=== PATIENT | male | born 1965 | race Caucasian/White ===

== ENCOUNTER 2024-12-05 03:14 | Inpatient (IN) | payer OTHER, SELFPAY ==
[2024-12-04 21:19] VITALS: BP 155/102
[2024-12-04 21:47] VITALS: BMI 44.5
[2024-12-04 22:28] LABS: ALT (SGPT) 22 U/L (0-50); AST (SGOT) 45 U/L (17-59); Albumin 3.6 g/dl (3.5-5.0); Alkaline Phosphatase 143 U/L (38-126); Blood Urea Nitrogen 16 mg/dl (9-20); Calcium 8.4 mg/dl (8.4-10.2); Carbon Dioxide 31 mmol/L (22-30); Chloride 87 mmol/L (98-107); Estimated Creatinine Clearance 114 ml/min; Glucose 131 mg/dl (70-99); Potassium 3.3 mmol/L (3.5-5.1); Sodium 129 mmol/L (135-145); Total Protein 7.8 g/dl (6.3-8.2); eGFR > 60.00
[2024-12-04 22:31] LABS: % Basophils 0.2 % (0-2); % Eosinophils 0.1 % (0-6); % Immature Granulocytes 0.7 % (0-0.5); % Lymphocytes 16.4 % (20.5-51.1); % Monocytes 6.8 % (1.7-9.3); % Neutrophils 75.8 % (42.2-75.2); Absolute Immature Granulocytes 0.1 10^3/uL (0-0.05); Absolute Lymphocytes 1.3 10^3/uL (1.2-3.4); Absolute Monocytes 0.6 10^3/uL (0.1-0.6); Absolute Neutrophils 6.1 10^3/uL (1.4-6.5); Hematocrit 39.2 % (39.0-52.0); Mean Corp Hgb Conc. 35.7 g/dL (33.0-37.0); Mean Corpuscular Hgb 33.7 pg (27.0-31.0); Mean Corpuscular Volume 94.5 fL (80.0-94.0); Mean Platelet Volume 10.4 fL (7.4-10.4); Nucleated Red Blood Cells % 0 % (-); Platelet Count 110 10^3/uL (130-400); Red Blood Cell Count 4.15 10^6/uL (4.70-6.10); Red Cell Dist. Width 18.8 % (11.5-14.5); White Blood Cell Count 8.1 10^3/uL (4.8-10.8)
--- NOTE | 2024-12-04 23:16 | ED.GENMED ---
History of Present Illness
General
Chief Complaint: Abdominal Pain
Source: patient, spouse and family
Exam Limitations: none
Time Seen by Provider: 12/04/24 23:01
Nursing documentation reviewed up to this point in time: agreed with
History of Present Illness
History of Present Illness:
59-year-old male presents emergency department complaining of abdominal distention, worsening over the past week. He also has a history of atrial fibrillation, but does not take a blood thinner. He has not seen a doctor for some time, as he does
not have health insurance.
Past History
Past History
ED Past Medical History: Arrthythmia
ED Past Surgical History: Orthopedic (Left wrist surgery)
Social History
Tobacco: Non-smoker
Alcohol: None
Drug: None
Personal:
Living: with family
Review of Systems
Review of Systems
Allergies reviewed?: Yes
All Other Systems: Not applicable
Constitutional: Reports no symptoms
EENT: Reports no symptoms
Respiratory: Reports no symptoms
Cardiac: Reports palpitations
ABD/GI: Reports other (Abdomen distended)
: Reports no symptoms
Musculoskeletal: Reports no symptoms
Skin: Reports no symptoms
Neurological: Reports weakness
Endocrine: Reports no symptoms
Hematologic/Lymphatic: Reports no symptoms
Psychiatric: Reports no symptoms
Phy Exam
Physical Exam
Physical Exam:
Physical Exam
General: Appears uncomfortable, temperature 99.4
Neck: supple. no meningeal signs. normal posterior pharynx
Heart: s1/s2 tachycardia, no murmur. equal radial
pulses.
HEENT: Pupils equal round reactive to light, EOMI
Lungs: no acute respiratory distress. clear bilaterally
Abdomen: normal bowel sounds. not tender. no CVAT, abdomen distended, testicles edematous
Neuro: alert and oriented. no focal neurological deficits cranial nerves II through XII intact
Skin: no rash
Psychiatric: well kept. interactive and cooperative
Extremities: Bilateral lower extremity edema. no calf tenderness. negative homans. good distal pulses
Course
Orders/Labs/Results
Orders:
Orders
12/04/24 21:55
Electrocardiogram (*1) Urgent
Reason for Study: Shortness of Breath
12/04/24 21:56
EKG- Treatment ONCE
12/04/24 22:03
CMP [Comprehensive Metabolic Panel] Urgent
Complete Blood Count/With Diff Urgent
12/04/24 23:13
IV Insert/Care/Rem.- Treatment PRN
12/04/24 23:16
Electrocardiogram (*1) Urgent
Reason for Study: Tachycardia
EKG- Treatment ONCE
12/04/24 23:19
CT Head W/o Iv Contrast Urgent
Comment:
Reason For Exam: confusion
12/04/24 23:24
Ammonia Urgent
PTT Urgent
Prothrombin Time Urgent
12/04/24 23:36
CT Abd/pelvis W Iv Cont Urgent
Comment:
Reason For Exam: abdominal distension
12/05/24 00:20
Lorazepam [Ativan] 0.5 mg IV NOW STA
12/05/24 00:21
Lorazepam [Ativan] 2 mg .ROUTE .STK-MED ONE
12/05/24 01:42
Potassium Chloride 10% Elixir [KCl Elixir] 40 meq PO NOW STA
12/05/24 01:43
Add On- LAB Urgent
Tests Added?: magnesium
12/05/24 01:45
0.9% Sodium Chloride 500 ml [Nss] 500 ml IV BOLUS
Abnormal Lab Results
12/04/24 12/04/24
22:03 23:24
RBC 4.15 L 10^6/uL
(4.70-6.10)
MCV 94.5 H fL
(80.0-94.0)
MCH 33.7 H pg
(27.0-31.0)
RDW 18.8 H %
(11.5-14.5)
Plt Count 110 L 10^3/uL
(130-400)
Abs Immat Gran (auto) 0.1 H 10^3/uL
(0-0.05)
Immature Gran % 0.7 H %
(0-0.5)
Neutrophils % 75.8 H %
(42.2-75.2)
Lymphocytes % 16.4 L %
(20.5-51.1)
PT 22.3 H Sec
(11.4-14.6)
APTT 48.7 H Sec
(23.4-35.0)
Sodium 129 L mmol/L
(135-145)
Potassium 3.3 L mmol/L
(3.5-5.1)
Chloride 87 L mmol/L
(98-107)
Carbon Dioxide 31 H mmol/L
(22-30)
Glucose 131 H mg/dl
(70-99)
Total Bilirubin 5.0 H mg/dl
(0.2-1.3)
Alkaline Phosphatase 143 H U/L
(38-126)
12/04/24 22:03
12/04/24 22:03
Vital Signs
Initial and Last Documented VS:
Initial Vital Signs
Temp Pulse Resp BP Pulse Ox
99.4 F 164 16 155/102 96
12/04/24 21:19 12/04/24 21:19 12/04/24 21:19 12/04/24 21:19 12/04/24 21:19
Last Documented Vital Signs
Temp Pulse Resp BP Pulse Ox
99.4 F 155 24 133/101 93
12/04/24 21:19 12/05/24 01:15 12/05/24 01:15 12/05/24 01:00 12/05/24 01:15
MDM/Problems Addressed
Differential Diagnosis Includes:
Ascites, bowel obstruction
MDM/Problems Addressed:
59-year-old male with ascites, hypokalemia, hyponatremia, jaundice, cirrhosis, esophageal and gastroesophageal varices. Replete potassium, admit to hospitalist, plan for paracentesis.
Chronic conditions affecting care: Arrhythmia
Acute Exacerbation and/or Progression of Chronic Illness: Arrhythmia
*Radiology
Radiology exam reviewed: radiology read reviewed (CT head no acute findings, previous left cerebellar infarct, CT abdomen pelvis no acute findings, cirrhosis and portal hypertension, large volume ascites, esophageal and gastroesophageal varices)
*Pulse Oximetry
Patient hypoxic: no
*EKG
Interpreted by ED Provider?: Yes
EKG Intrepretation Date: 12/04/24
EKG Intrepretation Time: 23:27
Interpretation: abnormal
Comparison EKG: changes noted
Heart Rate: 121
Rate: tachycardiac
Rhythm: sinus tachycardia
[place]: left axis deviation
Interval: normal interval
QRS Pattern: normal QRS
Ischemia: no ischemia
*[facility] Super[employer] Interpretation
Rate: tachycardiac
Interpretation: abnormal
Heart Rate: 115
Rhythm: sinus tachycardia
*Critical Care Note
Total Time (30-74mins, 75-104mins- exclusive of procedures): Not Applicable
Patient Management
Social determinants of health affecting care: Living situation, Financial situation, Poor outpatient follow-up and Strong social support
Discussion with other providers: Hospitalist
Escalation/DeEscalation of care consider admission/obs:
admit indicated
ED Attending Note
-
Portions of this chart may have been created with voice recognition software.� Occasional wrong word or��sound alike� substitutions may have occurred due to the inherent limitations of voice recognition software.
Discharge Plan
Departure
Patient Disposition: Admit
Date of Disposition: 12/05/24
Time of Disposition: 01:35
Admit to: IMU
Presentation/result/management discussed w/ accepting MD/DO: Hospitalist
Patient with high blood pressure during this ER visit?: Yes
Condition: Fair
Discharge Problem:
Abdominal ascites, Jaundice, Acute hypokalemia, Acute hyponatremia, Cirrhosis, Esophageal varices, Tachycardia
Referrals:
NONE,* [Family Provider] -
Interventions
Interventions:
*Risk Screen - Suicide Last Done: 12/04/24 21:19
*General Assessment Last Done: 12/04/24 23:12
*Neglect/Abuse Screening Last Done: 12/04/24 21:19
*ED- Fall Risk Assessment Last Done: 12/04/24 21:48
*ED COVID-19 Vaccine History Last Done: 12/04/24 21:48
YL-Otxbuz-Sgyungzacg Assessment Last Done: 12/04/24 21:50
Discharge Date and Time
Print Language: COLOMBIAN
[2024-12-04 23:53] LABS: INR 1.94; PT 22.3 Sec (11.4-14.6)
[2024-12-04 23:54] LABS: APTT 48.7 Sec (23.4-35.0)
[2024-12-04 23:57] LABS: Ammonia 17 umol/L (9-30)
[2024-12-05] VITALS (19 sets, daily range): BP systolic 109–154; BP diastolic 64–104; BMI 44.5; BMI 39.7
[2024-12-05] MEDS: ATIVAN 0.5 MG IV (00:24)
[2024-12-05] MEDS: KCL ELIXIR 40 MEQ PO (01:48)
[2024-12-05] MEDS: NSS 500 IV (01:48)
--- NOTE | 2024-12-05 02:49 | HPS.HSE ---
Family Physician
-
Family Physician: * NONE
Chief Complaint
-
Abdominal Distention
History of Present Illness
Patient is a 59y M with PMH significant for paroxysmal A-Fib who presents to ED complaining of abdominal distention. Patient states that he has not seen a physician in many years. He has noted significant abdominal distention that has been
rapidly progressive over the past month or so. Patient has also noted swelling in the feet / ankles. He feels very uncomfortable due to marked abdominal distention - but otherwise denies pain.
He denies any N/V. He reports early satiety. No bloody / black stools.
He has been having palpitations / racing heartbeat for about 2-3 weeks and feels that he is in A-Fib.
Patient reports a prior h/o alcohol use - but notes that he has been sober for about 20 years.
No prior h/o IVDA. No prior blood transfusions.
Medical History
Past Medical History
Past Medical History: Reports Other
Additional Past Medical History:
Paroxysmal Atrial Fibrillation
Salivary Gland Cyst / Tumor
Past Surgical History: Reports Other
Additional Past Surgical History:
Left Hand ORIF
Social History
Tobacco: Smoker (Current every day smoker. > 40 pack years total use.)
Alcohol: Former (Prior h/o alcohol use - sober x 20 years per patient.)
Drug: None
Personal:
Living: With Family
Family History
Family History: Other (Mother: CAD, A-Fib, Liver disease)
Allergies / Home Medications
Allergies reflects when Allergies were last updated in [facility].
Home Medications with original date entered in [employer] [employer]
Allergy/Medication List:
Allergies
Allergy/AdvReac Type Severity Reaction Status Date / Time
No Known Allergies Allergy Verified 12/04/24 21:22
Home Medications
No Meds [No Current Medications] 12/05/24
Review of Systems
-
History Source: Patient
A 12 point ROS was completed and negative except as noted: Yes
Constitutional: Reports Weight Loss (Visible / evident muscle loss in the extremities); Denies Fever or Chills
Respiratory: Reports Trouble Breathing; Denies Cough
Cardiac: Denies Chest Pain or Palpitations
Abdomen/GI: Reports Abdominal Pain and Other (Distention.); Denies Nausea, Vomiting or Diarrhea
: Denies Dysuria, Frequency or Flank Pain
Musculoskeletal: Reports Edema; Denies Joint Pain
Neurological: Denies Dizzy or Headache
Psych: Denies Depression or Anxiety
Physical Exam
Vital Signs
Vital Signs
Temp Pulse Resp BP Pulse Ox
99.4 F 155 24 133/101 93
12/04/24 21:19 12/05/24 01:15 12/05/24 01:15 12/05/24 01:00 12/05/24 01:15
Physical Exam
General: Other (59y M in no acute distress.)
HEENT: Other (MMM. L mandibular cystic lesion. Not tender.)
Respiratory: Other (Decreased at bases. Few scattered wheezes.)
Cardiac: S1/S2, Regular Rhythm and Tachycardia; No Murmur
GI: Other (Markedly distended / firm / tympanic. Pos BS.)
Musculoskeletal: Other (Some clubbing of the fingers. 4+ pitting edema b/l LEs to the knees.)
Neuro: AO x 3
Laboratory Results
-
12/04/24 22:03
12/04/24 22:03
Laboratory Results
PT 22.3 Sec (11.4-14.6) H 12/04/24 23:24
INR 1.94 12/04/24 23:24
APTT 48.7 Sec (23.4-35.0) H 12/04/24 23:24
Total Bilirubin 5.0 mg/dl (0.2-1.3) H 12/04/24 22:03
AST 45 U/L (17-59) 12/04/24 22:03
ALT 22 U/L (0-50) 12/04/24 22:03
Alkaline Phosphatase 143 U/L (38-126) H 12/04/24 22:03
Impression/Plan
-
A/P: Patient is a 59y M with PMH significant for PA-Fib who presents to ED complaining of abdominal distention.
Cirrhosis / Ascites / Varices
Hyponatremia secondary to the above
Coagulopathy secondary to the above
- Admit for further evaluation and treatment.
- CT scan done in the ED shows ascites and esophageal / gastric varices but no other significant / acute abnormality.
- MELD-Na = 25 on admission. Follow daily labs / INR / etc.
- GI evaluation for additional recommendations.
- IR eval for diagnostic / therapeutic thoracentesis - suspect patient will need albumin post-procedure based on volume of ascites.
- Empiric ceftriaxone for now pending fluid studies.
- IV PPI.
- Check viral hepatitis panels.
- Prior h/o EtOH - but not in about 20 years per patient.
- Check Echo.
- Begin diuretic therapy with Lasix and Aldactone at low doses for now - titrate as needed.
Hypokalemia
- PO potassium given in the ED.
- Follow daily labs while on spironolactone / furosemide.
Paroxysmal Atrial Fibrillation
- Patient reports prior h/o A-Fib though not on any medications at present.
- He has been having tachycardia / palpitations for about 2-3 weeks.
- EKG / tele in the ED appears to show a variable sinus tach.
- Monitor on telemetry for now.
- Follow for changes in rate with control of symptoms / discomfort / ascites.
DVT Prophylaxis: Subcut heparin
Code Status: Full
[2024-12-05] MEDS: ROCEPHIN 2000 MG IV (03:42)
[2024-12-05 05:14] LABS: TSH Reflex To Free T4 1.96 uIU/ml (0.47-4.68)
[2024-12-05 05:27] LABS: Hematocrit 32.3 % (39.0-52.0); Hemoglobin 11.6 g/dL (13.0-18.0); Mean Corp Hgb Conc. 35.9 g/dL (33.0-37.0); Mean Corpuscular Hgb 33.7 pg (27.0-31.0); Mean Corpuscular Volume 93.9 fL (80.0-94.0); Mean Platelet Volume 10.6 fL (7.4-10.4); Platelet Count 96 10^3/uL (130-400); Red Blood Cell Count 3.44 10^6/uL (4.70-6.10); Red Cell Dist. Width 18.5 % (11.5-14.5); White Blood Cell Count 9.3 10^3/uL (4.8-10.8)
[2024-12-05 05:32] LABS: INR 1.96; PT 22.4 Sec (11.4-14.6)
[2024-12-05 05:48] LABS: ALT (SGPT) 19 U/L (0-50); AST (SGOT) 41 U/L (17-59); Alkaline Phosphatase 134 U/L (38-126); Blood Urea Nitrogen 16 mg/dl (9-20); Calcium 7.9 mg/dl (8.4-10.2); Carbon Dioxide 26 mmol/L (22-30); Chloride 92 mmol/L (98-107); Direct Bilirubin 1.6 mg/dl (0.0-0.4); Estimated Creatinine Clearance > 125 ml/min; Glucose 110 mg/dl (70-99); Potassium 3.8 mmol/L (3.5-5.1); Sodium 130 mmol/L (135-145); eGFR > 60.00
--- NOTE | 2024-12-05 07:49 | CON.GI ---
Addendum entered and electronically signed by Jason Colindres DO 12/05/24 09:57:
I saw and examined the patient.
The EPIC CUPID ANALYST's note was reviewed and I agree with the detailed note.
Comment: Mr Granados is a 59 y.o male with past medical history of paroxysmal A Fib (not on a/c) and prior EtOH abuse (now sober for several years) who presented with significant abdominal distension. CT imaging revealed cirrhotic morphology of the
liver along with stigmata of portal-HTN including paraesophageal varices and significant, large volume ascites. He denies any prior history of liver disease or known cirrhosis. Etiology of decompensated cirrhosis likely secondary to prior alcohol
abuse and given new diagnosis would benefit from a both a diagnostic and therapeutic paracentesis to calculate SAAG along with ruling out SBP. Please ensure cytology has also been sent. Received one dose of IV Ceftriaxone, but would still expected
neutrophil predominance if evidence of SBP. Would hold diuretics at this time until SBP has been ruled out. Agree with obtaining TTE as well. Would benefit from an EGD as well given mention of varices on CT imaging but no other signs of bleeding. No
other obvious lesions on CT imaging but will obtain AFP as well. Will obtain viral hepatitis serologies and can pursue full serologic w/u as an outpatient. Otherwise, he is mentating appropriately without any evidence of HE or other decompensations.
Agree with the rest of care and recommendations as outlined below.
Discussed with primary internal medicine team. GI will continue to follow.
Original Note:
Consultation
-
Date/Time Consultation Requested: 12/05/24 0320
Date/Time Consultation Performed: 12/05/24 0750
Requesting Provider: Guillermo Locke DO
Performing Provider: MINI Li, Jason Colindres DO
Reason for Consultation: ascites
Medical History
Chief Complaint / HPI
Chief Complaint: abdominal swelling
History of Present Illness:
Pt is a 59yo with no recent medical care for years, hx PAF(not on anticoagulation), salivary gland tumor (chronic for years), prior ETOH use years ago (states years ago). with onset of abdominal swelling over last month. On admission noted with
hbg 14 then drop to 11. 6, platelet 110,000, Na 130, bili 5, d bili 1.6, AST 41, ALT 19, alk phos 134, Albumin 3, INR 1.94. 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
No mass seen. He denies knowledge of prior hepatitis. He denies hx IVDA but does have old tattoos.
In review with patient he states he began about 3 weeks ago with increased fluid in abdomen with weight gain, shortness of breath and periods of palpitations. He admits to abdominal pain with distention and pressure in abdomen. He denies
odynophagia, dysphagia, GERD, nausea, vomiting, diarrhea, constipation or rectal bleeding. No hx EGD or colonoscopy in past.
Past Medical History
Past Medical History: Arrhythmias (PAF) and Cancer (salivary gland tumor)
Past Surgical History: Orthopedic (left hand ORIF)
Social History
Tobacco: Smoker (5 cigarettes per day)
Alcohol: Former (admits to social ETOH years ago)
Drug: Marijuana and Other (no hx IVDA)
Personal:
Living: With Family
Employment: Not Employed
Family History
Family History: Other (mother with hx cirrhosis liver )
Allergies / Home Medications
Allergy/AdvReac Type Severity Reaction Status Date / Time
No Known Allergies Allergy Verified 12/04/24 21:22
�Medication �Instructions �Recorded
No Meds [No Current Medications] 12/05/24
Review of Systems
-
History Source: Patient
Constitutional: Reports Weight Gain
EENT: Reports No Symptoms
Respiratory: Reports Trouble Breathing
Cardiac: Reports Palpitations
Abdomen/GI: Reports Abdominal Pain
: Reports No Symptoms
Musculoskeletal: Reports No Symptoms
Neurological: Reports Weakness
Endocrine: Reports No Symptoms
Hematologic/Lymphatic: Reports No Symptoms
Vital Signs
Temp Pulse Resp BP Pulse Ox
99.4 F 114 19 129/80 94
12/04/24 21:19 12/05/24 03:15 12/05/24 03:15 12/05/24 03:00 12/05/24 05:05
Physical Exam
Exam
General: Other (chronic ill appearing )
HEENT: Normocephalic, Anicteric and Other (left neck palpable tumor )
Respiratory: Other (decreased bases )
Cardiac: Other (tachy )
GI: Soft and Distended
Musculoskeletal: No Clubbing and No Cyanosis
Skin: Warm and Dry
Neuro: Awake, Alert and AO x 3
Results
WBC 9.3 10^3/uL (4.8-10.8) 12/05/24 04:46
Hgb 11.6 g/dL (13.0-18.0) L 12/05/24 04:46
Hct 32.3 % (39.0-52.0) L 12/05/24 04:46
MCV 93.9 fL (80.0-94.0) 12/05/24 04:46
Plt Count 96 10^3/uL (130-400) L 12/05/24 04:46
Absolute Neuts (auto) 6.1 10^3/uL (1.4-6.5) 12/04/24 22:03
PT 22.4 Sec (11.4-14.6) H 12/05/24 04:45
INR 1.96 12/05/24 04:45
APTT 48.7 Sec (23.4-35.0) H 12/04/24 23:24
Sodium 130 mmol/L (135-145) L 12/05/24 04:45
Potassium 3.8 mmol/L (3.5-5.1) 12/05/24 04:45
Chloride 92 mmol/L (98-107) L 12/05/24 04:45
Carbon Dioxide 26 mmol/L (22-30) 12/05/24 04:45
BUN 16 mg/dl (9-20) 12/05/24 04:45
Creatinine 0.7 mg/dL (0.7-1.3) 12/05/24 04:45
Calcium 7.9 mg/dl (8.4-10.2) L 12/05/24 04:45
Total Bilirubin 5.0 mg/dl (0.2-1.3) H 12/05/24 04:45
AST 41 U/L (17-59) 12/05/24 04:45
ALT 19 U/L (0-50) 12/05/24 04:45
Alkaline Phosphatase 134 U/L (38-126) H 12/05/24 04:45
Diagnostic Image Results:
12/04/24 CT Abd/pelvis W Iv Cont
1. Large volume intraperitoneal ascites.
2. Findings consistent with hepatic cirrhosis.
3. 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
Prior GI Procedures:
EGD: none
Colonoscopy: none
Assessment / Plan
-
Pt is a 59yo with no recent medical care fo years hx PAF (not on anticoagulation), chronic salivary gland tumor with onset of abdominal swelling over last month. On admission noted with hbg 14 then drop to 11. 6, platelet 110,000, Na 129, K 3.3,
bili 5, d bili 1.6, AST 41, ALT 19, alk phos 134, albumin 3, INR 1.94. 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 No mass seen. He denies knowledge of prior
hepatitis. He denies hx IVDA but does have old tattoos.
-new onset ascites
-concern for decompensated cirrhosis
-tachycardia
-increased LFT's
-thrombocytopenia
-coagulopathy
-hyponatremia
-hx ETOH abuse
-hypoalbuminemia
-hypokalemia - improved
other med problems:
-hx PAF
-salivary gland tumor- chronic per patient
PLAN:
Etiology of ascites with concern for underlying liver cirrhosis with decompensation vs cardiac vs other
if liver related etiology related to prior ETOH, vs other -- hepatitis pending will need further liver serology work up
pt currently with marked distention with persistent tachycardia
s/p echo await results
agree with para to calculate SAAG, r/o ascites and echo--staff to call with volume for albumin replacement post tap
MELD 3.0- 23, MELD na 25 based on admission labs
hold antibiotics for now pending fluid studies to eval for SBP
started on Lasix 20mg BID and Spironolactone 12.5mg BID by admission MD -- will need titration
CT as noted
will add AFP tumor marker
will need eventual EGD for variceal screening and colonoscopy for colon CA screening
ETOH abstinence and avoid hepatotoxic medication
good nutrition-- currently NPO with marked distention -- ok for 2 gram Na diet after para with suppelment daily
I reviewed with IR to expedite para as noted with significant tachycardia this am
-
-
Thank you for consultation and allowing me to participate in the patient's care. Please call the specimen preparation assistant GI physician during the after hours with any questions or concerns.
[2024-12-05] MEDS: LASIX 20 MG IV (07:57)
[2024-12-05] MEDS: HEPARIN 5000 UNITS SC ×2 (07:59→20:02)
[2024-12-05] MEDS: NSS (PRESERVATIVE FREE) 10 ML IV ×2 (08:00→20:04)
[2024-12-05] MEDS: PROTONIX IV 40 MG IV ×2 (08:00→20:04)
--- NOTE | 2024-12-05 08:01 | W.PN.HOSP.TC ---
Today's Communication/Plan
-
see A/P
Assessment / Plan
Assessment / Plan
59 yo M with PMH significant for paroxysmal A-Fib who presented to ED complaining of abdominal distention. Patient states that he has not seen a physician in many years. He has noted significant abdominal distention that has been rapidly
progressive over the past month or so. Patient has also noted swelling in the feet / ankles. He feels very uncomfortable due to marked abdominal distention - but otherwise denies pain.
He denies N/V. He reports early satiety. No bloody / black stools.
He has been having palpitations / racing heartbeat for about 2-3 weeks and feels that he is in A-Fib.
Patient reports a prior h/o alcohol use - but notes that he has been sober for about 20 years.
No prior h/o IVDA. No prior blood transfusions.
A/P:
# Cirrhosis / Ascites / Varices
# Decompensated liver failure, unclear cause
# Hyponatremia secondary to the above
# Coagulopathy secondary to the above
# Prior h/o EtOH - but not in about 20 [address] scan done in the ED showed ascites and esophageal / gastric varices but no other significant / acute abnormality. Follow formal report.
MELD-Na = 25 on admission. Follow daily labs / INR / etc.
GI evaluation for additional recommendations.
IR eval for diagnostic / therapeutic thoracentesis - suspect patient will need albumin post-procedure based on volume of ascites.
Pt already received empiric ceftriaxone x1 dose from admission
IV PPI.
Check viral hepatitis panels.
Check Echo.
Begin diuretic therapy with Lasix and Aldactone at low doses for now, both with holding parameters- titrate as needed.
# Hypokalemia
s/p PO potassium repletion and resolved
Follow daily labs while on spironolactone / furosemide.
# Paroxysmal Atrial Fibrillation
Patient reports prior h/o A-Fib though not on any medications at present.
He has been having tachycardia / palpitations for about 2-3 weeks.
EKG / tele in the ED appears to show a variable sinus tach.
Monitor on telemetry for now.
Follow for changes in rate with control of symptoms / discomfort / ascites.
DVT Prophylaxis: Subcut heparin
Code Status: Full
total time 51 min
Anticipated Discharge: > 48 hours
Subjective/Interval History
-
Date of Service: December 05, 2024
Objective Data
-
Labs:
Laboratory Results
12/04/24 12/04/24 12/05/24
22:03 23:24 04:45
WBC 8.1
Hgb 14.0
Hct 39.2
Plt Count 110 L
PT 22.3 H 22.4 H
INR 1.94 1.96
APTT 48.7 H
Sodium 129 L 130 L
Potassium 3.3 L 3.8
Chloride 87 L 92 L
Carbon Dioxide 31 H 26
BUN 16 16
Creatinine 0.9 0.7
Glucose 131 H 110 H
Calcium 8.4 7.9 L
Total Bilirubin 5.0 H 5.0 H
AST 45 41
ALT 22 19
Alkaline Phosphatase 143 H 134 H
12/05/24
04:46
WBC 9.3
Hgb 11.6 L
Hct 32.3 L
Plt Count 96 L
PT
INR
APTT
Sodium
Potassium
Chloride
Carbon Dioxide
BUN
Creatinine
Glucose
Calcium
Total Bilirubin
AST
ALT
Alkaline Phosphatase
Vital Signs:
Vital Signs
Temp Pulse Resp BP Pulse Ox
37.4 C 108 19 123/83 94
12/04/24 21:19 12/05/24 07:45 12/05/24 07:45 12/05/24 04:00 12/05/24 07:45
Review of Systems
-
Abdomen/GI: Reports Other (abdominal distension )
Physical Exam
-
General: Well Developed, Well Nourished, No Apparent Distress, Comfortable and Conversant; Negative Respiratory Distress
HEENT: Normocephalic, Atraumatic, Nose Appears Normal and Ears Appear Normal; Negative Oxygen
Respiratory: Clear to Auscultation and Non Labored Respirations; Negative Accessory Resp Muscle Use
Cardiac: Regular Rhythm and S1/S2
GI: Nontender and Distended (significantly distended)
Skin: Warm and Dry
Neuro: Awake, Alert, Oriented and AO x 3
Psych: Calm and Intact Judgement/Insight
Data Reviewed
-
Labs: Labs Reviewed by me
[2024-12-05 09:11] LABS: Glycohemoglobin (HgbA1c) 4.4 % (4.0-5.6)
[2024-12-05] MEDS: ALDACTONE 12.5 MG PO ×2 (09:13→20:01)
--- NOTE | 2024-12-05 10:59 | CM ---
chart reviewed and Cm spoke to patient. He is admitted with ascites. He asks CM to call . Cm spoke to . SHe reports that she,kt and dgiván live in apartment with 3 steps in. said they are being evicted but she has contacted .
[employer] [facility] who gave her an advocate to fight the eviction. Patient does not have regular job due to arthritis per . 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
Prior to start of this illness patient was independent.
NO DME, no history of VNA or SNF.
said patient has not gone onto [facility] or any other website to apply for Medical insurance.
Patient has no PCP.
Pharmacy: [facility].
[facility].
tearful over 's illness and their impending eviction.
CM To follow for discharge needs.
--- NOTE | 2024-12-05 14:10 | W.PN.UPDATE ---
Update Note
Progress Note Update
reviewed with IR. Drained 10 liters from para and stopped. With boarderline Na 129 yesterday and 130 today with large volume tap will give albumin replacement per protocol.
--- NOTE | 2024-12-05 14:28 | PTCARENOTE ---
Pt returned from paracentesis after 10L removal. Sinus tach, HR 100s - 140s. BP 125/81. New order for total dose of Albumin 62.5 grams IV.
[2024-12-05 14:36] LABS: Body Fluid Albumin < 1.0 g/dl; Body Fluid LDH 107 U/L; Body Fluid Protein < 2.0 g/dl
[2024-12-05 14:37] LABS: Body Fluid Mononuclear 96 %; Body Fluid Polymorphonuclear 4 %; Body Fluid WBC 99 /CUMM
[2024-12-05 14:42] LABS: Body Fluid Second Tech HB
[2024-12-05] MEDS: FLEXBUMIN 50 IV (15:41)
[2024-12-05] MEDS: FLEXBUMIN 100 IV ×2 (17:14→20:02)
[2024-12-05] MEDS: LASIX IV (17:14)
[2024-12-05] MEDS: TYLENOL 650 MG PO (20:25)
[2024-12-05 23:12] LABS: Blood Urea Nitrogen 16 mg/dl (9-20); Carbon Dioxide 31 mmol/L (22-30); Chloride 92 mmol/L (98-107); Estimated Creatinine Clearance 120 ml/min; Glucose 119 mg/dl (70-99); Magnesium 1.9 mg/dl (1.6-2.3); Potassium 3.4 mmol/L (3.5-5.1); Sodium 129 mmol/L (135-145); eGFR > 60.00
[2024-12-05] MEDS: DILAUDID 0.5 MG IV (23:18)
[2024-12-05] MEDS: KCL 270 MEQ IV (23:26)
[2024-12-06] VITALS (7 sets, daily range): BP systolic 109–139; BP diastolic 66–89; PULSE 103; O2SAT 99; BMI 39.9
--- NOTE | 2024-12-06 00:45 | PTCARENOTE ---
[facility] Provider, Arthur Crisostomo, that pt's HR sustaining in the 130s. Advised to obtain vital signs and STAT labs. Both obtained. Pt endorses feeling like his heart is racing, and also that his pain is still 8/10 s/p tylenol. K= 3.4,
IV repletion ordered and infusing through R PIV. 0.5mg IV dilaudid administered for pain. Pt now resting comfortably with HR 102.
--- NOTE | 2024-12-06 04:30 | DOWNTIME ---
There was a [employer] Client Reservations Sales Supervisor Downtime on 12/06/2024 from 0200 to 12/07/2023 at 0318 . Downtime documentation of patient's care, including medication administrations, has been reconciled in the electronic record per guidelines. Refer to the
patient's paper chart under the miscellaneous tab to see printed paper medication records and downtime forms.
[2024-12-06 08:43] LABS: Hematocrit 31.2 % (39.0-52.0); Hemoglobin 11.1 g/dL (13.0-18.0); Mean Corp Hgb Conc. 35.6 g/dL (33.0-37.0); Mean Corpuscular Hgb 33.7 pg (27.0-31.0); Mean Corpuscular Volume 94.8 fL (80.0-94.0); Mean Platelet Volume 11.2 fL (7.4-10.4); Platelet Count 82 10^3/uL (130-400); Red Blood Cell Count 3.29 10^6/uL (4.70-6.10); Red Cell Dist. Width 18.9 % (11.5-14.5); White Blood Cell Count 6.4 10^3/uL (4.8-10.8)
[2024-12-06 08:49] LABS: INR 1.92; PT 22.4 Sec (11.4-14.6)
[2024-12-06] MEDS: LASIX 20 MG IV ×2 (09:29→17:20)
[2024-12-06] MEDS: NSS (PRESERVATIVE FREE) 10 ML IV ×2 (09:29→21:29)
[2024-12-06] MEDS: PROTONIX IV 40 MG IV ×2 (09:29→21:30)
[2024-12-06] MEDS: ALDACTONE 12.5 MG PO ×2 (09:29→21:30)
[2024-12-06] MEDS: HEPARIN 5000 UNITS SC ×2 (09:30→21:30)
--- NOTE | 2024-12-06 09:40 | W.PN.GI.CBS2 ---
Addendum entered and electronically signed by Jason Colindres DO 12/06/24 14:10:
I saw and examined the patient.
The REHABILITATION ATTENDANT's note was reviewed and I agree with the note.
Comment: Mr Granados is a 59 y.o male with past medical history of paroxysmal A Fib (not on a/c) and prior EtOH abuse (now sober for several years) who presented with significant abdominal distension found to have large volume ascites. CT imaging
revealed cirrhotic morphology of the liver along with stigmata of portal-HTN including paraesophageal varices and significant, large volume ascites. He denies any prior history of liver disease or known cirrhosis in the past. Etiology of
decompensated cirrhosis likely secondary to prior longstanding alcohol abuse. Recent paracentesis from 12/05 reveling high SAAG, low protein in keeping with portal-HTN secondary to cirrhosis with (-) 10 L removed and (-) for SBP. TTE unrevealing with
an EF of 75% without RWA. Patient still significantly distended on exam and would benefit from a repeat paracentesis as well along with slow uptitration of diuretics as tolerated with close monitoring of renal function as not to precipitate
paracentesis-induced circulatory dysfunction (PICD). Hepatitis serologies pending and agree with sending full serologic work-up this admission. Will additionally obtain a Doppler US after repeat paracentesis as hepatic vasculature was not well
opacified on CT imaging to definitely r/o PVT. Would obtain after repeat para as would still be limited given his significant ascites. Consider EGD for variceal screening given varices seen on CT imaging versus outpatient as patient would benefit
from a colonoscopy as well. Continue to trend MELD 3.0 labs once daily while inpatient and will start to coordinate close outpatient follow-up with our GI office. Continue strict EtOH cessation and favor obtaining PETH level as well. Agree with rest
of ongoing care and recommendations as outlined below.
Discussed with primary internal medicine team. GI will continue to follow.
paracentesis-induced circulatory dysfunction (PICD)
Original Note:
Today's Communication / Plan
-
Etiology of ascites with concern for underlying liver cirrhosis with decompensation---- SAAG 2.1 with low protein c/w cirrhosis
if liver related etiology related to prior ETOH, vs other -
hepatitis pending- will add further liver serologies
echo stable
s/p para stopped at 10 liter with albumin replacement give
if stable consider repeat para in AM -- may need 1-2 more taps prior to discharge
started on Lasix 20mg BID and Spironolactone 12.5mg BID by admission MD -- will need titration
APF pending
will need eventual EGD for variceal screening and colonoscopy for colon CA screening
ETOH abstinence and avoid hepatotoxic medication
good nutrition- cholesterol lowering-- will add 2 gram na to diet and add supplement daily
no prior GI care-- will need OP follow up set up on discharge
Assessment / Plan
-
Pt is a 59yo with no recent medical care fo years hx PAF (not on anticoagulation), chronic salivary gland tumor with onset of abdominal swelling over last month. On admission noted with hbg 14 then drop to 11. 6, platelet 110,000, Na 129, K 3.3,
bili 5, d bili 1.6, AST 41, ALT 19, alk phos 134, albumin 3, INR 1.94. 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 No mass seen. He denies knowledge of prior
hepatitis. He denies hx IVDA but does have old tattoos.
12/05 para stopped at 10 liters neg SBP , SAAG 2.1 with low protein c/w cirrhosis
12/05-- echo Left ventricular ejection fraction is >75%, by visual assessment. Normal regional wall motion. Normal right ventricular size and function. Trileaflet aortic valve with focal thickening. Aortic sclerosis without stenosis.
-new onset ascites
-concern for decompensated cirrhosis
-tachycardia- improving
-increased LFT's
-thrombocytopenia
-coagulopathy
-hyponatremia
-hx ETOH abuse
-hypoalbuminemia
-hypokalemia
other med problems:
-hx PAF
-salivary gland tumor- chronic per patient
PLAN:
Etiology of ascites with concern for underlying liver cirrhosis with decompensation---- SAAG 2.1 with low protein c/w cirrhosis
if liver related etiology related to prior ETOH, vs other -
hepatitis pending- will add further liver serologies
echo stable
s/p para stopped at 10 liter with albumin replacement give
if stable consider repeat para in AM -- may need 1-2 more taps prior to discharge
started on Lasix 20mg BID and Spironolactone 12.5mg BID by admission MD -- will need titration
APF pending
will need eventual EGD for variceal screening and colonoscopy for colon CA screening
ETOH abstinence and avoid hepatotoxic medication
good nutrition- cholesterol lowering-- will add 2 gram na to diet and add supplement daily
no prior GI care-- will need OP follow up set up on discharge
Subjective
Subjective
Date of Service: December 06, 2024
cholesterol lowering diet, no stools
Objective
Data Reviewed
Laboratory Data:
Laboratory Results
12/06/24 06:37
Laboratory Results
PT 22.4 Sec (11.4-14.6) H 12/06/24 06:37
INR 1.92 12/06/24 06:37
APTT 48.7 Sec (23.4-35.0) H 12/04/24 23:24
Magnesium 1.9 mg/dl (1.6-2.3) 12/05/24 22:50
Total Bilirubin 5.0 mg/dl (0.2-1.3) H 12/05/24 04:45
AST 41 U/L (17-59) 12/05/24 04:45
ALT 19 U/L (0-50) 12/05/24 04:45
Alkaline Phosphatase 134 U/L (38-126) H 12/05/24 04:45
Vital Signs and I&O:
Vital Signs
Temp Pulse Resp BP Pulse Ox
97.8 F 93 18 109/67 96
12/06/24 07:00 12/06/24 09:29 12/06/24 07:00 12/06/24 09:29 12/06/24 07:00
I&O
12/05/24 12/06/24 12/07/24
06:59 06:59 06:59
Intake Total 300 / 300
Balance 300 / 300
Physical Exam
Physical Exam
HEENT: Anicteric and Moist mucous membranes
Cardiology: Normal Sinus Rhythm
Pulmonary: Other (decreased bases )
GI: Soft, Distended and Non Tender
Extremities: Edema
Neuro: Non Focal
[2024-12-06 10:02] LABS: ALT (SGPT) 15 U/L (0-50); AST (SGOT) 32 U/L (17-59); Albumin 3.2 g/dl (3.5-5.0); Alkaline Phosphatase 113 U/L (38-126); Blood Urea Nitrogen 16 mg/dl (9-20); Calcium 7.7 mg/dl (8.4-10.2); Carbon Dioxide 28 mmol/L (22-30); Chloride 93 mmol/L (98-107); Estimated Creatinine Clearance 121 ml/min; Glucose 78 mg/dl (70-99); Magnesium 1.9 mg/dl (1.6-2.3); Potassium 3.4 mmol/L (3.5-5.1); Sodium 130 mmol/L (135-145); Total Bilirubin 4.2 mg/dl (0.2-1.3); Total Protein 6.4 g/dl (6.3-8.2); eGFR > 60.00
--- NOTE | 2024-12-06 10:38 | W.PN.HOSP.TC ---
Today's Communication/Plan
-
see A/P
Assessment / Plan
Assessment / Plan
59 yo M with PMH significant for paroxysmal A-Fib who presented to ED complaining of abdominal distention. Patient states that he has not seen a physician in many years. He has noted significant abdominal distention that has been rapidly
progressive over the past month or so. Patient has also noted swelling in the feet / ankles. He feels very uncomfortable due to marked abdominal distention - but otherwise denies pain.
He denies N/V. He reports early satiety. No bloody / black stools.
He has been having palpitations / racing heartbeat for about 2-3 weeks and feels that he is in A-Fib.
Patient reports a prior h/o alcohol use - but notes that he has been sober for about 20 years.
No prior h/o IVDA. No prior blood transfusions.
A/P:
# Cirrhosis / Ascites / Varices, due to Decompensated liver failure, unclear cause
# Hyponatremia secondary to the above
# Coagulopathy secondary to the above
# Prior h/o EtOH - but not in about 20 years per patient.
CT scan done in the ED showed ascites and esophageal / gastric varices but no other significant / acute abnormality. Follow formal report.
MELD-Na = 25 on admission. Follow daily labs / INR / etc.
s/p large volume paracentesis 12/05, 10 L removed, negative for SBP
s/p Albumin following large volume para.
Still with significant ascites, pt may need repeat para 12/07
Of note, echo unrevealing: EF75%. Normal regional wall motion.
GI on board. Possible EGD
Cont IV PPI BID.
Follow viral hepatitis panels.
Started diuretic therapy with Lasix and Aldactone at low doses for now, both with holding parameters- titrate as needed.
Started low dose Dilaudid for pain control, would limit the use of narcotic
# Hypokalemia
replete
Follow daily labs while on spironolactone / furosemide.
# Paroxysmal Atrial Fibrillation
Patient reports prior h/o A-Fib though not on any medications at present.
He has been having tachycardia / palpitations for about 2-3 weeks.
EKG / tele in the ED appears to show a variable sinus tach.
Monitor on telemetry for now.
Follow for changes in rate with control of symptoms / discomfort / ascites.
# R facial/jaw cyst
DVT Prophylaxis: Subcut heparin
Code Status: Full
DW RN
Anticipated Discharge: > 48 hours
Subjective/Interval History
-
Date of Service: December 06, 2024
Objective Data
-
Labs:
Laboratory Results
12/05/24 12/06/24
22:50 06:37
WBC 6.4
Hgb 11.1 L
Hct 31.2 L
Plt Count 82 L
PT 22.4 H
INR 1.92
Sodium 129 L 130 L
Potassium 3.4 L 3.4 L
Chloride 92 L 93 L
Carbon Dioxide 31 H 28
BUN 16 16
Creatinine 0.8 0.8
Glucose 119 H 78
Calcium 8.0 L 7.7 L
Total Bilirubin 4.2 H
AST 32
ALT 15
Alkaline Phosphatase 113
Vital Signs:
Vital Signs
Temp Pulse Resp BP Pulse Ox
36.6 C 93 18 109/67 96
12/06/24 07:00 12/06/24 09:29 12/06/24 07:00 12/06/24 09:29 12/06/24 07:00
I&O
12/05/24 12/06/24 12/07/24
06:59 06:59 06:59
Intake Total 300 / 300
Balance 300 / 300
Review of Systems
-
Abdomen/GI: Reports Other (abdominal pain)
Physical Exam
-
General: Well Developed, Well Nourished, No Apparent Distress, Comfortable and Conversant; Negative Respiratory Distress
HEENT: Normocephalic, Atraumatic, Nose Appears Normal, Ears Appear Normal and Other (L facial/jaw chronic cyst); Negative Oxygen
Respiratory: Clear to Auscultation and Non Labored Respirations; Negative Accessory Resp Muscle Use
Cardiac: Regular Rhythm and S1/S2
GI: Soft, Nontender, Normal Bowel Sounds and Distended (significantly distended)
Skin: Warm and Dry
Neuro: Awake, Alert, Oriented and AO x 3
Psych: Calm and Intact Judgement/Insight
Data Reviewed
-
Labs: Labs Reviewed by me
[2024-12-06] MEDS: DILAUDID 0.25 MG IV ×3 (11:20→21:29)
[2024-12-06] MEDS: KCL 270 MEQ IV (11:20)
--- NOTE | 2024-12-06 15:13 | W.PN.UPDATE ---
Update Note
Progress Note Update
I updated and daughter and disease process and concern for end stage liver disease. Support given. Discussed need to monitor for mental status changes, worsening abd distention and bleeding. I have set up follow up appt for 12/21 at 12:45pm
with Robyn Garcia and Dr. Colindres in office. All questions answered. Pt also states last ETOH was in his 20-30's. He has hx elevated cholesterol in past can consider OP WALE-D testing. Will check lipid panel. Mother with hx Cirrhosis without prior
ETOH use. Support given. I also discussed with importance of getting insurance plan and need for hepatology follow up. Given Dr. Hidalgo and Dr. Zuñiga contact for hepatology scheduling.
[2024-12-06 15:54] LABS: Alcohol None Detected
[2024-12-06 18:36] LABS: Hepatitis A IgM Antibody Negative (Negative); Hepatitis B Core Ab, IgM Negative (Negative)
--- NOTE | 2024-12-06 19:30 | PTCARENOTE ---
Patient to have abdominal ultrasound tomorrow morning, needs to be NPO at midnight. Placed order per protocol.
[2024-12-06 21:11] LABS: AFP Male/Tumor Marker 4.97 ng/ml
[2024-12-06 21:15] LABS: Hepatitis B Surface Antigen Negative (Negative)
[2024-12-06 22:13] LABS: Amphetamines Negative (Negative); Barbiturates Negative (Negative); Benzodiazepines Negative (Negative); Buprenorphine Negative (Negative); Cocaine Negative (Negative); Marijuana Negative (Negative); Methadone Negative (Negative); Methamphetamines Negative (Negative); Opiates Positive (Negative); Phencyclidine Negative (Negative); Tricyclic Antidepressants Negative (Negative)
[2024-12-06 22:27] LABS: Fentanyl, Urine Negative (Negative)
[2024-12-07] VITALS (12 sets, daily range): BP systolic 90–148; BP diastolic 63–82; BMI 40.1
[2024-12-07] MEDS: DILAUDID 0.25 MG IV ×4 (03:29→20:41)
[2024-12-07 06:15] LABS: Hepatitis B Surface Antibody Positive; Hepatitis C Antibody Negative (Negative)
[2024-12-07] MEDS: HEPARIN 5000 UNITS SC ×2 (09:16→20:17)
[2024-12-07] MEDS: ALDACTONE 12.5 MG PO (09:18)
--- NOTE | 2024-12-07 09:30 | W.PN.GI.CBS2 ---
Today's Communication / Plan
-
doppler us, para, changing diuretics, monitor kidney function
Assessment / Plan
-
Pt is a 59yo with no recent medical care fo years hx PAF (not on anticoagulation), chronic salivary gland tumor with onset of abdominal swelling over last month. On admission noted with hbg 14 then drop to 11. 6, platelet 110,000, Na 129, K 3.3,
bili 5, d bili 1.6, AST 41, ALT 19, alk phos 134, albumin 3, INR 1.94. 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 No mass seen. He denies knowledge of prior
hepatitis. He denies hx IVDA but does have old tattoos.
12/05 para stopped at 10 liters neg SBP , SAAG 2.1 with low protein c/w cirrhosis
12/05-- echo Left ventricular ejection fraction is >75%, by visual assessment. Normal regional wall motion. Normal right ventricular size and function. Trileaflet aortic valve with focal thickening. Aortic sclerosis without stenosis.
-new onset ascites
-concern for decompensated cirrhosis
-tachycardia- improving
-increased LFT's
-thrombocytopenia
-coagulopathy
-hyponatremia
-hx ETOH abuse
-hypoalbuminemia
-hypokalemia
other med problems:
-hx PAF
-salivary gland tumor- chronic per patient
PLAN:
Etiology of ascites with concern for underlying liver cirrhosis with decompensation---- SAAG 2.1 with low protein c/w cirrhosis
liver work up pending; AFP normal
echo stable
doppler US pending
plan for repeat para today pending bloodwork
if needed can do another para next week outpatient
his dosing of his diuretics are atypical - currently getting 40 IV lasix and 25 aldactone po - will switch to lasix 40 mg po and aldactone 100 mg po\\
will need repeat BMP in 1 week if discharged
outpatient EGD for variceal screening and colonoscopy for colon CA screening
ETOH abstinence and avoid hepatotoxic medication
good nutrition- cholesterol lowering-- will add 2 gram na to diet and add supplement daily
has gi follow up scheduled 12/21
Pt asking about discharge will see how he does after repeat para today
discussed with Dr. Vazquez
Subjective
Subjective
Date of Service: December 07, 2024
abd distension ongoing but better since first para
Objective
Data Reviewed
Laboratory Data:
Laboratory Results
PT 22.4 Sec (11.4-14.6) H 12/06/24 06:37
INR 1.92 12/06/24 06:37
APTT 48.7 Sec (23.4-35.0) H 12/04/24 23:24
Magnesium 1.9 mg/dl (1.6-2.3) 12/06/24 06:37
Total Bilirubin 4.2 mg/dl (0.2-1.3) H 12/06/24 06:37
AST 32 U/L (17-59) 12/06/24 06:37
ALT 15 U/L (0-50) 12/06/24 06:37
Alkaline Phosphatase 113 U/L (38-126) 12/06/24 06:37
Vital Signs and I&O:
Vital Signs
Temp Pulse Resp BP Pulse Ox
97.9 F 102 18 130/81 98
12/07/24 07:00 12/07/24 09:18 12/07/24 07:00 12/07/24 09:18 12/07/24 07:00
I&O
12/06/24 12/07/24 12/08/24
06:59 06:59 06:59
Intake Total 300 / 300 960 / 960
Output Total 100 / 100
Balance 300 / 300 860 / 860
Physical Exam
Physical Exam
GI: Distended and Non Tender
[2024-12-07] MEDS: LASIX 40 MG PO (10:02)
[2024-12-07] MEDS: ALDACTONE 75 MG PO (10:04)
[2024-12-07] MEDS: NSS (PRESERVATIVE FREE) 10 ML IV ×2 (10:05→20:21)
[2024-12-07] MEDS: PROTONIX IV 40 MG IV ×2 (10:05→20:21)
[2024-12-07] MEDS: LASIX IV (10:08)
[2024-12-07 10:09] LABS: INR 1.59; PT 19.2 Sec (11.4-14.6)
[2024-12-07 10:16] LABS: Hematocrit 33.4 % (39.0-52.0); Hemoglobin 11.9 g/dL (13.0-18.0); Mean Corp Hgb Conc. 35.6 g/dL (33.0-37.0); Mean Corpuscular Hgb 33.6 pg (27.0-31.0); Mean Corpuscular Volume 94.4 fL (80.0-94.0); Platelet Count 86 10^3/uL (130-400); Red Blood Cell Count 3.54 10^6/uL (4.70-6.10); Red Cell Dist. Width 18.6 % (11.5-14.5); White Blood Cell Count 6.5 10^3/uL (4.8-10.8)
[2024-12-07 10:19] LABS: ALT (SGPT) 19 U/L (0-50); AST (SGOT) 39 U/L (17-59); Alkaline Phosphatase 141 U/L (38-126); Blood Urea Nitrogen 15 mg/dl (9-20); Calcium 7.9 mg/dl (8.4-10.2); Carbon Dioxide 30 mmol/L (22-30); Chloride 94 mmol/L (98-107); Estimated Creatinine Clearance 121 ml/min; Glucose 92 mg/dl (70-99); HDL Cholesterol 23 mg/dl; Iron 58 ug/dl (49-181); LDL Cholesterol, Calculated 37 mg/dl; Potassium 3.3 mmol/L (3.5-5.1); Sodium 131 mmol/L (135-145); Total Bilirubin 4.5 mg/dl (0.2-1.3); Total Cholesterol 71 mg/dl (50-199); Total Protein 6.5 g/dl (6.3-8.2); Triglyceride 57 mg/dl (10-149); Very Low Density Lipoprotein 11 mg/dl (0-30); eGFR > 60.00
[2024-12-07 10:29] LABS: Percent Saturation 34 % (20-50); Total Iron Binding Capacity 168 ug/dl (261-462)
[2024-12-07 14:37] LABS: Body Fluid Albumin < 1.0 g/dl; Body Fluid Protein < 2.0 g/dl
[2024-12-07 14:42] LABS: Body Fluid Mononuclear 90.1 %; Body Fluid Polymorphonuclear 9.9 %; Body Fluid WBC 121 /CUMM
[2024-12-07 14:43] LABS: Body Fluid Second Tech EM
--- NOTE | 2024-12-07 15:07 | W.PN.UPDATE ---
Addendum entered and electronically signed by Apolinar Green MD 12/07/24 16:45:
Also noted thrombosis of PV
Would hold off on AC for now
Will likely need EGD prior to assess risk for AC
Will also review with hepatology
Original Note:
Update Note
Progress Note Update
Patient does not have health insurance so unable to have paracentesis outpatient. Over 10 L removed today and on discussion with interventional radiology he does have additional fluid to remove. We have ordered albumin for him. Therefore, I
unfortunately think he does need to stay in the hospital so we can repeat his paracentesis on Tuesday. Rachel my nurse practitioner has discussed both with the hospitalist and the patient.Social work is working on helping him with insurance.
[2024-12-07] MEDS: FLEXBUMIN 100 IV ×2 (15:32→20:10)
--- NOTE | 2024-12-07 17:53 | W.PN.HOSP.TC ---
Today's Communication/Plan
-
K supplement
Assessment / Plan
Assessment / Plan
59 yo M with PMH significant for paroxysmal A-Fib who presented to ED complaining of abdominal distention. Patient states that he has not seen a physician in many years. He has noted significant abdominal distention that has been rapidly
progressive over the past month or so. Patient has also noted swelling in the feet / ankles. He felt very uncomfortable due to marked abdominal distention at time of admission - but otherwise denies pain.
He denies N/V. He reports early satiety. No bloody / black stools.
He has been having palpitations / racing heartbeat for about 2-3 weeks and feels that he is in A-Fib.
Patient reports a prior h/o alcohol use - but notes that he has been sober for about 20+ years. Which is confirmed by
No prior h/o IVDA. No prior blood transfusions.
A/P:
# Cirrhosis / Ascites / Varices, due to Decompensated liver failure, unclear cause
# Hyponatremia secondary to the above
# Coagulopathy secondary to the above
# Prior h/o EtOH - but not in about 20+ years per patient.
CT scan done in the ED showed ascites and esophageal / gastric varices but no other significant / acute abnormality.
1. Large volume intraperitoneal ascites.
2. Findings consistent with hepatic cirrhosis.
3. 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
MELD-Na = 25 on admission. Follow daily labs / INR 01/06 1.59 / etc.
s/p large volume paracentesis 12/05, 10 L removed, negative for SBP 12/07 10 L removed
s/p Albumin following large volume para.
Of note, echo unrevealing: EF75%. Normal regional wall motion.
GI on board. Possible EGD
Cont IV PPI BID.
Follow viral hepatitis panels.
Started diuretic therapy with Lasix and Aldactone at low doses for now, both with holding parameters- titrate as needed.
Started low dose Dilaudid for pain control, would limit the use of narcotic
repeat Paracentesis on 12/10
consider liver bx unless lab studies delineate etiology of cirrhosis
# Hypokalemia
replete
Follow daily labs while on spironolactone / furosemide.
12/07 3.3
# Paroxysmal Atrial Fibrillation
Patient reports prior h/o A-Fib though not on any medications at present.
He has been having tachycardia / palpitations for about 2-3 weeks.
EKG / tele in the ED appears to show a variable sinus tach.
Monitor on telemetry for now.
Follow for changes in rate with control of symptoms / discomfort / ascites.
# R facial/jaw cyst
DVT Prophylaxis: Subcut heparin
Code Status: Full
reviewed with outside of room
Anticipated Discharge: > 48 hours
Subjective/Interval History
-
Date of Service: December 07, 2024
Breathing better
Objective Data
-
Labs:
Laboratory Results
12/07/24 12/07/24
09:39 09:40
WBC 6.5
Hgb 11.9 L
Hct 33.4 L
Plt Count 86 L
PT 19.2 H
INR 1.59
Sodium 131 L
Potassium 3.3 L
Chloride 94 L
Carbon Dioxide 30
BUN 15
Creatinine 0.8
Glucose 92
Calcium 7.9 L
Total Bilirubin 4.5 H
AST 39
ALT 19
Alkaline Phosphatase 141 H
Vital Signs:
Vital Signs
Temp Pulse Resp BP Pulse Ox
98.5 F 95 20 111/69 100
12/07/24 17:00 12/07/24 17:00 12/07/24 17:00 12/07/24 17:00 12/07/24 17:00
I&O
12/06/24 12/07/24 12/08/24
06:59 06:59 06:59
Intake Total 300 / 300 960 / 960
Output Total 100 / 100
Balance 300 / 300 860 / 860
Review of Systems
-
History Source: Patient and Family (reviewed with )
Constitutional: Denies Fever
EENT: Reports No Symptoms Reported
Respiratory: Reports Trouble Breathing (better)
Cardiac: Reports No Symptoms
Abdomen/GI: Reports Other (ascites)
Physical Exam
-
General: Well Developed, Well Nourished and No Apparent Distress
HEENT: Normocephalic, Atraumatic and Moist Mucous Membranes
Respiratory: Clear to Auscultation; Negative Wheezes, Rales or Rhonchi
Cardiac: Regular Rhythm and S1/S2
GI: Soft and Other (ascites)
Musculoskeletal: No Clubbing and No Cyanosis; Negative No Edema (1+)
[2024-12-07] MEDS: KCL 20 MEQ PO (20:20)
[2024-12-07] MEDS: FLUSH (NSS) 1 FLUSH IV ×2 (20:42→22:07)
[2024-12-07] MEDS: FLEXBUMIN 50 IV (22:06)
[2024-12-08] VITALS (7 sets, daily range): BP systolic 111–140; BP diastolic 61–82; BMI 36.1
[2024-12-08] MEDS: DILAUDID 0.25 MG IV ×3 (05:15→19:07)
[2024-12-08 08:21] LABS: % Basophils 0.3 % (0-2); % Eosinophils 0.7 % (0-6); % Immature Granulocytes 0.7 % (0-0.5); % Lymphocytes 20.2 % (20.5-51.1); % Monocytes 8.2 % (1.7-9.3); % Neutrophils 69.9 % (42.2-75.2); Absolute Lymphocytes 1.2 10^3/uL (1.2-3.4); Absolute Monocytes 0.5 10^3/uL (0.1-0.6); Absolute Neutrophils 4.2 10^3/uL (1.4-6.5); Hematocrit 31.3 % (39.0-52.0); Hemoglobin 10.9 g/dL (13.0-18.0); Mean Corp Hgb Conc. 34.8 g/dL (33.0-37.0); Mean Corpuscular Hgb 33.3 pg (27.0-31.0); Mean Corpuscular Volume 95.7 fL (80.0-94.0); Mean Platelet Volume 11.1 fL (7.4-10.4); Nucleated Red Blood Cells % 0 % (-); Platelet Count 79 10^3/uL (130-400); Red Blood Cell Count 3.27 10^6/uL (4.70-6.10); Red Cell Dist. Width 18.8 % (11.5-14.5)
[2024-12-08 08:49] LABS: ALT (SGPT) 17 U/L (0-50); AST (SGOT) 37 U/L (17-59); Albumin 3.2 g/dl (3.5-5.0); Alkaline Phosphatase 132 U/L (38-126); Blood Urea Nitrogen 13 mg/dl (9-20); Calcium 7.9 mg/dl (8.4-10.2); Carbon Dioxide 32 mmol/L (22-30); Chloride 92 mmol/L (98-107); Estimated Creatinine Clearance 115 ml/min; Glucose 87 mg/dl (70-99); Potassium 3.2 mmol/L (3.5-5.1); Sodium 131 mmol/L (135-145); Total Protein 6.2 g/dl (6.3-8.2); eGFR > 60.00
[2024-12-08] MEDS: LASIX 40 MG PO (09:28)
[2024-12-08] MEDS: KCL 20 MEQ PO ×2 (09:28→20:26)
[2024-12-08] MEDS: ALDACTONE 100 MG PO (09:29)
[2024-12-08] MEDS: HEPARIN 5000 UNITS SC ×2 (09:31→20:26)
[2024-12-08] MEDS: PROTONIX IV 40 MG IV ×2 (09:31→20:26)
[2024-12-08] MEDS: NSS (PRESERVATIVE FREE) 10 ML IV ×2 (09:31→20:26)
--- NOTE | 2024-12-08 10:47 | W.PN.GI.CBS2 ---
Addendum entered and electronically signed by Apolinar Green MD 12/08/24 14:40:
I saw and examined the patient.
The [employer] MANAGER or PA's note was reviewed and I agree with the note.
Comment: 59-year-old male no recent medical care with past medical history of A-fib not anticoagulation, chronic salivary gland tumor presenting with abdominal distention. Found to have massive ascites and new diagnosis of cirrhosis. Fluid studies
consistent with cirrhosis and echo is normal. CT did not show portal vein thrombosis but Doppler ultrasound did show a thrombosis in the right portal vein and distal main portal vein. Cytology negative for malignancy, normal AFP. MELD 22 today.
Unclear etiology. Patient denies drinking. Liver workup is pending including PET H.
I discussed with hepatology at [facility] Dr. Garcia today who recommended an MRI for further evaluation. He may still have tumor which could explain his portal vein thrombosis and his extreme ascites. Due to the extreme amount of ascites he has, he
may benefit from a TIPS procedure but will need to see what MRI shows first.
In regards to his portal vein thrombosis, I recommend not starting anticoagulation at this time. He will need an upper endoscopy to ensure he does not have varices as well timing pending.
In regards to repeat paracentesis, I discussion with hepatology they said to repeat his para if needed for comfort. However, we do not need to tap him dry. We should continue the Lasix 40 mg, Aldactone 100 mg and monitor his electrolytes. This
may need to be increased. 2g sodium diet should be continued.
He currently does not have insurance and I spoke to the health administration teacher today. If he does need transfer to a hepatology center, we will need to ensure Medicaid is pending. We will need to call on Tuesday and follow this up.
Original Note:
Today's Communication / Plan
-
as per plan
Assessment / Plan
-
Pt is a 59yo with no recent medical care fo years hx PAF (not on anticoagulation), chronic salivary gland tumor with onset of abdominal swelling over last month. On admission noted with hbg 14 then drop to 11. 6, platelet 110,000, Na 129, K 3.3,
bili 5, d bili 1.6, AST 41, ALT 19, alk phos 134, albumin 3, INR 1.94. 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 No mass seen. He denies knowledge of prior
hepatitis. He denies hx IVDA but does have old tattoos.
12/07/2024 ultrasound abdomen with Dopplers:Thrombosis within the right portal vein and distal main portal vein. Hepatic cirrhosis with ascites and portal hypertension changes. Gallbladder sludge.
12/07 para 10 L, given 62.5 grams albumin after, SAAG > 2.0. Fluid negative for SBP. Cytology negative for malignancy
12/05 para stopped at 10 liters neg SBP , SAAG 2.1 with low protein c/w cirrhosis
12/05-- echo Left ventricular ejection fraction is >75%, by visual assessment. Normal regional wall motion. Normal right ventricular size and function. Trileaflet aortic valve with focal thickening. Aortic sclerosis without stenosis.
-new onset ascites
-decompensated cirrhosis
-tachycardia- improving
-increased LFT's
-thrombocytopenia
-coagulopathy
-hyponatremia
-hx ETOH abuse
-hypoalbuminemia
-hypokalemia
other med problems:
-hx PAF
-salivary gland tumor- chronic per patient
PLAN:
Etiology of ascites with concern for underlying liver cirrhosis with decompensation---- SAAG 2.0 with low protein c/w cirrhosis, fluid negative for SBP. Cytology negative for malignancy
liver work up pending; AFP normal
echo stable
Doppler US--> Thrombosis within the right portal vein and distal main portal vein. Hepatic cirrhosis with ascites and portal hypertension changes. Gallbladder sludge. Would not initiate anticoagulation prior to EGD for screening for esophageal
varices.
Will likely need repeat paracentesis, will reach out to hepatology at tertiary center to discuss as patient has already had 20 L removed between 12/05 and 12/07.
Continue Lasix 40 mg p.o. daily and Aldactone 100 mg p.o. daily
Daily weights, patient does have a scale at home.
2 g sodium diet
CBC, BMP, LFT, INR daily
Will ask dietitian to come back to reeducate patient as he was not clear on prior education
Outpatient EGD for variceal screening and colonoscopy for colon CA screening
ETOH abstinence and avoid hepatotoxic medication, discussed with patient. He denies any alcohol use.
GI follow up scheduled 12/21
Social work has engaged with patient to obtain healthcare insurance. HRSI is pending. Discussed with patient this is important to facilitate safe discharge planning.
Subjective
Subjective
Date of Service: December 08, 2024
Patient with mild right sided abdominal discomfort, decreased from prior. Patient was status post 10 L paracentesis yesterday with albumin following. SAAG > 2.0. Fluid negative for SBP. Cytology negative for malignancy. Weight today is 104.4 kg
(down from 115.8 kg yesterday). Discussed with patient the importance of daily weights. He does have a scale at home. Patient continues on Lasix 40 mg daily and Aldactone 100 mg daily. He is also on pantoprazole 40 mg IV twice daily. Patient is
on a 2 g sodium diet. Discussed with him again at length. He did meet with dietitian however he states that he did not understand it. Will have her revisit with him again. Still with significant lower extremity edema however he states that this
is improved. He states that he has scrotal edema as well. He is having 1-2 bowel movements daily. He is awake alert and oriented x 3.
Objective
Data Reviewed
Laboratory Data:
Laboratory Results
12/08/24 06:37
12/08/24 06:37
Laboratory Results
PT 19.2 Sec (11.4-14.6) H 12/07/24 09:40
INR 1.59 12/07/24 09:40
APTT 48.7 Sec (23.4-35.0) H 12/04/24 23:24
Magnesium 1.9 mg/dl (1.6-2.3) 12/06/24 06:37
Total Bilirubin 4.0 mg/dl (0.2-1.3) H 12/08/24 06:37
AST 37 U/L (17-59) 12/08/24 06:37
ALT 17 U/L (0-50) 12/08/24 06:37
Alkaline Phosphatase 132 U/L (38-126) H 12/08/24 06:37
Vital Signs and I&O:
Vital Signs
Temp Pulse Resp BP Pulse Ox
98.2 F 87 16 124/67 99
12/08/24 07:00 12/08/24 07:00 12/08/24 07:00 12/08/24 07:00 12/08/24 07:00
I&O
12/07/24 12/08/24 12/09/24
06:59 06:59 06:59
Intake Total 960 / 960 390 / 390
Output Total 100 / 100
Balance 860 / 860 390 / 390
Physical Exam
Physical Exam
HEENT: Anicteric
Cardiology: Normal Sinus Rhythm
Pulmonary: Clear
GI: Soft, Distended, Non Tender, Normal Bowel Sounds and Other (Significant ascites)
Extremities: Edema (Bilateral lower extremity edema +3)
Neuro: Non Focal and Other (No asterixis)
--- NOTE | 2024-12-08 17:50 | W.PN.HOSP.TC ---
Today's Communication/Plan
-
MRI of liver
Assessment / Plan
Assessment / Plan
59 yo M with PMH significant for paroxysmal A-Fib who presented to ED complaining of abdominal distention. Patient states that he has not seen a physician in many years. He has noted significant abdominal distention that has been rapidly
progressive over the past month or so. Patient has also noted swelling in the feet / ankles. He felt very uncomfortable due to marked abdominal distention at time of admission - but otherwise denies pain.
He denies N/V. He reports early satiety. No bloody / black stools.
He has been having palpitations / racing heartbeat for about 2-3 weeks and feels that he is in A-Fib.
Patient reports a prior h/o alcohol use - but notes that he has been sober for about 20+ years. Which is confirmed by
No prior h/o IVDA. No prior blood transfusions.
A/P:
# Cirrhosis / Ascites / Varices, due to Decompensated liver failure, unclear cause. confirms that he has not drank in 20+years
Bili 4.0
# Hyponatremia secondary to the above
# Coagulopathy secondary to the above
# Prior h/o EtOH - but not in about 20+ years per patient.
CT scan done in the ED showed ascites and esophageal / gastric varices but no other significant / acute abnormality.
1. Large volume intraperitoneal ascites.
2. Findings consistent with hepatic cirrhosis.
3. 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
MELD-Na = 25 on admission. Follow daily labs / INR 01/06 1.59
s/p large volume paracentesis 12/05, 10 L removed, negative for SBP 12/07 10 L removed
s/p Albumin following large volume para.
weight 128.9-->114.9-->104.4kg (post paracentesis x 2)
input of GI appreciated. MRI of liver ordered
Of note, echo unrevealing: EF75%. Normal regional wall motion.
GI on board. Possible EGD
Cont IV PPI BID.
Follow viral hepatitis panels.
Started diuretic therapy with Lasix 40 mg qd and Aldactone 100 mg qd titrate as needed.
Started low dose Dilaudid for pain control, would limit the use of narcotic to avoid sedation
repeat Paracentesis on 12/10
consider liver bx unless lab studies/MRI delineate etiology of cirrhosis
# Hypokalemia
replete
Follow daily labs while on spironolactone / furosemide.
12/07 3.3-->12/08 3.2
started on oral KCl supplement, may need to consider decrease Lasix if K does not increase
# Paroxysmal Atrial Fibrillation
Patient reports prior h/o A-Fib though not on any medications at present.
He has been having tachycardia / palpitations for about 2-3 weeks.
EKG / tele in the ED appears to show a variable sinus tach.
Monitor on telemetry for now.
Follow for changes in rate with control of symptoms / discomfort / ascites.
# Left facial/jaw cyst
DVT Prophylaxis: Subcut heparin
Code Status: Full
reviewed with outside of room 12/07
Anticipated Discharge: > 48 hours
Subjective/Interval History
-
Date of Service: December 08, 2024
awake, alert, conversant
Objective Data
-
Labs:
Laboratory Results
12/08/24
06:37
WBC 6.0
Hgb 10.9 L
Hct 31.3 L
Plt Count 79 L
Sodium 131 L
Potassium 3.2 L
Chloride 92 L
Carbon Dioxide 32 H
BUN 13
Creatinine 0.8
Glucose 87
Calcium 7.9 L
Total Bilirubin 4.0 H
AST 37
ALT 17
Alkaline Phosphatase 132 H
Vital Signs:
Vital Signs
Temp Pulse Resp BP Pulse Ox
98.2 F 97 16 140/80 98
12/08/24 15:00 12/08/24 15:00 12/08/24 15:00 12/08/24 15:00 12/08/24 15:00
I&O
12/07/24 12/08/24 12/09/24
06:59 06:59 06:59
Intake Total 960 / 960 390 / 390
Output Total 100 / 100
Balance 860 / 860 390 / 390
Review of Systems
-
History Source: Patient and Family (reviewed with )
Constitutional: Denies Fever
EENT: Reports No Symptoms Reported
Respiratory: Reports Trouble Breathing (better)
Cardiac: Reports No Symptoms
Abdomen/GI: Reports Other (ascites)
Physical Exam
-
General: Well Developed, Well Nourished and No Apparent Distress
HEENT: Normocephalic, Atraumatic and Moist Mucous Membranes
Respiratory: Clear to Auscultation; Negative Wheezes, Rales or Rhonchi
Cardiac: Regular Rhythm and S1/S2
GI: Soft and Other (ascites)
Musculoskeletal: No Clubbing and No Cyanosis; Negative No Edema (1+)
[2024-12-08] MEDS: ATIVAN 0.5 MG PO (20:26)
[2024-12-08] MEDS: MELATONIN 5 MG PO (23:13)
[2024-12-09] MEDS: DILAUDID 0.25 MG IV ×4 (00:39→22:40)
[2024-12-09] MEDS: FLUSH (NSS) 1 FLUSH IV (00:40)
[2024-12-09 00:56] LABS: Alpha-1-Antitrypsin 222 mg/dL (90-200)
[2024-12-09 02:57] LABS: Mitochondrial M2 Ab, IgG 4.6 Units (0.0-24.9)
[2024-12-09 03:37] VITALS: BP 131/75
[2024-12-09 06:00] VITALS: BMI 35.7
[2024-12-09 07:00] VITALS: BP 127/73
[2024-12-09 07:35] LABS: Hematocrit 30.6 % (39.0-52.0); Hemoglobin 10.7 g/dL (13.0-18.0); Mean Corpuscular Hgb 33.1 pg (27.0-31.0); Mean Corpuscular Volume 94.7 fL (80.0-94.0); Mean Platelet Volume 10.4 fL (7.4-10.4); Platelet Count 84 10^3/uL (130-400); Red Blood Cell Count 3.23 10^6/uL (4.70-6.10); Red Cell Dist. Width 18.6 % (11.5-14.5); White Blood Cell Count 6.1 10^3/uL (4.8-10.8)
[2024-12-09 07:39] LABS: INR 1.47; PT 18.1 Sec (11.4-14.6)
[2024-12-09 07:51] LABS: ANA, IgG Reflex to HEp-2 Detected (None Detected)
[2024-12-09 08:23] LABS: ALT (SGPT) 20 U/L (0-50); AST (SGOT) 46 U/L (17-59); Alkaline Phosphatase 124 U/L (38-126); Blood Urea Nitrogen 13 mg/dl (9-20); Calcium 7.9 mg/dl (8.4-10.2); Carbon Dioxide 31 mmol/L (22-30); Chloride 93 mmol/L (98-107); Direct Bilirubin 1.1 mg/dl (0.0-0.4); Estimated Creatinine Clearance > 125 ml/min; Glucose 90 mg/dl (70-99); Potassium 3.4 mmol/L (3.5-5.1); Sodium 131 mmol/L (135-145); Total Protein 6.1 g/dl (6.3-8.2); eGFR > 60.00
[2024-12-09] MEDS: HEPARIN 5000 UNITS SC ×2 (09:11→20:53)
[2024-12-09] MEDS: PROTONIX IV 40 MG IV ×2 (09:12→20:54)
[2024-12-09] MEDS: KCL 20 MEQ PO ×2 (09:12→20:54)
[2024-12-09] MEDS: ALDACTONE 100 MG PO (09:12)
[2024-12-09] MEDS: NSS (PRESERVATIVE FREE) 10 ML IV ×2 (09:12→20:55)
[2024-12-09] MEDS: LASIX 40 MG PO (09:13)
[2024-12-09 11:00] VITALS: BP 131/85
--- NOTE | 2024-12-09 13:12 | W.PN.GI.CBS2 ---
Today's Communication / Plan
-
para tomorrow, MRI pending, possible EGD
Assessment / Plan
-
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 He had a CT consistent with large volume ascites, cirrhosis, paraesophageal varices of GE junction,
no filling defect of the portal veins. He underwent a paracentesis on 423 with 10 L removed no SBP, SAG consistent with cirrhosis. He also had an echo which was normal. He had a repeat paracentesis on 425 and another 10 L were removed. He had a
Doppler ultrasound which showed thrombosis within the right portal vein and distal main portal vein. I discussed with hepatology at [facility] yesterday. They had recommended an MRI to evaluate to see if he has a malignancy given the
thrombosis and huge amount of ascites. He may benefit from a TIPS procedure. Would not anticoagulate at this time for the portal vein.
Plan for repeat paracentesis tomorrow as patient is having ongoing abdominal discomfort and with discussion with interventional radiology on Tuesday he does still have a significant amount of fluid left. He is currently on Lasix 40 mg and Aldactone
100 mg as well as a 2 g sodium diet.
In regards to etiology for his liver disease, he denies alcohol use for more than 20 years PETh pending. His mother had history of liver disease unclear etiology and also lupus. His ALETHEA is positive. I reviewed his liver workup today and I ordered
an antiliver kidney muscle antibody, immunoglobulins, ceruloplasmin as well. His hepatitis studies were unremarkable. Alpha 1 antitrypsin high. Iron studies normal. Alpha-fetoprotein normal. Lipid panel normal. If no clear etiology is found,
he may need a liver biopsy but would wait for additional blood work at this time. His MELD today is 21.
I will keep him n.p.o. after midnight as we may need to do an endoscopy to look for varices unclear timing if we will be able to do tomorrow versus Tuesday and I will also discuss this with hepatology.
I discussed at length with the at bedside and also updated the hospitalist. We discussed the most important thing at this time is for her to fill out the paperwork for her insurance as he will not be able to be transferred unless there is
pending insurance.
Subjective
Subjective
Date of Service: December 09, 2024
c/o persistent abd distension/discomfort
Objective
Data Reviewed
Laboratory Data:
Laboratory Results
12/09/24 06:41
12/09/24 06:41
Laboratory Results
PT 18.1 Sec (11.4-14.6) H 12/09/24 06:41
INR 1.47 12/09/24 06:41
APTT 48.7 Sec (23.4-35.0) H 12/04/24 23:24
Magnesium 1.9 mg/dl (1.6-2.3) 12/06/24 06:37
Total Bilirubin 4.0 mg/dl (0.2-1.3) H 12/09/24 06:41
AST 46 U/L (17-59) 12/09/24 06:41
ALT 20 U/L (0-50) 12/09/24 06:41
Alkaline Phosphatase 124 U/L (38-126) 12/09/24 06:41
Vital Signs and I&O:
Vital Signs
Temp Pulse Resp BP Pulse Ox
98.1 F 93 18 131/85 99
12/09/24 11:00 12/09/24 11:00 12/09/24 11:00 12/09/24 11:00 12/09/24 11:00
I&O
12/08/24 12/09/24 12/10/24
06:59 06:59 06:59
Intake Total 390 / 390 240 / 240
Balance 390 / 390 240 / 240
Physical Exam
Physical Exam
GI: Distended and Non Tender
[2024-12-09 15:00] VITALS: BP 127/81
[2024-12-09 16:13] LABS: Soluble Liver Antigen Ab 1.6 U (0.0-24.9)
--- NOTE | 2024-12-09 17:15 | W.PN.HOSP.TC ---
Today's Communication/Plan
-
MRI of liver
Assessment / Plan
Assessment / Plan
59 yo M with PMH significant for paroxysmal A-Fib who presented to ED complaining of abdominal distention. Patient states that he has not seen a physician in many years. He has noted significant abdominal distention that has been rapidly
progressive over the past month or so. Patient has also noted swelling in the feet / ankles. He felt very uncomfortable due to marked abdominal distention at time of admission - but otherwise denies pain.
He denies N/V. He reports early satiety. No bloody / black stools.
He has been having palpitations / racing heartbeat for about 2-3 weeks and feels that he is in A-Fib.
Patient reports a prior h/o alcohol use - but notes that he has been sober for about 20+ years. Which is confirmed by
No prior h/o IVDA. No prior blood transfusions.
A/P:
# Cirrhosis / Ascites / Varices, due to Decompensated liver failure, unclear cause. confirms that he has not drank in 20+years
Bili 4.0
# Hyponatremia secondary to the above
# Coagulopathy secondary to the above
# Prior h/o EtOH - but not in about 20+ years per patient.
CT scan done in the ED showed ascites and esophageal / gastric varices but no other significant / acute abnormality.
1. Large volume intraperitoneal ascites.
2. Findings consistent with hepatic cirrhosis.
3. 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
MELD-Na = 25 on admission. Follow daily labs / INR 01/06 1.59
s/p large volume paracentesis 12/05, 10 L removed, negative for SBP 12/07 10 L removed
s/p Albumin following large volume para.
weight 128.9-->114.9-->104.4kg (post paracentesis x 2)-->103.2kg
input of GI appreciated. MRI of liver ordered
Of note, echo unrevealing: EF75%. Normal regional wall motion.
GI on board. Possible EGD
Cont IV PPI BID.
Follow viral hepatitis panels.
Started diuretic therapy with Lasix 40 mg qd and Aldactone 100 mg qd titrate as needed.
Started low dose Dilaudid for pain control, would limit the use of narcotic to avoid sedation
repeat Paracentesis on 12/10
consider liver bx unless lab studies/MRI delineate etiology of cirrhosis
Peritoneal Fluid cytology neg for malignant cells
# Hypokalemia
replete
Follow daily labs while on spironolactone / furosemide.
12/07 3.3-->12/08 3.2-->12/09 3.4
started on oral KCl supplement, may need to consider decrease Lasix if K does not increase
# Paroxysmal Atrial Fibrillation
Patient reports prior h/o A-Fib though not on any medications at present.
He has been having tachycardia / palpitations for about 2-3 weeks.
EKG / tele in the ED appears to show a variable sinus tach.
Monitor on telemetry for now.
Follow for changes in rate with control of symptoms / discomfort / ascites.
# Left facial/jaw cyst
DVT Prophylaxis: Subcut heparin
Code Status: Full
reviewed with outside of room 12/07
Anticipated Discharge: > 48 hours
Subjective/Interval History
-
Date of Service: December 09, 2024
Feels nervous and would like some prn Ativan
Objective Data
-
Labs:
Laboratory Results
12/09/24
06:41
WBC 6.1
Hgb 10.7 L
Hct 30.6 L
Plt Count 84 L
PT 18.1 H
INR 1.47
Sodium 131 L
Potassium 3.4 L
Chloride 93 L
Carbon Dioxide 31 H
BUN 13
Creatinine 0.7
Glucose 90
Calcium 7.9 L
Total Bilirubin 4.0 H
AST 46
ALT 20
Alkaline Phosphatase 124
Vital Signs:
Vital Signs
Temp Pulse Resp BP Pulse Ox
98.0 F 101 20 127/81 98
12/09/24 15:00 12/09/24 15:00 12/09/24 15:00 12/09/24 15:00 12/09/24 15:00
I&O
12/08/24 12/09/24 12/10/24
06:59 06:59 06:59
Intake Total 390 / 390 240 / 240
Balance 390 / 390 240 / 240
Review of Systems
-
History Source: Patient and Coordinated Provider
Constitutional: Denies Fever
EENT: Reports No Symptoms Reported
Respiratory: Reports Trouble Breathing (better)
Cardiac: Reports No Symptoms; Denies Chest Pain
Abdomen/GI: Reports Other (ascites)
Physical Exam
-
General: Well Developed, Well Nourished and No Apparent Distress
HEENT: Normocephalic, Atraumatic and Moist Mucous Membranes
Respiratory: Clear to Auscultation; Negative Wheezes, Rales or Rhonchi
Cardiac: Regular Rhythm and S1/S2
GI: Soft and Other (ascites)
Musculoskeletal: No Clubbing and No Cyanosis; Negative No Edema (1+)
[2024-12-09] MEDS: ATIVAN 0.5 MG PO ×2 (18:00→23:44)
[2024-12-09 19:46] VITALS: BP 131/83
[2024-12-09 23:29] VITALS: BP 139/84
[2024-12-10] VITALS (13 sets, daily range): BP systolic 103–131; BP diastolic 55–79; BMI 35.1
[2024-12-10 08:32] LABS: INR 1.54; PT 18.7 Sec (11.4-14.6)
[2024-12-10 08:39] LABS: Hematocrit 32.3 % (39.0-52.0); Hemoglobin 11.2 g/dL (13.0-18.0); Mean Corp Hgb Conc. 34.7 g/dL (33.0-37.0); Mean Corpuscular Volume 95.3 fL (80.0-94.0); Mean Platelet Volume 11.3 fL (7.4-10.4); Platelet Count 97 10^3/uL (130-400); Red Blood Cell Count 3.39 10^6/uL (4.70-6.10); Red Cell Dist. Width 18.7 % (11.5-14.5); White Blood Cell Count 7.7 10^3/uL (4.8-10.8)
[2024-12-10 09:19] LABS: ALT (SGPT) 24 U/L (0-50); AST (SGOT) 54 U/L (17-59); Albumin 3.1 g/dl (3.5-5.0); Alkaline Phosphatase 168 U/L (38-126); Blood Urea Nitrogen 12 mg/dl (9-20); Calcium 8.1 mg/dl (8.4-10.2); Carbon Dioxide 32 mmol/L (22-30); Chloride 91 mmol/L (98-107); Direct Bilirubin 1.1 mg/dl (0.0-0.4); Estimated Creatinine Clearance 113 ml/min; Glucose 98 mg/dl (70-99); Potassium 3.6 mmol/L (3.5-5.1); Sodium 132 mmol/L (135-145); Total Bilirubin 3.3 mg/dl (0.2-1.3); Total Protein 6.5 g/dl (6.3-8.2); eGFR > 60.00
[2024-12-10 09:26] LABS: IgG 1575 mg/dl (700-1600); IgM 112 mg/dl (40-230)
[2024-12-10 09:55] LABS: IgA 1065 mg/dl (70-400)
--- NOTE | 2024-12-10 10:02 | W.PN.UPDATE ---
Update Note
Progress Note Update
para for 8600ml-- albumin replacement added
[2024-12-10] MEDS: DILAUDID 0.25 MG IV ×2 (10:34→18:12)
[2024-12-10] MEDS: ALDACTONE 100 MG PO (10:42)
[2024-12-10] MEDS: PROTONIX IV 40 MG IV ×2 (10:44→20:27)
[2024-12-10] MEDS: LASIX 40 MG PO (10:44)
[2024-12-10] MEDS: NSS (PRESERVATIVE FREE) 10 ML IV ×2 (10:44→20:27)
[2024-12-10] MEDS: KCL 20 MEQ PO ×2 (10:44→20:26)
[2024-12-10] MEDS: HEPARIN 5000 UNITS SC ×2 (10:46→20:26)
[2024-12-10 11:19] LABS: Body Fluid WBC 100 /CUMM
[2024-12-10 11:30] LABS: Body Fluid Second Tech HB
[2024-12-10] MEDS: FLEXBUMIN 50 IV (11:41)
--- NOTE | 2024-12-10 12:41 | W.PN.GI.CBS2 ---
Today's Communication / Plan
-
para today, MRI
Assessment / Plan
-
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 He had a CT consistent with large volume ascites, cirrhosis, paraesophageal varices of GE junction,
no filling defect of the portal veins. He underwent a paracentesis on 423 with 10 L removed no SBP, SAG consistent with cirrhosis. He also had an echo which was normal. He had a repeat paracentesis on 425 and another 10 L were removed. He had a
Doppler ultrasound which showed thrombosis within the right portal vein and distal main portal vein. I discussed with hepatology at [facility] yesterday. They had recommended an MRI to evaluate to see if he has a malignancy given the
thrombosis and huge amount of ascites. He may benefit from a TIPS procedure. Would not anticoagulate at this time for the portal vein.
Repeat para today 12/10 another 8 L removed.
In regards to etiology for his liver disease, he denies alcohol use for more than 20 years PETh pending. His mother had history of liver disease unclear etiology and also lupus. His ALETHEA is positive but soluble liver Ag neg and AMA neg.
Immunoglobulins only IgA high. I reviewed his liver workup today and I ordered an antiliver kidney muscle antibody, immunoglobulins, ceruloplasmin as well. His hepatitis studies were unremarkable. Alpha 1 antitrypsin high. Iron studies normal.
Alpha-fetoprotein normal. Lipid panel normal. If no clear etiology is found, he may need a liver biopsy but would wait for additional blood work at this time.
He is pending MRI.
Hold off on EGD for now will see what MRI shows.
Then we will review with [facility] next steps.
I will also reach out to case management to check on insurance aspect.
Subjective
Subjective
Date of Service: December 10, 2024
no events overnight
Objective
Data Reviewed
Laboratory Data:
Laboratory Results
12/10/24 07:11
12/10/24 07:11
Laboratory Results
PT 18.7 Sec (11.4-14.6) H 12/10/24 07:11
INR 1.54 12/10/24 07:11
APTT 48.7 Sec (23.4-35.0) H 12/04/24 23:24
Magnesium 1.9 mg/dl (1.6-2.3) 12/06/24 06:37
Total Bilirubin 3.3 mg/dl (0.2-1.3) H 12/10/24 07:11
AST 54 U/L (17-59) 12/10/24 07:11
ALT 24 U/L (0-50) 12/10/24 07:11
Alkaline Phosphatase 168 U/L (38-126) H 12/10/24 07:11
Vital Signs and I&O:
Vital Signs
Temp Pulse Resp BP Pulse Ox
98.5 F 88 18 111/57 100
12/10/24 12:05 12/10/24 12:05 12/10/24 12:05 12/10/24 12:05 12/10/24 12:05
I&O
12/09/24 12/10/24 12/11/24
06:59 06:59 06:59
Intake Total 240 / 240 1859
Balance 240 / 240 1859
Physical Exam
Physical Exam
GI: Distended and Non Tender
--- NOTE | 2024-12-10 13:15 | CM ---
Addendum entered by Nannette North 12/10/24 14:47:
Patient and seen bedside, provided contact information for [facility] for insurance.
Original Note:
CM reviewed chart, call placed and voicemail left for [facility] to obtain update on insurance status. Gastroenterology following. CM will continue to follow for all discharge planning needs.
Plan; await update from [facility] in regards to insurance status.
[2024-12-10] MEDS: FLEXBUMIN 100 IV ×2 (15:57→17:52)
[2024-12-10] MEDS: ATIVAN 0.5 MG PO ×2 (16:11→20:26)
--- NOTE | 2024-12-10 17:14 | W.PN.UPDATE ---
Update Note
Progress Note Update
I reviewed with MRI NO HCC
PVT NOT seen on CT/MRI only doppler
28 liters of ascites removed in less than 1 week
I d/w Dr. Garcia hepatology
Would benefit transfer for TIPS IF insurance pending
I reached out to case management no update
Will need to follow up case management and then update [facility] liver [facility] if insurance pending
--- NOTE | 2024-12-10 17:23 | W.PN.HOSP.TC ---
Today's Communication/Plan
-
consideration for TIPS procedure
Assessment / Plan
Assessment / Plan
59 yo M with PMH significant for paroxysmal A-Fib who presented to ED complaining of abdominal distention. Patient states that he has not seen a physician in many years. He has noted significant abdominal distention that has been rapidly
progressive over the past month or so. Patient has also noted swelling in the feet / ankles. He felt very uncomfortable due to marked abdominal distention at time of admission - but otherwise denies pain.
He denies N/V. He reports early satiety. No bloody / black stools.
He has been having palpitations / racing heartbeat for about 2-3 weeks and feels that he is in A-Fib.
Patient reports a prior h/o alcohol use - but notes that he has been sober for about 20+ years. Which is confirmed by
No prior h/o IVDA. No prior blood transfusions.
A/P:
# Cirrhosis / Ascites / Varices, due to Decompensated liver failure, unclear cause. confirms that he has not drank in 20+years
Bili 4.0
# Hyponatremia secondary to the above
# Coagulopathy secondary to the above
# Prior h/o EtOH - but not in about 20+ years per patient.
CT scan done in the ED showed ascites and esophageal / gastric varices but no other significant / acute abnormality.
1. Large volume intraperitoneal ascites.
2. Findings consistent with hepatic cirrhosis.
3. 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
MELD-Na = 25 on admission. Follow daily labs / INR 01/06 1.59
s/p large volume paracentesis 12/05, 10 L removed, negative for SBP 12/07 10 L removed, 12/10 8 L removed, total now 28 liters
s/p Albumin following large volume para.
weight 128.9-->114.9-->104.4kg (post paracentesis x 2)-->103.2-->101.7kg
input of GI appreciated. MRI of liver: 12/10 1. SEVERE HEPATIC CIRRHOSIS without evidence for hepatocellular carcinoma.
2. SEVERE PORTAL HYPERTENSION with moderate splenomegaly, a recanalized paraumbilical vein, and extensive upper abdominal varices.
3. MILD ASCITES.
4. Mild upper abdominal lymphadenopathy.
5. Mild gallbladder distention.
6. 2.2 cm mass in the left adrenal gland and 1.0 cm mass in the right adrenal gland (possibly lipid poor adenomas).
7. Mild cardiomegaly.
Of note, echo unrevealing: EF75%. Normal regional wall motion.
GI on board. Possible EGD
Cont IV PPI BID.
Follow viral hepatitis panels.
Started diuretic therapy with Lasix 40 mg qd and Aldactone 100 mg qd titrate as needed.
Started low dose Dilaudid for pain control, would limit the use of narcotic to avoid sedation
repeat Paracentesis on 12/10
consider liver bx unless lab studies/MRI delineate etiology of cirrhosis
Peritoneal Fluid cytology neg for malignant cells
ALETHEA IgG pos
Dr. Green discussed with Dr. Garcia, hepatology. Consider TIPS pending insurance
# Hypokalemia
replete
Follow daily labs while on spironolactone / furosemide.
12/07 3.3-->12/08 3.2-->12/09 3.4-->12/10 3.6
# Paroxysmal Atrial Fibrillation
Patient reports prior h/o A-Fib though not on any medications at present.
He has been having tachycardia / palpitations for about 2-3 weeks.
EKG / tele in the ED appears to show a variable sinus tach.
Monitor on telemetry for now.
Follow for changes in rate with control of symptoms / discomfort / ascites.
# Left facial/jaw cyst
DVT Prophylaxis: Subcut heparin
Code Status: Full
reviewed with outside of room 12/10
Anticipated Discharge: 24 - 48 hours
Subjective/Interval History
-
Date of Service: December 10, 2024
Awake, alert
Objective Data
-
Labs:
Laboratory Results
12/10/24
07:11
WBC 7.7
Hgb 11.2 L
Hct 32.3 L
Plt Count 97 L
PT 18.7 H
INR 1.54
Sodium 132 L
Potassium 3.6
Chloride 91 L
Carbon Dioxide 32 H
BUN 12
Creatinine 0.8
Glucose 98
Calcium 8.1 L
Total Bilirubin 3.3 H
AST 54
ALT 24
Alkaline Phosphatase 168 H
Vital Signs:
Vital Signs
Temp Pulse Resp BP Pulse Ox
98.6 F 95 20 128/76 100
12/10/24 15:05 12/10/24 15:05 12/10/24 15:05 12/10/24 15:05 12/10/24 15:05
I&O
12/09/24 12/10/24 12/11/24
06:59 06:59 06:59
Intake Total 240 / 240 1859
Balance 240 / 240 1859
Review of Systems
-
History Source: Patient and Coordinated Provider
Constitutional: Denies Fever
EENT: Reports No Symptoms Reported
Respiratory: Reports Trouble Breathing (better)
Cardiac: Reports No Symptoms; Denies Chest Pain
Abdomen/GI: Reports Other (ascites)
Physical Exam
-
General: Well Developed, Well Nourished and No Apparent Distress
HEENT: Normocephalic, Atraumatic and Moist Mucous Membranes
Respiratory: Clear to Auscultation; Negative Wheezes, Rales or Rhonchi
Cardiac: Regular Rhythm and S1/S2
GI: Soft and Other (ascites)
Musculoskeletal: No Clubbing and No Cyanosis; Negative No Edema (1+)
[2024-12-10 23:19] LABS: ANA, HEp-2, IgG Detected (<1:80)
[2024-12-11] MEDS: DILAUDID 0.25 MG IV ×4 (00:11→22:25)
[2024-12-11 06:00] VITALS: BMI 32.6
[2024-12-11 06:52] LABS: ANA Pattern Homogeneous
[2024-12-11 07:53] VITALS: BP 121/60
[2024-12-11] MEDS: ALDACTONE 100 MG PO (08:43)
[2024-12-11] MEDS: KCL 20 MEQ PO ×2 (08:43→21:25)
[2024-12-11] MEDS: HEPARIN 5000 UNITS SC ×2 (08:43→21:25)
[2024-12-11] MEDS: PROTONIX IV 40 MG IV ×2 (08:43→21:25)
[2024-12-11] MEDS: LASIX 40 MG PO (08:43)
[2024-12-11] MEDS: NSS (PRESERVATIVE FREE) 10 ML IV ×2 (08:44→21:25)
[2024-12-11 13:41] LABS: Ceruloplasmin 20 mg/dL (15-30)
--- NOTE | 2024-12-11 15:14 | CM ---
CM reviewed chart, spoke with patient and patients Isa via phone, patient does not qualify for life event, missed enrollment period for [employer]. Patients reports she can add patient to her insurance, earliest would be January 13. CM spoke
with [facility], patient is over income to qualify for MA. CM left VM for patients , Isa, with update regarding [employer]. Update to Hospitalist. CM will continue to follow for all discharge planning needs.
Plan; patient does not qualify for MA through [employer], likely will need to add to insurance plan
[2024-12-11 15:17] VITALS: BP 122/64
--- NOTE | 2024-12-11 16:06 | W.PN.GI.CBS2 ---
Addendum entered and electronically signed by John Coats MD 12/11/24 19:49:
I saw and examined the patient.
The RADIO PRODUCER or PA's note was reviewed and I agree with the note.
Comment:
Pt with ascites, cirrhosis. No abdominal pain or confusion
alert, oriented
impression
prior alcohol
cirrhosis
ascites
plan:
ok to f/u outpatient
on lasix/aldactone and will need labs in 1 week
eventual egd/colonoscopy
if refractory ascites may need TIPs and need to get insurance issues straightened out
Addendum entered and electronically signed by MINI Love 12/11/24 17:28:
left follow up labs slip for 1 week prior to GI visit
Original Note:
Today's Communication / Plan
-
Etiology of ascites with concern for underlying liver cirrhosis with decompensation---- SAAG 2.1 with low protein c/w cirrhosis
if liver related etiology related to prior ETOH but denies heavy use , vs other -
liver serology with hep B immunity otherwise neg panel, + ALETHEA, mild elevated A1At, Immunoglobulin A elevated 1065, - AMA, SLA neg, LKM pending, peth test <10 =, APF 4.97
may need liver biopsy
echo stable
I advised hepatology follow up-- stressed need to sort out insurance issues
he is scheduled 12/21 in GI office with raoul Garcia PA-C pt need to call to confirm
cont lasix 40mg and Aldactone 100mg daily
repeat labs 1 week prior to follow up GI visit
will need eventual EGD for variceal screening and colonoscopy for colon CA screening
ETOH abstinence and avoid hepatotoxic medication
good nutrition- cholesterol lowering-- will add 2 gram na to diet and add supplement daily
discussed with Dr. Vazquez for discharge today
Assessment / Plan
-
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 He had a CT consistent with large volume ascites, cirrhosis, paraesophageal varices of GE junction,
no filling defect of the portal veins. He underwent a paracentesis on with 10 L removed no SBP, SAG consistent with cirrhosis. He also had an echo which was normal. He had a repeat paracentesis on 12/07 and another 10 L were removed then . He
had a Doppler ultrasound which showed thrombosis within the right portal vein and distal main portal vein. Dr. Green reviewed with [facility] hepatology.
12/10/24 MR Abdomen W/o & W Contrast
1. SEVERE HEPATIC CIRRHOSIS without evidence for hepatocellular carcinoma.
2. SEVERE PORTAL HYPERTENSION with moderate splenomegaly, a recanalized paraumbilical vein, and extensive upper abdominal varices.
3. MILD ASCITES.
4. Mild upper abdominal lymphadenopathy.
5. Mild gallbladder distention.
6. 2.2 cm mass in the left adrenal gland and 1.0 cm mass in the right adrenal gland (possibly lipid poor adenomas).
7. Mild cardiomegaly.
-new onset ascites 12/05 stopped 10 liters, 12/07 stopped at 10 liter, 12/10
-concern for decompensated cirrhosis - ALETHEA +, mild A1AT 222 elevation
-tachycardia- improved
-increased LFT's
-thrombocytopenia
-coagulopathy
-hyponatremia
-hx ETOH abuse
-hypoalbuminemia
-hypokalemia
-adrenal mass
other med problems:
-hx PAF
-salivary gland tumor- chronic per patient
PLAN:
Etiology of ascites with concern for underlying liver cirrhosis with decompensation---- SAAG 2.1 with low protein c/w cirrhosis
if liver related etiology related to prior ETOH but denies heavy use , vs other -
liver serology with hep B immunity otherwise neg panel, + ALETHEA, mild elevated A1At, Immunoglobulin A elevated 1065, - AMA, SLA neg, LKM pending, peth test <10 =, APF 4.97
may need liver biopsy
echo stable
I advised hepatology follow up-- stressed need to sort out insurance issues
he is scheduled 12/21 in GI office with raoul Garcia PA-C pt need to call to confirm
cont lasix 40mg and Aldactone 100mg daily
repeat labs 1 week prior to follow up GI visit
will need eventual EGD for variceal screening and colonoscopy for colon CA screening
ETOH abstinence and avoid hepatotoxic medication
good nutrition- cholesterol lowering-- will add 2 gram na to diet and add supplement daily
discussed with Dr. Vazquez for discharge today
Subjective
Subjective
Date of Service: December 11, 2024
12/09 brown stool, on 2 gram na diet -- feeling better still with distention but improved from admission
Objective
Data Reviewed
Laboratory Data:
Laboratory Results
12/10/24 07:11
12/10/24 07:11
Laboratory Results
PT 18.7 Sec (11.4-14.6) H 12/10/24 07:11
INR 1.54 12/10/24 07:11
APTT 48.7 Sec (23.4-35.0) H 12/04/24 23:24
Magnesium 1.9 mg/dl (1.6-2.3) 12/06/24 06:37
Total Bilirubin 3.3 mg/dl (0.2-1.3) H 12/10/24 07:11
AST 54 U/L (17-59) 12/10/24 07:11
ALT 24 U/L (0-50) 12/10/24 07:11
Alkaline Phosphatase 168 U/L (38-126) H 12/10/24 07:11
Vital Signs and I&O:
Vital Signs
Temp Pulse Resp BP Pulse Ox
98.6 F 96 18 121/60 100
12/11/24 07:53 12/11/24 08:43 12/11/24 07:53 12/11/24 08:43 12/11/24 07:53
I&O
12/10/24 12/11/24 12/12/24
06:59 06:59 06:59
Intake Total 1859 1570 / 1570 320 / 320
Balance 1859 1570 / 1570 320 / 320
Physical Exam
Physical Exam
HEENT: Anicteric
Cardiology: Normal Sinus Rhythm
Pulmonary: Clear
GI: Soft, Distended and Non Tender
Extremities: Edema
Neuro: Non Focal
--- NOTE | 2024-12-11 16:12 | W.PN.HOSP.TC ---
Today's Communication/Plan
-
Reviewed with gastroenterology. Pt is feeling much better and thus cleared for dc to follow up at Hepatology center. Was unable to reach , who works overnight at [employer]. Will plan dc tomorrow
Assessment / Plan
Assessment / Plan
59 yo M with PMH significant for paroxysmal A-Fib who presented to ED complaining of abdominal distention. Patient states that he has not seen a physician in many years. He has noted significant abdominal distention that has been rapidly
progressive over the past month or so. Patient has also noted swelling in the feet / ankles. He felt very uncomfortable due to marked abdominal distention at time of admission - but otherwise denies pain.
He denies N/V. He reports early satiety. No bloody / black stools.
He has been having palpitations / racing heartbeat for about 2-3 weeks and feels that he is in A-Fib.
Patient reports a prior h/o alcohol use - but notes that he has been sober for about 20+ years. Which is confirmed by
No prior h/o IVDA. No prior blood transfusions.
A/P:
# Cirrhosis / Ascites / Varices, due to Decompensated liver failure, unclear cause. confirms that he has not drank in 20+years
Bili 4.0
# Hyponatremia secondary to the above
# Coagulopathy secondary to the above
# Prior h/o EtOH - but not in about 20+ years per patient.
CT scan done in the ED showed ascites and esophageal / gastric varices but no other significant / acute abnormality.
1. Large volume intraperitoneal ascites.
2. Findings consistent with hepatic cirrhosis.
3. 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
MELD-Na = 25 on admission. Follow daily labs / INR 01/06 1.59
s/p large volume paracentesis 12/05, 10 L removed, negative for SBP 12/07 10 L removed, 12/10 8 L removed, total now 28 liters
s/p Albumin following large volume para.
weight 128.9-->114.9-->104.4kg (post paracentesis x 2)-->103.2-->101.7-->94.4kg
input of GI appreciated. MRI of liver: 12/10 1. SEVERE HEPATIC CIRRHOSIS without evidence for hepatocellular carcinoma.
2. SEVERE PORTAL HYPERTENSION with moderate splenomegaly, a recanalized paraumbilical vein, and extensive upper abdominal varices.
3. MILD ASCITES.
4. Mild upper abdominal lymphadenopathy.
5. Mild gallbladder distention.
6. 2.2 cm mass in the left adrenal gland and 1.0 cm mass in the right adrenal gland (possibly lipid poor adenomas).
7. Mild cardiomegaly.
Of note, echo unrevealing: EF75%. Normal regional wall motion.
GI on board. Possible EGD
Cont IV PPI BID.
Follow viral hepatitis panels.
Started diuretic therapy with Lasix 40 mg qd and Aldactone 100 mg qd titrate as needed.
Started low dose Dilaudid for pain control, would limit the use of narcotic to avoid sedation
repeat Paracentesis on 12/10
consider liver bx unless lab studies/MRI delineate etiology of cirrhosis
Peritoneal Fluid cytology neg for malignant cells
ALETHEA IgG pos
Dr. Green discussed with Dr. Garcia, hepatology. Consider TIPS pending insurance
# Hypokalemia
replete
Follow daily labs while on spironolactone / furosemide.
12/07 3.3-->12/08 3.2-->12/09 3.4-->12/10 3.6
# Paroxysmal Atrial Fibrillation
Patient reports prior h/o A-Fib though not on any medications at present.
He has been having tachycardia / palpitations for about 2-3 weeks.
EKG / tele in the ED appears to show a variable sinus tach.
Monitor on telemetry for now.
Follow for changes in rate with control of symptoms / discomfort / ascites.
# Left facial/jaw cyst
DVT Prophylaxis: Subcut heparin
Code Status: Full
reviewed with outside of room 12/10
Patient wants to go home, trying to reach . just became available, have requested discharge tomorrow morning
Anticipated Discharge: Within 24 hours
Subjective/Interval History
-
Date of Service: December 11, 2024
Pt is begging to go home
Objective Data
-
Vital Signs:
Vital Signs
Temp Pulse Resp BP Pulse Ox
98.6 F 96 18 121/60 100
12/11/24 07:53 12/11/24 08:43 12/11/24 07:53 12/11/24 08:43 12/11/24 07:53
I&O
12/10/24 12/11/24 12/12/24
06:59 06:59 06:59
Intake Total 1859 1570 / 1570 320 / 320
Balance 1859 / 1859 1570 / 1570 320 / 320
Review of Systems
-
History Source: Patient and Coordinated Provider
Constitutional: Denies Fever
EENT: Reports No Symptoms Reported
Respiratory: Reports Trouble Breathing (better)
Cardiac: Reports No Symptoms; Denies Chest Pain
Abdomen/GI: Reports Other (ascites)
Physical Exam
-
General: Well Developed, Well Nourished and No Apparent Distress
HEENT: Normocephalic, Atraumatic and Moist Mucous Membranes
Respiratory: Clear to Auscultation; Negative Wheezes, Rales or Rhonchi
Cardiac: Regular Rhythm and S1/S2
GI: Soft and Other (ascites, reduced)
Musculoskeletal: No Clubbing, No Cyanosis and No Edema
[2024-12-11] MEDS: ATIVAN 0.5 MG PO (21:29)
[2024-12-11 23:31] VITALS: BP 124/74
--- NOTE | 2024-12-12 00:31 | PTCARENOTE ---
patient arrived from ED via stretcher. Enhanced precautions ordered. Stool sample pending, from ED. VSS. Patient denies pain. OOB x 1 assist with RW High fall risk precautions in place. AAO x 3. Medications verified. Patient with continent with
frequent, loose bowel movements. Patient in bed. Skin assessment completed. Bed in lowest position. Call bergman and personal belongings within reach.
[2024-12-12 06:00] VITALS: BMI 32.5
[2024-12-12 07:19] VITALS: BP 152/57
[2024-12-12] MEDS: LASIX 40 MG PO (09:12)
[2024-12-12] MEDS: KCL 20 MEQ PO (09:12)
[2024-12-12] MEDS: ALDACTONE 100 MG PO (09:13)
[2024-12-12] MEDS: PROTONIX IV 40 MG IV (09:13)
[2024-12-12] MEDS: HEPARIN 5000 UNITS SC (09:13)
[2024-12-12] MEDS: NSS (PRESERVATIVE FREE) 10 ML IV (09:14)
--- NOTE | 2024-12-12 10:31 | W.PN.HOSP.TC ---
Today's Communication/Plan
-
dc now
Assessment / Plan
Assessment / Plan
59 yo M with PMH significant for paroxysmal A-Fib who presented to ED complaining of abdominal distention. Patient states that he has not seen a physician in many years. He has noted significant abdominal distention that has been rapidly
progressive over the past month or so. Patient has also noted swelling in the feet / ankles. He felt very uncomfortable due to marked abdominal distention at time of admission - but otherwise denies pain.
He denies N/V. He reports early satiety. No bloody / black stools.
He has been having palpitations / racing heartbeat for about 2-3 weeks and feels that he is in A-Fib.
Patient reports a prior h/o alcohol use - but notes that he has been sober for about 20+ years. Which is confirmed by
No prior h/o IVDA. No prior blood transfusions.
A/P:
# Cirrhosis / Ascites / Varices, due to Decompensated liver failure, unclear cause. confirms that he has not drank in 20+years
Bili 4.0
# Hyponatremia secondary to the above
# Coagulopathy secondary to the above
# Prior h/o EtOH - but not in about 20+ years per patient.
CT scan done in the ED showed ascites and esophageal / gastric varices but no other significant / acute abnormality.
1. Large volume intraperitoneal ascites.
2. Findings consistent with hepatic cirrhosis.
3. 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
MELD-Na = 25 on admission. Follow daily labs / INR 01/06 1.59
s/p large volume paracentesis 12/05, 10 L removed, negative for SBP 12/07 10 L removed, 12/10 8 L removed, total now 28 liters
s/p Albumin following large volume para.
weight 128.9-->114.9-->104.4kg (post paracentesis x 2)-->103.2-->101.7-->94.4kg
input of GI appreciated. MRI of liver: 12/10 1. SEVERE HEPATIC CIRRHOSIS without evidence for hepatocellular carcinoma.
2. SEVERE PORTAL HYPERTENSION with moderate splenomegaly, a recanalized paraumbilical vein, and extensive upper abdominal varices.
3. MILD ASCITES.
4. Mild upper abdominal lymphadenopathy.
5. Mild gallbladder distention.
6. 2.2 cm mass in the left adrenal gland and 1.0 cm mass in the right adrenal gland (possibly lipid poor adenomas).
7. Mild cardiomegaly.
Of note, echo unrevealing: EF75%. Normal regional wall motion.
GI on board. Possible EGD
Cont IV PPI BID.
Follow viral hepatitis panels.
Started diuretic therapy with Lasix 40 mg qd and Aldactone 100 mg qd titrate as needed.
Started low dose Dilaudid for pain control, would limit the use of narcotic to avoid sedation
repeat Paracentesis on 12/10
consider liver bx unless lab studies/MRI delineate etiology of cirrhosis
Peritoneal Fluid cytology neg for malignant cells
ALETHEA IgG pos
Dr. Green discussed with Dr. Garcia, hepatology. Consider TIPS pending insurance
# Hypokalemia
replete
Follow daily labs while on spironolactone / furosemide.
12/07 3.3-->12/08 3.2-->12/09 3.4-->12/10 3.6
# Paroxysmal Atrial Fibrillation
Patient reports prior h/o A-Fib though not on any medications at present.
He has been having tachycardia / palpitations for about 2-3 weeks.
EKG / tele in the ED appears to show a variable sinus tach.
Monitor on telemetry for now.
Follow for changes in rate with control of symptoms / discomfort / ascites.
# Left facial/jaw cyst
DVT Prophylaxis: Subcut heparin
Code Status: Full
reviewed with outside of room 12/12 Will dc now
see dictated note
More than 30 minutes spent in discharge including
Final examination of the patient
Summarizing hospital stay
Instructions for continuing care to all relevant caregivers
Preparation of discharge records, prescriptions, and referral forms
Total time spent (in minutes): 45
Anticipated Discharge: Today
Subjective/Interval History
-
Date of Service: December 12, 2024
Feels reasonably well, anxious to go home
Objective Data
-
Vital Signs:
Vital Signs
Temp Pulse Resp BP Pulse Ox
97.9 F 96 18 152/57 98
12/12/24 07:19 12/12/24 09:12 12/12/24 07:19 12/12/24 09:12 12/12/24 07:19
I&O
12/11/24 12/12/24 12/13/24
06:59 06:59 06:59
Intake Total 1570 / 1570 1280 / 1280
Balance 1570 / 1570 1280 / 1280
Review of Systems
-
History Source: Patient and Coordinated Provider
Constitutional: Denies Fever
EENT: Reports No Symptoms Reported
Respiratory: Reports Trouble Breathing (better)
Cardiac: Reports No Symptoms; Denies Chest Pain
Abdomen/GI: Reports Other (ascites)
Physical Exam
-
General: Well Developed, Well Nourished and No Apparent Distress
HEENT: Normocephalic, Atraumatic and Moist Mucous Membranes
Respiratory: Clear to Auscultation; Negative Wheezes, Rales or Rhonchi
Cardiac: Regular Rhythm and S1/S2
GI: Soft and Other (ascites, reduced)
Musculoskeletal: No Clubbing, No Cyanosis and No Edema
--- NOTE | 2024-12-12 11:02 | CM ---
Chart reviewed. Patient is for d/c today. PT attempted to see, however, patient declined need stating he will be able to manage at home.
Spouse will transport
No CM needs at this time. Patient does not qualify for MA due to income. [employer] insurance marketplace info prev provided to spouse
Plan: Home today, no needs
[2024-12-12] MEDS: DILAUDID 0.25 MG IV (11:26)
[2024-12-12 11:46] VITALS: BP 113/55
--- NOTE | 2024-12-12 19:40 | W.DS.TRANS ---
DC Summary - [employer]
-
Discharge Instructions:
Sleep Apnea Risk High
Discharge Diagnosis/Procedures Ascites
Diet Low Sodium,Restrict fluids to 64 oz
Activity As tolerated,No strenuous activity
Driving Restrictions No driving
Bathing Restrictions None
Blood Work see slips on chart-- follow up labs 1 weeks
prior to GI visit (CBC,CMP,PT/PTT)
Instructions:
Stand-Alone Forms:
Changes to Home Medications: Yes
Discharge Medications:
DC Medications w/original date entered in [facility]
furosemide 40 mg tablet 40 mg PO DAILY #30 tabs 12/12/24
oxycodone 5 mg tablet 5 mg PO Q8H PRN Pain #30 tabs 12/12/24
pantoprazole 40 mg tablet,delayed release (Protonix) 40 mg PO DAILY #30 tabs 12/12/24
spironolactone 50 mg tablet 100 mg (2 x 50 mg) PO DAILY #30 tabs 12/12/24
Home Medication Changes
above medication new
Pending Results: Yes
Additional Pending Results:
Liver/kidney microsomes
[2024-12-13 20:59] LABS: LKM-1 Ab (IgG) 1.2 U (0.0-24.9)
== END 2024-12-12 13:03 | disposition home or self-care (01) | DRG 432 ==
LOC: 4 WEST ACU 03:14
PROVIDERS: Internal Medicine; Internal Medicine Gastroenterology; Nurse Practitioner; Nurse Practitioner Adult Health; Nurse Practitioner Family; Radiology Diagnostic Radiology; Radiology Vascular & Interventional Radiology; Student in an Organized Health Care Education/Training Program; ADMITTING PHYSICIAN Hospitalist; ATTENDING PHYSICIAN Internal Medicine; CONSULT PHYSICIAN Student in an Organized Health Care Education/Training Program; EMERGENCY PHYSICIAN Emergency Medicine
PROC: 0W9G3ZZ Drainage of Peritoneal Cavity, Percutaneous Approach (ICD-10-PCS; 2024-12-05)
DX: K74.60 Unspecified cirrhosis of liver (principal); K72.00 Acute and subacute hepatic failure without coma; D68.9 Coagulation defect, unspecified; E87.1 Hypo-osmolality and hyponatremia; R18.8 Other ascites; I85.10 Secondary esophageal varices without bleeding; J90 Pleural effusion, not elsewhere classified; I48.0 Paroxysmal atrial fibrillation; F17.210 Nicotine dependence, cigarettes, uncomplicated; E87.6 Hypokalemia; I86.4 Gastric varices; D69.6 Thrombocytopenia, unspecified; Z59.71 Insufficient health insurance coverage; I70.0 Atherosclerosis of aorta; Z82.49 Family history of ischemic heart disease and other diseases of the circulatory system; E88.09 Other disorders of plasma-protein metabolism, not elsewhere classified
CPT/HCPCS: 88305; 49083; 70450; 74177; 74183; 76700; 80048; 80053; 80061; 80306; 80307; 82042; 82077; 82103; 82105; 82140; 82248; 82390; 82728; 82784; 83036; 83516; 83540; 83550; 83615; 83735; 84157; 84443; 85025; 85027; 85610; 85730; 86038; 86039; 86376; 86381; 86705; 86706; 86709; 86803; 87015; 87070; 87205; 87340; 88112; 89051; 93005; 93306; 93975; 97116; 97162; 97166; 99406; P9047; Q9967

== ENCOUNTER 2025-02-19 15:01 | Inpatient (IN) | payer OTHER, SELFPAY ==
[2025-02-19] VITALS (39 sets, daily range): BP systolic 109–156; BP diastolic 42–100; BMI 40.4; BMI 36.9
--- NOTE | 2025-02-19 11:01 | ED.GENMED ---
History of Present Illness
<Maxime Aguilar MD, Resident - Last Filed: 02/19/25 13:32>
General
Chief Complaint: Abdominal Symptoms
Source: patient and family
Exam Limitations: altered mental status
Time Seen by Provider: 02/19/25 10:52
Nursing documentation reviewed up to this point in time: agreed with
History of Present Illness
History of Present Illness:
This is a 59-year-old male with known history of paroxysmal A-fib not on any anticoagulants presenting in the emergency department with his ; Isa, with complaints of abdominal distention, altered mental status worsening over the last 3 to 4
days.
He was seen for similar complaints in November 2024 when he had 3 sessions of paracentesis and total of 28 L of fluid was withdrawn. After the paracentesis session his symptoms did not improved and he was eventually discharged with instructions to
follow-up with GI/hepatology however they could not follow-up with any specialist because of insurance issues and he did not receive any additional paracentesis. His reported that his overall health including the diet improved after the fluid
removal during last admission. He continues to take spironolactone and furosemide to avoid fluid retention however believes that the medications are not working anymore.
Past History
<Maxime Aguilar MD, Resident - Last Filed: 02/19/25 13:32>
Past History
ED Past Medical History: Arrthythmia and Other (Hepatic cirrhosis, left facial/jaw)
ED Past Surgical History: Orthopedic (Left wrist surgery) and Other (Paracentesis)
Patient has exhibited threatening behavior?: No
Social History
Tobacco: Non-smoker
Alcohol: None
Drug: None
Personal:
Living: with family
Review of Systems
<Maxime Aguilar MD, Resident - Last Filed: 02/19/25 13:32>
Review of Systems
Allergies reviewed?: Yes
Unable to obtain full review of systems at this time due to: due to acuity
Constitutional: Denies fever
Respiratory: Denies cough
Cardiac: Denies chest pain
ABD/GI: Reports abdominal pain; Denies nausea or vomiting
: Denies dysuria
Phy Exam
<Maxime Aguilar MD, Resident - Last Filed: 02/19/25 13:32>
General Physical Exam
General Presentation: moderate distress
General age: appears older than age
General Skin: pale
General Habitus: failure to thrive
General Mental: confused
Cardiovascular Exam
Cardiovascular Exam: regular rate/rhythm and no murmur
Pulmonary Exam
Pulmonary Exam: lungs clear, no rales, no crackles and no cough
Gastrointestinal Exam
Gastrointestinal Exam: no pulsatile mass, ascites, distended and other (Multiple scars from previous paracentesis)
Course
<Maxime Aguilar MD, Resident - Last Filed: 02/19/25 13:32>
Orders/Labs/Results
Orders:
Orders
02/19/25 Lunch
Regular
02/19/25 11:40
Alcohol Urgent
Ammonia Urgent
Complete Blood Count/With Diff Urgent
Comprehensive Metabolic Panel Urgent
Lactate Level [Lactic Acid] Urgent
Lipase Urgent
Magnesium Urgent
Blood Culture Q30M
CECILIA Source: Blood/Venous
Specimen Description:
Blood Culture Q30M
CECILIA Source: Blood/Venous
Specimen Description:
02/19/25 12:35
3% Sodium Chloride 250 ml [Sodium Chloride 3%] 250 ml IV NOW
02/19/25 12:54
Osmolality, Random Urine Routine
Date Specimen was Collected: 02/19/25
Time Specimen was Collected: 17:15
Urine Creatinine Routine
Date Specimen was Collected: 02/19/25
Time Specimen was Collected: 17:15
Urine Sodium Routine
Date Specimen was Collected: 02/19/25
Time Specimen was Collected: 17:15
02/19/25 13:07
CefTRIAXone [Rocephin] 2,000 mg IV NOW STA
02/19/25 13:08
Body Fluid Albumin Routine
Fluid Source: Peritoneal (Ascites)
Date Specimen was Collected: 02/19/25
Time Specimen was Collected: 13:05
Body Fluid Amylase Routine
Fluid Source: Peritoneal (Ascites)
Date Specimen was Collected: 02/19/25
Time Specimen was Collected: 13:05
Body Fluid Cell Count Routine
What is the Body Fluid: peritoneal fluid
Date Specimen was Collected: 02/19/25
Time Specimen was Collected: 13:05
Comment: post procedure
Body Fluid LDH Routine
Fluid Source: Peritoneal (Ascites)
Date Specimen was Collected: 02/19/25
Time Specimen was Collected: 13:05
Body Fluid Protein Routine
Fluid Source: Peritoneal (Ascites)
Date Specimen was Collected: 02/19/25
Time Specimen was Collected: 13:05
Fluid Culture with Gram Stain Routine
CECILIA Source: Peritoneal Fluid
Specimen Description:
Date Specimen was Collected: 02/19/25
Time Specimen was Collected: 13:05
Comment: Post Procedure
02/19/25 13:23
Code Status As Directed
Resuscitation Status: Full Code
Bisacodyl [Dulcolax] 10 mg RECTAL [id number] PRN
Docusate W/Senna [Senokot-S] 1 tablet PO BIDPRN PRN
Polyethylene Glycol Powder [Miralax] 17 grams PO DAILYPRN PRN
02/19/25 13:26
Activity As Directed
Activity Level: As Tolerated
Vital Signs As Directed
Frequency: Per unit guidelines
02/19/25 13:27
Pneumatic Compression Sleeves As Directed
Type: Knee high
DX Deep Vein Thrombosis Video Routine
02/19/25 13:28
Ondansetron Injectable [Zofran] 4 mg IV Q6HPRN PRN
02/19/25 13:30
Add On- LAB Stat
Tests Added?: PT, PTT, INR
02/19/25 13:32
Admit Patient As Directed
Co-Sign Provider:
Level of Care: Inpatient admission
Assign to:: ICU
Physician / Group: Hospitalists
Diagnosis: Ascites, Sepsis, possible SBP
Reason for Hospitalization: Ascites, Sepsis, possible SBP
Expected length of stay greater than two midnights?: Yes
ELOS- Estimated Length of Stay in days: 4
I certify the patient meets the requirements for IP care: Yes
PRN Pain Medication Management As Directed
May give lesser potent ordered pain med per pt: Yes
preference::
Protocol:: Medication orders for pain may be administered in a
manner that supports deferring to patient preference
when the pt is:
- Requesting an ordered lesser potent pain medication.
Least to most potent pain medications are defined
as: acetaminophen < NSAID < tramadol < opioids
(morphine, oxycodone, hydromorphone).
- Requesting a lesser dose of the same medication IF
ORDERED.
- Requesting a less intrusive route of administration
if both routes are prescribed by the provider (PO <
IV).
02/19/25 13:37
Neuropsychology Division Chief Consult Routine
Consulting Provider: Kenroy Reyes
Was physician already notified: Yes
Reason for consult: massive ascitis, encephalapothy, SBP hx of liver cirrohsis
02/19/25 13:38
Add On- LAB Routine
Tests Added?: phosphatidylethanol, EtOH
02/19/25 13:48
NEPHROLOGY CONSULT Routine
Consulting Provider: Una Nathan
Was physician already notified: Yes
Reason for consult: MORTEZA in setting of liver cirrohsis, massive ascites
02/19/25 14:12
Albumin Human 25% 50 ml [Flexbumin] 12.5 grams in 50 ml IV TODAY
02/19/25 14:18
NG Tube [Gastrointestinal Tubes] As Directed
To suction?: No
02/19/25 14:31
Lactulose [Duphalac/Chronulac] 10 grams PO DAILY
02/19/25 15:00
Lactated Ringers [Lr] 1,000 ml IV 120 mls/hr
Pantoprazole [Protonix IV] 40 mg IV DAILY
02/19/25 16:00
Lactulose [Duphalac/Chronulac] 10 grams PO TID
02/19/25 17:37
PTT Urgent
Prothrombin Time Urgent
Urinalysis Reflex To Culture Urgent
Date Specimen was Collected: 02/19/25
Time Specimen was Collected: 11:17
Urine Microscopic Reflex Cult Urgent
Urine Culture Urgent
CECILIA Source: U
Specimen Description:
Date Specimen was Collected: 02/19/25
Time Specimen was Collected: 11:17
02/20/25 03:29
Ammonia IN AM
Amylase IN AM
Complete Blood Count/No Diff IN AM
Comprehensive Metabolic Panel IN AM
Lipase IN AM
Magnesium IN AM
NT-proBNP IN AM
Vitamin B12 IN AM
02/20/25 08:00
Furosemide [Lasix] 40 mg PO DAILY
Pantoprazole [Protonix] 40 mg PO DAILY
Spironolactone [Aldactone] 100 mg PO DAILY
02/21/25 06:00
Complete Blood Count/No Diff IN AM
Comprehensive Metabolic Panel IN AM
Magnesium IN AM
02/22/25 06:00
Complete Blood Count/No Diff IN AM
Comprehensive Metabolic Panel IN AM
Magnesium IN AM
02/23/25 06:00
Complete Blood Count/No Diff IN AM
Comprehensive Metabolic Panel IN AM
Magnesium IN AM
02/24/25 06:00
Complete Blood Count/No Diff IN AM
Comprehensive Metabolic Panel IN AM
Magnesium IN AM
Abnormal Lab Results
02/19/25 02/19/25
11:40 12:54
WBC 22.4 H 10^3/uL
(4.8-10.8)
RBC 3.92 L 10^6/uL
(4.70-6.10)
MCV 100.5 H fL
(80.0-94.0)
MCH 36.0 H pg
(27.0-31.0)
RDW 17.2 H %
(11.5-14.5)
MPV 10.8 H fL
(7.4-10.4)
Abs Immat Gran (auto) 0.3 H 10^3/uL
(0-0.05)
Absolute Neuts (auto) 19.0 H 10^3/uL
(1.4-6.5)
Absolute Monos (auto) 0.7 H 10^3/uL
(0.1-0.6)
Immature Gran % 1.1 H %
(0-0.5)
Neutrophils % 85.0 H %
(42.2-75.2)
Lymphocytes % 10.4 L %
(20.5-51.1)
Sodium 121 L mmol/L
(135-145)
Chloride 82 L mmol/L
(98-107)
BUN 29 H mg/dl
(9-20)
Creatinine 2.6 H mg/dL
(0.7-1.3)
Glucose 119 H mg/dl
(70-99)
Lactic Acid 7.5 H* mmol/L
(0.7-2.0)
Total Bilirubin 14.5 H mg/dl
(0.2-1.3)
Alkaline Phosphatase 171 H U/L
(38-126)
Ammonia 40 H umol/L
(9-30)
Urine Osmolality 287 L mOsm/kg
(300-900)
Urine Sodium < 5 L mmol/L
(30-90)
02/19/25 11:40
02/19/25 11:40
Vital Signs
Initial and Last Documented VS:
Initial Vital Signs
Temp Pulse Resp BP Pulse Ox
98.6 F 62 16 137/89 92
02/19/25 10:38 02/19/25 10:38 02/19/25 10:38 02/19/25 10:38 02/19/25 10:38
Last Documented Vital Signs
Temp Pulse Resp BP Pulse Ox
97.7 F 100 22 102/72 98
02/20/25 07:32 02/20/25 05:45 02/20/25 05:45 02/20/25 05:50 02/20/25 05:45
<Jonnie Dolan MD - Last Filed: 02/20/25 08:08>
Orders/Labs/Results
Orders:
Orders
02/19/25 Lunch
Regular
02/19/25 11:40
Alcohol Urgent
Ammonia Urgent
Complete Blood Count/With Diff Urgent
Comprehensive Metabolic Panel Urgent
Lactate Level [Lactic Acid] Urgent
Lipase Urgent
Magnesium Urgent
Blood Culture Q30M
CECILIA Source: Blood/Venous
Specimen Description:
Blood Culture Q30M
CECILIA Source: Blood/Venous
Specimen Description:
02/19/25 12:35
3% Sodium Chloride 250 ml [Sodium Chloride 3%] 250 ml IV NOW
02/19/25 12:54
Osmolality, Random Urine Routine
Date Specimen was Collected: 02/19/25
Time Specimen was Collected: 17:15
Urine Creatinine Routine
Date Specimen was Collected: 02/19/25
Time Specimen was Collected: 17:15
Urine Sodium Routine
Date Specimen was Collected: 02/19/25
Time Specimen was Collected: 17:15
02/19/25 13:07
CefTRIAXone [Rocephin] 2,000 mg IV NOW STA
02/19/25 13:08
Body Fluid Albumin Routine
Fluid Source: Peritoneal (Ascites)
Date Specimen was Collected: 02/19/25
Time Specimen was Collected: 13:05
Body Fluid Amylase Routine
Fluid Source: Peritoneal (Ascites)
Date Specimen was Collected: 02/19/25
Time Specimen was Collected: 13:05
Body Fluid Cell Count Routine
What is the Body Fluid: peritoneal fluid
Date Specimen was Collected: 02/19/25
Time Specimen was Collected: 13:05
Comment: post procedure
Body Fluid LDH Routine
Fluid Source: Peritoneal (Ascites)
Date Specimen was Collected: 02/19/25
Time Specimen was Collected: 13:05
Body Fluid Protein Routine
Fluid Source: Peritoneal (Ascites)
Date Specimen was Collected: 02/19/25
Time Specimen was Collected: 13:05
Fluid Culture with Gram Stain Routine
CCEILIA Source: Peritoneal Fluid
Specimen Description:
Date Specimen was Collected: 02/19/25
Time Specimen was Collected: 13:05
Comment: Post Procedure
02/19/25 13:23
Code Status As Directed
Resuscitation Status: Full Code
Bisacodyl [Dulcolax] 10 mg RECTAL [id number] PRN
Docusate W/Senna [Senokot-S] 1 tablet PO BIDPRN PRN
Polyethylene Glycol Powder [Miralax] 17 grams PO DAILYPRN PRN
02/19/25 13:26
Activity As Directed
Activity Level: As Tolerated
Vital Signs As Directed
Frequency: Per unit guidelines
02/19/25 13:27
Pneumatic Compression Sleeves As Directed
Type: Knee high
DX Deep Vein Thrombosis Video Routine
02/19/25 13:28
Ondansetron Injectable [Zofran] 4 mg IV Q6HPRN PRN
02/19/25 13:30
Add On- LAB Stat
Tests Added?: PT, PTT, INR
02/19/25 13:32
Admit Patient As Directed
Co-Sign Provider:
Level of Care: Inpatient admission
Assign to:: ICU
Physician / Group: Hospitalists
Diagnosis: Ascites, Sepsis, possible SBP
Reason for Hospitalization: Ascites, Sepsis, possible SBP
Expected length of stay greater than two midnights?: Yes
ELOS- Estimated Length of Stay in days: 4
I certify the patient meets the requirements for IP care: Yes
PRN Pain Medication Management As Directed
May give lesser potent ordered pain med per pt: Yes
preference::
Protocol:: Medication orders for pain may be administered in a
manner that supports deferring to patient preference
when the pt is:
- Requesting an ordered lesser potent pain medication.
Least to most potent pain medications are defined
as: acetaminophen < NSAID < tramadol < opioids
(morphine, oxycodone, hydromorphone).
- Requesting a lesser dose of the same medication IF
ORDERED.
- Requesting a less intrusive route of administration
if both routes are prescribed by the provider (PO <
IV).
02/19/25 13:37
Neuropsychology Division Chief Consult Routine
Consulting Provider: Kenroy Reyes
Was physician already notified: Yes
Reason for consult: massive ascitis, encephalapothy, SBP hx of liver cirrohsis
02/19/25 13:38
Add On- LAB Routine
Tests Added?: phosphatidylethanol, EtOH
02/19/25 13:48
NEPHROLOGY CONSULT Routine
Consulting Provider: Una Nathan
Was physician already notified: Yes
Reason for consult: MORTEZA in setting of liver cirrohsis, massive ascites
02/19/25 14:12
Albumin Human 25% 50 ml [Flexbumin] 12.5 grams in 50 ml IV TODAY
02/19/25 14:18
NG Tube [Gastrointestinal Tubes] As Directed
To suction?: No
02/19/25 14:31
Lactulose [Duphalac/Chronulac] 10 grams PO DAILY
02/19/25 15:00
Lactated Ringers [Lr] 1,000 ml IV 120 mls/hr
Pantoprazole [Protonix IV] 40 mg IV DAILY
02/19/25 16:00
Lactulose [Duphalac/Chronulac] 10 grams PO TID
02/19/25 17:37
PTT Urgent
Prothrombin Time Urgent
Urinalysis Reflex To Culture Urgent
Date Specimen was Collected: 02/19/25
Time Specimen was Collected: 11:17
Urine Microscopic Reflex Cult Urgent
Urine Culture Urgent
CECILIA Source: U
Specimen Description:
Date Specimen was Collected: 02/19/25
Time Specimen was Collected: 11:17
02/20/25 03:29
Ammonia IN AM
Amylase IN AM
Complete Blood Count/No Diff IN AM
Comprehensive Metabolic Panel IN AM
Lipase IN AM
Magnesium IN AM
NT-proBNP IN AM
Vitamin B12 IN AM
02/20/25 08:00
Furosemide [Lasix] 40 mg PO DAILY
Pantoprazole [Protonix] 40 mg PO DAILY
Spironolactone [Aldactone] 100 mg PO DAILY
02/21/25 06:00
Complete Blood Count/No Diff IN AM
Comprehensive Metabolic Panel IN AM
Magnesium IN AM
02/22/25 06:00
Complete Blood Count/No Diff IN AM
Comprehensive Metabolic Panel IN AM
Magnesium IN AM
02/23/25 06:00
Complete Blood Count/No Diff IN AM
Comprehensive Metabolic Panel IN AM
Magnesium IN AM
02/24/25 06:00
Complete Blood Count/No Diff IN AM
Comprehensive Metabolic Panel IN AM
Magnesium IN AM
Abnormal Lab Results
02/19/25 02/19/25
11:40 12:54
WBC 22.4 H 10^3/uL
(4.8-10.8)
RBC 3.92 L 10^6/uL
(4.70-6.10)
MCV 100.5 H fL
(80.0-94.0)
MCH 36.0 H pg
(27.0-31.0)
RDW 17.2 H %
(11.5-14.5)
MPV 10.8 H fL
(7.4-10.4)
Abs Immat Gran (auto) 0.3 H 10^3/uL
(0-0.05)
Absolute Neuts (auto) 19.0 H 10^3/uL
(1.4-6.5)
Absolute Monos (auto) 0.7 H 10^3/uL
(0.1-0.6)
Immature Gran % 1.1 H %
(0-0.5)
Neutrophils % 85.0 H %
(42.2-75.2)
Lymphocytes % 10.4 L %
(20.5-51.1)
Sodium 121 L mmol/L
(135-145)
Chloride 82 L mmol/L
(98-107)
BUN 29 H mg/dl
(9-20)
Creatinine 2.6 H mg/dL
(0.7-1.3)
Glucose 119 H mg/dl
(70-99)
Lactic Acid 7.5 H* mmol/L
(0.7-2.0)
Total Bilirubin 14.5 H mg/dl
(0.2-1.3)
Alkaline Phosphatase 171 H U/L
(38-126)
Ammonia 40 H umol/L
(9-30)
Urine Osmolality 287 L mOsm/kg
(300-900)
Urine Sodium < 5 L mmol/L
(30-90)
02/19/25 11:40
02/19/25 11:40
Vital Signs
Initial and Last Documented VS:
Initial Vital Signs
Temp Pulse Resp BP Pulse Ox
98.6 F 62 16 137/89 92
02/19/25 10:38 02/19/25 10:38 02/19/25 10:38 02/19/25 10:38 02/19/25 10:38
Last Documented Vital Signs
Temp Pulse Resp BP Pulse Ox
97.7 F 100 22 102/72 98
02/20/25 07:32 02/20/25 05:45 02/20/25 05:45 02/20/25 05:50 02/20/25 05:45
Procedures
<Jonnie Dolan MD - Last Filed: 02/20/25 08:08>
Other
Indication for procedure:: Ascite - paracentesis
Procedure completed by: Jonnie Dolan M.D.
Consent form signed: Yes
Additional Procedure:
Area prepped with Betadine solution. 18-gauge needle attached to a 25 mL syringe inserted into left lower quadrant with negative pressure, with removal of approximately 30 mL of ascitic fluid, without complication.
<Maxime Aguilar MD, Resident - Last Filed: 02/19/25 13:32>
MDM/Problems Addressed
Differential Diagnosis Includes:
Ascites due to decompensated liver failure VS progressive hepatic cirrhosis
MDM/Problems Addressed:
CBC with leukocytosis 22.4. CMP with hyponatremia 121, hypochloremia 82, BUN of 29, creatinine of 2.6, lactic acid of 7.5, total bilirubin of 14.5 alk phos 171, ammonia 40.
IR notified. Orders placed for fluid analysis studies.
Check urine studies, check blood culture, check hepatitis panel and HIV.
Performed diagnostic para in the ER. Fluid sent for analysis. Ordered 2 g IV ceftriaxone. Consent was obtained from his Isa (contact number [phone])
3% hypertonic solution for hyponatremia.
Child Molina's score of 10; CLASS C.
Hospitalist, GI, nephrology, [facility] notified.
Will admit the patient to ICU
Chronic conditions affecting care: Arrhythmia
<Maxime Aguilar MD, Resident - Last Filed: 02/19/25 13:32>
*Pulse Oximetry
SaO2: 92
Oxygen Mode of Delivery: Room air
Patient hypoxic: no
*Critical Care Note
Total Time (30-74mins, 75-104mins- exclusive of procedures): Not Applicable
ED Attending Note
<Maxime Aguilar MD, Resident - Last Filed: 02/19/25 13:32>
-
Portions of this chart may have been created with voice recognition software.� Occasional wrong word or��sound alike� substitutions may have occurred due to the inherent limitations of voice recognition software.
<Jonnie Dolan MD - Last Filed: 02/20/25 08:08>
ED Attending Note
Patient seen and examined by attending physician: Yes
ED Attending Note:
Patient with history of liver cirrhosis secondary to alcohol use presents to ED from home secondary to increased abdominal swelling with confusion. Per spouse, patient was admitted to the hospital in November 2024 and was treated for similar
complaint, during which time greater than 20 L of fluid was removed from his abdomen. Confusion noted at that time improved with fluid removal. Unfortunately, since discharge, secondary to lack of medical insurance, patient has not been able to
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 Denies fever or chills. Denies vomiting or diarrhea. Patient does report increased work of breathing.
Physical Exam
General: moderate distress, acutely ill. afebrile
Head: nc/at. icteric sclera noted
Neck: supple. no meningeal signs. no jvd
Heart: s1/s2 regular rate and rhythm
Lungs: no acute respiratory distress. clear bilaterally
Abdomen: normal bowel sounds. severe distention without focal tenderness.
Neuro: alert and oriented x 2. no focal neurological deficits
Skin: no rash. jaundiced
Extremities: no edema. no calf tenderness.
History and exam, along with blood work significant for abnormal liver function test as well as electrolyte imbalance. In light of significant leukocytosis, elevated lactate level, along with ascites, as well as mental status change, there is
clinical concern for potential SBP. As such, after receiving procedure consent from patient's spouse via phone, decision made to perform diagnostic paracentesis. 40 mL of ascitic fluid successfully removed with fluid analysis ordered. Afterwards,
patient given 2 g of IV Rocephin. Patient will be admitted for further eval and treatment. Nephrology and GI on-call, both notified via [place] text. [facility] also consulted for therapeutic paracentesis.
Hypotonic solution ordered secondary to hyponatremia.
Patient will be admitted to ICU for further evaluation treatment.
Critical care statement: A total of 40 minutes of critical care time was provided for this patient. This includes management of unstable vital signs, evaluation of the patient at bedside, reviewing the patient's pertinent medical records, discussion
with consultants, review of old EKGs and review of pertinent medical records. This time with separate from time utilized to perform the aforementioned documented procedures
Discharge Plan
Departure
Patient Disposition: Admit
Date of Disposition: 02/19/25
Time of Disposition: 13:09
Admit to: ICU
Presentation/result/management discussed w/ accepting MD/DO: Hospitalist
Patient with high blood pressure during this ER visit?: Yes
Condition: Serious
Discharge Problem:
Jaundice, Acute hyponatremia, Ascites, Acute alteration in mental status
Interventions
Interventions:
*Risk Screen - Suicide Last Done: 02/19/25 10:38
*Neglect/Abuse Screening Last Done: 02/19/25 10:38
*ED COVID-19 Vaccine History Last Done: 02/19/25 18:36
*Nursing Disposition Last Done: 02/19/25 16:55
LQ-Qmfynt-Swcqodsgdz Assessment Last Done: 02/19/25 11:12
Discharge Date and Time
Discharge Date/Time: 02/19/25 16:56
[2025-02-19 11:58] LABS: Hematocrit 39.4 % (39.0-52.0); Hemoglobin 14.1 g/dL (13.0-18.0); Mean Corp Hgb Conc. 35.8 g/dL (33.0-37.0); Mean Corpuscular Volume 100.5 fL (80.0-94.0); Nucleated Red Blood Cells % 0.1 % (-); Platelet Count 172 10^3/uL (130-400); Red Cell Dist. Width 17.2 % (11.5-14.5)
[2025-02-19 12:11] LABS: Ammonia 40 umol/L (9-30)
[2025-02-19 12:21] LABS: AST (SGOT) 44 U/L (17-59); Albumin 3.5 g/dl (3.5-5.0); Alkaline Phosphatase 171 U/L (38-126); Blood Urea Nitrogen 29 mg/dl (9-20); Calcium 9.3 mg/dl (8.4-10.2); Carbon Dioxide 22 mmol/L (22-30); Chloride 82 mmol/L (98-107); Estimated Creatinine Clearance 37 ml/min; Glucose 119 mg/dl (70-99); Magnesium 1.9 mg/dl (1.6-2.3); Potassium 4.0 mmol/L (3.5-5.1); Sodium 121 mmol/L (135-145); Total Protein 7.9 g/dl (6.3-8.2); eGFR 27.55
[2025-02-19 12:53] LABS: ALT (SGPT) < 30 U/L (0-50)
[2025-02-19 12:57] LABS: Lipase 124 U/L (23-300)
[2025-02-19] MEDS: SODIUM CHLORIDE 3% 250 IV ×2 (13:08→23:35)
--- NOTE | 2025-02-19 13:30 | CON.GI ---
Addendum entered and electronically signed by Caro Raymundo DO 02/19/25 15:41:
The patient was seen and examined by me independently in collaboration with the nurse practitioner.
Past medical history/social history/medications/allergies/family history reviewed.
Lab data and imaging data reviewed.
Patient is a 59-year-old male with decompensated cirrhosis complicated by portal hypertension with large volume ascites, esophageal varices, hyponatremia, chronic salivary gland tumor, A-fib not on anticoagulation who presents with worsening
abdominal distention and hepatic encephalopathy. He was recently hospitalized at [facility], admitted from 12/05/2024 to 12/12/2024 with new onset ascites, requiring 3 total paracentesis with removal of 28 L of fluid, given a new diagnosis of
decompensated cirrhosis. There was a discussion of referral to tertiary care center to see hepatology however patient did not have insurance at that time, was given very clear instructions on following up with hepatology upon discharge.
Comprehensive serologic workup unremarkable, path returned negative.
WBC 22.4, hemoglobin 14.1, platelets 172, sodium 121, BUN 29, creatinine 2.6, lactate 7.5, total bilirubin 14.5, AST 44, ALT<30, alk phos 171, albumin 3.5
On exam, patient is profoundly encephalopathic with significant abdominal distention, jaundice and purpleish discoloration of his toes. He has multiple metabolic derangements, metabolic acidosis, hyponatremia, acute liver injury, bilirubin of 14.5,
and a leukocytosis of 22,000. Diagnostic paracentesis was performed in the ER prior to administration of 2g Ceftriaxone.
#Decomepnsated Cirrhosis-- etiology unclear
-prior workup unremarkable, PETH negative
-bilirubin is significantly higher than recent admission, suspicious for alc hepatitis, recommend sending another PETH level now, especially if considering transferring to transplant center
-awaiting INR to calculate MELD score
-check US w/ dopplers to rule out PVT
-rule out infection
-treat encephalopathy
-agree with ICU level of care given high risk for clinical decompensation and florid encephalopathy on exam as well as well as multiple concerning metabolic derrangments, requiring frequent lab and neuro checks
-no concern for GI bleeding at this time
-NPO
#MORTEZA-- normal kidney function on recent discharge
-prerenal vs. HRS
-hold diuretics
-limited paracentesis to 3.5 L; will certainly require additional paracentesis later on admission, but need to avoid further decreased perfusion to the kidneys
-albumin challenge, if no improvement, recommend starting triple therapy
#Leukocytosis-- c/f underlying infection, elevated lactate of 7.5
-s/p diagnostic paracentesis, f/u fluid studies to rule out SBP
-continue Ceftriaxone for now
-check blood and urine cultures as well
-bluish discoloration to feet, palpable distal pulses, monitor closely
Original Note:
Consultation
-
Date/Time Consultation Requested: 02/19/25 1300
Date/Time Consultation Performed: 02/19/25 1330
Requesting Provider: Maxime Aguilar MD
Performing Provider: MINI Li, Tameka Raymundo DO
Reason for Consultation: change in mental status
Medical History
Chief Complaint / HPI
Chief Complaint: abdominal swelling
History of Present Illness:
Pt is a 59yo with no medical care for years, hx PAF(not on anticoagulation), salivary gland tumor (chronic for years), prior ETOH use years ago with admission in November with massive ascites with decompensated liver failure, hyponatremia,
coagulopathy, electrolyte imbalance. During that admission he had paracentesis x 3 for total of 28 liters of ascites removed and fluid studies c/w liver etiology with negative pathology. He was advised hepatology and given contact for several
hepatologists and was also scheduled 12/21 in GI office and did not call to confirm without follow up. He was also advised follow up labs that were not completed. He was discharge on Lasix 40mg and Aldactone 50mg daily. Along with PPI daily and
Oxycodone.. Etiology of liver disease was unclear. Liver work up complete during admission revealed + ALETHEA, mild elevated A1AT, elevated immunoglobulin A, hepatitis B immunity with otherwise neg panel, normal AMA, SLA, LKM, ceruloplasmin, with
neg ETOH screening with PETH neg <10 AFP 4.97. Imaging with cirrhosis and ascites. 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 MRI with severe hepatic cirrhosis without HCC, severe portal HTN, mild ascites, upper
abdominal adenopathy, GB distention, adrenal mass and CM. He now presents today with abdominal distention and change in mental status. On admission noted with WBC 22,400, hbg 14.1, platelets 172, na 121, creat 2.6, BUN 29, lactate 7.5, bili
14.5, AST 44, ALT <30, alk phos 171, ammonia 40.
Pt currently with limited verbal and discussed with . Pt was doing ok but then noted with increased depression, decreased appetite and change in mental status. He continued on diuretics and occasional Oxycone He did not have follow up
with GI or hepatology with lack of insurance coverage but now had picked up plan. He was also noted with progressive increased abdominal distention. She reports some abdominal pain with distention but denies nausea, vomiting, hematemesis,
diarrhea, constipation or rectal bleeding. No hx EGD or colonoscopy in past.
Past Medical History
Past Medical History: Arrhythmias (PAF), Cancer (salivary gland tumor) and Other (cirrhosis, portal vein thrombus )
Past Surgical History: Orthopedic (left hand ORIF)
Social History
Tobacco: Smoker (5 cigarettes per day)
Alcohol: Former (admits to social ETOH years ago)
Drug: Marijuana and Other (no hx IVDA)
Personal:
Living: With Family
Employment: Not Employed
Family History
Family History: Other (mother with hx liver disease )
Allergies / Home Medications
Allergy/AdvReac Type Severity Reaction Status Date / Time
No Known Allergies Allergy Verified 02/19/25 10:38
�Medication �Instructions �Recorded
furosemide 40 mg tablet 40 mg PO DAILY Fluid 02/19/25
Retention/Swelling
pantoprazole 40 mg tablet,delayed 40 mg PO DAILY Gastrointestinal 02/19/25
release (Protonix) Issue
spironolactone 50 mg tablet 100 mg PO DAILY Fluid 02/19/25
Retention/Swelling
Review of Systems
-
History Source: Patient and Family
Constitutional: Reports Weight Gain (with fluid )
EENT: Reports No Symptoms
Respiratory: Reports No Symptoms
Cardiac: Reports No Symptoms
Abdomen/GI: Reports Abdominal Pain (with distention )
: Reports No Symptoms
Neurological: Reports Other (change in mental status with lethargy recently )
Endocrine: Reports No Symptoms
Hematologic/Lymphatic: Reports No Symptoms
Vital Signs
Temp Pulse Resp BP Pulse Ox
98.6 F 127 21 137/76 92
02/19/25 10:38 02/19/25 12:15 02/19/25 12:15 02/19/25 11:03 02/19/25 12:34
Physical Exam
Exam
General: Other (ill appearing, minimally responsive pale appearing )
HEENT: Normocephalic and Other (mild jaundice )
Respiratory: Other (decreased bases )
Cardiac: Other (tachy)
GI: Tender and Distended (massive distention )
Musculoskeletal: No Clubbing and Other (LE with bluish hue )
Neuro: Other (non verbal on exam )
Psych: Calm
Results
WBC 22.4 10^3/uL (4.8-10.8) H 02/19/25 11:40
Hgb 14.1 g/dL (13.0-18.0) 02/19/25 11:40
Hct 39.4 % (39.0-52.0) 02/19/25 11:40
MCV 100.5 fL (80.0-94.0) H 02/19/25 11:40
Plt Count 172 10^3/uL (130-400) 02/19/25 11:40
Absolute Neuts (auto) 19.0 10^3/uL (1.4-6.5) H 02/19/25 11:40
Sodium 121 mmol/L (135-145) L 02/19/25 11:40
Potassium 4.0 mmol/L (3.5-5.1) 02/19/25 11:40
Chloride 82 mmol/L (98-107) L 02/19/25 11:40
Carbon Dioxide 22 mmol/L (22-30) 02/19/25 11:40
BUN 29 mg/dl (9-20) H 02/19/25 11:40
Creatinine 2.6 mg/dL (0.7-1.3) H 02/19/25 11:40
Calcium 9.3 mg/dl (8.4-10.2) 02/19/25 11:40
Total Bilirubin 14.5 mg/dl (0.2-1.3) H 02/19/25 11:40
AST 44 U/L (17-59) 02/19/25 11:40
ALT < 30 U/L (0-50) 02/19/25 11:40
Alkaline Phosphatase 171 U/L (38-126) H 02/19/25 11:40
Lipase 124 U/L (23-300) 02/19/25 11:40
Hep Bs Antibody Cancelled 02/19/25 11:08
Hepatitis C Antibody Cancelled 02/19/25 11:08
Diagnostic Image Results:
12/10/24 MRI abdomen
1. SEVERE HEPATIC CIRRHOSIS without evidence for hepatocellular carcinoma.
2. SEVERE PORTAL HYPERTENSION with moderate splenomegaly, a recanalized paraumbilical vein, and extensive upper abdominal varices.
3. MILD ASCITES.
4. Mild upper abdominal lymphadenopathy.
5. Mild gallbladder distention.
6. 2.2 cm mass in the left adrenal gland and 1.0 cm mass in the right adrenal gland (possibly lipid poor adenomas).
7. Mild cardiomegaly.
12/07/24 US Abd W Abd Doppler
1. Thrombosis within the right portal vein and distal main portal vein.
2. Hepatic cirrhosis with ascites and portal hypertension changes.
3. Gallbladder sludge.
12/05/24 CT Abd/pelvis W Iv Cont
1. Large volume intraperitoneal ascites.
2. Findings consistent with hepatic cirrhosis.
3. 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
paracentesis 12/05 stopped at 10 liter 12/07 10 liters , 12/10 8600ml neg SBP-- SAAG 2.1 with low protein c/w cirrhosis
12/05/24 echo
Left ventricular ejection fraction is >75%, by visual assessment. Normal
regional wall motion.
Normal right ventricular size and function.
Trileaflet aortic valve with focal thickening. Aortic sclerosis without
stenosis.
Prior GI Procedures:
EGD: none
Colonoscopy: none
Assessment / Plan
-
Pt is a 59yo with no medical care for years, hx PAF(not on anticoagulation), salivary gland tumor (chronic for years), prior ETOH use years ago with admission in November with massive ascites with decompensated liver failure, hyponatremia,
coagulopathy, electrolyte imbalance. During that admission he had paracentesis x 3 for total of 28 liters of ascites removed and fluid studies c/w liver etiology with neg pathology. He was advised hepatology and given contact for several
hepatologists and was also scheduled 12/21 in GI office and did not call to confirm without follow up. He was also advised follow up labs that were not completed. He was discharge on Lasix 40mg and Aldactone 50mg daily. Along with PPI daily and
Oxycodone.. Etiology of liver disease was unclear. Liver work up complete during admission revealed + ALETHEA, mild elevated A1AT, elevated immunoglobulin A, hepatitis B immunity with otherwise neg panel, normal AMA, SLA, LKM, ceruloplasmin, with
neg ETOH screening with PETH neg <10 AFP 4.97. Imaging with cirrhosis and ascites. 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 MRI with severe hepatic cirrhosis without HCC, severe portal HTN, mild ascites, upper
abdominal adenopathy, GB distention, adrenal mass and CM. He now presents with abdominal distention and change in mental status. On admission noted with WBC 22,400, hbg 14.1, platelets 172, na 121, creat 2.6, BUN 29, lactate 7.5, bili 14.5, AST
44, ALT <30, alk phos 171, ammonia 40.
-concern for decompensated cirrhosis -etiology unclear
-change in mental status with hepatic encephalopathy
-massive ascites with paracentesis x 3 in November for 28 liter and recurrent ascites on admission
-tachycardia
-leukocytosis
-increased LFT's with worsening labs on admission
-MORTEZA
-lactic acid
-thrombocytopenia
-coagulopathy
-hyponatremia
-hx ETOH abuse years ago
-hypoalbuminemia on prior admission
-adrenal mass
other med problems:
-hx PAF
-salivary gland tumor- chronic per patient on prior admission
PLAN:
Etiology of symptoms with concern for advanced cirrhosis with progression with marked ascites, HE with possible underlying infection with leukocytosis and now MORTEZA
prior liver work up as noted
concern for lack of follow up after last admission and no insurance but pt now with insurance plan
agree with infectious work up urine, blood and diagnostic tap fluid pending
I sent message to IR for para to try to limit to 3-4 liter today with MORTEZA-- will need albumin replacement post- tap
calculate meld when INR back
cont abx
agree with renal eval for MORTEZA and hyponatremia
NPO with decreased mentation
for NGT -- will need PO and rectal lactulose- discussed with hospitalist team
will need to review with hepatology when labs back to calculate MELD
I spoke with with concern for severity of disease and now progression with renal failure. She was very tearful and anxious about situation-- support given
-
-
Thank you for consultation and allowing me to participate in the patient's care. Please call the tank wagon driver GI physician during the after hours with any questions or concerns.
[2025-02-19] MEDS: ROCEPHIN 2000 MG IV (13:48)
[2025-02-19 14:15] LABS: Body Fluid Second Tech ASW
--- NOTE | 2025-02-19 14:31 | W.PN.UPDATE ---
Update Note
Progress Note Update
59-year-old male with liver cirrhosis C/B portal hypertension with ascites and esophageal varices, paroxysmal AF not on AC that is presenting to the hospital today with altered mental status. History was severely limited by his encephalopathy, was
noted to present with ascites and jaundice. Upon arrival to the ED heart rate in range of 120 to 130/min, RR mid 20s, afebrile, on room air comfortably. Labs with WBC 22.4 with neutrophilic predominance, serum sodium 121, chloride 82, BUN 29,
creatinine 2.6, lactate 7.5, T. bili 14.5, ammonia 40. Urine studies sent, results pending. Underwent diagnostic paracentesis in the ED, blood cultures x 2 were obtained, then was started on IV ceftriaxone 2 g daily. Nephrology was consulted and
started 3% saline.
Lethargic on exam, protecting airway, GCS low otherwise. Jaundice skin with scleral icterus noted. Tachycardic with regular sounds, lungs clear. Abdomen distended with fluid wave. 2+ edema, no JVD. 1+ pulses, skin cold to lower extremities with
bluish discoloration of plantar feet. Neurologic exam limited though no obvious FND.
Acute metabolic encephalopathy. Differentials include hepatic encephalopathy possible SBP versus symptomatic severe hyponatremia. Ammonia level 40. Will monitor MSE and treat underlying conditions as below. Avoid sedating agents as able. Start
lactulose with goal of 3-4 BMs daily. Monitor GCS and consider intubation if unable to protect airway
Severe sepsis secondary to presumed SBP. Lactate 7.5 (likely from sepsis and reduced clearance in the context of cirrhosis), has remained hemodynamically adequate off pressors. S/p diagnostic paracentesis in the ED. S/p blood cultures in the ED
started on IV ceftriaxone 2 g. Will follow-up paracentesis fluid studies for PMN count and culture. Plan additional therapeutic paracentesis. Continue IV ceftriaxone in the interim. Follow-up blood cultures. Trend CBC and temperature curve.
Trend lactate levels to normal
Acute kidney injury. Likely prerenal, question HRS-NAKI versus HRS-MORTEZA. Albumin and blood pressure currently stable. Will start IV fluids and hold home diuretics. Trend BMP and strict I's and O's. Avoid nephrotoxic agents. Will start IV
albumin and isotonic IV fluids, consider for triple therapy with midodrine/octreotide at GI/neph discretion. Follow-up urine studies.
Severe hyponatremia. Difficult to assess volume status though likely hypovolemic intravascularly. Nephrology following, started 3% normal saline. Follow-up urine studies trend BMP with goal correction of 6 to 8 mEq per 24-hour interval. Consider
DDAVP for overcorrection. Maintenance IVF as above
Elevated Total bilirubin. Concern for alcoholic hepatitis superimposed on cirrhosis. T. bili 14.5 here. Reportedly quit drinking alcohol roughly 20 years ago. Bilirubin recently was closer to 3.5 before jumping to 14.5 here. Will check EtOH
levels and PETH to assess for ongoing alcohol use. Order labs to assess Devin's DF, consider course of prednisolone per GI. GI following
Decompensated cirrhosis of unclear etiology. Possible h/o portal vein thrombosis. MELD 3.0 likely high though pending labs for full calculation. C/B recurrent ascites for which he is on Lasix 40 and spironolactone 100, as well as esophageal varices
for which she is on daily PPI. Trend Daily MELD labs, may need consideration of transfer to tertiary center for liver transplant. Eventually needs liver biopsy to determine etiology
I will be admitting Maurizio Granados to the ICU. He is at high risk for worsening morbidity due to decompensated liver cirrhosis with multiple portal hypertensive complications. He will require intensive monitoring of his cognitive function, BMP,
infectious markers. He will require readjustment of his diuretic regimen and antimicrobial agents. I have discussed this case with GI, nephrology, and the quality engineer medical device. I have also discussed this case with the resident and agree with all
documentation unless otherwise specified.
Please see resident note for more detail, when available.
--- NOTE | 2025-02-19 15:09 | W.CON.NEPH ---
Consultation
-
Date/Time Consultation Requested: 02/19/25 1430
Date/Time Consultation Performed: 02/19/25 1715
Requesting Provider: Diana Moss
Performing Provider: Una Paige
Reason for Consultation: hyponatremia, MORTEZA
Medical History
-
Chief Complaint: Abd distension, AMS
History of Present Illness:
59-year-old male with recent diagnosis of liver cirrhosis, portal hypertension with ascites and esophageal varices on lasix and spironolactone, paroxysmal AF not on AC who was at in November for new decompensated liver failure required paracentesis
x3(28lit all together) and has not had follow up with any other docs due to insurance issues and remains on diuretic. He is presented to the hospital today with altered mental status and also ascites. According to the pt was refusing to come to
hospital and she noticed him altered and obtunded. In ER heart rate in range of 120 to 130/min, RR mid 20s, afebrile, on room air. Labs with WBC 22.4, serum sodium 121, chloride 82, BUN 29, creatinine 2.6(was 0.8 in November), lactate 7.5, T. bili
14.5, ammonia 40. Urine studies sent, results pending. had diagnostic paracentesis in the ER and noted SBP and started on IV ceftriaxone 2 g daily. Nephrology was consulted after starting 3% saline. HIstory is limited since pt has AMS, most of
the history obtained through the chart and . He just returned to the floor from having 4lit of paracentesis. No reported fever or n/v per .
Past Medical History
Paroxysmal Atrial Fibrillation
Salivary Gland Cyst / Tumor
liver cirrhosis
Past Surgical History: Other (left hand ORIF)
Social History
Tobacco: Former Smoker
Alcohol: Former
Personal:
Living: With Family
Employment: Not Employed
Family History
mother with h/o cirrhosis
Family History: Unable to Obtain
Allergies / Home Medications
Allergy/AdvReac Type Severity Reaction Status Date / Time
No Known Allergies Allergy Verified 02/19/25 10:38
�Medication �Instructions �Recorded �Confirmed �Type
furosemide 40 mg tablet 40 mg PO DAILY Fluid 02/19/25 02/19/25 History
Retention/Swelling
pantoprazole 40 mg tablet,delayed 40 mg PO DAILY Gastrointestinal 02/19/25 02/19/25 History
release (Protonix) Issue
spironolactone 50 mg tablet 100 mg PO DAILY Fluid 02/19/25 02/19/25 History
Retention/Swelling
Review of Systems
-
Unable to obtain full review of systems at this time due to: Acuity
Physical Exam
Vital Signs
Vital Signs
Temp Pulse Resp BP Pulse Ox
98.6 F 127 21 137/76 92
02/19/25 10:38 02/19/25 12:15 02/19/25 12:15 02/19/25 11:03 02/19/25 12:34
Lab Results
WBC 22.4 10^3/uL (4.8-10.8) H 02/19/25 11:40
RBC 3.92 10^6/uL (4.70-6.10) L 02/19/25 11:40
Hgb 14.1 g/dL (13.0-18.0) 02/19/25 11:40
Hct 39.4 % (39.0-52.0) 02/19/25 11:40
Plt Count 172 10^3/uL (130-400) 02/19/25 11:40
Sodium 121 mmol/L (135-145) L 02/19/25 11:40
Potassium 4.0 mmol/L (3.5-5.1) 02/19/25 11:40
Chloride 82 mmol/L (98-107) L 02/19/25 11:40
Carbon Dioxide 22 mmol/L (22-30) 02/19/25 11:40
BUN 29 mg/dl (9-20) H 02/19/25 11:40
Creatinine 2.6 mg/dL (0.7-1.3) H 02/19/25 11:40
eGFR 27.55 02/19/25 11:40
Glucose 119 mg/dl (70-99) H 02/19/25 11:40
Calcium 9.3 mg/dl (8.4-10.2) 02/19/25 11:40
Albumin 3.5 g/dl (3.5-5.0) 02/19/25 11:40
Physical Exam
General: No Distress and Nontoxic
HEENT: Facial Symmetry and Other (left face salivary cyst-golf ball size)
Respiratory: Normal Excursion, Nonlabored Respirations and Other (decreased BS)
Cardiac: S1/S2 and Regular Rate/Rhythm
Breast: Deferred by me
Abdomen: Soft and Other (severly distended)
Musculoskeletal: No Cyanosis and Edema (2+)
Skin: No Rash
Neuro: Other (unable to assess)
Psych: Other (unable to assess)
Data Reviewed
-
Labs: Labs Reviewed by me and Discussed with Family
Assessment/Plan
-
IMP:
Acute metabolic encephalopathy
Severe sepsis secondary to presumed SBP.
Lactic acidosis 7.5
Acute kidney injury
Severe hyponatremia
Elevated Total bilirubin
Decompensated cirrhosis of unclear etiology
Plan:
A/w AMS, decompensated cirrhosis
MORTEZA-suspect prerenal however can not r/o HRS
await for urine studies
check renal US and place todd
will start IV alb course
severe hyponatremia likely from ESLD
check U osmo, U na, TSH and cortisol
cont 3% saline with goal of correction 6-8meq/day
hold diuretics
BP stable but tachycardic likely from sepsis
abx per primary, dose renally
avoid nephrotoxins
likely benefit from more paracentesis
dose meds renally
d/w nursing and
CC time spent 45min
--- NOTE | 2025-02-19 15:44 | HPS.HSE ---
Family Physician
-
Family Physician: * NONE
Chief Complaint
-
Ascites, shortness of breath, altered mentation
History of Present Illness
This is a 59-year-old male with known history of paroxysmal A-fib not on any anticoagulants, liver cirrhosis of unknown etiology, salivary gland cyst presenting in the emergency department with his ; Isa, with complaints of abdominal
distention, shortness of breath, altered mental status worsening over the last 3 to 4 days. She reports that he has been compliant with his medication and Lasix and spironolactone but ran out of his spironolactone 2 days ago. She reports no
drinking but reported that he was depressed for a while. He had 2 days of nausea prior to presentation with vomiting last week. However she reports no episodes of throwing up blood or dark stools. Family history is notable for fatty liver disease
and his mom due to severely high cholesterol, and esophageal cancer in his brother. She reports no fever or sick contacts and did not report that he was ill. Patient's ascites increased over the last month to today. He was seen for similar
complaints in November 2024 when he had 3 sessions of paracentesis and total of 28 L of fluid was withdrawn. After the paracentesis session his symptoms did not improved and he was eventually discharged with instructions to follow-up with
GI/hepatology however they could not follow-up with any specialist because of insurance issues and he did not receive any additional paracentesis. His reported that his overall health including the diet improved after the fluid removal during
last admission. He continues to take spironolactone and furosemide to avoid fluid retention however believes that the medications are not working anymore.
Medical History
Past Medical History
Past Medical History: Reports Arrhythmia (Paroxysmal A-fib not on anticoagulation) and Other (Salivary gland cyst, liver cirrhosis unknown etiology)
Past Surgical History: Reports Orthopedic (Left hand ORIF) and Other
Additional Past Surgical History:
Left hand ORIF
Social History
Unable to obtain full social history at this time due to: Acuity
Tobacco: Smoker
Alcohol: None
Drug: None
Personal:
Living: With Family
Family History
Family History: Cancer (Esophageal cancer diagnosed at 32 Brother) and Other (Fatty liver disease, mother hypercholesterolemia, mother)
Allergies / Home Medications
Allergies reflects when Allergies were last updated in [facility].
Home Medications with original date entered in [facility]
Allergy/Medication List:
No reported allergies
Furosemide 40 mg p.o. daily
Protonix 40 mg p.o. daily
Spironolactone 100 mg p.o. daily
Review of Systems
-
Unable to obtain full review of systems at this time due to: Acuity
Constitutional: Reports Weight Gain and Fatigue; Denies Fever
EENT: Reports No Symptoms
Respiratory: Reports Trouble Breathing
Cardiac: Denies Chest Pain
Abdomen/GI: Reports Abdominal Pain, Nausea and Vomiting (Nonbloody, 1 week prior); Denies Bloody Stools
Neurological: Reports Other (Confusion)
Psych: Reports Depression
Physical Exam
Vital Signs
Vital Signs
Temp Pulse Resp BP Pulse Ox
98.6 F 118 18 124/83 92
02/19/25 10:38 02/19/25 15:15 02/19/25 15:15 02/19/25 15:00 02/19/25 12:34
Physical Exam
General: Appears in Distress, Appears Chronically Ill and Obese
HEENT: PERRLA (Pupils sluggish) and Other (Icteric, jaundiced)
Respiratory: Crackles (In all lung lopes), Non Labored Respirations and Decreased Breath Sounds (In all lung lopes)
Cardiac: S1/S2, Tachycardia and Peripheral Edema (Bilateral 3+ up to knee, bilateral thighs 1+); No Murmur
GI: Non Tender and Distended (Severely distended, positive fluid wave)
Genito-urinary: Deferred by me
Musculoskeletal: Edema, Left Lower Extremity (3+) and Edema, Right Lower Extremity (3+)
Skin: Other (Ecchymoses bilateral feet, 1+ pedal pulses present, cool to touch)
Neuro: No Awake (Somnolent) or Oriented
Laboratory Results
-
02/19/25 11:40
02/19/25 11:40
Laboratory Results
PT Cancelled 02/19/25 11:40
INR Cancelled 02/19/25 11:40
APTT Cancelled 02/19/25 11:40
Lactic Acid 7.5 mmol/L (0.7-2.0) H* 02/19/25 11:40
Total Bilirubin 14.5 mg/dl (0.2-1.3) H 02/19/25 11:40
AST 44 U/L (17-59) 02/19/25 11:40
ALT < 30 U/L (0-50) 02/19/25 11:40
Alkaline Phosphatase 171 U/L (38-126) H 02/19/25 11:40
Lipase 124 U/L (23-300) 02/19/25 11:40
Data Reviewed
-
Lab Data: Labs Reviewed by me and Discussed with Physician
Impression/Plan
-
Mr Maurizio Granados is a 59yo with no medical care for years, hx PAF(not on anticoagulation), salivary gland tumor (chronic for years), prior ETOH use years ago with admission in November with massive ascites with decompensated liver failure,
hyponatremia, coagulopathy, electrolyte imbalance. During that admission he had paracentesis x 3 for total of 28 liters of ascites removed and fluid studies c/w liver etiology with negative pathology. Etiology of liver disease was unclear. Liver
work up complete during admission revealed + ALETHEA, mild elevated A1AT, elevated immunoglobulin A, hepatitis B immunity with otherwise neg panel, normal AMA, SLA, LKM, ceruloplasmin, with neg ETOH screening with PETH neg <10 AFP 4.97. Imaging with
cirrhosis and ascites. 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 MRI with severe hepatic cirrhosis without HCC, severe portal HTN, mild ascites, upper abdominal adenopathy, GB distention, adrenal mass and CM. He
now presents today with abdominal distention and change in mental status. On admission noted with WBC 22,400, hbg 14.1, platelets 172, na 121, creat 2.6, BUN 29, lactate 7.5, bili 14.5, AST 44, ALT <30, alk phos 171, ammonia 40. She reports some
abdominal pain nausea, nonbloody vomiting with distention but denies diarrhea, constipation or rectal bleeding. Urine studies sent results pending underwent diagnostic paracentesis with 4 L off in the ED blood cultures obtained 2 g of IV Rocephin
started nephrology consulted and started 3% saline, IR consulted for thoracentesis, GI consulted, artificial log machine operator consulted.
PLAN:
# Severe sepsis
# SBP
#Decomepnsated Cirrhosis-- etiology unclear
# Hepatic encephalopathy
# Elevated bilirubin
WBCs 22, tachycardia to 117, lactate 7.5 source of infection being worked up
Currently hemodynamically stable
prior workup unremarkable, PETH pending
bilirubin is significantly higher than recent admission, suspicious for alc hepatitis
awaiting INR to calculate MELD score, on last admission 25
IV ceftriaxone
Lactulose
PPI IV
Trend CBC BMP lactate MELD labs
Follow-up blood cultures, paracentesis
Follow-up Maddrey's DF, consider prednisolone
Appreciate GI recs
-check US w/ dopplers to rule out PVT
-rule out infection
-treat encephalopathy
-agree with ICU level of care given high risk for clinical decompensation and florid encephalopathy on exam as well as well as multiple concerning metabolic derrangments, requiring frequent lab and neuro checks
-no concern for GI bleeding at this time
-NPO
#MORTEZA
# Hepatorenal syndrome
normal kidney function on recent discharge, creatinine 0.8 now 2.6
Albumin 3.5
prerenal vs. HRS, patient likely intravascularly depleted
Start LR IVF
hold diuretics
Strict I's and O's
Trend BMP
Renally dose medications
Follow-up urine studies
limited paracentesis to 3.5 L; will certainly require additional paracentesis later on admission
albumin challenge, if no improvement, consider starting triple therapy
# Hyponatremia
Na currently 121
Nephrology consulted
3% saline
Follow-up urine studies
Consider DDAVP for overcorrection
Normal saline
#Paroxysmal A-fib
Not on anticoagulation
Currently sinus rhythm on ED monitor
Continue to monitor
# Salivary gland cyst
Continue to monitor
DVT prophylaxis
CODE STATUS
Full code
[2025-02-19 16:31] LABS: Body Fluid Second Tech EYM
[2025-02-19 17:09] LABS: Glucose - Point of Care 110 mg/dl (70-99)
--- NOTE | 2025-02-19 17:18 | PTCARENOTE ---
arrived in ICU via bed from IR. abd softly and immensely distended. moans, did occasionally inconsistently open eyes to name but nothing interactive. VS noted. complete bath. todd placed per Dr. Nathan. xray obtained. 12 lead in progress.
[2025-02-19] MEDS: LR 1000 IV (17:29)
[2025-02-19] MEDS: PROTONIX IV 40 MG IV (17:29)
--- NOTE | 2025-02-19 17:33 | CON.INTV ---
Consultation
Consultation Request
Date/Time Consultation Requested: 02/19
Date/Time Consultation Performed: 02/19
Reason for Consultation: Critical care
Medical History
-
History of Present Illness:
History obtained from the chart, family at bedside. Patient unable to provide history. He does open his eyes to name, but does not maintain wakefulness. Patient with complex medical history, presents to the emergency room with abdominal symptoms,
lethargy. Patient with history of end-stage liver disease, ascites with multiple paracenteses 20 L over the past 3 months, was instructed to follow-up with GI/hepatology but unable to due to insurance. Upon arrival to [facility], afebrile,
pulse 127, breathing at 21, blood pressure 137/76, 92%. Patient underwent paracentesis, 4 L, was also given 3% saline, ceftriaxone. White count 22.4, sodium 121, creatinine 2.6, lactate 7.5, ammonia 40. Patient admitted to ICU for further
management
According to and daughter, patient has had increased lethargy, abdominal pain, poor p.o. intake, increased lower extremity swelling. This is been going on for about 2 weeks. requested patient to be evaluated in the ED but patient
refused. Symptoms progressed to the point where he finally agreed.
Unfortunately patient was recommended to follow-up with GI, upper endoscopy, follow-up for cirrhosis, ascites. Patient did not pursue follow-up due to insurance reasons
According to , patient has had 'slow' falls due to weakness, denies obvious head trauma, loss of consciousness, syncope. There is no history of blood in urine or stool, there is a history of emesis but no hematemesis
Note delayed due to inability to access system due to weather/system being down
.
PMH: History of cirrhosis, ascites with multiple paracenteses, salivary gland tumor, portal vein thrombosis, history of paroxysmal atrial fibrillation
Past Medical History
Past Medical History: None (See above)
Past Surgical History: None ( see above)
Social History
Tobacco: Smoker (5 cigarettes a day for the last year. Prior to that 1 pack a day for 40 years)
Alcohol: Former (Social alcohol many years ago)
Drug: Marijuana
Personal:
Living: With Family
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
Family History
Family History: Other (Mother with history of liver disease, daughter healthy. No history of blood clots, cancer)
Allergies / Home Medications
Allergies
Allergy/AdvReac Type Severity Reaction Status Date / Time
No Known Allergies Allergy Verified 02/19/25 10:38
Home Medications
�Medication �Instructions �Recorded �Confirmed �Last Taken �Type
furosemide 40 mg tablet 40 mg PO DAILY Fluid 02/19/25 02/19/25 02/19/25 History
Retention/Swelling
pantoprazole 40 mg tablet,delayed 40 mg PO DAILY Gastrointestinal 02/19/25 02/19/25 02/19/25 History
release (Protonix) Issue
spironolactone 50 mg tablet 100 mg PO DAILY Fluid 02/19/25 02/19/25 02/19/25 History
Retention/Swelling
Review of Systems
-
Unable to Obtain full review of systems at this time due to: Acuity
History Source: Family
Vitals / Labs / Diagnostic Testing
Vital Signs
Temp Pulse Resp BP Pulse Ox
98.6 F 126 17 123/57 97
02/19/25 10:38 02/19/25 16:45 02/19/25 16:45 02/19/25 16:18 02/19/25 16:45
Lab Data
02/19/25 11:40
Laboratory Results
02/19/25
11:40
PT Cancelled
INR Cancelled
APTT Cancelled
Diagnostic Testing:
Physical Exam
-
HEENT: Normocephalic (Icteric) and Other (Left upper extremity PICC line)
Cardiovascular: S1/S2, Regular Rhythm (Tachycardic), Murmur (n) and Peripheral Edema (2+)
Respiratory: Wheeze (n), Rales (n), Rhonchi (few) and Non-Labored Respirations
GI: Soft, Distended and Non Tender
Neurology: Other (Lethargic, opens eyes but does not follow commands. Moaning)
Skin: Other (Few scattered bruising)
General: Comfortable
Assessment
-
59-year-old male with complex medical history, paroxysmal atrial fibrillation not on anticoagulation, liver cirrhosis, salivary gland cyst, presents with 2 weeks of progressive lethargy, abdominal pain, emesis, fatigue, poor p.o. intake. Found to
have hepatic encephalopathy, renal insufficiency admitted to ICU. Underwent paracentesis 4 L drained. We are asked to help from critical care standpoint
Acute hepatic encephalopathy
Elevated ammonia level
Tachycardia
Decompensated cirrhosis
Elevated bilirubin, coagulopathy
History of cirrhosis
Distant alcohol use, ongoing workup not pursued due to insurance reasons
Status post paracentesis, 4 L drained 02/19/2025
Ascites with multiple paracenteses (28 L) last done November
Acute renal insufficiency
Leukocytosis
[id number] history of smoking, ongoing
Distant alcohol use, last social use few years ago
Family history of liver disease (mother)
Plan/recommendations
At this time, patient is critically ill
Concerning for hepatic encephalopathy, possible SBP, hepatorenal syndrome
Will check ABG, aspiration precautions
Maintain n.p.o.
Lactulose enema
Will avoid NG tube at this time, unclear status of varices, patient has never had endoscopy
states cause of cirrhosis unclear, pending workup
Distant alcohol use per family
Questionable portal vein thrombosis in the past but states this was ruled out
GI and nephrology following
Await additional studies, coagulation studies
Maintain active type and screen
Follow cultures, empiric treatment for SBP for now albumin per GI
According to family, patient has been taking outpatient medications including spironolactone, Lasix, Protonix
He just acquired insurance and is now able to pursue further workup
Reviewed with critical care nursing, respiratory care, /daughter
TCCT 40 min
--- NOTE | 2025-02-19 17:40 | PTCARENOTE ---
lactulose 300 ml diluted to 1l enema given, held approx 300 ml with some clear return then leakage. Upon removal of tip, some dark slightly mucoid coffee ground color stool. Per Dr. Reyes, will hold on NG and oral lactulose until pt seen by GI
service.
[2025-02-19 17:41] LABS: Urine Character Clear (Clear)
[2025-02-19] MEDS: LACTULOSE ENEMA 300 ML RECTAL ×2 (17:44→21:03)
[2025-02-19 17:50] LABS: Urine Squamous Cell >30 /LPF (Few)
[2025-02-19 17:52] LABS: Urine White Cell 16-20 /HPF (0-5)
[2025-02-19 17:56] LABS: INR 2.31; PT 25.4 Sec (11.4-14.6)
[2025-02-19 17:57] LABS: APTT 40.7 Sec (23.4-35.0)
[2025-02-19] MEDS: ADENOCARD 6 MG IV ×2 (18:25→19:32)
[2025-02-19] MEDS: FLEXBUMIN 100 IV (18:25)
--- NOTE | 2025-02-19 18:25 | W.PN.UPDATE ---
Addendum entered and electronically signed by Elyse Sadler MD 02/19/25 18:49:
plan discussed with Dr. Oconnell, will start Metop 2.5mg IV q 6h
Original Note:
Update Note
Progress Note Update
Mr. Maurizio Granados is a 59 yo man with hx PAF, prior alcohol use, poor medical follow up until admission in November with massive ascites with decompensated liver failure and electrolyte abnormalities (s/p paracentesis x 3) admitted today with change
in mentation and worsening abdominal mentatino. He is found to have leukocytosis, hyponatremia to 121, MORTEZA with creatinine 2.6, T. Bili 7.5, AST 44, ALT <30, lactate 7.5, ammonia 40. Patient underwent para in ER with 4L off, was admitted to ICU,
started on 3% saline, started on IV Ceftriaxone.
Called to bedside as patient found to be in SVT to 170's. BP stable. s/p IV adenosine with return to sinus tachycardia. No noticeable pause seen.
SVT
Hx Paroxysmal Afib
-BMP for sodium monitoring pending - will recheck K, Mag 1.9 earlier today- will order 1G
-Mag OK this morning
-s/p Adenosine 6mg IV with return to sinus tachycardia 110's-120's
-TTE tomorrow
-Cardiology consulted
Total Critical Care Time 45 minutes. I was immediately available to the patient and staff. I personally examined, reviewed labs, diagnostic images/reports, interpretations, treatment plans, discussed patient care with other providers and family
or caregivers (if patient is unable to make decisions), entered orders as appropriate and documented the medical record.
--- NOTE | 2025-02-19 18:30 | PTCARENOTE ---
sudden unprovoked SVT, see 12 lead, VS noted per EMR, Dr. Sadler present. adenosine 6 mg given per protocol with good effect, no asystole/pause but drop from rate 180s to 124. repeat 12 lead obtained. labs added on, pending. albumin infusing, LR
paused at present. Remains sonorous but otherwise no change.
[2025-02-19] MEDS: LOPRESSOR 2.5 MG IV ×3 (19:04→23:45)
--- NOTE | 2025-02-19 19:10 | PTCARENOTE ---
back in SVT, lopressor given per order, no other change. labs obtained from site, unable to get phlebotomy multiple RNs attempted, no blood. ABG unable, added to VBG and obtained, sent. continues to moan. 3% saline finished and awaiting
chemistry results. Albumin infusing.
[2025-02-19 19:25] LABS: Venous Blood Gas B.E. -1.5 mmol/L (-4 to +4); Venous Blood Gas O2 Sat % 87.7 %
--- NOTE | 2025-02-19 19:30 | PTCARENOTE ---
Resumed care of pt this evening. Received pt minimally responsive. Pt withdraws to pain stimuli. Pupils are equal and reactive to light. Pt in ST w/ HR in 160s. IV mag and IV adenosine administered by this RN. EKG retrieved during adenosine
administration. Pt has +2 pitting edema on right lower extremity and +1 pitting edema on left lower extremity. Pedals/radial pulses are palpable bilaterally. Pt on RA satting at 95% pulse ox. On auscultation pt lungs sound diminished and rhonchorous
TO. Pt's abdomen is distended w/ ascites. Cruz cath in place draining orange colored urine. Pt is oliguric.
[2025-02-19] MEDS: MAGNESIUM SULFATE 100 IV (19:31)
--- NOTE | 2025-02-19 20:11 | W.PN.SEPSIS ---
Sepsis
Vital Signs
Temp Pulse Resp BP Pulse Ox
97.1 F 151 18 131/75 97
02/19/25 19:35 02/19/25 19:15 02/19/25 19:15 02/19/25 19:15 02/19/25 19:15
Physical Exam
Physical Exam:
A focused exam was performed after fluid resuscitation.
Capillary Refill
Bilateral Upper Extremity:
Tino Time: Less than 3 sec
Bilateral Lower Extremity:
Tino Time: Less than 3 sec
Pulse Evaluation
Bilateral Radial:
Pulse Evaluation: Present
Bilateral Dorsalis Pedis:
Pulse Evaluation: Present
--- NOTE | 2025-02-19 21:00 | PTCARENOTE ---
FMS inserted to begin lactulose enemas.
--- NOTE | 2025-02-19 21:28 | W.PN.UPDATE ---
Update Note
Progress Note Update
02/20/25
2100- Patient heart rate narrow tachycardia vs SVT, HR 150s - 160s. Lopressor 2.5mg IV given without effect, second 6mg adenosine given IV and heart rate responded and slowed to 110s and SBP 110-120s. Case discussed with Dr. Oconnell,
senior interaction designer, recommendations: continue lopressor 2.5mg IV, agreed with adenosine 6mg IV, and if patient does not respond then adding amio bolus 150mg with gtt.
[2025-02-19 22:02] LABS: AST (SGOT) 41 U/L (17-59); Albumin 3.3 g/dl (3.5-5.0); Alkaline Phosphatase 126 U/L (38-126); Blood Urea Nitrogen 33 mg/dl (9-20); Calcium 9.1 mg/dl (8.4-10.2); Carbon Dioxide 23 mmol/L (22-30); Chloride 86 mmol/L (98-107); Estimated Creatinine Clearance 34 ml/min; Glucose 114 mg/dl (70-99); Potassium 4.1 mmol/L (3.5-5.1); Sodium 121 mmol/L (135-145); Total Protein 6.9 g/dl (6.3-8.2); eGFR 26.33
[2025-02-19 22:26] LABS: ALT (SGPT) 23 U/L (0-50)
[2025-02-20] VITALS (53 sets, daily range): BP systolic 89–156; BP diastolic 45–104; BMI 36.6
[2025-02-20] MEDS: LACTULOSE ENEMA 300 ML RECTAL ×5 (00:42→11:46)
--- NOTE | 2025-02-20 03:00 | PTCARENOTE ---
Pt placed on 2L O2 via nasal cannula due to desatting to 86% on room air.
[2025-02-20 03:43] LABS: Hematocrit 31.9 % (39.0-52.0); Hemoglobin 11.9 g/dL (13.0-18.0); Mean Corp Hgb Conc. 37.3 g/dL (33.0-37.0); Mean Corpuscular Volume 99.4 fL (80.0-94.0); Platelet Count 102 10^3/uL (130-400); Red Cell Dist. Width 16.9 % (11.5-14.5)
[2025-02-20 03:51] LABS: INR 2.14; PT 24.0 Sec (11.4-14.6)
[2025-02-20 04:08] LABS: ALT (SGPT) 20 U/L (0-50); AST (SGOT) 42 U/L (17-59); Albumin 3.2 g/dl (3.5-5.0); Alkaline Phosphatase 124 U/L (38-126); Amylase 49 U/L (30-110); Blood Urea Nitrogen 38 mg/dl (9-20); Calcium 9.1 mg/dl (8.4-10.2); Carbon Dioxide 25 mmol/L (22-30); Chloride 89 mmol/L (98-107); Estimated Creatinine Clearance 33 ml/min; Glucose 100 mg/dl (70-99); Lipase 87 U/L (23-300); Magnesium 2.1 mg/dl (1.6-2.3); Potassium 3.8 mmol/L (3.5-5.1); Sodium 124 mmol/L (135-145); Total Protein 6.7 g/dl (6.3-8.2); eGFR 25.20
[2025-02-20 04:09] LABS: Ammonia 132 umol/L (9-30)
[2025-02-20 04:59] LABS: Vitamin B12 > 1000 pg/ml (239-931)
[2025-02-20] MEDS: LOPRESSOR IV (05:50)
--- NOTE | 2025-02-20 06:26 | W.PN.INTV ---
Today's Communication / Plan
Recommendations
Head of bed elevated, aspiration precautions
IV fluids continue per nephrology
Lactulose enema
Active type and screen
Ceftriaxone for SBP
Follow cultures
Evaluated for transfer to [facility]
Assessment
-
59-year-old male with complex medical history, paroxysmal atrial fibrillation not on anticoagulation, liver cirrhosis, salivary gland cyst, presents with 2 weeks of progressive lethargy, abdominal pain, emesis, fatigue, poor p.o. intake. Found to
have hepatic encephalopathy, renal insufficiency admitted to ICU. Underwent paracentesis 4 L drained. We are asked to help from critical care standpoint
Acute hepatic encephalopathy
Elevated ammonia level
Tachycardia
Decompensated cirrhosis
Elevated bilirubin, coagulopathy
History of cirrhosis
Portal hypertension
Distant alcohol use, ongoing workup not pursued due to insurance reasons
Status post paracentesis, 4 L drained 02/19/2025
Ascites with multiple paracenteses (28 L) last done November
Acute renal insufficiency
Hyponatremia
Leukocytosis
Lactic acidosis, 7.5 on admission
[id number] history of smoking, ongoing
Distant alcohol use, last social use few years ago
Family history of liver disease (mother)
Salivary gland cyst/tumor
Plan/recommendations
At this time, patient is critically ill
SVT overnight noted, heart rate 170s, required adenosine x 2 with improvement
Ammonia level 132
Urine sodium less than 5
Concerning for hepatic encephalopathy, SBP, hepatorenal syndrome
Lactulose enemas continue
Lactate improved from 7.5-3.4
Moving forward
Maintain n.p.o.
Lactulose enema continue
Will avoid NG tube at this time, unclear status of varices, patient has never had endoscopy
Patient has received albumin
Unfortunate no improvement in urine output, creatinine increased to 2.8
Sodium 124
Remains off diuretics
Continue with albumin challenges
Presentation concerning for HRS
Renal ultrasound unremarkable
Normal saline IV fluids will continue
Intermittent 3% saline also provided since admission
states cause of cirrhosis unclear, pending workup
Distant alcohol use per family, however patient drinks 'social alcohol' but not for the past few years according to
Questionable portal vein thrombosis in the past but states this was ruled out
Abdominal MRI 12/10/2024 severe diffuse nodularity of liver. Portal veins are patent but distended. Extensive varices throughout abdomen consistent with portal hypertension
Bilateral adrenal adenomas suspected largest 2.2 cm left adrenal gland per MRI
Coagulopathy noted
Maintain active type and screen
Patient had small bowel movement yesterday, described as 'mild coffee ground' per nursing
Follow cultures, empiric treatment for SBP for now, albumin per GI
Resume dosing of ceftriaxone
Blood culture gram-negative bacilli, await identification
SVT overnight noted, heart rate 170s
Responded to adenosine
Echocardiogram November 2024 with normal biventricular function, EF greater than 75%
Records suggest history of paroxysmal atrial fibrillation
Remains on metoprolol
Intermittent marginal blood pressure this a.m., systolic pressure 89-99, may require norepinephrine, maintain maps greater than 65
Head of bed elevated, aspiration precautions
N.p.o. continues
According to family, patient has been taking outpatient medications including spironolactone, Lasix, Protonix
He just acquired insurance and is now able to pursue further workup
DVT prophylaxis: Sequential teds
GI prophylaxis: Remains on Protonix IV
Reviewed with critical care nursing, respiratory care, nephrology, GI, primary service, pharmacy
Being evaluated for transfer to tertiary care center, [facility]
TCCT 40 min
Subjective Dataa
Subjective Data
Date of Service:
Date of Service: February 20, 2025
Subjective:
Patient remains critically ill. Tachycardic overnight, SVT, required few doses of adenosine with improvement. Heart rate up to 170s. With this, was not hypotensive. Patient continues with lactulose enema, NG tube not placed due to unclear status
of varices. Blood culture positive for gram-negative bacilli
Objective Data
Data Reviewed
Vital Signs / I&O / Oxygen:
Vital Signs
Temp Pulse Resp BP Pulse Ox
96.6 F L 100 22 102/72 98
02/19/25 23:30 02/20/25 05:45 02/20/25 05:45 02/20/25 05:50 02/20/25 05:45
Intake and Output
02/18/25 02/19/25 02/20/25
06:59 06:59 06:59
Intake Total 500 / 500
Output Total 137.0 / 137.0
Balance 363.0 / 363.0
SaO2 98
Nasal Cannula flow liters per 2
minute
Physical Exam
General: Comfortable (But moaning intermittently) and Other (Left upper extremity PICC line triple-lumen)
HEENT: Normocephalic, Other (Icterus, pupils are reactive) and Other (Left well-defined suspected salivary gland cyst)
Cardiovascular: S1-S2, Regular Rhythm (Tachycardia), Murmur (n), Rub (n) and Peripheral Edema (2+)
Respiratory: Wheeze (n), Crackles (n), Rhonchi (n), Non-Labored Respirations and Stridor (n)
GI: Soft, Distended (Protuberant abdomen) and Non Tender
Neurology: Lethargic (Spontaneously moves arms, opens eyes but does not follow commands)
Skin: Jaundice (y) and Bruising (Few)
Labs/Micro/Reports
Lab Data
02/20/25 03:29
02/20/25 03:29
Laboratory Results
02/19/25 02/19/25 02/19/25
11:40 17:37 17:37
PT Cancelled 25.4 H Cancelled
INR Cancelled 2.31
APTT Cancelled
pH
pCO2
pO2
HCO3
O2 Delivery Level
02/19/25 02/19/25 02/20/25
17:37 19:06 03:29
PT 24.0 H
INR Cancelled 2.14
APTT 40.7 H
pH Cancelled
pCO2 Cancelled
pO2 Cancelled
HCO3 Cancelled
O2 Delivery Level Cancelled
--- NOTE | 2025-02-20 06:47 | W.PN.UPDATE ---
Update Note
Progress Note Update
Pt noted + SBP-- 37.5 gram given 02/18 will give additional 62.5 grams this am further recs to follow
[2025-02-20] MEDS: FLEXBUMIN 100 IV ×2 (08:06→09:20)
[2025-02-20] MEDS: PROTONIX IV 40 MG IV (08:07)
--- NOTE | 2025-02-20 09:33 | CON.CAR ---
Addendum entered and electronically signed by Mode Prince MD 02/20/25 17:08:
I saw and examined the patient.
The PANTRY CHEF's note was reviewed and I agree with the note.
Comment: Very ill 59 yo man with a history of PAF. He is currently having paroxysms of SVT that looks like it is an atrial tachycardia. It is hemodynamically well tolerated. He has responded to adenosine but most episodes have not needed
adenosine. We hope he will not need Amiodarone. His echo shows mild with mild AR but clinically endocarditis seems less likely.
Original Note:
Consultation
Consultation Request
Date/Time Consultation Requested: 02/19/25 18:87
Date/Time Consultation Performed: 02/20/25 09:00
Requesting Provider: Dr. Elyse Sadler
Performing Provider: Dr. Mode Prince
Reason for Consultation: SVT
Medical History
-
Chief Complaint: Liver Cirrhosis
History of Present Illness:
59-year-old male with past medical history of liver cirrhosis (unknown etiology) with portal hypertension, esophageal varices and ascites, salivary gland cyst, paroxysmal A-fib not on anticoagulation presented to the ED with altered mental status
and increasing abdominal distention. He was recently hospitalized at [facility] from 12/05-12/12 with new onset ascites requiring 3 total paracentesis with removal of 28 L of fluid and given a new diagnosis of decompensated cirrhosis.
There were discussions about referral to a tertiary care center however patient declined as he did not have insurance at the time. He was provided clear instructions to follow-up with hepatology. Gastroenterology comprehensive serologic workup was
unremarkable and path returned negative for underlying etiology.
In the ED, Pt vitals BP 137/89, HR 62, RR 16, afebrile and 92% on room air. WBC 22.4 with L shift neutrophils 85%, Na 121, Cr 2.6, LA 7.5, T. bili 14.5, AST 44, ALT <30, Alk phos 171, ammonia 40. Pt underwent paracentesis draining 4L with fluid sent
for cytology and cultures. He was given 3% NS for hyponatremia and 2g ceftriaxone for possible SBP. He was admitted to ICU for further management.
Around 6pm, HR 170s in SVT s/p 6mg adenosine retuned to sinus rhythm. At 7pm pt went back into SVT 150s-170s s/p 2.5 metoprolol and 6mg adenosine and heart rate decreased into 100's-110's now in atrial tachycardia. Mg 1.9 thus given 1g mg now 2.1.
Cardiology was consulted for further evaluation. Dr. Oconnell recommended metoprolol 2.5 q6hr IV for rate control. BP overnight was stable, however started to become a bit soft and 1 dose metoprolol held around 5am.
Past Medical History
Past Medical History: Other (Paroxysmal A-fib not on anticoagulation, salivary gland cyst, liver cirrhosis with esophageal varices, pulmonary hypertension, ascites due to unknown etiology)
Past Surgical History: Other (L. hand ORIF)
Social History
Tobacco: Smoker (40 pack years)
Alcohol: Former (Sober past 20 years pt patient)
Drug: Marijuana
Personal:
Living: With Family
Family History
Family History: Other (Mother with history of liver disease, daughter healthy. No history of blood clots, cancer)
Allergies / Home Medications
Allergy/AdvReac Type Severity Reaction Status Date / Time
No Known Allergies Allergy Verified 02/19/25 10:38
�Medication �Instructions �Recorded �Confirmed �Type
furosemide 40 mg tablet 40 mg PO DAILY Fluid 02/19/25 02/19/25 History
Retention/Swelling
pantoprazole 40 mg tablet,delayed 40 mg PO DAILY Gastrointestinal 02/19/25 02/19/25 History
release (Protonix) Issue
spironolactone 50 mg tablet 100 mg PO DAILY Fluid 02/19/25 02/19/25 History
Retention/Swelling
Review of Systems
-
Unable to obtain full review of systems at this time due to: Acuity
Physical Exam
Vital Signs
Temp Pulse Resp BP Pulse Ox
97.7 F 100 22 102/72 98
02/20/25 07:32 02/20/25 05:45 02/20/25 05:45 02/20/25 05:50 02/20/25 05:45
Lab Results
02/20/25 03:29
02/20/25 03:29
Koq-O-Hryztdtliee Pept 1800 pg/ml 02/20/25 03:29
Physical Exam
Respiratory: Clear
Cardiac: Regular Rhythm
GI: Distended
Musculoskeletal: Edema
Skin: Warm and Dry
Neuro: Other (Somnolent )
Impression / Plan
-
59-year-old male with past medical history of paroxysmal A-fib not on anticoagulation, salivary gland cyst, liver cirrhosis with esophageal varices, portal hypertension and ascites presents to [facility] with decompensated liver failure.
He had 2 episodes of SVT yesterday evening. First episode HR 170s s/p adenosine returned to sinus rhythm. Second episode s/p 2.5 metoprolol, 6mg adenosine returned to A.fib HR controlled in 100s-110s started on scheduled doses of metoprolol 2.5mg IV
q6. BP overnight stable, however became soft this am and 5am dose metoprolol held.
SVT x2 - 12 line EKG consistent with long RP tachycardia, p wave morphology suggests atrial tachycardia, fortunately responsive to adenosine
Atrial Tachycardia in setting of hypotension
--Now HR 100s-110's
--Currently on metoprolol 2.5 mg q6, however last dose held due to hypotension BP 102/72
--Cont metoprolol 2.5mg q6 as BP allows. If HR increases >140 can give adenosine. If BP soft, can consider amio.
--Not candidate for anticoagulation in setting of decompensated liver failure, INR 2.14, and esophageal varices however regardless CV2 is 0.
--Keep K>4
--Keep Mg >2
--Repeat echo pending - prior echo 12/05/24 LVEF 75%
Decompensated liver cirrhosis with esophageal varices, portal HTN and ascites
Severe sepsis secondary to suspected SBP
--MELD score 36, T.bili 12.1
--s/p 4L paracentesis
--SBP work-up ongoing
--On lactulose, octreotide, pantoprazole, ceftriaxone
--GI following - currently attempting to transfer to [facility]
MORTEZA/Possible hepatorenal syndrome
--Cr 2.8
--On albumin 60mls and NSS
--Nephrology following
Hyponatremia
--S/p 3% NSS
--Na 121 -> 124
--Nephrology following
Acute hepatic encephalopathy
Elevated ammonia levels
Leukocytosis
Lactic acidosis
Tobacco abuse
DVT - SCD
Full Code
NPO
Data Reviewed
-
EKG: Tracing Personally Visualized and interpreted (SVT with long RP tachycardia, LAD, iVCD)
Radiology: Image Personally Visualized and interpreted (portable, limited: perhaps mild CM, no overt heart failure)
Medical Tests (Nuc Med, Echo etc): Report Reviewed by me (echo 12/07/2024: unremarkable, EF > 75%, no signif valve disease)
--- NOTE | 2025-02-20 09:37 | W.PN.HOSP.TC ---
Today's Communication/Plan
-
transfer to [facility] for further management
HRS triple therapy started after albumin challenge
Assessment / Plan
Assessment / Plan
Mr Maurizio Granados is a 59yo with no medical care for years, hx PAF(not on anticoagulation), salivary gland tumor (chronic for years), prior ETOH use years ago with admission in November with massive ascites with decompensated liver failure,
hyponatremia, coagulopathy, electrolyte imbalance. During that admission he had paracentesis x 3 for total of 28 liters of ascites removed and fluid studies c/w liver etiology with negative pathology. Etiology of liver disease was unclear. Liver
work up complete during admission revealed + ALETHEA, mild elevated A1AT, elevated immunoglobulin A, hepatitis B immunity with otherwise neg panel, normal AMA, SLA, LKM, ceruloplasmin, with neg ETOH screening with PETH neg <10 AFP 4.97. Imaging with
cirrhosis and ascites. 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 MRI with severe hepatic cirrhosis without HCC, severe portal HTN, mild ascites, upper abdominal adenopathy, GB distention, adrenal mass and CM. He
now presents today with abdominal distention and change in mental status. On admission noted with WBC 22,400, hbg 14.1, platelets 172, na 121, creat 2.6, BUN 29, lactate 7.5, bili 14.5, AST 44, ALT <30, alk phos 171, ammonia 40. She reports some
abdominal pain nausea, nonbloody vomiting with distention but denies diarrhea, constipation or rectal bleeding. Urine studies sent results pending underwent diagnostic paracentesis with 4 L off in the ED blood cultures obtained 2 g of IV Rocephin
started nephrology consulted and started 3% saline, IR consulted for thoracentesis, GI consulted, repossessor consulted. Ascitic fluid analysis positive for SBP with greater than 250 PMN. Blood cultures positive for gram-negative baccilli. On 02/19
patient went into SVT in the 170s. Received dose of Levophed, and 6 mg of adenosine with return to sinus tachycardia. Cardiology consulted and ordered TTE. Also repleted patient's mag, on admission Mg 1.9. Albumin challenge failed, HRS type 1.
Octreotide, albumin, levophed. Patients MELD 37, Child Class C, transfer to [facility] initiated for further management.
# Severe sepsis
# SBP
#Decomepnsated Cirrhosis-- etiology unclear
# Hepatic encephalopathy
# Elevated bilirubin
WBCs 22, tachycardia to 117, lactate 7.5--3.4, bacteremia with Klebsiella p.
Currently hemodynamically stable
prior workup unremarkable, PETH pending
bilirubin is significantly higher than recent admission, suspicious for alc hepatitis
T. bili 14��12
Anion gap 17 on admission--10
MELD score37 , on last admission 25, child class C
IV ceftriaxone
Lactulose, patient with no bowel movements on 02/20
PPI IV
Trend CBC BMP lactate MELD labs
Follow-up paracentesis
Maddrey's DF 72 not a candidate for prednisolone
Appreciate GI recs
-check US w/ dopplers to rule out PVT
-rule out infection
-treat encephalopathy
-agree with ICU level of care given high risk for clinical decompensation and florid encephalopathy on exam as well as well as multiple concerning metabolic derrangments, requiring frequent lab and neuro checks
-no concern for GI bleeding at this time
-NPO
#MORTEZA
# Hepatorenal syndrome
normal kidney function on recent discharge, creatinine 0.8 now 2.6
Albumin 3.5
prerenal vs. HRS, patient likely intravascularly depleted
Stopped IV fluids
hold diuretics
Strict I's and O's
Trend BMP
Renally dose medications
Follow-up urine studies
limited paracentesis to 3.5 L; will certainly require additional paracentesis later on admission
albumin challenge, no improvement
starting triple therapy
octreotide
levophed
albumin
Nephrology consulted
# Hyponatremia
Na on admission 121, 124
Nephrology consulted
3% saline
Follow-up urine studies
Consider DDAVP for overcorrection
# SVT
Patient went into SVT overnight 02/19
Mg 1.9, 1 g ordered to replete
Received Levophed, 6 mg adenosine
Return to sinus tachycardia
Cardiology consulted
TTE ordered
#Paroxysmal A-fib
Not on anticoagulation
Currently sinus rhythm on ED monitor
Continue to monitor
# Salivary gland cyst
Continue to monitor
DVT prophylaxis
CODE STATUS
Full code
Anticipated Discharge: Today
Subjective/Interval History
-
Patient was somnolent today than yesterday, with some moaning and not responding to his name. Patient details sent to [facility] possible transfer to the hospital today. Reported no bowel movements yesterday patient received lactulose again without
successful bowel movement. He had an episode of SVT overnight with HR in the 170s which went back into sinus tachy after adenosine. Currently in sinus tachy this am. Date of Service: February 20, 2025
Objective Data
-
Labs:
Laboratory Results
02/19/25 02/19/25 02/19/25
19:06 19:54 21:39
WBC
Hgb
Hct
Plt Count
PT
INR
HCO3 Cancelled
Sodium Cancelled 121 L
Potassium Cancelled 4.1
Chloride Cancelled 86 L
Carbon Dioxide Cancelled 23
BUN Cancelled 33 H
Creatinine Cancelled 2.7 H
Glucose Cancelled 114 H
Calcium Cancelled 9.1
Total Bilirubin Cancelled 13.1 H
AST Cancelled 41
ALT Cancelled 23
Alkaline Phosphatase Cancelled 126
02/20/25 02/20/25
01:24 03:29
WBC 14.5 H
Hgb 11.9 L
Hct 31.9 L
Plt Count 102 L D
PT 24.0 H
INR 2.14
HCO3
Sodium Cancelled 124 L
Potassium Cancelled 3.8
Chloride Cancelled 89 L
Carbon Dioxide Cancelled 25
BUN Cancelled 38 H
Creatinine Cancelled 2.8 H
Glucose Cancelled 100 H
Calcium Cancelled 9.1
Total Bilirubin Cancelled 12.1 H
AST Cancelled 42
ALT Cancelled 20
Alkaline Phosphatase Cancelled 124
Vital Signs:
Vital Signs
Temp Pulse Resp BP Pulse Ox
97.7 F 100 22 102/72 98
02/20/25 07:32 02/20/25 05:45 02/20/25 05:45 02/20/25 05:50 02/20/25 05:45
I&O
02/19/25 02/20/25 02/21/25
06:59 06:59 06:59
Intake Total 530 / 560 90 / 90
Output Total 155.0 / 155.0
Balance 375.0 / 405.0
Review of Systems
-
Unable to obtain full review of systems at this time due to: Acuity
Physical Exam
-
General: Appears in Distress and Appears Chronically Ill
HEENT: Nodules ( salivary gland cyst left side) and Other (Icteric sclera)
Respiratory: Other (Unable to assess)
Cardiac: Other (Unable to assess)
GI: Distended (Extremely distended, unable to assess other parts exam due to distention) and Other (Positive fluid wave)
Musculoskeletal: Edema, Right Lower Extrem (3+ pitting) and Edema, Left Lower Extrem (3+ pitting)
Skin: Jaundice
Neuro: Other (Patient moaning not responsive to name, responsive to sternal rub); Negative Alert or Oriented
Psych: Confused
--- NOTE | 2025-02-20 09:45 | W.PN.NEPH.PH ---
Today's Communication / Plan
-
NSS
Assessment/Plan
-
IMP:
Acute metabolic encephalopathy
Severe sepsis secondary to presumed SBP.
Lactic acidosis 7.5
Acute kidney injury
Severe hyponatremia
Elevated Total bilirubin
Decompensated cirrhosis of unclear etiology
SBP
Plan:
follow BMP
Abx per primary team for SBP
albumin course
no diuretics
NSS today
critical care time 31 minutes
-
-
Date of Service: February 20, 2025
CC / HPI / ROS
-
Chief Complaint:
MORTEZA
History of Present Illness:
MORTEZA/Cr up to 2.8
BP low stable
Na up to 124 with 3%
Lactate down to 3.2
Bili down to 12.1
Review of Systems:
unresponsive
no fever
oliguric
Labs
-
Labs:
WBC 14.5 10^3/uL (4.8-10.8) H 02/20/25 03:29
RBC 3.21 10^6/uL (4.70-6.10) L 02/20/25 03:29
Hgb 11.9 g/dL (13.0-18.0) L 02/20/25 03:29
Hct 31.9 % (39.0-52.0) L 02/20/25 03:29
Plt Count 102 10^3/uL (130-400) L D 02/20/25 03:29
Sodium 124 mmol/L (135-145) L 02/20/25 03:29
Potassium 3.8 mmol/L (3.5-5.1) 02/20/25 03:29
Chloride 89 mmol/L (98-107) L 02/20/25 03:29
Carbon Dioxide 25 mmol/L (22-30) 02/20/25 03:29
BUN 38 mg/dl (9-20) H 02/20/25 03:29
Creatinine 2.8 mg/dL (0.7-1.3) H 02/20/25 03:29
eGFR 25.20 02/20/25 03:29
Glucose 100 mg/dl (70-99) H 02/20/25 03:29
Calcium 9.1 mg/dl (8.4-10.2) 02/20/25 03:29
Egf-P-Xsgrcmdqmqa Pept 1800 pg/ml 02/20/25 03:29
Albumin 3.2 g/dl (3.5-5.0) L 02/20/25 03:29
Physical Exam
-
Vital Signs:
Vital Signs
Temp Pulse Resp BP Pulse Ox
97.7 F 100 22 102/72 98
02/20/25 07:32 02/20/25 05:45 02/20/25 05:45 02/20/25 05:50 02/20/25 05:45
Cardiovascular:: Regular rate and rhythm
Respiratory:: Bilateral: Coarse
Lung Excursion:: Normal
Abdomen:: Distended, Nontender and Soft
Bowel Sounds:: Normal
Extremity Edema:: +1: Bilateral:
--- NOTE | 2025-02-20 10:00 | PTCARENOTE ---
recd 0715 handoff bedside, 3% saline infusing. lactulose given per FMS as ordered, minimal return of mostly only lactulose, bag changed on FMS. moans and groans, tolerating 2l, VS noted. Did open eyes to voice but not interactive. random
movements R arm at times. PICC maintained. Seen by multiple docs, GI, ICU, renal, hospitalist. Awaiting transfer arrangements to be coordinated. Family updated by Dr. Raymundo GI. minimal urine. Monitor at times irreg, SVT, did have burst at
change of shift to 150, lasted 5 min and converted spontaneously. albumin presently infusing, 3% completed, awaiting sandostatin gtt.
[2025-02-20] MEDS: NSS 1000 IV (10:32)
[2025-02-20] MEDS: FLEXBUMIN 50 IV (10:33)
[2025-02-20] MEDS: SANDOSTATIN 500.6 MCG IV ×2 (10:40→22:33)
[2025-02-20] MEDS: LOPRESSOR 2.5 MG IV ×3 (11:46→23:50)
--- NOTE | 2025-02-20 12:13 | CM ---
Patient unresponsive. Initial assessment completed with . Patient lives with and 26 y/o daughter in a 1st floor apartment with 3 steps to enter. 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
drive or work. Also has a w/ch. No in-home services. No psychiatric hospitalizations. No service. No HC-POA. No PCP. Pharmacy is [facility] on [address] in [place]. Discharge POC: TBD. Possible transfer to [facility] for specialized acute
care.
--- NOTE | 2025-02-20 12:14 | W.PN.GI.CBS2 ---
Today's Communication / Plan
-
Start Triple therapy. Treatment of SBP. Lactulose. Accepted for transfer to [facility].
Assessment / Plan
-
9-year-old male with decompensated cirrhosis complicated by portal hypertension with large volume ascites, esophageal varices, hyponatremia, chronic salivary gland tumor, A-fib not on anticoagulation who presents with worsening abdominal distention
and hepatic encephalopathy. He was recently hospitalized at [place], admitted from 12/05/2024 to 12/12/2024 with new onset ascites, requiring 3 total paracentesis with removal of 28 L of fluid, given a new diagnosis of decompensated cirrhosis.
There was a discussion of referral to tertiary care center to see hepatology however patient did not have insurance at that time, was given very clear instructions on following up with hepatology upon discharge. Comprehensive serologic workup
unremarkable, path returned negative.
WBC 22.4, hemoglobin 14.1, platelets 172, sodium 121, BUN 29, creatinine 2.6, lactate 7.5, total bilirubin 14.5, AST 44, ALT<30, alk phos 171, albumin 3.5
On admission, patient was profoundly encephalopathic with significant abdominal distention, jaundice and purpleish discoloration of his toes. He has multiple metabolic derangements, metabolic acidosis, hyponatremia, acute liver injury, bilirubin of
14.5, and a leukocytosis of 22,000. Diagnostic paracentesis was performed in the ER prior to administration of 2g Ceftriaxone. He then had 4L of ascitic fluid removed by IR for therapeutic paracentesis, limited to 4L due to MORTEZA. Both diagnostic and
therpapeutic paracentesis +SBP.
#Decomepnsated Cirrhosis-- currently 'cryptogenic' cirrhosis, but suspect etoh cirrhosis
-prior workup unremarkable, PETH negative
-check US w/ dopplers to rule out PVT
-+SBP--- c/w rocephin, 1.5 mg/kg of albumin on day 1 and 1 mg/kg albumin on day 3
-treat encephalopathy--getting lactulose enemas now
-concern for HRS, start triple therapy
-accepted for transfer to [facility], awaiting transfer now
-no concern for GI bleeding at this time
-NPO
#MORTEZA-- normal kidney function on recent discharge
-prerenal vs. HRS
-hold diuretics
-start triple therapy
#Leukocytosis-- 2/2 SBP
-s/p diagnostic and therapeutic (limited to 4L) paracentesis, +SBP
-c/w Rocephin
-1.5 mg/kg albumin on day 1, 1 mg/kg of albumin on day 3
-f/ublood and urine cultures as well
-bluish discoloration to feet, palpable distal pulses, monitor closely
Subjective
Subjective
Date of Service: February 20, 2025
Patient seen in follow-up. He remains critically ill, encephalopathic, minimal improvement in mental status with rectal lactulose. Both diagnostic and therapeutic ascitic fluid returned positive for SBP. Getting additional albumin this morning. Last
ni ght, went into SVT, given 6 mg adenosine with return to NSR. Went back into SVT, got 2.5 mg metoprolol and 6 mg adenosine, now in atach. Cardiology consulted. Following discussion with hospitalist and votator machine operator, I called over to [facility]
who agreed with transfer and consideration of liver transplantation. Dr. [place] spoke with ICU at [facility] who accepted patient, awaiting transfer.
Objective
Data Reviewed
Laboratory Data:
Laboratory Results
02/20/25 03:29
Laboratory Results
PT 24.0 Sec (11.4-14.6) H 02/20/25 03:29
INR 2.14 02/20/25 03:29
APTT 40.7 Sec (23.4-35.0) H 02/19/25 17:37
Magnesium 2.1 mg/dl (1.6-2.3) 02/20/25 03:29
Total Bilirubin 12.1 mg/dl (0.2-1.3) H 02/20/25 03:29
AST 42 U/L (17-59) 02/20/25 03:29
ALT 20 U/L (0-50) 02/20/25 03:29
Alkaline Phosphatase 124 U/L (38-126) 02/20/25 03:29
Amylase 49 U/L (30-110) 02/20/25 03:29
Lipase 87 U/L (23-300) 02/20/25 03:29
Vital Signs and I&O:
Vital Signs
Temp Pulse Resp BP Pulse Ox
97.7 F 111 16 131/82 96
02/20/25 11:14 02/20/25 11:46 02/20/25 10:00 02/20/25 11:46 02/20/25 10:00
I&O
02/19/25 02/20/25 02/21/25
06:59 06:59 06:59
Intake Total 530 / 560 393.4 / 393.4
Output Total 155.0 / 155.0 65 / 65
Balance 375.0 / 405.0 328.4 / 328.4
Physical Exam
Physical Exam
HEENT: Other (scleral icterus; L. salivary gland tumor (chronic); chronically-ill appearing)
GI: Distended and Non Tender
Extremities: Edema
Neuro: Other (Arousable but lethargic)
[2025-02-20 13:00] LABS: ALT (SGPT) 19 U/L (0-50); AST (SGOT) 37 U/L (17-59); Albumin 4.0 g/dl (3.5-5.0); Alkaline Phosphatase 101 U/L (38-126); Blood Urea Nitrogen 43 mg/dl (9-20); Calcium 9.4 mg/dl (8.4-10.2); Carbon Dioxide 24 mmol/L (22-30); Chloride 90 mmol/L (98-107); Estimated Creatinine Clearance 31 ml/min; Glucose 82 mg/dl (70-99); Potassium 3.9 mmol/L (3.5-5.1); Sodium 127 mmol/L (135-145); Total Protein 7.1 g/dl (6.3-8.2); eGFR 23.20
[2025-02-20] MEDS: STERILE WATER FOR INJECTION 20 ML IV (13:10)
[2025-02-20] MEDS: ROCEPHIN 2000 MG IV (13:10)
--- NOTE | 2025-02-20 14:09 | PTCARENOTE ---
update to [facility], awaiting accepting status and bed availability. in earlier, updated, heading home. Pt assessment unchanged. Positioned as able. Minimal urine output, labs drawn and ordering doc updated on results.
--- NOTE | 2025-02-20 14:16 | W.PN.UPDATE ---
Update Note
Progress Note Update
Dobhoff tube placed in left nare at 60cm without difficulty.Will confirm with x-ray prior to use.Restraints needed as patient attempting to remove tube
--- NOTE | 2025-02-20 14:25 | PTCARENOTE ---
small bore feeding tube by GI, tolerated, pt grabbing for tube, restraints ordered and placed.
[2025-02-20] MEDS: DUPHALAC/CHRONULAC 20 GRAMS TUBE ×3 (16:20→23:50)
[2025-02-20 17:17] LABS: ALT (SGPT) 20 U/L (0-50); AST (SGOT) 38 U/L (17-59); Albumin 3.8 g/dl (3.5-5.0); Alkaline Phosphatase 96 U/L (38-126); Blood Urea Nitrogen 44 mg/dl (9-20); Calcium 9.2 mg/dl (8.4-10.2); Carbon Dioxide 23 mmol/L (22-30); Chloride 90 mmol/L (98-107); Estimated Creatinine Clearance 31 ml/min; Glucose 91 mg/dl (70-99); Potassium 3.7 mmol/L (3.5-5.1); Sodium 126 mmol/L (135-145); Total Protein 6.8 g/dl (6.3-8.2); eGFR 23.20
--- NOTE | 2025-02-20 18:18 | PTCARENOTE ---
positioned for comfort, restraints on for tube safety. Isa phoned, updated, she is trying to rest at home for now, I did inform the patient as she requested. I/O tallied. No other change. Sonorous at times, presently breathing easily
without noise. tolerating 2l.
--- NOTE | 2025-02-20 21:00 | PTCARENOTE ---
Pt received start of shift, HR SR/ST on telemetry. Lactulose through dobhoff as ordered. NGT @ 60cm. FMS draining liquid stool. Q2h turns. Spurts of SVT on telemetry but resolves without intervention. Octreotide infusing as ordered. Cruz draining
yellow/orange/hugo urine. 2L NC 95-100%. BP maintaining goal without intervention. Moving limbs but not following commands. Briefly opens eyes to voice, groans occasionally.
[2025-02-21] VITALS (41 sets, daily range): BP systolic 99–166; BP diastolic 57–105; BMI 36.5
--- NOTE | 2025-02-21 01:56 | PTCARENOTE ---
Pt reassessed. Still having occasional spurts SVT on telemetry, resolve without intervention. No further changes in assessment
[2025-02-21 04:06] LABS: Hematocrit 29.5 % (39.0-52.0); Hemoglobin 11.0 g/dL (13.0-18.0); Mean Corp Hgb Conc. 37.3 g/dL (33.0-37.0); Mean Corpuscular Volume 99.7 fL (80.0-94.0); Platelet Count 79 10^3/uL (130-400); Red Cell Dist. Width 17.4 % (11.5-14.5)
[2025-02-21 04:29] LABS: ALT (SGPT) 20 U/L (0-50); AST (SGOT) 43 U/L (17-59); Albumin 3.6 g/dl (3.5-5.0); Alkaline Phosphatase 96 U/L (38-126); Ammonia 46 umol/L (9-30); Blood Urea Nitrogen 52 mg/dl (9-20); Calcium 9.4 mg/dl (8.4-10.2); Carbon Dioxide 23 mmol/L (22-30); Chloride 94 mmol/L (98-107); Estimated Creatinine Clearance 30 ml/min; Glucose 99 mg/dl (70-99); Magnesium 2.2 mg/dl (1.6-2.3); Potassium 3.4 mmol/L (3.5-5.1); Sodium 130 mmol/L (135-145); Total Protein 6.8 g/dl (6.3-8.2); eGFR 22.30
[2025-02-21] MEDS: DUPHALAC/CHRONULAC 20 GRAMS TUBE ×6 (04:47→23:57)
[2025-02-21] MEDS: LOPRESSOR 2.5 MG IV (05:56)
[2025-02-21] MEDS: KCL 100 IV (05:57)
--- NOTE | 2025-02-21 06:41 | PTCARENOTE ---
All systems reassessed. Urine output decreasing. Labs drawn, K repletion ordered for hypokalemia. Neuro status remains unchanged.
--- NOTE | 2025-02-21 07:30 | PTCARENOTE ---
Received patient A&Ox0, lethargic, responded to painful stimuli, 2LNC, ST in 110s w/ PACs and PVCs, BP WNL, Left nare DHT @60cm, FMS in place, Cruz draining hugo urine.
--- NOTE | 2025-02-21 07:51 | W.PN.INTV ---
Today's Communication / Plan
Recommendations
Continue with beta-matty therapy
Remains on the lactulose, octreotide
IV fluids per nephrology
Maintain n.p.o.
Replete electrolytes
Continue antibiotics for SBP
Protonix
Assessment
-
59-year-old male with complex medical history, paroxysmal atrial fibrillation not on anticoagulation, liver cirrhosis, salivary gland cyst, presents with 2 weeks of progressive lethargy, abdominal pain, emesis, fatigue, poor p.o. intake. Found to
have hepatic encephalopathy, renal insufficiency admitted to ICU. Underwent paracentesis 4 L drained. We are asked to help from critical care standpoint
Acute hepatic encephalopathy
Elevated ammonia level
Tachycardia
Decompensated cirrhosis
Elevated bilirubin, coagulopathy
History of cirrhosis
Portal hypertension
Distant alcohol use, ongoing workup not pursued due to insurance reasons
Status post paracentesis, 4 L drained 02/19/2025
Ascites with multiple paracenteses (28 L) last done November
Acute renal insufficiency
Hyponatremia
Leukocytosis
Lactic acidosis, 7.5 on admission
[id number] history of smoking, ongoing
Distant alcohol use, last social use few years ago
Family history of liver disease (mother)
Salivary gland cyst/tumor
Plan/recommendations
At this time, patient is critically ill
Episodes of SVT continue intermittently, self-sustaining. Remains on beta-matty therapy
Ammonia level 132, decreased to 46
Urine sodium less than 5
Concerning for hepatic encephalopathy, SBP, hepatorenal syndrome
Lactulose via Dobbhoff tube continues
Lactate improved from 7.5-2.7
Creatinine increased to 3.1
Platelets 79
Moving forward
Maintain n.p.o.
Lactulose via Dobbhoff continues
Patient has received albumin
Unfortunate no improvement in urine output, creatinine increased to 3.1
Sodium improved to 130
Remains off diuretics
Continue with albumin challenges, IV fluids
Presentation concerning for HRS
Renal ultrasound unremarkable
Normal saline IV fluids will continue
states cause of cirrhosis unclear, pending workup
Distant alcohol use per family, however patient drinks 'social alcohol' but not for the past few years according to
Questionable portal vein thrombosis in the past but states this was ruled out
Abdominal MRI 12/10/2024 severe diffuse nodularity of liver. Portal veins are patent but distended. Extensive varices throughout abdomen consistent with portal hypertension
Bilateral adrenal adenomas suspected largest 2.2 cm left adrenal gland per MRI
Coagulopathy noted
Remains on octreotide
continues with lactulose
Maintain active type and screen
Patient had small bowel movement yesterday, described as 'mild coffee ground' per nursing
Continue PPI
Follow cultures, empiric treatment for SBP for now, albumin per GI
Resume dosing of ceftriaxone
Blood culture gram-negative bacilli, Klebsiella
SVT overnight noted
Responded to adenosine
Echocardiogram November 2024 with normal biventricular function, EF greater than 75%
Records suggest history of paroxysmal atrial fibrillation
Remains on metoprolol
Intermittent marginal blood pressure this a.m., systolic pressure 89-99, may require norepinephrine, maintain maps greater than 65
Cardiology following
Head of bed elevated, aspiration precautions
N.p.o. continues
According to family, patient has been taking outpatient medications including spironolactone, Lasix, Protonix
He just acquired insurance and is now able to pursue further workup
DVT prophylaxis: Sequential teds
GI prophylaxis: Remains on Protonix IV
Reviewed with critical care nursing, respiratory care, nephrology, GI, primary service, pharmacy
Reviewed with cardiology
Patient not eligible for transfer to tertiary care center due to insurance issues
Continue with supportive care
TCCT 31 min
Subjective Dataa
Subjective Data
Date of Service:
Date of Service: February 21, 2025
Subjective:
Patient remains critically ill, poor mental status, tolerating lactulose to every 4 hours, stool output noted. Intermittent SVT, remains on beta-matty
Objective Data
Data Reviewed
Vital Signs / I&O / Oxygen:
Vital Signs
Temp Pulse Resp BP Pulse Ox
97.5 F 105 15 135/90 99
02/21/25 03:45 02/21/25 06:00 02/21/25 06:00 02/21/25 06:00 02/21/25 06:00
Intake and Output
02/20/25 02/21/25 02/22/25
06:59 06:59 06:59
Intake Total 530 / 560 2142.3 / 2184.0 41.7 / 41.7
Output Total 155.0 / 155.0 1410 / 1435
Balance 375.0 / 405.0 732.3 / 749.0 16.7 / 16.7
SaO2 99
Nasal Cannula flow liters per 2
minute
Physical Exam
General: Comfortable (But moaning intermittently) and Other (Left upper extremity PICC line triple-lumen)
HEENT: Normocephalic, Other (Icterus, pupils are reactive) and Other (Left well-defined suspected salivary gland cyst)
Cardiovascular: S1-S2, Regular Rhythm (Tachycardia), Murmur (n), Rub (n) and Peripheral Edema (2+)
Respiratory: Wheeze (n), Crackles (n), Rhonchi (n), Non-Labored Respirations and Stridor (n)
GI: Soft, Distended (Protuberant abdomen), Non Tender and Other (Dobbhoff tube)
Neurology: No Motor Deficits (Spontaneously moving extremities) and Lethargic (Spontaneously moves arms, opens eyes but does not follow commands)
Skin: Jaundice (y) and Bruising (Few)
Labs/Micro/Reports
Lab Data
02/21/25 03:55
02/21/25 03:55
Microbiology
02/19/25 17:37 Urine Urine Culture - Final
NO GROWTH
02/19/25 11:40 Blood/Venous Blood Culture - Preliminary
Positive culture in progress
02/19/25 11:40 Blood/Venous Gram Stain - Preliminary
02/19/25 16:01 Peritoneal Fluid Body Fluid Culture - Preliminary
No Growth After 18-24 Hours
02/19/25 16:01 Peritoneal Fluid Gram Stain - Preliminary
02/19/25 13:08 Peritoneal Fluid Body Fluid Culture - Preliminary
No Growth After 18-24 Hours
02/19/25 13:08 Peritoneal Fluid Gram Stain - Preliminary
02/19/25 11:40 Blood/Venous Blood Culture - Preliminary
Klebsiella pneumoniae group
02/19/25 11:40 Blood/Venous Gram Stain - Preliminary
--- NOTE | 2025-02-21 08:34 | W.PN.GI.CBS2 ---
Addendum entered and electronically signed by MIIN Love 02/21/25 16:32:
s/p para for 4 liter-- would require 25 gram albumin post but still getting additional albumin from this am -- no further orders needed reviewed with nursing staff
Addendum entered and electronically signed by Caro Raymundo DO 02/21/25 11:04:
The patient was seen and examined by me independently in collaboration with the nurse practitioner.
Past medical history/social history/medications/allergies/family history reviewed.
Lab data and imaging data reviewed.
Agreed with plan as outlined below. Unfortunate situation with decompensated cirrhotic with SBP with concern for development of HRS, MELD 38, unable to be transferred to transplant center as his current insurance benefits do not cover transplant. He
cannot be transferred for medical management either. Need to apply for Medicaid, which will take time. Will continue to support him and hope that his mental status improves with treatment of his underlying infection and encephalopathy. DHT placed
yesterday for administration of lactulose in addition to rectal lactulose has unfortunately not made much of a difference, with minimal improvement on exam today. Xifaxin added. Still making some urine. ECHO performed yesterday, mild and
thickening of the valve, unable to rule out endocarditis. Need to consider URIEL once more stable, would require EGD prior-- paraesophageal varices on imaging, no EGD yet as he did not f/u as outpatient to his scheduled appt. Luckily, his hemoglobin
remains stable, no concern for GI bleeding at this time.
Once additional insurance benefits are obtained, GI is happy to reach out to transplant center to initiate transfer.
Original Note:
Today's Communication / Plan
-
see below for complete plan
Assessment / Plan
-
59-year-old male with decompensated cirrhosis complicated by portal hypertension with large volume ascites, esophageal varices, hyponatremia, chronic salivary gland tumor, A-fib not on anticoagulation who presents with worsening abdominal distention
and hepatic encephalopathy. He was recently hospitalized at [place], admitted from 12/05/2024 to 12/12/2024 with new onset ascites, requiring 3 total paracentesis with removal of 28 L of fluid, given a new diagnosis of decompensated cirrhosis.
There was a discussion of referral to tertiary care center to see hepatology however patient did not have insurance at that time, was given very clear instructions on following up with hepatology upon discharge. Comprehensive serologic workup
unremarkable, path returned negative. During admission noted with continued encephalopathy, SBP, echo with possible endocardititis and vegetation not excluded.
On admission, patient was profoundly encephalopathic with significant abdominal distention, jaundice and purpleish discoloration of his toes. He has multiple metabolic derangements, metabolic acidosis, hyponatremia, acute liver injury, bilirubin of
14.5, and a leukocytosis of 22,000. Diagnostic paracentesis was performed in the ER prior to administration of 2g Ceftriaxone. He then had 4L of ascitic fluid removed by IR for therapeutic paracentesis, limited to 4L due to MORTEZA. Both diagnostic and
therpapeutic paracentesis +SBP.
#Decomepnsated Cirrhosis-- currently 'cryptogenic' cirrhosis, but suspect etoh cirrhosis
-prior workup unremarkable, PETH negative
-check US w/ dopplers to rule out PVT-- as noted with possible on prior imaging with doppler in November but not on MRI-
-+SBP--- c/w rocephin, 1.5 mg/kg of albumin on day 1 and 1 mg/kg albumin on day 3(today)- will repeat 4 liter tap today with repeat cell counts
-concern for HRS, ont triple therapy
-no concern for GI bleeding at this time
-NPO -- eventual initiation of tube feeds per ICU team
# HE
remains minimally responsive
DHT placed 02/20 cont lactulose Q 4 hours and reassess in AM via DHT -- enema if unable to take oral dosing
will add Xifaxan via tube
ammonia level down
#MORTEZA-- normal kidney function on recent discharge
-prerenal vs. HRS
-hold diuretics
- triple therapy
-renal following
# paraesophageal varices per prior imaging
eventual EGD
#thrombocytopenia
cont to trendd
# hypoalbuminemia
#hyponatemia
#Leukocytosis-- 2/2 SBP and noted MRSA bacteremia
-s/p diagnostic and therapeutic (limited to 4L) paracentesis, +SBP
-c/w Rocephin
-1.5 mg/kg albumin on day 1, 1 mg/kg of albumin on day 3
-f/ublood and urine cultures as well
-bluish discoloration to feet, palpable distal pulses, monitor closely
#SVT
cards following
#abnormal echo vegetation not excluded
work up per cards
# prior noted adrenal mass
# dispo
-unfortunately 2 attempt to transfer to [facility] 02/20 and pt has limited insurance plan and unable to be accepted to transplant center
I discussed with family 02/20
Subjective
Subjective
Date of Service: February 21, 2025
Pt still remains lethargic, + liquid stools in rectal bag
Objective
Data Reviewed
Laboratory Data:
Laboratory Results
02/21/25 03:55
02/21/25 03:55
Laboratory Results
PT 24.0 Sec (11.4-14.6) H 02/20/25 03:29
INR 2.14 02/20/25 03:29
APTT 40.7 Sec (23.4-35.0) H 02/19/25 17:37
Magnesium 2.2 mg/dl (1.6-2.3) 02/21/25 03:55
Total Bilirubin 8.9 mg/dl (0.2-1.3) H 02/21/25 03:55
AST 43 U/L (17-59) 02/21/25 03:55
ALT 20 U/L (0-50) 02/21/25 03:55
Alkaline Phosphatase 96 U/L (38-126) 02/21/25 03:55
Amylase 49 U/L (30-110) 02/20/25 03:29
Lipase 87 U/L (23-300) 02/20/25 03:29
Vital Signs and I&O:
Vital Signs
Temp Pulse Resp BP Pulse Ox
98.1 F 105 15 135/90 99
02/21/25 08:04 02/21/25 06:00 02/21/25 06:00 02/21/25 06:00 02/21/25 06:00
I&O
02/20/25 02/21/25 02/22/25
06:59 06:59 06:59
Intake Total 530 / 560 2142.3 / 2184.0 41.7 / 41.7
Output Total 155.0 / 155.0 1410 / 1435
Balance 375.0 / 405.0 732.3 / 749.0 16.7 / 16.7
Physical Exam
Physical Exam
HEENT: Anicteric and Moist mucous membranes
Cardiology: Other (tachy)
Pulmonary: Other (decreased bases )
GI: Soft, Distended (marked distention ) and Non Tender (limited exam with mental status )
Extremities: Edema
Neuro: Other (moaning in exam minimally responsive )
[2025-02-21] MEDS: NSS (PRESERVATIVE FREE) 10 ML IV (08:39)
[2025-02-21] MEDS: PROTONIX IV 40 MG IV (08:39)
[2025-02-21] MEDS: LR 1000 IV (08:40)
--- NOTE | 2025-02-21 08:51 | W.PN.CD ---
Today's Communication / Plan
-
Brief self-limited SVT overnight and BP appears stable on current medical therapy
Now with dobhoff. will change from IV to oral metoprolol
Impression / Plan
-
59-year-old male with past medical history of paroxysmal A-fib not on anticoagulation, salivary gland cyst, liver cirrhosis with esophageal varices, portal hypertension and ascites presents to [facility] with decompensated liver failure.
He had 2 episodes of SVT.. First episode HR 170s s/p adenosine returned to sinus rhythm. Second episode s/p 2.5 metoprolol, 6mg adenosine returned to A.fib HR controlled in 100s-110s started on scheduled doses of metoprolol 2.5mg IV q6.
SVT x2 - 12 line EKG consistent with long RP tachycardia, p wave morphology suggests atrial tachycardia, fortunately responsive to adenosine
Atrial Tachycardia in setting of hypotension
--Now HR 100s-110's
--Currently on metoprolol 2.5 mg q6,
--Cont metoprolol 2.5mg q6 as BP allows. If HR increases >140 can give adenosine.
--Not candidate for anticoagulation in setting of decompensated liver failure, INR 2.14, and esophageal varices however regardless CV2 is 0.
--Keep K>4
--Keep Mg >2
.
- mild by echo. thickened valve. Per report vegetation could not be excluded. Not a candidate for URIEL with oncgoing issues and varices
.
SBP - tx per primary team and GI
.
Kelbsiella Bacteremia - positive BC 02/19/25
- abx per primary team
Decompensated liver cirrhosis with esophageal varices, portal HTN and ascites
Severe sepsis secondary to suspected SBP
--MELD score 36, T.bili 12.1
--s/p 4L paracentesis
--On lactulose, octreotide, pantoprazole, ceftriaxone
--GI following - currently attempting to transfer to [facility]
MORTEZA/Possible hepatorenal syndrome
--Cr 2.8
--On albumin 60mls and NSS
--Nephrology following
Hyponatremia
--S/p 3% NSS
--Nephrology following
Acute hepatic encephalopathy
Elevated ammonia levels
Leukocytosis
Lactic acidosis
Tobacco abuse
Full Code
NPO
Physical Exam
Vital Signs/Labs
Vital Signs
Temp Pulse Resp BP Pulse Ox
98.1 F 105 15 135/90 99
02/21/25 08:04 02/21/25 06:00 02/21/25 06:00 02/21/25 06:00 02/21/25 06:00
02/20/25 02/21/25 02/22/25
06:59 06:59 06:59
Actual Weight 105.9 kg 105.6 kg
02/21/25 03:55
02/21/25 03:55
PT 24.0 Sec (11.4-14.6) H 02/20/25 03:29
INR 2.14 02/20/25 03:29
APTT 40.7 Sec (23.4-35.0) H 02/19/25 17:37
Magnesium 2.2 mg/dl (1.6-2.3) 02/21/25 03:55
02/19/25 02/20/25
16:00 03:29
Ozc-G-Mygxkipbnqm Pept Cancelled 1800
Physical Exam
Constitutional: No acute distress
Cardiovascular: Rhythm & rate is regular
Respiratory: Wheeze Absent and Rhonchi Absent
GI: Soft
Neuro/Psych: Alert
Other: Skin
Data Reviewed
-
Date of Service: February 21, 2025
Medical Decision Making: Reviewed Test Results
Echo: Report Reviewed by me
Medical Tests (PFT, Pathology etc): Report Reviewed by me
Labs: Labs Reviewed by me
[2025-02-21 09:06] LABS: INR 1.99; PT 23.1 Sec (11.4-14.6)
[2025-02-21 09:07] LABS: APTT 43.4 Sec (23.4-35.0)
--- NOTE | 2025-02-21 09:30 | W.PN.HOSP.TC ---
Today's Communication/Plan
-
IR consulted for paracentesis
HRS triple therapy
Assessment / Plan
Assessment / Plan
Mr Maurizio Granados is a 59yo with no medical care for years, hx PAF(not on anticoagulation), salivary gland tumor (chronic for years), prior ETOH use years ago with admission in November with massive ascites with decompensated liver failure,
hyponatremia, coagulopathy, electrolyte imbalance. During that admission he had paracentesis x 3 for total of 28 liters of ascites removed and fluid studies c/w liver etiology with negative pathology. Etiology of liver disease was unclear. Liver
work up complete during admission revealed + ALETHEA, mild elevated A1AT, elevated immunoglobulin A, hepatitis B immunity with otherwise neg panel, normal AMA, SLA, LKM, ceruloplasmin, with neg ETOH screening with PETH neg <10 AFP 4.97. Imaging with
cirrhosis and ascites. 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 MRI with severe hepatic cirrhosis without HCC, severe portal HTN, mild ascites, upper abdominal adenopathy, GB distention, adrenal mass and CM. He
now presents today with abdominal distention and change in mental status. On admission noted with WBC 22,400, hbg 14.1, platelets 172, na 121, creat 2.6, BUN 29, lactate 7.5, bili 14.5, AST 44, ALT <30, alk phos 171, ammonia 40. She reports some
abdominal pain nausea, nonbloody vomiting with distention but denies diarrhea, constipation or rectal bleeding. Urine studies sent results pending underwent diagnostic paracentesis with 4 L off in the ED blood cultures obtained 2 g of IV Rocephin
started nephrology consulted and started 3% saline, IR consulted for thoracentesis, GI consulted, hole puncher strap consulted. Ascitic fluid analysis positive for SBP with greater than 250 PMN. Blood cultures positive for gram-negative baccilli. On 02/19
patient went into SVT in the 170s. Received dose of Levophed, and 6 mg of adenosine with return to sinus tachycardia. Cardiology consulted and ordered TTE. Also repleted patient's mag, on admission Mg 1.9. Albumin challenge failed, HRS type 1.
Octreotide, albumin, levophed. Patients MELD 37, Child Class C, attempted to transfer to [facility] however due to lack of coverage for surgery/transplant patient was denied. GI placed Dobbhoff tube and oral lactulose was given. Patient started
having bowel movements with improvement of ammonia numbers.
# Severe sepsis
# SBP
#Decomepnsated Cirrhosis-- etiology unclear
# Hepatic encephalopathy
# Elevated bilirubin
WBCs 22, tachycardia to 117, lactate 7.5--3.4, bacteremia with Klebsiella p.
Currently hemodynamically stable
prior workup unremarkable, PETH pending
bilirubin is significantly higher than recent admission, suspicious for alc hepatitis
T. bili 14��12
Anion gap 17 on admission--10
MELD score37 , on last admission 25, child class C
IV ceftriaxone
Lactulose, patient with no bowel movements on 02/20
PPI IV
Trend CBC BMP lactate MELD labs
Follow-up paracentesis IR consulted
Appreciate GI recs
-treat encephalopathy
-no concern for GI bleeding at this time
-NPO
- Dobbhoff tube placed
#MORTEZA
# Hepatorenal syndrome
normal kidney function on recent discharge, creatinine 0.8 now 2.6--3.1
HRS, patient likely intravascularly depleted
hold diuretics
Strict I's and O's
Trend BMP q12
Renally dose medications
limited paracentesis to 3.5 L; will certainly require additional paracentesis later on admission
albumin challenge, no improvement
starting triple therapy
octreotide
levophed
albumin
Nephrology consulted
# Hyponatremia
Na on admission 121, 124 130
Nephrology consulted
3% saline
UA positive for nitrites WBCs leukoesterase however urine culture negative
Consider DDAVP for overcorrection
# SVT
Patient went into SVT overnight 7/8
Mg 1.9, 1 g ordered to replete
Received Levophed, 6 mg adenosine
Return to sinus tachycardia
Cardiology consulted
TTE ordered
Echo shows mild aortic stenosis, thickened valves, vegetation cannot be excluded however patient not a candidate for URIEL
#Paroxysmal A-fib
Not on anticoagulation
Currently sinus rhythm on ED monitor
Continue to monitor
# Salivary gland cyst
Continue to monitor
DVT prophylaxis
CODE STATUS
Full code
Anticipated Discharge: > 48 hours
Subjective/Interval History
-
Patient was seen at bedside, very somnolent not groaning. Did have bowel output yesterday and this morning. Continues to have minimal urine output. Arousable to pain. Went into episodes of SVT last night which self resolved without intervention.
Patient was denied transfer by [facility] due to insurance issues, no surgery coverage. date of Service: February 21, 2025
Objective Data
-
Labs:
Laboratory Results
02/21/25 02/21/25
03:55 08:26
WBC 11.0 H
Hgb 11.0 L
Hct 29.5 L
Plt Count 79 L D
PT 23.1 H
INR 1.99
APTT 43.4 H
Sodium 130 L
Potassium 3.4 L
Chloride 94 L
Carbon Dioxide 23
BUN 52 H
Creatinine 3.1 H
Glucose 99
Calcium 9.4
Total Bilirubin 8.9 H
AST 43
ALT 20
Alkaline Phosphatase 96
Vital Signs:
Vital Signs
Temp Pulse Resp BP Pulse Ox
98.1 F 105 15 135/90 99
02/21/25 08:04 02/21/25 06:00 02/21/25 06:00 02/21/25 06:00 02/21/25 06:00
I&O
02/20/25 02/21/25 02/22/25
06:59 06:59 06:59
Intake Total 530 / 560 2142.3 / 2184.0 41.7 / 41.7
Output Total 155.0 / 155.0 1410 / 1435
Balance 375.0 / 405.0 732.3 / 749.0 16.7 / 16.7
Review of Systems
-
Unable to obtain full review of systems at this time due to: Acuity
Physical Exam
-
General: Appears Chronically Ill and Cachectic
HEENT: Normocephalic and Atraumatic
Respiratory: Clear to Auscultation (Difficult exam due to ascites); Negative Wheezes, Crackles, Accessory Resp Muscle Use or Decreased Breath Sounds
Cardiac: Regular Rhythm, S1/S2 and Tachycardic; Negative Murmur
GI: Distended (Massively distended, positive fluid wave, unable to assess other parts of exam due to ascites) and Other (Dobbhoff tube present)
Rectal: Brown (Watery)
Musculoskeletal: Clubbing (Mild, on fingers), Edema, Right Lower Extrem and Edema, Left Lower Extrem
Skin: Warm and Dry
Neuro: Negative Awake or Alert
[2025-02-21] MEDS: FLEXBUMIN 100 IV ×4 (10:05→15:59)
[2025-02-21] MEDS: SANDOSTATIN 500.6 MCG IV ×2 (10:06→22:40)
--- NOTE | 2025-02-21 10:25 | W.PN.NEPH.PH ---
Today's Communication / Plan
-
IVF
Assessment/Plan
-
IMP:
Acute metabolic encephalopathy
Severe sepsis secondary to presumed SBP.
Lactic acidosis 7.5
Acute kidney injury
Severe hyponatremia
Elevated Total bilirubin
Decompensated cirrhosis of unclear etiology
SBP
Plan:
follow BMP
Abx per primary team for SBP
no diuretics
NSS today again
prognosis is poor. He does not seem to actually have a liver transplant option. This make dialysis a poor option should he renal function continue to worsen with what appears to be HRS.
critical care time 31 minutes
-
-
Date of Service: February 21, 2025
CC / HPI / ROS
-
Chief Complaint:
MORTEZA
History of Present Illness:
MORTEZA/Cr up to 3.1
BP low stable
Na up to 130
Lactate down to 2.3
Bili down to 8.9
DHT placed, now in soft restraints
critically ill in ICU
Review of Systems:
poorly responsive
no fever
oliguric
Labs
-
Labs:
WBC 11.0 10^3/uL (4.8-10.8) H 02/21/25 03:55
RBC 2.96 10^6/uL (4.70-6.10) L 02/21/25 03:55
Hgb 11.0 g/dL (13.0-18.0) L 02/21/25 03:55
Hct 29.5 % (39.0-52.0) L 02/21/25 03:55
Plt Count 79 10^3/uL (130-400) L D 02/21/25 03:55
Sodium 130 mmol/L (135-145) L 02/21/25 03:55
Potassium 3.4 mmol/L (3.5-5.1) L 02/21/25 03:55
Chloride 94 mmol/L (98-107) L 02/21/25 03:55
Carbon Dioxide 23 mmol/L (22-30) 02/21/25 03:55
BUN 52 mg/dl (9-20) H 02/21/25 03:55
Creatinine 3.1 mg/dL (0.7-1.3) H 02/21/25 03:55
eGFR 22.30 02/21/25 03:55
Glucose 99 mg/dl (70-99) 02/21/25 03:55
Calcium 9.4 mg/dl (8.4-10.2) 02/21/25 03:55
Scl-C-Rogesogzcgf Pept 1800 pg/ml 02/20/25 03:29
Albumin 3.6 g/dl (3.5-5.0) 02/21/25 03:55
Physical Exam
-
Vital Signs:
Vital Signs
Temp Pulse Resp BP Pulse Ox
98.1 F 101 19 156/97 93
02/21/25 08:04 02/21/25 09:30 02/21/25 09:30 02/21/25 09:00 02/21/25 09:30
Cardiovascular:: Regular rate and rhythm
Respiratory:: Bilateral: Coarse
Lung Excursion:: Normal
Abdomen:: Distended, Nontender and Soft
Bowel Sounds:: Decreased
Extremity Edema:: +2: Bilateral:
[2025-02-21] MEDS: LOPRESSOR 12.5 MG PO ×2 (10:47→19:24)
[2025-02-21] MEDS: XIFAXAN 550 MG TUBE ×2 (10:47→19:24)
[2025-02-21] MEDS: NSS 1000 IV ×2 (10:47→23:57)
--- NOTE | 2025-02-21 12:00 | PTCARENOTE ---
Reassessed the patient, lethargic, responded to pain, restraints continued, on RA, NSR w/ PACs, BP WNL, FMS and Cruz intact. Pending IR Paracentesis.
[2025-02-21 12:29] LABS: ALT (SGPT) 20 U/L (0-50); AST (SGOT) 41 U/L (17-59); Albumin 3.7 g/dl (3.5-5.0); Alkaline Phosphatase 82 U/L (38-126); Blood Urea Nitrogen 54 mg/dl (9-20); Calcium 8.8 mg/dl (8.4-10.2); Carbon Dioxide 23 mmol/L (22-30); Chloride 95 mmol/L (98-107); Estimated Creatinine Clearance 32 ml/min; Glucose 99 mg/dl (70-99); Potassium 3.7 mmol/L (3.5-5.1); Sodium 130 mmol/L (135-145); Total Protein 6.7 g/dl (6.3-8.2); eGFR 24.16
[2025-02-21] MEDS: FLUSH (NSS) 1 FLUSH IV ×2 (13:00→13:15)
[2025-02-21] MEDS: ROCEPHIN 2000 MG IV (13:09)
[2025-02-21] MEDS: STERILE WATER FOR INJECTION 20 ML IV (13:09)
[2025-02-21 15:35] LABS: Body Fluid Second Tech HB
--- NOTE | 2025-02-21 15:42 | CM ---
Multiple IV/medications, paracentesis, NPO, minimally responsive, poor prognosis. Discharge POC: TBD based on medical progression.
--- NOTE | 2025-02-21 16:23 | PTCARENOTE ---
Reassessed the patient, IR removed 4L in paracentesis, drowsy, responded to loud voice, on RA, NST to ST w/ PACs, BP WNL, replaced FMS, Cruz intact.
--- NOTE | 2025-02-21 21:13 | PTCARENOTE ---
Pt received start of shift, HR SR/ST on telemetry. Lactulose through dobhoff as ordered. NGT @ 60cm. FMS draining liquid stool. Q2h turns. Octreotide and NSS infusing as ordered. Cruz draining hugo urine. BP maintaining goal without intervention.
Moving limbs and repositioning slightly in bed but not following commands. Briefly opens eyes to voice, groans occasionally. Pt sparingly replies with an 'okay'. POX 87-89% RA, 2L NC placed on pt - new POX 98%. Occasional non-productive cough.
[2025-02-22] VITALS (27 sets, daily range): BP systolic 70–151; BP diastolic 19–111; BMI 36.5
--- NOTE | 2025-02-22 00:59 | PTCARENOTE ---
Pt reassessed. Pt occasionally answering yes or no questions correctly. Has periods of being more awake. Continuing to move limbs and reposition self slightly in the bed.
[2025-02-22 04:19] LABS: INR 2.12; PT 24.2 Sec (11.4-14.6)
[2025-02-22 04:20] LABS: APTT 45.6 Sec (23.4-35.0)
[2025-02-22 04:23] LABS: Hematocrit 25.2 % (39.0-52.0); Hemoglobin 9.1 g/dL (13.0-18.0); Mean Corp Hgb Conc. 36.1 g/dL (33.0-37.0); Mean Corpuscular Volume 102.0 fL (80.0-94.0); Platelet Count 62 10^3/uL (130-400); Red Cell Dist. Width 17.4 % (11.5-14.5)
[2025-02-22 04:33] LABS: Ammonia < 9 umol/L (9-30)
[2025-02-22 04:35] LABS: ALT (SGPT) 18 U/L (0-50); AST (SGOT) 36 U/L (17-59); Albumin 3.9 g/dl (3.5-5.0); Alkaline Phosphatase 69 U/L (38-126); Blood Urea Nitrogen 50 mg/dl (9-20); Calcium 8.8 mg/dl (8.4-10.2); Carbon Dioxide 23 mmol/L (22-30); Chloride 100 mmol/L (98-107); Estimated Creatinine Clearance 38 ml/min; Glucose 96 mg/dl (70-99); Potassium 3.0 mmol/L (3.5-5.1); Sodium 134 mmol/L (135-145); Total Protein 6.3 g/dl (6.3-8.2); eGFR 30.32
[2025-02-22] MEDS: KCL 100 IV (04:47)
[2025-02-22] MEDS: KCL ELIXIR 40 MEQ TUBE (04:47)
[2025-02-22] MEDS: DUPHALAC/CHRONULAC 20 GRAMS TUBE ×2 (04:47→08:40)
--- NOTE | 2025-02-22 06:11 | PTCARENOTE ---
Pt able to converse in very short sentences at times. Still disoriented to time and place. Able to tell me his 's name. Answering yes or no questions. AM labs drawn and sent. K low, IV supplementation ordered and administered - see MAR. No
further changes in assessment.
--- NOTE | 2025-02-22 06:26 | PTCARENOTE ---
Pt self-removed NGT while restrained. Entire tube accounted for
--- NOTE | 2025-02-22 06:31 | W.PN.GI.CBS2 ---
Today's Communication / Plan
-
Please assessment and plan for details.
Assessment / Plan
-
1. 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 He is currently much improved, with improvement in creatinine, mentation,
normalization of leukocytosis, no fevers. Repeat blood cultures negative, previous bacteremia with Klebsiella likely secondary to SBP. At this point we will continue antibiotics, status post albumin replacement for SBP, octreotide, volume
management per renal, continue octreotide. His mental status is much improved, will continue lactulose and Xifaxan, now that he is more alert hopefully able to pass swallow eval and start p.o. and can hold on repeat Dobbhoff tube. He was not
accepted for transfer at 2 institutions for medical management or transplant eval given his insurance issues, awaiting Medicaid application.
Subjective
Subjective
Date of Service: February 22, 2025
Patient's mental status much improved, answering questions, still some confusion though alert. Unfortunately pulled out Dobbhoff tube though did get doses of lactulose. Having light brown stool and fecal management system. No fevers overnight.
Objective
Data Reviewed
Laboratory Data:
Laboratory Results
02/22/25 03:52
Laboratory Results
PT 24.2 Sec (11.4-14.6) H 02/22/25 03:52
INR 2.12 02/22/25 03:52
APTT 45.6 Sec (23.4-35.0) H 02/22/25 03:52
Magnesium 2.2 mg/dl (1.6-2.3) 02/21/25 03:55
Total Bilirubin 7.4 mg/dl (0.2-1.3) H 02/22/25 03:52
AST 36 U/L (17-59) 02/22/25 03:52
ALT 18 U/L (0-50) 02/22/25 03:52
Alkaline Phosphatase 69 U/L (38-126) 02/22/25 03:52
Amylase 49 U/L (30-110) 02/20/25 03:29
Lipase 87 U/L (23-300) 02/20/25 03:29
Vital Signs and I&O:
Vital Signs
Temp Pulse Resp BP Pulse Ox
96.8 F L 88 14 135/87 100
02/22/25 03:13 02/22/25 06:00 02/22/25 06:00 02/22/25 04:00 02/22/25 06:00
I&O
02/20/25 02/21/25 02/22/25
06:59 06:59 06:59
Intake Total 530 / 560 2142.3 / 2209.0 3849.1 / 3849.1
Output Total 155.0 / 155.0 1410 / 1435 3729 / 3729
Balance 375.0 / 405.0 732.3 / 774.0 120.1 / 120.1
Physical Exam
Physical Exam
General: NAD arousable, alert, oriented x 2
Abdomen: normal bowel sounds, soft, no tenderness, no masses or bruits, moderate ascites
--- NOTE | 2025-02-22 07:30 | PTCARENOTE ---
Received patient A&Ox2, improved mentation, on , AV w/ PACs, BP WNL, PICC triple lumen GWEN, Sandostatin drip @50mcg/hr, Distended ABD, DHT pulled out overnight, passed nursing bedside swallow eval, FMS and Cruz intact.
--- NOTE | 2025-02-22 07:51 | W.PN.INTV ---
Today's Communication / Plan
Recommendations
Continue management per GI
remains on beta-matty therapy
Follow urine output, creatinine, improving
Lactulose continues
IV fluid continues
For transfer out of ICU. We will sign off. Please call with questions
Assessment
-
59-year-old male with complex medical history, paroxysmal atrial fibrillation not on anticoagulation, liver cirrhosis, salivary gland cyst, presents with 2 weeks of progressive lethargy, abdominal pain, emesis, fatigue, poor p.o. intake. Found to
have hepatic encephalopathy, renal insufficiency admitted to ICU. Underwent paracentesis 4 L drained. We are asked to help from critical care standpoint
Acute hepatic encephalopathy
Elevated ammonia level
Tachycardia
Decompensated cirrhosis
Elevated bilirubin, coagulopathy
History of cirrhosis
Portal hypertension
Distant alcohol use, ongoing workup not pursued due to insurance reasons
Status post paracentesis, 4 L drained 02/19/2025
Ascites with multiple paracenteses (28 L) last done November
Acute renal insufficiency
Hyponatremia
Leukocytosis
Lactic acidosis, 7.5 on admission
[id number] history of smoking, ongoing
Distant alcohol use, last social use few years ago
Family history of liver disease (mother)
Salivary gland cyst/tumor
Plan/recommendations
At this time, patient appears to be improved objectively and subjectively
More alert, ammonia level improved
Urine output also seems to have picked up, creatinine stabilized, decreased to 2.4
Platelet level noted, stable
Continue with normal saline at 80 cc/h
Episodes of SVT continue, appear to be less common
Moving forward
Maintain n.p.o.
Lactulose via p.o. continues
Speech and swallow evaluation
Renal function appears to be improved, hyponatremia improved
Urine output improved
Normal saline IV fluids will continue
states cause of cirrhosis unclear, pending workup
Distant alcohol use per family, however patient drinks 'social alcohol' but not for the past few years according to
Questionable portal vein thrombosis in the past but states this was ruled out
Abdominal MRI 12/10/2024 severe diffuse nodularity of liver. Portal veins are patent but distended. Extensive varices throughout abdomen consistent with portal hypertension
Bilateral adrenal adenomas suspected largest 2.2 cm left adrenal gland per MRI
Coagulopathy noted
Remains on octreotide
continues with lactulose
Maintain active type and screen
Continue PPI eventual endoscopy per GI
Follow cultures, empiric treatment for SBP for now, albumin per GI
Continue ceftriaxone
Blood culture gram-negative bacilli, Klebsiella
Peritoneal fluid also positive for Klebsiella
SVT intermittent
Responded to adenosine
Echocardiogram November 2024 with normal biventricular function, EF greater than 75%
Records suggest history of paroxysmal atrial fibrillation
Remains on metoprolol
Cardiology following
Head of bed elevated, aspiration precautions
N.p.o. continues
According to family, patient has been taking outpatient medications including spironolactone, Lasix, Protonix
He just acquired insurance and is now able to pursue further workup
DVT prophylaxis: Sequential teds
GI prophylaxis: Remains on Protonix IV
Reviewed with critical care nursing, respiratory care, pharmacy
Reviewed with primary service
Patient not eligible for transfer to tertiary care center due to insurance issues
For transfer out of ICU. We will sign off. Please call with questions
Subjective Dataa
Subjective Data
Date of Service:
Date of Service: February 22, 2025
Subjective:
Patient much improved from encephalopathy standpoint, answering questions, appears comfortable. Unfortunately pulled the Dobbhoff tube out. Patient not very responsive when asked questions. Ammonia level has improved. Completed paracentesis
yesterday 4 L
Objective Data
Data Reviewed
Vital Signs / I&O / Oxygen:
Vital Signs
Temp Pulse Resp BP Pulse Ox
98.8 F 97 19 138/84 100
02/22/25 07:19 02/22/25 06:19 02/22/25 06:19 02/22/25 06:19 02/22/25 06:19
Intake and Output
02/21/25 02/22/25 02/23/25
06:59 06:59 06:59
Intake Total 2142.3 / 2209.0 3970.8 / 4092.5 121.7 / 121.7
Output Total 1410 / 1435 3804 / 3909 105 / 105
Balance 732.3 / 774.0 166.8 / 183.5 16.7 / 16.7
SaO2 100
Nasal Cannula flow liters per 2
minute
Physical Exam
General: Comfortable (But moaning intermittently) and Other (Left upper extremity PICC line triple-lumen)
HEENT: Normocephalic, Other (Icterus, pupils are reactive) and Other (Left well-defined suspected salivary gland cyst)
Cardiovascular: S1-S2, Regular Rhythm (Tachycardia), Murmur (2/6 systolic murmur), Rub (n) and Peripheral Edema (2+)
Respiratory: Wheeze (n), Crackles (n), Rhonchi (n), Non-Labored Respirations and Stridor (n)
GI: Soft, Distended (Protuberant abdomen) and Non Tender
Neurology: Awake, Alert and No Motor Deficits (Generally weak)
Skin: Jaundice (y) and Bruising (Few)
Labs/Micro/Reports
Lab Data
02/22/25 03:52
Laboratory Results
02/21/25 02/22/25
08:26 03:52
PT 23.1 H 24.2 H
INR 1.99 2.12
APTT 43.4 H 45.6 H
Microbiology
02/19/25 11:40 Blood/Venous Blood Culture - Preliminary
Klebsiella pneumoniae group
02/19/25 11:40 Blood/Venous Gram Stain - Preliminary
02/21/25 14:37 Peritoneal Fluid Gram Stain - Preliminary
02/19/25 13:08 Peritoneal Fluid Body Fluid Culture - Preliminary
No Growth After 48 Hours
02/19/25 13:08 Peritoneal Fluid Gram Stain - Preliminary
02/19/25 16:01 Peritoneal Fluid Body Fluid Culture - Preliminary
No Growth After 48 Hours
02/19/25 16:01 Peritoneal Fluid Gram Stain - Preliminary
02/19/25 11:40 Blood/Venous Blood Culture - Preliminary
Positive culture in progress
02/19/25 11:40 Blood/Venous Gram Stain - Preliminary
02/19/25 21:31 Nose MRSA Screen - Final
Staph aureus MRSA
02/19/25 17:37 Urine Urine Culture - Final
NO GROWTH
[2025-02-22] MEDS: NSS (PRESERVATIVE FREE) 10 ML IV (08:40)
[2025-02-22] MEDS: PROTONIX IV 40 MG IV (08:40)
[2025-02-22] MEDS: LOPRESSOR 12.5 MG TUBE (08:40)
[2025-02-22] MEDS: XIFAXAN 550 MG TUBE (08:41)
--- NOTE | 2025-02-22 09:12 | PTOTSP ---
Speech Therapy Evaluation:
Pt presents with grossly functional oral phase. Noted 1x immediate, strong cough while masticating regular cracker. No prior or subsequent s/sx of aspiration. Pt without significant predisposing risk factors of dysphagia, although precipitating risk
factors include encephalopathy, however improving. Pt passed 3oz swallow screen, WBC WNL, pt afebrile, and on room air. CXR without pneumonia and pt without hx of dysphagia.
Recommend:
1. Initiate regular and thin liquid diet
2. Medications as tolerated
3. Only feed when fully awake/alert
4. Strict aspiration precautions
5. STAFF DEVELOPMENT COORDINATOR RN to follow
[2025-02-22] MEDS: SANDOSTATIN 500.6 MCG IV ×2 (10:11→22:21)
--- NOTE | 2025-02-22 10:19 | W.PN.HOSP.TC ---
Today's Communication/Plan
-
Patient clinically doing much better
IV albumin
Downgrade to IMU
Psych consult
Assessment / Plan
Assessment / Plan
Mr Maurizio Granados is a 59yo with no medical care for years, hx PAF(not on anticoagulation), salivary gland tumor (chronic for years), prior ETOH use years ago with admission in November with massive ascites with decompensated liver failure,
hyponatremia, coagulopathy, electrolyte imbalance. During that admission he had paracentesis x 3 for total of 28 liters of ascites removed and fluid studies c/w liver etiology with negative pathology. Etiology of liver disease was unclear. Liver
work up complete during admission revealed + ALETHEA, mild elevated A1AT, elevated immunoglobulin A, hepatitis B immunity with otherwise neg panel, normal AMA, SLA, LKM, ceruloplasmin, with neg ETOH screening with PETH neg <10 AFP 4.97. Imaging with
cirrhosis and ascites. 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 MRI with severe hepatic cirrhosis without HCC, severe portal HTN, mild ascites, upper abdominal adenopathy, GB distention, adrenal mass and CM. He
now presents today with abdominal distention and change in mental status. On admission noted with WBC 22,400, hbg 14.1, platelets 172, na 121, creat 2.6, BUN 29, lactate 7.5, bili 14.5, AST 44, ALT <30, alk phos 171, ammonia 40. She reports some
abdominal pain nausea, nonbloody vomiting with distention but denies diarrhea, constipation or rectal bleeding. Urine studies sent results pending underwent diagnostic paracentesis with 4 L off in the ED blood cultures obtained 2 g of IV Rocephin
started nephrology consulted and started 3% saline, IR consulted for thoracentesis, GI consulted, fruit or nut picker consulted. Ascitic fluid analysis positive for SBP with greater than 250 PMN. Blood cultures positive for gram-negative baccilli. On 02/19
patient went into SVT in the 170s. Received dose of Levophed, and 6 mg of adenosine with return to sinus tachycardia. Cardiology consulted and ordered TTE. Also repleted patient's mag, on admission Mg 1.9. Albumin challenge failed, HRS type 1.
Octreotide, albumin, levophed. Patients MELD 37, Child Class C, attempted to transfer to [facility] however due to lack of coverage for surgery/transplant patient was denied. GI placed Dobbhoff tube and oral lactulose was given. Patient started
having bowel movements with improvement of ammonia numbers. Patient continued to show improvement, mentation improved he was able to converse with us, he removed his Dobbhoff tube, his leukocytosis continues to decrease and his kidney function
continued to improve. He was downgraded to IMU for further care.
# Severe sepsis
# SBP
#Decomepnsated Cirrhosis-- etiology unclear
# Hepatic encephalopathy
# Elevated bilirubin
WBCs 22, tachycardia to 117, lactate 7.5--3.4, bacteremia with Klebsiella p.
Currently hemodynamically stable
prior workup unremarkable, PETH pending
bilirubin is significantly higher than recent admission, suspicious for alc hepatitis
T. bili 14��12
Anion gap 17 on admission--10
MELD score37 , on last admission 25, child class C
IV ceftriaxone
Lactulose, patient with no bowel movements on 02/20
Rifaximin added by GI
PPI IV
paracentesis 02/21 yielded 4 L straw-colored
Appreciate GI recs
-treat encephalopathy
-no concern for GI bleeding at this time
-NPO
- Patient removed Dobbhoff tube
#MORTEZA improving
#Hepatorenal syndrome
normal kidney function on recent discharge, creatinine 0.8 now 2.6--3.1--2.4
HRS, patient likely intravascularly depleted
hold diuretics
Strict I's and O's
Trend BMP q12
Renally dose medications
limited paracentesis to 3.5 L; will certainly require additional paracentesis later on admission
albumin challenge, no improvement
starting triple therapy
octreotide
levophed
albumin
Nephrology consulted
# Depressed mood
endorsed depression prior to this hospitalization
On no psych medications
Consult psych
# Hyponatremia
Na on admission 121, 124 130 134
Nephrology consulted
Consider DDAVP for overcorrection
# SVT
Patient went into SVT overnight 02/19
Mg 1.9, 1 g ordered to replete
Received Levophed, 6 mg adenosine
Return to sinus tachycardia
Cardiology consulted
TTE ordered
Echo shows mild aortic stenosis, thickened valves, vegetation cannot be excluded however patient not a candidate for URIEL
#Paroxysmal A-fib
Not on anticoagulation
Currently sinus rhythm on ED monitor
Continue to monitor
# Salivary gland cyst
Continue to monitor
DVT prophylaxis
SCDs
CODE STATUS
Full code
Anticipated Discharge: > 48 hours
Subjective/Interval History
-
Patient was seen at bedside. This morning he was awake alert and speaking. He did not report any pain or discomfort, no shortness of breath, patient refused to respond when asked if there was any pain in the abdomen. Patient was minimally
responsive to questions about his ascites, although was aware upon repeated questioning. Patient took out NG tube overnight by himself. Date of Service: February 22, 2025
Objective Data
-
Labs:
Laboratory Results
02/22/25 02/22/25 02/22/25
03:52 06:00 10:13
WBC 8.1
Hgb 9.1 L
Hct 25.2 L
Plt Count 62 L D
PT 24.2 H
INR 2.12
APTT 45.6 H
Sodium 134 L Cancelled Pending
Potassium 3.0 L Cancelled Pending
Chloride 100 Cancelled Pending
Carbon Dioxide 23 Cancelled Pending
BUN 50 H Cancelled Pending
Creatinine 2.4 H Cancelled Pending
Glucose 96 Cancelled Pending
Calcium 8.8 Cancelled Pending
Total Bilirubin 7.4 H Cancelled Pending
AST 36 Cancelled Pending
ALT 18 Cancelled Pending
Alkaline Phosphatase 69 Cancelled Pending
02/22/25
23:14
WBC
Hgb
Hct
Plt Count
PT
INR
APTT
Sodium Pending
Potassium Pending
Chloride Pending
Carbon Dioxide Pending
BUN Pending
Creatinine Pending
Glucose Pending
Calcium Pending
Total Bilirubin Pending
AST Pending
ALT Pending
Alkaline Phosphatase Pending
Vital Signs:
Vital Signs
Temp Pulse Resp BP Pulse Ox
98.8 F 99 22 134/75 94
02/22/25 07:19 02/22/25 09:00 02/22/25 09:00 02/22/25 09:00 02/22/25 09:00
I&O
02/21/25 02/22/25 02/23/25
06:59 06:59 06:59
Intake Total 2142.3 / 2209.0 3970.8 / 4092.5 725.1 / 725.1
Output Total 1410 / 1435 3804 / 3909 205 / 205
Balance 732.3 / 774.0 166.8 / 183.5 520.1 / 520.1
Review of Systems
-
Unable to obtain full review of systems at this time due to: Acuity
History Source: Patient
Constitutional: Reports No Symptoms; Denies Fever
EENT: Reports No Symptoms Reported; Denies Tearing or Runny Nose
Respiratory: Reports No Symptoms; Denies Cough or Trouble Breathing
Cardiac: Reports No Symptoms; Denies Chest Pain or Palpitations
Abdomen/GI: Reports Other (Patient refused to answer)
Genitourinary: Reports No Symptoms; Denies Dysuria
Musculoskeletal: Reports No Symptoms
Neuro: Reports No Symptoms
[2025-02-22 10:54] LABS: ALT (SGPT) 20 U/L (0-50); AST (SGOT) 37 U/L (17-59); Albumin 3.8 g/dl (3.5-5.0); Alkaline Phosphatase 69 U/L (38-126); Blood Urea Nitrogen 48 mg/dl (9-20); Calcium 8.6 mg/dl (8.4-10.2); Carbon Dioxide 24 mmol/L (22-30); Chloride 101 mmol/L (98-107); Estimated Creatinine Clearance 40 ml/min; Glucose 124 mg/dl (70-99); Magnesium 2.3 mg/dl (1.6-2.3); Potassium 3.7 mmol/L (3.5-5.1); Sodium 135 mmol/L (135-145); Total Protein 6.3 g/dl (6.3-8.2); eGFR 31.91
--- NOTE | 2025-02-22 11:06 | W.PN.NEPH.PH ---
Today's Communication / Plan
-
cont IVF, alb and octreotide
follow labs
Assessment/Plan
-
IMP:
Acute metabolic encephalopathy
Severe sepsis secondary to presumed SBP.
Lactic acidosis 7.5
Acute kidney injury
Severe hyponatremia
Elevated Total bilirubin
Decompensated cirrhosis of unclear etiology
SBP
Plan:
cr improving to 2.3 and non oliguric
cont IVF support, octreotide and alb
follow BMP, keep todd for now
Abx per primary team for SBP, kleb bacteremia
holding diuretics
BP are stable
need more paracentesis , had 4litx2 so far
monitor h/h decreasing
likely no need of dialysis this admit however has high future risk
prognosis is poor. He does not seem to actually have a liver transplant option. This make dialysis a poor option should he renal function worsen
-
-
Date of Service: February 22, 2025
CC / HPI / ROS
-
Chief Complaint:
MORTEZA
History of Present Illness:
MORTEZA/Cr up to 3.1, now down to 2.3
BP stable
Na up to 135, hb low 9.1
Bili down to 7.4
passed swallow eval
wt no change
ROS:
more awake and speaking single word
no fever
non oliguric
Labs
-
Labs:
WBC 8.1 10^3/uL (4.8-10.8) 02/22/25 03:52
RBC 2.47 10^6/uL (4.70-6.10) L 02/22/25 03:52
Hgb 9.1 g/dL (13.0-18.0) L 02/22/25 03:52
Hct 25.2 % (39.0-52.0) L 02/22/25 03:52
Plt Count 62 10^3/uL (130-400) L D 02/22/25 03:52
eGFR 31.91 02/22/25 10:13
eGFR Cancelled 02/22/25 10:13
Awf-G-Rqbsyybpkfa Pept 1800 pg/ml 02/20/25 03:29
Physical Exam
-
Vital Signs:
Vital Signs
Temp Pulse Resp BP Pulse Ox
98.8 F 99 22 134/75 94
02/22/25 07:19 02/22/25 09:00 02/22/25 09:00 02/22/25 09:00 02/22/25 09:00
Cardiovascular:: Regular rate and rhythm
Respiratory:: Bilateral: Coarse
Lung Excursion:: Normal
Abdomen:: Distended, Nontender and Soft
Bowel Sounds:: Decreased
Extremity Edema:: +2: Bilateral:
Todd Catheter: Yes
[2025-02-22] MEDS: FLEXBUMIN 100 IV (11:53)
--- NOTE | 2025-02-22 12:30 | PTCARENOTE ---
Reassessed the patient, no changes from previous assessments. Isa called and updates given.
--- NOTE | 2025-02-22 12:33 | W.PN.CD ---
Today's Communication / Plan
-
- Defer oral beta matty selection and dosing to medicine/GI given his liver disease, portal HTN and esophageal varices
- If concerns for endocarditis develop then consider URIEL if URIEL would be safe given his esophageal varices
- Cardiology will sign off. Please call with questions
Impression / Plan
-
59-year-old male with paroxysmal A-fib not on anticoagulation, salivary gland cyst, liver cirrhosis with esophageal varices, portal hypertension and ascites presents to [facility] with decompensated liver failure. He had 2 episodes of
SVT.. First episode HR 170s s/p adenosine returned to sinus rhythm. Second episode s/p 2.5 metoprolol, 6mg adenosine. NO AFIB has been this admission (as of 02/22/2025 at 1234 hrs)
SVT
- 12 line EKG shows a long RP tachycardia, p wave morphology suggests atrial tachycardia, fortunately responsive to adenosine
- A few shorter runs the last 24 hrs
- LBB aberration seen, NO VT
- Defer oral beta matty selection and dosing to medicine/GI given his liver disease and portal HTN and varices
Aortic Valve disease
- Mild
- Mild AR (not seen 12/05/2024)
- If concerns for endocarditis develop then consider URIEL if URIEL would be safe given his esophageal varices
Klebsiella Bacteremia/sepsis
Decompensated liver cirrhosis with esophageal varices, portal HTN and ascites
- GI following
MORTEZA, possible hepatorenal syndrome
- Nephrology following
Hyponatremia
Acute hepatic encephalopathy
- Improved
Tobacco abuse
Hx of PAF, none seen here so far
Anemia
Subjective:
More alert
Physical Exam
Vital Signs/Labs
Vital Signs
Temp Pulse Resp BP Pulse Ox
97.5 F 99 22 134/75 94
02/22/25 11:13 02/22/25 09:00 02/22/25 09:00 02/22/25 09:00 02/22/25 09:00
02/21/25 02/22/25 02/23/25
06:59 06:59 06:59
Actual Weight 105.6 kg 105.6 kg
02/22/25 03:52
PT 24.2 Sec (11.4-14.6) H 02/22/25 03:52
INR 2.12 02/22/25 03:52
APTT 45.6 Sec (23.4-35.0) H 02/22/25 03:52
Magnesium 2.3 mg/dl (1.6-2.3) 02/22/25 10:13
02/19/25 02/20/25
16:00 03:29
Hrj-Z-Mofszpehegt Pept Cancelled 1800
Physical Exam
Constitutional: Confusion
EENT: Moist mucous membranes
Cardiovascular: Rhythm & rate is regular and Pedal edema is absent
Respiratory: Respiratory effort normal and Lungs clear to auscul.
GI: Soft, Distention absent and Non tender
Data Reviewed
-
Date of Service: February 22, 2025
[2025-02-22] MEDS: FLUSH (NSS) 1 FLUSH IV ×2 (13:29→13:37)
[2025-02-22] MEDS: ROCEPHIN 2000 MG IV (13:29)
[2025-02-22] MEDS: STERILE WATER FOR INJECTION 20 ML IV (13:29)
[2025-02-22] MEDS: NSS 1000 IV (14:31)
--- NOTE | 2025-02-22 14:50 | CON.MD ---
Consultation - Medical
-
patient seen chart reviewed. this consult done today february 22 2025. discussed with nursing. the patient is a 59 year old male who was here in november at that time paracentesis was performed for ascites and he was discharged to followup. .he was in the
end lost to followup and returns to on 7.8 w paf, abdominal distention and change in mental status. the patient was found to be jaundiced with ascites. four liters of fluid drained from his abdomen. he also was found to be in serious
electrolyte imbalance with a sodium of 121 (now 135) ; he is septic w klebsiella bacterema; suffering acute kidney injury with creatinine s/w better now at 2.3 and bun of 48; among other issues including cardiac. this consult was ordered re ?
depression. the patient denies that he is depressed. he was not really able to engage in any extended discussion as he kept drifting off to sleep. i would wake him and ask him a few more questions about his life and he would drift off to sleep
again. he is not having suicidal thoughts. he did not appear to be hallucinating. he did admit that he felt very tired and weak. he is currently taking no psychotropic medications. i was informed that his was concerned that he had depression
although there is no hx of rx for same in the past. . the patient does have hx of etohism in the distant past but according to several entries in this record and the patient he has not drunk etoh in many years. he reportedly does not see a
physician regularly bc issues with payment.
past psych hx denied see above
medical hx encephalopathy noted. patient with cirrhosis /portal hypertension/ascites/esoph varices. current MORTEZA jaundice sepsis anemia endocarditis arrhythmia
family hx not known
substance abuse reportedly hx etoh in the distant past
social patient . lives w . one daughter. 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 these are the questions patient was able to answer
mse lethargic frail appearing male who appears older than his age. he was unable to focus during the interview for more than a moment or two. speech soft and slow. goal directed when he answered with brief answers. ox2. no overt psychosis. says he
is NOT depressed. did not appear particularly anxious despite the circumstances. it was almost as if he was too sick to be anxious. cognitively impaired due to underlying serious medical illness. insight judgment lacking.
dx TME secondary to serious underlying medical illness
recommendations It is impossible for me to say whether this man is depressed. of course he is weak and has little energy and appears to be thus, but he is so very ill with numerous physical illnesses that they are likely sapping not only his
physical energy but his psychic energy as well. i would not treat him with antidepressants at this time. When he is stronger physically and able to engage in a conversation with psych would be happy to return and speak with him. signing off for
now.
--- NOTE | 2025-02-22 15:11 | CM ---
IV/Rocephin. more responsive and alert. Downgrade to IMU. Discharge POC: TBD. Await therapy evaluation and recommendation.
[2025-02-22] MEDS: DUPHALAC/CHRONULAC 20 GRAMS PO ×2 (16:22→22:21)
--- NOTE | 2025-02-22 16:30 | PTCARENOTE ---
Reassessed the patient, PICC line pending removal by IV team. Isa at bedside, updated by Dr. Jordan.
[2025-02-22] MEDS: XIFAXAN 550 MG PO (20:34)
[2025-02-22] MEDS: LOPRESSOR 12.5 MG PO (20:34)
--- NOTE | 2025-02-22 22:36 | PTCARENOTE ---
Patient received in bed awake and alert x3. Disoriented to situation. Flat affect. Plan of care for the shift reviewed with the patient. Pt's receiving Sandostatin at 50 mcg/hr and NSS at 80 ml/hr. NSR on the monitor . Doppler pulse present to RLE.
Palpable pulses to left DP and radials. + BS. Ascites. Cruz is draining hugo urine. Mouth care provided. Patient repositioned. Scheduled medications administered with apple juice. Full documentation as noted on the worklist.
[2025-02-23] VITALS (13 sets, daily range): BP systolic 47–151; BP diastolic 24–92; BMI 35.9
[2025-02-23] MEDS: NSS 1000 IV (00:17)
--- NOTE | 2025-02-23 00:18 | PTCARENOTE ---
Patient reassessed. Oriented to self. VSS. Turns and repositioning continued.
[2025-02-23 04:00] LABS: Hematocrit 27.0 % (39.0-52.0); Hemoglobin 9.5 g/dL (13.0-18.0); Mean Corp Hgb Conc. 35.2 g/dL (33.0-37.0); Mean Corpuscular Volume 104.2 fL (80.0-94.0); Platelet Count 57 10^3/uL (130-400); Red Cell Dist. Width 17.6 % (11.5-14.5)
[2025-02-23 04:21] LABS: ALT (SGPT) 19 U/L (0-50); AST (SGOT) 33 U/L (17-59); Albumin 3.7 g/dl (3.5-5.0); Alkaline Phosphatase 67 U/L (38-126); Blood Urea Nitrogen 43 mg/dl (9-20); Calcium 8.8 mg/dl (8.4-10.2); Carbon Dioxide 24 mmol/L (22-30); Chloride 106 mmol/L (98-107); Estimated Creatinine Clearance 61 ml/min; Glucose 110 mg/dl (70-99); Potassium 3.5 mmol/L (3.5-5.1); Sodium 139 mmol/L (135-145); Total Protein 6.5 g/dl (6.3-8.2); eGFR 53.30
[2025-02-23 04:22] LABS: ALT (SGPT) 19 U/L (0-50); AST (SGOT) 34 U/L (17-59); Albumin 3.7 g/dl (3.5-5.0); Alkaline Phosphatase 74 U/L (38-126); Blood Urea Nitrogen 41 mg/dl (9-20); Calcium 9.0 mg/dl (8.4-10.2); Carbon Dioxide 26 mmol/L (22-30); Chloride 105 mmol/L (98-107); Estimated Creatinine Clearance 61 ml/min; Glucose 108 mg/dl (70-99); Magnesium 2.2 mg/dl (1.6-2.3); Potassium 3.4 mmol/L (3.5-5.1); Sodium 139 mmol/L (135-145); Total Protein 6.2 g/dl (6.3-8.2); eGFR 53.30
--- NOTE | 2025-02-23 05:10 | PTCARENOTE ---
Patient's FMS noted on the bed. Pt's bed is soiled. Bed cleansed with saniwipes. Patient cleansed and full linen change completed.
--- NOTE | 2025-02-23 08:00 | PTCARENOTE ---
pt drowsy , oriented to place and person , forgetful at times , at bedside , started on reg diet , tolerated well
--- NOTE | 2025-02-23 08:06 | W.PN.GI.CBS2 ---
Today's Communication / Plan
-
Please see assessment and plan for details.
Assessment / Plan
-
1. 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 He is currently much improved, with much improvement in creatinine, mentation,
normalization of leukocytosis, no fevers. Repeat blood cultures negative, previous bacteremia with Klebsiella likely secondary to SBP. At this point we will continue antibiotics, status post albumin replacement for SBP, octreotide, volume
management per renal, continue octreotide. His mental status is much improved, will continue lactulose, now at a reduced dose and Xifaxan. Will advance to low-sodium diet. Will hold on repeat paracentesis to avoid volume shifts given not tense,
no tenderness.
Subjective
Subjective
Date of Service: February 23, 2025
Patient doing much better overall, much more alert, appropriate, denies abdominal pain, no fevers or chills, tolerated liquids without difficulty. Light green stool comanagement system.
Objective
Data Reviewed
Laboratory Data:
Laboratory Results
02/23/25 03:45
Laboratory Results
PT 24.2 Sec (11.4-14.6) H 02/22/25 03:52
INR 2.12 02/22/25 03:52
APTT 45.6 Sec (23.4-35.0) H 02/22/25 03:52
Magnesium 2.2 mg/dl (1.6-2.3) 02/23/25 03:45
Total Bilirubin 7.0 mg/dl (0.2-1.3) H 02/23/25 03:45
Total Bilirubin 7.0 mg/dl (0.2-1.3) H 02/23/25 03:45
AST 33 U/L (17-59) 02/23/25 03:45
AST 34 U/L (17-59) 02/23/25 03:45
ALT 19 U/L (0-50) 02/23/25 03:45
ALT 19 U/L (0-50) 02/23/25 03:45
Alkaline Phosphatase 67 U/L (38-126) 02/23/25 03:45
Alkaline Phosphatase 74 U/L (38-126) 02/23/25 03:45
Amylase 49 U/L (30-110) 02/20/25 03:29
Lipase 87 U/L (23-300) 02/20/25 03:29
Vital Signs and I&O:
Vital Signs
Temp Pulse Resp BP Pulse Ox
98.0 F 91 15 136/84 94
02/23/25 07:15 02/22/25 20:34 02/22/25 19:00 02/22/25 20:34 02/22/25 20:30
I&O
02/22/25 02/23/25 02/24/25
06:59 06:59 06:59
Intake Total 3970.8 / 4092.5 3800.8 / 3800.8
Output Total 3804 / 3909 1685 / 1685
Balance 166.8 / 183.5 2115.8 / 2115.8
Physical Exam
Physical Exam
General: NAD, alert and oriented x 3
Abdomen: normal bowel sounds, moderate ascites, though soft, no tenderness
--- NOTE | 2025-02-23 08:15 | W.PN.HOSP.TC ---
Today's Communication/Plan
-
stable for downgrade to IMU level of care, pending bed availability
1 bag IV Albumin
c/w octreotide, IV ppi, lacutlose, xifaxan,
c/w carvedilol
pending insurance coverage to proceed with transplant application/process
appreciate integration of specialists in care of this patient
Assessment / Plan
Assessment / Plan
Mr Maurizio Granados is a 59yo with no medical care for years, hx PAF(not on anticoagulation), salivary gland tumor (chronic for years), prior ETOH use years ago with admission in November with massive ascites with decompensated liver failure,
hyponatremia, coagulopathy, electrolyte imbalance. During that admission he had paracentesis x 3 for total of 28 liters of ascites removed and fluid studies c/w liver etiology with negative pathology. Etiology of liver disease was unclear. Liver
work up complete during admission revealed + ALETHEA, mild elevated A1AT, elevated immunoglobulin A, hepatitis B immunity with otherwise neg panel, normal AMA, SLA, LKM, ceruloplasmin, with neg ETOH screening with PETH neg <10 AFP 4.97. Imaging with
cirrhosis and ascites. 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 MRI with severe hepatic cirrhosis without HCC, severe portal HTN, mild ascites, upper abdominal adenopathy, GB distention, adrenal mass and CM. He
now presents today with abdominal distention and change in mental status. On admission noted with WBC 22,400, hbg 14.1, platelets 172, na 121, creat 2.6, BUN 29, lactate 7.5, bili 14.5, AST 44, ALT <30, alk phos 171, ammonia 40. She reports some
abdominal pain nausea, nonbloody vomiting with distention but denies diarrhea, constipation or rectal bleeding. Urine studies sent results pending underwent diagnostic paracentesis with 4 L off in the ED blood cultures obtained 2 g of IV Rocephin
started nephrology consulted and started 3% saline, IR consulted for thoracentesis, GI consulted, roll builder consulted. Ascitic fluid analysis positive for SBP with greater than 250 PMN. Blood cultures positive for gram-negative baccilli. On 02/19
patient went into SVT in the 170s. Received dose of Levophed, and 6 mg of adenosine with return to sinus tachycardia. Cardiology consulted and ordered TTE. Also repleted patient's mag, on admission Mg 1.9. Albumin challenge failed, HRS type 1.
Octreotide, albumin, levophed. Patients MELD 37, Child Class C, attempted to transfer to [facility] however due to lack of coverage for surgery/transplant patient was denied. GI placed Dobbhoff tube and oral lactulose was given. Patient started
having bowel movements with improvement of ammonia numbers. Patient continued to show improvement, mentation improved he was able to converse with us, he removed his Dobbhoff tube, his leukocytosis continues to decrease and his kidney function
continued to improve. He was downgraded to IMU for further care.
#Severe sepsis
#SBP
#Decompensated Cirrhosis -- etiology unclear
#Hepatic encephalopathy
#Hyperbilirubinemia
- on admission WBCs 22, tachycardia to 117, lactate 7.5--3.4, bacteremia with Klebsiella p. 2* SBP
- Currently hemodynamically stable, not requiring pressors
- Anion gap 17 on admission, now closed
- prior workup unremarkable as above, suspicion for alcoholic hepatitis -- PEth pending
- T. bili 14 on admission, downtrending to 7.0 today
- MELD score on last admission 25, now MELD 37 this admission child class C -- awaiting insurance coverage to begin transplant application process
- c/w IV ceftriaxone for SBP
- paracentesis 02/21 yielded 4 L straw-colored
- given another albumin bag
Appreciate GI recs
- c/w lactulose for Hepatic encephalopathy -- much improved today
- c/w Octreotide
- c/w PPI IV
- Xifaxan added for BM on lactulose -- c/w Xifaxan
- no concern for GI bleeding at this time
- Patient removed Dobbhoff tube -- will c/w low sodium diet
#MORTEZA, improving
#Hepatorenal syndrome Type I
- normal kidney function on recent discharge (Line Controller 0.8)
- Line Controller this admission 2.6 -- 3.1 s/p albumin challenge -- 2.4 -- 1.5
- hold diuretics
- Strict I's and O's
- Trend BMP q12
- Renally dose medications
- limited paracentesis to <5 L every other day to avoid large volume loss
- Nephrology consulted; appreciate recs
#Depressed mood
- endorsed depression prior to this hospitalization
- On no psych medications
- Consult psych -- unable to assess given multiple organic causes for change in affect and mood, re-evaluate when medically stable
#Hyponatremia
- Na on admission 121, 124 130 134 135 139
- MS improving, no focal neurological deficits
- Nephrology consulted, may need DDAVP for overcorrection, will defer to nephro
#SVT, resolved
- Patient went into SVT overnight 02/19
- Mg 1.9, 1 g ordered to replete
- Received Levophed, 6 mg adenosine during customer solutions specialist with return to sinus tach
- Cardiology following -- TTE showing mild , thickened valves, vegetation cannot be excluded however patient not a candidate for URIEL
- on carvedilol 3.125mg BID
#Paroxysmal A-fib
- Not on anticoagulation
- started on carvedilol as above
- C/t monitor on tele
# Salivary gland cyst
- stable, c/t monitor
DVT PPx: SCDs
CODE STATUS:Full code
Anticipated Discharge: > 48 hours
Subjective/Interval History
-
Date of Service: February 23, 2025
No acute overnight events. Patient is somnolent but oriented today, arousable to answer questions and cooperate with exam. Feels 'better' than yesterday but does not offer much more than that. No new fevers, however he endorses feeling cold.
Objective Data
-
Labs:
Laboratory Results
02/23/25 02/23/25 02/23/25
03:45 03:45 03:45
WBC 7.9
Hgb 9.5 L
Hct 27.0 L
Plt Count 57 L
Sodium 139 139
Potassium 3.5 3.4 L
Chloride 106
Carbon Dioxide
BUN
Creatinine
Glucose
Calcium
Total Bilirubin
AST
ALT
Alkaline Phosphatase
02/23/25 02/23/25 02/23/25
03:45 03:45 03:45
WBC
Hgb
Hct
Plt Count
Sodium
Potassium
Chloride 105
Carbon Dioxide 24 26
BUN 43 H 41 H
Creatinine 1.5 H
Glucose
Calcium
Total Bilirubin
AST
ALT
Alkaline Phosphatase
02/23/25 02/23/25 02/23/25
03:45 03:45 03:45
WBC
Hgb
Hct
Plt Count
Sodium
Potassium
Chloride
Carbon Dioxide
BUN
Creatinine 1.5 H
Glucose 110 H 108 H
Calcium 8.8 9.0
Total Bilirubin 7.0 H
AST
ALT
Alkaline Phosphatase
02/23/25 02/23/25 02/23/25
03:45 03:45 03:45
WBC
Hgb
Hct
Plt Count
Sodium
Potassium
Chloride
Carbon Dioxide
BUN
Creatinine
Glucose
Calcium
Total Bilirubin 7.0 H
AST 33 34
ALT 19 19
Alkaline Phosphatase 67
02/23/25 02/23/25 02/23/25
03:45 11:14 23:14
WBC
Hgb
Hct
Plt Count
Sodium Pending Pending
Potassium Pending Pending
Chloride Pending Pending
Carbon Dioxide Pending Pending
BUN Pending Pending
Creatinine Pending Pending
Glucose Pending Pending
Calcium Pending Pending
Total Bilirubin Pending Pending
AST Pending Pending
ALT Pending Pending
Alkaline Phosphatase 74 Pending Pending
Vital Signs:
Vital Signs
Temp Pulse Resp BP Pulse Ox
98.0 F 91 15 136/84 94
02/23/25 07:15 02/22/25 20:34 02/22/25 19:00 02/22/25 20:34 02/22/25 20:30
I&O
02/22/25 02/23/25 02/24/25
06:59 06:59 06:59
Intake Total 3970.8 / 4092.5 3800.8 / 3800.8
Output Total 3804 / 3909 1685 / 1685
Balance 166.8 / 183.5 2115.8 / 2115.8
Review of Systems
-
History Source: Patient
All other systems: Reviewed and negative
Constitutional: Reports Chills; Denies Fever
EENT: Reports No Symptoms Reported
Respiratory: Reports No Symptoms
Cardiac: Reports No Symptoms
Abdomen/GI: Reports Abdominal Pain, Bloated and Other (Ascites); Denies Nausea, Vomiting, Diarrhea or Hematemesis
Breast: Reports N/A
Genitourinary: Reports No Symptoms
Musculoskeletal: Reports No Symptoms
Skin: Reports No Symptoms
Neuro: Reports No Symptoms
Hematologic / Lymphatic: Reports No Symptoms
Physical Exam
-
General: Well Developed, Appears in Distress, Chills and Appears Chronically Ill; Negative Fever or Sweats
HEENT: Normocephalic, Atraumatic, Moist Mucous Membranes, [place] Conjunctivae, PERRLA, Nose Appears Normal and Ears Appear Normal
Respiratory: Clear to Auscultation and Non Labored Respirations; Negative Wheezes, Rales or Rhonchi
Cardiac: Regular Rhythm and S1/S2; Negative Murmur, Rub or Gallop
GI: Distended (significant distention, + fluid wave, tense with apparent umbilical veins) and No Hernias
Rectal: Other (brown liquid stools, rectal trumpet)
Genito-urinary: Cruz (~275cc of dark, noncloudy urine)
Musculoskeletal: No Clubbing, No Cyanosis and No Edema
Skin: Warm, Dry and IV Access / Catheter Site
Neuro: AO x 3 and Tremors
Psych: Depressed
[2025-02-23] MEDS: PROTONIX 40 MG PO (08:32)
[2025-02-23] MEDS: XIFAXAN 550 MG PO ×2 (08:32→19:27)
[2025-02-23] MEDS: DUPHALAC/CHRONULAC 20 GRAMS PO ×3 (08:32→22:11)
[2025-02-23] MEDS: KCL 270 MEQ IV (09:08)
[2025-02-23] MEDS: COREG 3.125 MG PO ×2 (09:08→19:27)
[2025-02-23] MEDS: LOPRESSOR PO (09:34)
--- NOTE | 2025-02-23 10:06 | W.PN.NEPH.PH ---
Today's Communication / Plan
-
cont supportive care IVF, alb and octreotide
lab in am
Assessment/Plan
-
IMP:
Acute metabolic encephalopathy
Severe sepsis secondary to presumed SBP.
Lactic acidosis 7.5
Acute kidney injury
Severe hyponatremia
Elevated Total bilirubin
Decompensated cirrhosis of unclear etiology
SBP
Plan:
cr improving to 1.5 and non oliguric
cont IVF support, octreotide and alb
IVF another day till po intake is better
follow BMP, ok to d/c todd today
Abx per primary team for SBP, kleb bacteremia
holding diuretics, replace k
BP are stable
need more paracentesis , had 4litx2 so far
monitor h/h stable
labs in am
d/w pt
-
-
Date of Service: February 23, 2025
CC / HPI / ROS
-
Chief Complaint:
MORTEZA
History of Present Illness:
MORTEZA/Cr up to 3.1, now down to 1.5
BP stable
Na up to 135, hb stable 9.5
Bili down to 7
wt is down
ROS:
more awake and speaking
no cp or sob
no fever
non oliguric
Labs
-
Labs:
WBC 7.9 10^3/uL (4.8-10.8) 02/23/25 03:45
RBC 2.59 10^6/uL (4.70-6.10) L 02/23/25 03:45
Hgb 9.5 g/dL (13.0-18.0) L 02/23/25 03:45
Hct 27.0 % (39.0-52.0) L 02/23/25 03:45
Plt Count 57 10^3/uL (130-400) L 02/23/25 03:45
eGFR 53.30 02/23/25 03:45
eGFR 53.30 02/23/25 03:45
Mln-F-Ilwejbsvxed Pept 1800 pg/ml 02/20/25 03:29
Physical Exam
-
Vital Signs:
Vital Signs
Temp Pulse Resp BP Pulse Ox
98.0 F 94 15 140/81 94
02/23/25 07:15 02/23/25 09:08 02/22/25 19:00 02/23/25 09:08 02/22/25 20:30
Cardiovascular:: Regular rate and rhythm
Respiratory:: Bilateral: CTA (decreased BS)
Lung Excursion:: Normal
Abdomen:: Distended, Nontender and Soft
Extremity Edema:: +1: Bilateral: (trace)
Todd Catheter: Yes
[2025-02-23] MEDS: SANDOSTATIN 500.6 MCG IV ×3 (11:11→23:30)
[2025-02-23] MEDS: ROCEPHIN 2000 MG IV (13:58)
[2025-02-23] MEDS: STERILE WATER FOR INJECTION 20 ML IV (13:58)
[2025-02-23] MEDS: FLEXBUMIN 50 IV (13:58)
[2025-02-23] MEDS: FLUSH (NSS) IV ×2 (14:23→18:16)
[2025-02-23 15:22] LABS: ALT (SGPT) 19 U/L (0-50); AST (SGOT) 31 U/L (17-59); Albumin 3.7 g/dl (3.5-5.0); Alkaline Phosphatase 70 U/L (38-126); Blood Urea Nitrogen 35 mg/dl (9-20); Calcium 8.4 mg/dl (8.4-10.2); Carbon Dioxide 23 mmol/L (22-30); Chloride 108 mmol/L (98-107); Estimated Creatinine Clearance 65 ml/min; Glucose 133 mg/dl (70-99); Potassium 3.7 mmol/L (3.5-5.1); Sodium 142 mmol/L (135-145); Total Protein 6.4 g/dl (6.3-8.2); eGFR 57.90
[2025-02-23 17:20] LABS: Iron 76 ug/dl (49-181)
[2025-02-23 17:29] LABS: Total Iron Binding Capacity 106 ug/dl (261-462)
[2025-02-23 17:57] LABS: Ferritin 516.0 ng/ml (17.9-464.0)
--- NOTE | 2025-02-23 18:28 | PTCARENOTE ---
no change in assessments
--- NOTE | 2025-02-23 20:04 | PTCARENOTE ---
Patient received in bed awake and alert x 3. Verbalizes feeling better today. Plan of care for the shift reviewed with the patient. Sinus rhythm on the monitor. Doppler pulses to right DP and palpable pulse to left DP. SpO2 at 94% on room air.
Occasional weak cough. Abdomen is round, obese, and ascites. Audible bowel sounds. FMS is in place and draining liquid stool. Cruz catheter is draining hugo urine. Cruz care completed. Scheduled medications administered with apple juice. Mouth
care provided. Patient's hand mitts noted on the side of the bed. Patient turned and repositioned. Safety measures in place.
[2025-02-24] VITALS (10 sets, daily range): BP systolic 120–146; BP diastolic 66–94
[2025-02-24 04:09] LABS: Hematocrit 30.0 % (39.0-52.0); Hemoglobin 10.5 g/dL (13.0-18.0); Mean Corp Hgb Conc. 35.0 g/dL (33.0-37.0); Mean Corpuscular Volume 107.1 fL (80.0-94.0); Platelet Count 63 10^3/uL (130-400); Red Cell Dist. Width 17.8 % (11.5-14.5)
[2025-02-24 04:38] LABS: ALT (SGPT) 20 U/L (0-50); AST (SGOT) 33 U/L (17-59); Albumin 3.6 g/dl (3.5-5.0); Alkaline Phosphatase 99 U/L (38-126); Blood Urea Nitrogen 35 mg/dl (9-20); Calcium 9.0 mg/dl (8.4-10.2); Carbon Dioxide 22 mmol/L (22-30); Chloride 110 mmol/L (98-107); Estimated Creatinine Clearance 76 ml/min; Glucose 117 mg/dl (70-99); Magnesium 2.2 mg/dl (1.6-2.3); Potassium 4.1 mmol/L (3.5-5.1); Sodium 141 mmol/L (135-145); Total Protein 6.5 g/dl (6.3-8.2); eGFR > 60.00
--- NOTE | 2025-02-24 07:54 | W.PN.HOSP.TC ---
Today's Communication/Plan
-
stable for downgrade to Tele
c/w abx for SBP
c/w octreotide, po ppi, lactulose, xifaxan
c/w carvedilol
d/c Cruz
c/w IVF, encourage po intake
pending insurance coverage to proceed with transplant application/process
appreciate integration of specialists in care of this patient
Assessment / Plan
Assessment / Plan
Mr Maurizio Granados is a 59yo with no medical care for years, hx PAF(not on anticoagulation), salivary gland tumor (chronic for years), prior ETOH use years ago with admission in November with massive ascites with decompensated liver failure,
hyponatremia, coagulopathy, electrolyte imbalance. During that admission he had paracentesis x 3 for total of 28 liters of ascites removed and fluid studies c/w liver etiology with negative pathology. Etiology of liver disease was unclear. Liver
work up complete during admission revealed + ALETHEA, mild elevated A1AT, elevated immunoglobulin A, hepatitis B immunity with otherwise neg panel, normal AMA, SLA, LKM, ceruloplasmin, with neg ETOH screening with PETH neg <10 AFP 4.97. Imaging with
cirrhosis and ascites. 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 MRI with severe hepatic cirrhosis without HCC, severe portal HTN, mild ascites, upper abdominal adenopathy, GB distention, adrenal mass and CM. He
now presents today with abdominal distention and change in mental status. On admission noted with WBC 22,400, hbg 14.1, platelets 172, na 121, creat 2.6, BUN 29, lactate 7.5, bili 14.5, AST 44, ALT <30, alk phos 171, ammonia 40. She reports some
abdominal pain nausea, nonbloody vomiting with distention but denies diarrhea, constipation or rectal bleeding. Urine studies sent results pending underwent diagnostic paracentesis with 4 L off in the ED blood cultures obtained 2 g of IV Rocephin
started nephrology consulted and started 3% saline, IR consulted for thoracentesis, GI consulted, rodeo performer consulted. Ascitic fluid analysis positive for SBP with greater than 250 PMN. Blood cultures positive for gram-negative baccilli. On 02/19
patient went into SVT in the 170s. Received dose of Levophed, and 6 mg of adenosine with return to sinus tachycardia. Cardiology consulted and ordered TTE. Also repleted patient's mag, on admission Mg 1.9. Albumin challenge failed, HRS type 1.
Octreotide, albumin, levophed. Patients MELD 37, Child Class C, attempted to transfer to [facility] however due to lack of coverage for surgery/transplant patient was denied. GI placed Dobbhoff tube and oral lactulose was given. Patient started
having bowel movements with improvement of ammonia numbers. Patient continued to show improvement, mentation improved he was able to converse with us, he removed his Dobbhoff tube, his leukocytosis continues to decrease and his kidney function
continued to improve. He was downgraded to IMU for further care.
#Severe sepsis
#SBP
#Decompensated Cirrhosis -- etiology unclear
#Hepatic encephalopathy
#Hyperbilirubinemia
- on admission WBCs 22, tachycardia to 117, lactate 7.5--3.4, bacteremia with Klebsiella p. 2* SBP
- Currently hemodynamically stable, not requiring pressors
- Anion gap 17 on admission, now closed
- prior workup unremarkable as above, suspicion for alcoholic hepatitis -- PEth pending
- T. bili 14 on admission, downtrending to 5.4 today
- MELD score on last admission 25, now MELD 37 this admission child class C -- awaiting insurance coverage to begin transplant application process/transfer to [place]
- c/w IV ceftriaxone for SBP
- paracentesis (02/21) yielded 4 L straw-colored -- PMNs >250 diagnostic of SBP
- Albumin 3.6 today
Appreciate GI recs
- c/w lactulose for Hepatic encephalopathy -- AOx3
- c/w Octreotide
- switch to Protonix 40 po qd
- Xifaxan added for BM on lactulose -- c/w Xifaxan
- no concern for GI bleeding at this time
- Patient removed Dobbhoff tube -- will c/w low sodium diet
#MORTEZA, improving
#Hepatorenal syndrome Type I
- normal kidney function on recent discharge ([employer] 0.8)
- [employer] this admission 2.6 -- 3.1 s/p albumin challenge -- 2.4 -- 1.5
- c/t hold diuretics pending Nephro recs
- Strict I's and O's
- Trend BMP q12
- Renally dose medications
- limited paracentesis to <5 L every other day to avoid large volume loss
- Nephrology following
- can d/c Cruz today
- c/w IVF pending increased PO intake
#Depressed mood
- endorsed depression prior to this hospitalization
- On no psych medications
- Consult psych -- unable to assess given multiple organic causes for change in affect and mood, re-evaluate when medically stable
#Hyponatremia
- Na on admission 121, 124 130 134 135 139
- MS improving, no focal neurological deficits
- Nephrology consulted, may need DDAVP for overcorrection, will defer to nephro
#SVT, resolved
- Patient went into SVT overnight 02/19
- Mg 1.9, 1 g ordered to replete
- Received Levophed, 6 mg adenosine during dealership general manager with return to sinus tach
- Cardiology following -- TTE showing mild , thickened valves, vegetation cannot be excluded however patient not a candidate for URIEL
- on carvedilol 3.125mg BID
#Paroxysmal A-fib
- Not on anticoagulation
- started on carvedilol as above
- C/t monitor on tele
# Salivary gland cyst
- stable, c/t monitor
DVT PPx: SCDs
CODE STATUS:Full code
Anticipated Discharge: > 48 hours
Subjective/Interval History
-
Date of Service: February 24, 2025
No acute overnight events. patient endorses feeling better this morning, with abd pain improved. no new fevers or chills. Fecal management system removed overnight as patient took it out multiple times.
Objective Data
-
Labs:
Laboratory Results
02/24/25 02/24/25
00:30 03:45
WBC 8.9
Hgb 10.5 L
Hct 30.0 L
Plt Count 63 L
Sodium Cancelled 141
Potassium Cancelled 4.1
Chloride Cancelled 110 H
Carbon Dioxide Cancelled 22
BUN Cancelled 35 H
Creatinine Cancelled 1.2
Glucose Cancelled 117 H
Calcium Cancelled 9.0
Total Bilirubin Cancelled 5.4 H
AST Cancelled 33
ALT Cancelled 20
Alkaline Phosphatase Cancelled 99
Vital Signs:
Vital Signs
Temp Pulse Resp BP Pulse Ox
98 F 91 22 139/83 95
02/24/25 03:25 02/23/25 19:27 02/23/25 18:08 02/23/25 19:27 02/23/25 19:40
I&O
02/23/25 02/24/25 02/25/25
06:59 06:59 06:59
Intake Total 3800.8 / 3922.5 2430.7 / 2430.7
Output Total 1685 / 1685 1390 / 1390
Balance 2115.8 / 2237.5 1040.7 / 1040.7
Review of Systems
-
History Source: Patient
All other systems: Reviewed and negative
Constitutional: Reports No Symptoms
EENT: Reports No Symptoms Reported
Respiratory: Reports No Symptoms
Cardiac: Reports No Symptoms
Abdomen/GI: Reports Abdominal Pain; Denies Nausea, Vomiting, Diarrhea, Bloody Stools or Hematemesis
Breast: Reports N/A
Genitourinary: Reports No Symptoms
Musculoskeletal: Reports No Symptoms
Skin: Reports No Symptoms
Neuro: Reports No Symptoms
Endocrine: Reports No Symptoms
Hematologic / Lymphatic: Reports No Symptoms
Allergy / Immunology: Reports No Symptoms
Physical Exam
-
General: No Apparent Distress and Appears Chronically Ill; Negative Fever, Chills or Sweats
HEENT: Normocephalic, Atraumatic, Moist Mucous Membranes, [place] Conjunctivae, PERRLA, Nose Appears Normal, Ears Appear Normal and Other (L sided salivary gland cyst, stable); Negative Oxygen
Respiratory: Clear to Auscultation; Negative Wheezes, Rales or Rhonchi
Cardiac: Regular Rhythm and S1/S2; Negative Murmur, Rub or Gallop
Breast: N/A
GI: Other (massively distended, fluid filled abdomen with evident periumbilical vasculature. + fluid wave. Unable to appreciate bowel sounds. )
Rectal: Deferred by Provider
Genito-urinary: Clear Urine and Cruz
Musculoskeletal: No Clubbing, No Cyanosis and No Edema
Skin: Warm, Dry and IV Access / Catheter Site
Neuro: AO x 3
Psych: Other (flat affect)
--- NOTE | 2025-02-24 08:07 | W.PN.GI.CBS2 ---
Today's Communication / Plan
-
Please see assessment and plan for details.
Assessment / Plan
-
1. 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 He is currently much improved, with much improvement in creatinine, mentation,
normalization of leukocytosis, no fevers. Repeat blood cultures negative, previous bacteremia with Klebsiella likely secondary to SBP. At this point we will continue antibiotics, status post albumin replacement for SBP, octreotide, volume
management per renal, continue octreotide. His mental status is much improved, will continue lactulose, now at a reduced dose and Xifaxan. Continue low-sodium diet. Will likely need repeat paracentesis, likely tomorrow with albumin replacement.
Will defer fluid management to renal, hopefully start diuretics and start to minimize octreotide and other medications as creatinine has normalized.
Subjective
Subjective
Date of Service: February 24, 2025
Patient feeling well, no events overnight, fecal management system out, no significant diarrhea overnight. No fever or chills.
Objective
Data Reviewed
Laboratory Data:
Laboratory Results
02/24/25 03:45
02/24/25 03:45
Laboratory Results
PT 24.2 Sec (11.4-14.6) H 02/22/25 03:52
INR 2.12 02/22/25 03:52
APTT 45.6 Sec (23.4-35.0) H 02/22/25 03:52
Magnesium 2.2 mg/dl (1.6-2.3) 02/24/25 03:45
Total Bilirubin 5.4 mg/dl (0.2-1.3) H 02/24/25 03:45
AST 33 U/L (17-59) 02/24/25 03:45
ALT 20 U/L (0-50) 02/24/25 03:45
Alkaline Phosphatase 99 U/L (38-126) 02/24/25 03:45
Amylase 49 U/L (30-110) 02/20/25 03:29
Lipase 87 U/L (23-300) 02/20/25 03:29
Vital Signs and I&O:
Vital Signs
Temp Pulse Resp BP Pulse Ox
98 F 91 22 139/83 95
02/24/25 03:25 02/23/25 19:27 02/23/25 18:08 02/23/25 19:27 02/23/25 19:40
I&O
02/23/25 02/24/25 02/25/25
06:59 06:59 06:59
Intake Total 3800.8 / 3922.5 2430.7 / 2430.7
Output Total 1685 / 1685 1390 / 1390
Balance 2115.8 / 2237.5 1040.7 / 1040.7
Physical Exam
Physical Exam
General: NAD, alert and orient x 3
Abdomen: normal bowel sounds, soft, some increase in ascites though no tenderness
[2025-02-24] MEDS: COREG 3.125 MG PO ×2 (09:11→20:13)
[2025-02-24] MEDS: DUPHALAC/CHRONULAC 20 GRAMS PO ×3 (09:11→22:34)
[2025-02-24] MEDS: XIFAXAN 550 MG PO ×2 (09:11→20:14)
[2025-02-24] MEDS: PROTONIX 40 MG PO (09:11)
--- NOTE | 2025-02-24 11:46 | PTCARENOTE ---
pt seen by hospitalist , he is drowsy but aware of time and events, his affect is flat, NSR on monitor BP is adequate , he is now written for telemetry status , he is being transfered to room 2127 , report given to receiving RN
--- NOTE | 2025-02-24 12:15 | W.PN.NEPH.PH ---
Today's Communication / Plan
-
d/c IVF and OCtreotide
follow labs in am
Assessment/Plan
-
IMP:
Acute metabolic encephalopathy
Severe sepsis secondary to presumed SBP.
Lactic acidosis 7.5
Acute kidney injury
Severe hyponatremia
Elevated Total bilirubin
Decompensated cirrhosis of unclear etiology
SBP
Plan:
cr improving to 1.2 and non oliguric
d/c IVF support and octreotide
ok to d/c todd today
Abx per primary team for SBP, kleb bacteremia
ok to resume diuretics tomorrow if cr remains stable
BP are stable
need more paracentesis , had 4litx2 so far
monitor h/h stable
labs in am
d/w pt
-
-
Date of Service: February 24, 2025
CC / HPI / ROS
-
Chief Complaint:
MORTEZA
History of Present Illness:
MORTEZA/Cr up to 3.1, now down to 1.2
BP stable
Na up to 141, hb stable >10
Bili down to 5.4
ROS:
no reported cp or sob
no fever
non oliguric
Labs
-
Labs:
WBC 8.9 10^3/uL (4.8-10.8) 02/24/25 03:45
RBC 2.80 10^6/uL (4.70-6.10) L 02/24/25 03:45
Hgb 10.5 g/dL (13.0-18.0) L 02/24/25 03:45
Hct 30.0 % (39.0-52.0) L 02/24/25 03:45
Plt Count 63 10^3/uL (130-400) L 02/24/25 03:45
Sodium 141 mmol/L (135-145) 02/24/25 03:45
Potassium 4.1 mmol/L (3.5-5.1) 02/24/25 03:45
Chloride 110 mmol/L (98-107) H 02/24/25 03:45
Carbon Dioxide 22 mmol/L (22-30) 02/24/25 03:45
BUN 35 mg/dl (9-20) H 02/24/25 03:45
Creatinine 1.2 mg/dL (0.7-1.3) 02/24/25 03:45
eGFR > 60.00 02/24/25 03:45
Glucose 117 mg/dl (70-99) H 02/24/25 03:45
Calcium 9.0 mg/dl (8.4-10.2) 02/24/25 03:45
Ahv-X-Pbyggocgwzl Pept 1800 pg/ml 02/20/25 03:29
Albumin 3.6 g/dl (3.5-5.0) 02/24/25 03:45
Physical Exam
-
Vital Signs:
Vital Signs
Temp Pulse Resp BP Pulse Ox
99.0 F 85 19 132/86 96
02/24/25 08:16 02/24/25 11:00 02/24/25 11:00 02/24/25 10:00 02/24/25 11:00
Cardiovascular:: Regular rate and rhythm
Respiratory:: Bilateral: CTA (decreased BS)
Lung Excursion:: Normal
Abdomen:: Distended, Nontender and Soft
Extremity Edema:: +1: Bilateral:
Todd Catheter: Yes
[2025-02-24] MEDS: SANDOSTATIN IV (12:24)
[2025-02-24] MEDS: ROCEPHIN 2000 MG IV (12:39)
[2025-02-24] MEDS: STERILE WATER FOR INJECTION 20 ML IV (12:39)
[2025-02-24] MEDS: FLUSH (NSS) 1 FLUSH IV ×2 (15:44)
[2025-02-25] VITALS (8 sets, daily range): BP systolic 71–140; BP diastolic 44–88; BMI 36.3
--- NOTE | 2025-02-25 01:28 | PTCARENOTE ---
Addendum entered by Lilia Alamo RN 02/25/25 01:29:
straight cathed patient for 450. updated MINI Flores. Order for todd cath in place for next time, if patient unable to urinate.
Original Note:
Patient's Todd cath dcd 02/24 around 11:15am. Patient is grossly incontinent of stool. Patient unable to verbalize whether he urinated or not. Unable to do bladder scan ,as patient's abdomen very distended. Unable to urinate with urinal. also unable
to apply condom cath as scrotum is +2 swollen. Notified MINI Flores. New order for straight cath.
--- NOTE | 2025-02-25 05:36 | W.PN.GI.CBS2 ---
Today's Communication / Plan
-
Please see assessment and plan for details.
Assessment / Plan
-
1. 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 He is overall much improved, with
normalization of renal function, nonoliguric, now off octreotide and IV fluids. He is currently on ceftriaxone day 6/.
- Will plan repeat paracentesis today with albumin replacement, if kidney function remains okay then restart diuretics tomorrow, was on Aldactone 100, Lasix 40 daily with monitoring, continue salt restriction
- Will decrease lactulose given multiple bowel movements overnight, continue Xifaxan
- Tomorrow will be day 7 of ceftriaxone, then can transition to Cipro 500 mg orally daily, as Klebsiella was sensitive, to continue indefinitely as SBP prophylaxis.
Likely able to discharge in the next 48 hours if renal function remains stable after paracentesis and starting of diuretics. Discussed the importance of following up in the office on discharge for further surveillance and management.
Subjective
Subjective
Date of Service: February 25, 2025
Patient feeling well, no events overnight, no fever, chills, abdominal pain, nausea or vomiting. 3 large loose bowel movements overnight.
Objective
Data Reviewed
Laboratory Data:
Laboratory Results
PT 24.2 Sec (11.4-14.6) H 02/22/25 03:52
INR 2.12 02/22/25 03:52
APTT 45.6 Sec (23.4-35.0) H 02/22/25 03:52
Magnesium 2.2 mg/dl (1.6-2.3) 02/24/25 03:45
Total Bilirubin 5.4 mg/dl (0.2-1.3) H 02/24/25 03:45
AST 33 U/L (17-59) 02/24/25 03:45
ALT 20 U/L (0-50) 02/24/25 03:45
Alkaline Phosphatase 99 U/L (38-126) 02/24/25 03:45
Amylase 49 U/L (30-110) 02/20/25 03:29
Lipase 87 U/L (23-300) 02/20/25 03:29
Vital Signs and I&O:
Vital Signs
Temp Pulse Resp BP Pulse Ox
97.8 F 88 17 124/71 96
02/25/25 03:21 02/25/25 03:21 02/25/25 03:21 02/25/25 03:21 02/25/25 03:21
I&O
02/23/25 02/24/25 02/25/25
06:59 06:59 06:59
Intake Total 3800.8 / 3922.5 2430.7 / 2472.4 583.5 / 583.5
Output Total 1685 / 1685 1390 / 1390 750 / 750
Balance 2115.8 / 2237.5 1040.7 / 1082.4 -166.5 / -166.5
Physical Exam
Physical Exam
General: NAD, alert and oriented x 3
Abdomen: normal bowel sounds, soft, no tenderness, no masses or bruits, moderate ascites
[2025-02-25 07:44] LABS: Hematocrit 31.5 % (39.0-52.0); Hemoglobin 11.0 g/dL (13.0-18.0); Mean Corp Hgb Conc. 34.9 g/dL (33.0-37.0); Mean Corpuscular Volume 108.2 fL (80.0-94.0); Platelet Count 66 10^3/uL (130-400); Red Cell Dist. Width 18.2 % (11.5-14.5)
[2025-02-25 08:14] LABS: ALT (SGPT) 20 U/L (0-50); AST (SGOT) 33 U/L (17-59); Albumin 3.5 g/dl (3.5-5.0); Alkaline Phosphatase 88 U/L (38-126); Blood Urea Nitrogen 33 mg/dl (9-20); Calcium 8.8 mg/dl (8.4-10.2); Carbon Dioxide 26 mmol/L (22-30); Chloride 105 mmol/L (98-107); Estimated Creatinine Clearance 83 ml/min; Glucose 104 mg/dl (70-99); Potassium 4.0 mmol/L (3.5-5.1); Sodium 137 mmol/L (135-145); Total Protein 6.6 g/dl (6.3-8.2); eGFR > 60.00
[2025-02-25] MEDS: DUPHALAC/CHRONULAC 20 GRAMS PO ×2 (08:51→20:55)
[2025-02-25] MEDS: PROTONIX 40 MG PO (08:51)
[2025-02-25] MEDS: XIFAXAN 550 MG PO ×2 (08:51→20:55)
[2025-02-25] MEDS: COREG 3.125 MG PO ×2 (08:51→20:55)
--- NOTE | 2025-02-25 10:41 | W.PN.UPDATE ---
Update Note
Progress Note Update
Sign off
Follow-up with GI no need to follow-up with nephrology
[2025-02-25] MEDS: FLEXBUMIN 100 IV ×2 (10:58→12:33)
[2025-02-25 11:11] LABS: Body Fluid Second Tech AMA
[2025-02-25] MEDS: ROCEPHIN 2000 MG IV (14:15)
[2025-02-25] MEDS: STERILE WATER FOR INJECTION 20 ML IV (14:15)
[2025-02-25] MEDS: FLUSH (NSS) IV ×2 (14:25→14:26)
--- NOTE | 2025-02-25 14:34 | W.PN.HOSP.TC ---
Addendum entered and electronically signed by Carolyn Harry MD 02/25/25 18:11:
I saw and evaluated the patient independently. I reviewed the resident�s note and agree with findings and plan as documented by Dr. Jordan.
GENERAL: chronically ill appearing male in no apparent distress
HEENT: NC/AT salivary cyst left lower jaw
HEART: regular rate and rhythm, +S1, +S2
LUNGS : clear to auscultation bilaterally
ABDOM: soft, nontender, nondistended, + bowel sounds, + ascites
EXT: no cyanosis, clubbing, or edema
NEUROLOGIC: appears depressed--very little interaction
Severe sepsis with Klebsiella pneumoniae SBP/bacteremia--with decompensated cirrhosis/hepatic encephalopathy/hyperbilirubinemia--sepsis resolved--finishing rocephin tomorrow with transition to cipro to finish course--Tbili 14 with downtrending
numbers-- MELD score on last admission 25, now MELD 37 this admission child class C -- awaiting insurance coverage to begin transplant application process/transfer to [place]--paracentesis 02/21 for 4L and 02/25 for 9L--s/p albumin--apprec GI-- c/w
lactulose, PPI, Xifaxin--will need diuretics restarted
MORTEZA--Hepatorenal syndrome--- hold diuretics pending Nephro recs, can restart tomorrow if lytes are stable --apprec renal
Depressed mood- endorsed depression prior to this hospitalization- Consult psych -- unable to assess given multiple organic causes for change in affect and mood, re-evaluate when medically stable
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
SVT-- resolved (overnight 02/19)--- Cardiology following -- TTE showing mild , thickened valves, vegetation cannot be excluded however patient not a candidate for URIEL--cont coreg as BP tolerates
Paroxysmal A-fib--Not on anticoagulation- started on carvedilol as above
Salivary gland cyst
DVT Proph--SCDs
CODE STATUS--Full code
Original Note:
Today's Communication/Plan
-
Paracentesis today, 9L off
Restart diuretics tomorrow
Decreased lactulose
1 more day of IV antibiotics
Assessment / Plan
Assessment / Plan
Mr Maurizio Granados is a 59yo with no medical care for years, hx PAF(not on anticoagulation), salivary gland tumor (chronic for years), prior ETOH use years ago with admission in November with massive ascites with decompensated liver failure,
hyponatremia, coagulopathy, electrolyte imbalance. During that admission he had paracentesis x 3 for total of 28 liters of ascites removed and fluid studies c/w liver etiology with negative pathology. Etiology of liver disease was unclear. Liver
work up complete during admission revealed + ALETHEA, mild elevated A1AT, elevated immunoglobulin A, hepatitis B immunity with otherwise neg panel, normal AMA, SLA, LKM, ceruloplasmin, with neg ETOH screening with PETH neg <10 AFP 4.97. Imaging with
cirrhosis and ascites. 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 MRI with severe hepatic cirrhosis without HCC, severe portal HTN, mild ascites, upper abdominal adenopathy, GB distention, adrenal mass and CM. He
now presents today with abdominal distention and change in mental status. On admission noted with WBC 22,400, hbg 14.1, platelets 172, na 121, creat 2.6, BUN 29, lactate 7.5, bili 14.5, AST 44, ALT <30, alk phos 171, ammonia 40. She reports some
abdominal pain nausea, nonbloody vomiting with distention but denies diarrhea, constipation or rectal bleeding. Urine studies sent results pending underwent diagnostic paracentesis with 4 L off in the ED blood cultures obtained 2 g of IV Rocephin
started nephrology consulted and started 3% saline, IR consulted for thoracentesis, GI consulted, invasive manager consulted. Ascitic fluid analysis positive for SBP with greater than 250 PMN. Blood cultures positive for gram-negative baccilli. On 02/19
patient went into SVT in the 170s. Received dose of Levophed, and 6 mg of adenosine with return to sinus tachycardia. Cardiology consulted and ordered TTE. Also repleted patient's mag, on admission Mg 1.9. Albumin challenge failed, HRS type 1.
Octreotide, albumin, levophed. Patients MELD 37, Child Class C, attempted to transfer to [facility] however due to lack of coverage for surgery/transplant patient was denied. GI placed Dobbhoff tube and oral lactulose was given. Patient started
having bowel movements with improvement of ammonia numbers. Patient continued to show improvement, mentation improved he was able to converse with us, he removed his Dobbhoff tube, his leukocytosis continues to decrease and his kidney function
continued to improve. He was downgraded to IMU for further care. Patient's mentation improved drastically as he was diuresed and he continued to poop out and the ammonia. Kidney function normalized and patient was taken off octreotide and fluids.
IR took 9 L off his abdomen.
#Severe sepsis
#SBP
#Decompensated Cirrhosis -- etiology unclear
#Hepatic encephalopathy
#Hyperbilirubinemia
- on admission WBCs 22, tachycardia to 117, lactate 7.5--3.4, bacteremia with Klebsiella p. 2* SBP
- Currently hemodynamically stable, not requiring pressors
- Anion gap 17 on admission, now closed
- prior workup unremarkable as above, suspicion for alcoholic hepatitis -- PEth pending
- T. bili 14 on admission, downtrending
- MELD score on last admission 25, now MELD 37 this admission child class C -- awaiting insurance coverage to begin transplant application process/transfer to [place]
- c/w IV ceftriaxone for SBP
- paracentesis (02/21) yielded 4 L straw-colored -- PMNs >250 diagnostic of SBP
- Albumin 3.6 today
Appreciate GI recs
- c/w lactulose for Hepatic encephalopathy -- AOx3
- Protonix 40 po qd
- Xifaxan added for BM on lactulose -- c/w Xifaxan
- no concern for GI bleeding at this time
- Patient removed Dobbhoff tube -- will c/w low sodium diet
#MORTEZA, improving
#Hepatorenal syndrome Type I
- normal kidney function on recent discharge (Store Clerk 0.8)
- Store Clerk this admission 2.6 -- 3.1 s/p albumin challenge -- 2.4 -- 1.5
- c/t hold diuretics pending Nephro recs, can restart tomorrow if lytes are stable
- Strict I's and O's
- Trend BMP
- limited paracentesis to <5 L every other day to avoid large volume loss
- Nephrology following
#Depressed mood
- endorsed depression prior to this hospitalization
- On no psych medications
- Consult psych -- unable to assess given multiple organic causes for change in affect and mood, re-evaluate when medically stable
#Hyponatremia
- Na on admission 121, 124 130 134 135 139 137
- MS improving, no focal neurological deficits
- Nephrology consulted, may need DDAVP for overcorrection, will defer to nephro
#SVT, resolved
- Patient went into SVT overnight 02/19
- Mg 1.9, 1 g ordered to replete
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
- Cardiology following -- TTE showing mild , thickened valves, vegetation cannot be excluded however patient not a candidate for URIEL
- on carvedilol 3.125mg BID
#Paroxysmal A-fib
- Not on anticoagulation
- started on carvedilol as above
- C/t monitor on tele
# Salivary gland cyst
- stable, c/t monitor
DVT PPx: SCDs
CODE STATUS:Full code
Anticipated Discharge: 24 - 48 hours
Subjective/Interval History
-
Patient was seen bedside. He had just returned from paracentesis. He reported no issues, and appeared a lot better than previous days. He had no complaints. Date of Service: February 25, 2025
Objective Data
-
Labs:
Laboratory Results
02/25/25
07:11
WBC 10.3
Hgb 11.0 L
Hct 31.5 L
Plt Count 66 L
Sodium 137
Potassium 4.0
Chloride 105
Carbon Dioxide 26
BUN 33 H
Creatinine 1.1
Glucose 104 H
Calcium 8.8
Total Bilirubin 5.5 H
AST 33
ALT 20
Alkaline Phosphatase 88
Vital Signs:
Vital Signs
Temp Pulse Resp BP Pulse Ox
97 F 66 20 140/68 97
02/25/25 11:00 02/25/25 11:00 02/25/25 11:00 02/25/25 11:00 02/25/25 12:22
I&O
02/24/25 02/25/25 02/26/25
06:59 06:59 06:59
Intake Total 2430.7 / 2472.4 903.5 / 903.5 1440 / 1440
Output Total 1390 / 1390 750 / 750
Balance 1040.7 / 1082.4 153.5 / 153.5 1440 / 1440
Review of Systems
-
History Source: Patient
Constitutional: Reports No Symptoms; Denies Fever or No Appetite
EENT: Reports No Symptoms Reported; Denies Tearing or Runny Nose
Respiratory: Reports No Symptoms; Denies Cough, Hemoptysis or Wheezing
Cardiac: Reports No Symptoms; Denies Chest Pain or Palpitations
Abdomen/GI: Reports Nausea; Denies Abdominal Pain, Vomiting or Diarrhea
Genitourinary: Reports No Symptoms
Musculoskeletal: Reports No Symptoms, Joint Pain and Muscle Pain
Skin: Reports No Symptoms; Denies Itching
Neuro: Reports No Symptoms; Denies Dizzy or Headache
Psych: Reports Depressed
Physical Exam
-
General: Well Developed, Well Nourished, No Apparent Distress, Comfortable, Appears Chronically Ill and Obese
HEENT: Normocephalic and Atraumatic
Respiratory: Clear to Auscultation; Negative Wheezes, Rhonchi or Crackles
Cardiac: Regular Rhythm and S1/S2; Negative Murmur or Rub
GI: Soft, Nontender, Normal Bowel Sounds and Distended (Markedly reduced distention than upon presentation)
Musculoskeletal: No Clubbing, No Cyanosis, Edema, Left Upper Extrem and Edema, Right Lower Extrem
Skin: Warm and Dry
Neuro: Awake, Alert and Oriented
Psych: Depressed
[2025-02-25] MEDS: FLEXBUMIN 50 IV (15:16)
--- NOTE | 2025-02-25 15:21 | CM ---
Reviewed the chart notes. Per notes, paracentesis today, 9L off. Per notes, restart diuretics tomorrow. CM continues to be available to patient/family and is monitoring medical plan for needs at discharge.
Plan: Discharge plans will depend on the patient's progress. Would need PT evaluation for discharge planning.
[2025-02-26 03:21] VITALS: BP 108/54
[2025-02-26 06:00] VITALS: BMI 33.0
[2025-02-26 06:09] LABS: Hematocrit 26.9 % (39.0-52.0); Hemoglobin 9.1 g/dL (13.0-18.0); Mean Corp Hgb Conc. 33.8 g/dL (33.0-37.0); Mean Corpuscular Volume 109.3 fL (80.0-94.0); Platelet Count 55 10^3/uL (130-400); Red Cell Dist. Width 17.9 % (11.5-14.5)
[2025-02-26 06:42] LABS: ALT (SGPT) 16 U/L (0-50); AST (SGOT) 28 U/L (17-59); Albumin 3.1 g/dl (3.5-5.0); Alkaline Phosphatase 60 U/L (38-126); Blood Urea Nitrogen 29 mg/dl (9-20); Calcium 8.5 mg/dl (8.4-10.2); Carbon Dioxide 28 mmol/L (22-30); Chloride 106 mmol/L (98-107); Estimated Creatinine Clearance 102 ml/min; Glucose 101 mg/dl (70-99); Potassium 4.0 mmol/L (3.5-5.1); Sodium 137 mmol/L (135-145); Total Protein 5.7 g/dl (6.3-8.2); eGFR > 60.00
[2025-02-26 07:00] VITALS: BP 132/74
[2025-02-26] MEDS: DUPHALAC/CHRONULAC 20 GRAMS PO ×2 (08:50→21:06)
[2025-02-26] MEDS: COREG 3.125 MG PO ×2 (08:50→21:06)
[2025-02-26] MEDS: XIFAXAN 550 MG PO ×2 (08:50→21:06)
[2025-02-26] MEDS: TORADOL 10 MG PO (08:51)
[2025-02-26] MEDS: PROTONIX 40 MG PO (08:51)
--- NOTE | 2025-02-26 10:44 | W.PN.GI.CBS2 ---
Addendum entered and electronically signed by Obinna Davis MD 02/26/25 12:32:
I saw and examined the patient.
The CISO or PA's note was reviewed and I agree with the note.
Comment: Denies complaints. Somewhat lethargic answers but AAOx3
ABD soft, distended, nontender
NEURO- no asterixis
REC:
Restart diuretics lasix 20, aldactone 50
Monitor Cr
Cont lactulose/xifaxan for encephalopathy
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
Original Note:
Today's Communication / Plan
-
Etiology of symptoms with concern for advanced cirrhosis with SBP and HE on admission
s/p para 9650 liter WBC down to 93, s/p albumin given
last day of IV abx will transition to Cipro daily starting tomorrow
start low dose Lasix 20mg and Aldactone 50mg today and monitor renal function closely
Long discussion with with concern for continued insurance issue - Advised to call to check what services are covered Outpatient if pt can follow with GI or hepatology
We also discussed options of aggressive care with transplant work up vs hospice-- pt and considering options
will repeat labs in AM with start of diuretics and recalculate MELD
monitor stools with lactulose as still loose stool 02/25-- less today
cont current lactulose BID and Xifaxan
cont PPI daily
will need OP EGD for screening- cont coreg BID as HR and BP tolerate
Assessment / Plan
-
Pt is a 59yo with no medical care for years, hx PAF(not on anticoagulation), salivary gland tumor (chronic for years), prior ETOH use years ago with admission in November with massive ascites with decompensated liver failure, hyponatremia,
coagulopathy, electrolyte imbalance. During that admission he had paracentesis x 3 for total of 28 liters of ascites removed and fluid studies c/w liver etiology with neg pathology. He was advised hepatology and given contact for several
hepatologists and was also scheduled 12/21 in GI office and did not call to confirm without follow up. He was also advised follow up labs that were not completed. He was discharge on Lasix 40mg and Aldactone 50mg daily. Along with PPI daily and
Oxycodone.. Etiology of liver disease was unclear. Liver work up complete during admission revealed + ALETHEA, mild elevated A1AT, elevated immunoglobulin A, hepatitis B immunity with otherwise neg panel, normal AMA, SLA, LKM, ceruloplasmin, with
neg ETOH screening with PETH neg <10 AFP 4.97. Imaging with cirrhosis and ascites. 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 MRI with severe hepatic cirrhosis without HCC, severe portal HTN, mild ascites, upper
abdominal adenopathy, GB distention, adrenal mass and CM. He now presents with abdominal distention and change in mental status. On admission noted with WBC 22,400, hbg 14.1, platelets 172, na 121, creat 2.6, BUN 29, lactate 7.5, bili 14.5, AST
44, ALT <30, alk phos 171, ammonia 40.
1. 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 He is overall much improved, with
normalization of renal function, nonoliguric, now off octreotide and IV fluids. He is currently on ceftriaxone day 6/.
- Will plan repeat paracentesis today with albumin replacement, if kidney function remains okay then restart diuretics tomorrow, was on Aldactone 100, Lasix 40 daily with monitoring, continue salt restriction
- Will decrease lactulose given multiple bowel movements overnight, continue Xifaxan
- Tomorrow will be day 7 of ceftriaxone, then can transition to Cipro 500 mg orally daily, as Klebsiella was sensitive, to continue indefinitely as SBP prophylaxis.
Likely able to discharge in the next 48 hours if renal function remains stable after paracentesis and starting of diuretics. Discussed the importance of following up in the office on discharge for further surveillance and management.
-concern for decompensated cirrhosis likely ETOH related with MELD up to 39 on admission
-SBP
- hepatic encephalopathy on Lactulose and Xifaxan
-massive ascites
-EV per imaging
-MORTEZA - improved
-thrombocytopenia
-coagulopathy
-hyponatremia
-hx ETOH abuse years ago
-hypoalbuminemia on prior admission
-adrenal mass
other med problems:
-hx PAF
-salivary gland tumor- chronic per patient on prior admission
PLAN:
Etiology of symptoms with concern for advanced cirrhosis with SBP and HE on admission
s/p para 9650 liter WBC down to 93, s/p albumin given
last day of IV abx will transition to Cipro daily starting tomorrow
start low dose Lasix 20mg and Aldactone 50mg today and monitor renal function closely
Long discussion with with concern for continued insurance issue - Advised to call to check what services are covered Outpatient if pt can follow with GI or hepatology
We also discussed options of aggressive care with transplant work up vs hospice-- pt and considering options
will repeat labs in AM with start of diuretics and recalculate MELD
monitor stools with lactulose as still loose stool 02/25-- less today
cont current lactulose BID and Xifaxan
cont PPI daily
will need OP EGD for screening- cont coreg BID as HR and BP tolerate
Subjective
Subjective
Date of Service: February 26, 2025
tolerating diet, 2 gram Na, still with multiple stools-- report still some confusion in conversation
Objective
Data Reviewed
Laboratory Data:
Laboratory Results
02/26/25 05:21
02/26/25 05:21
Laboratory Results
PT 24.2 Sec (11.4-14.6) H 02/22/25 03:52
INR 2.12 02/22/25 03:52
APTT 45.6 Sec (23.4-35.0) H 02/22/25 03:52
Magnesium 2.2 mg/dl (1.6-2.3) 02/24/25 03:45
Total Bilirubin 4.9 mg/dl (0.2-1.3) H 02/26/25 05:21
AST 28 U/L (17-59) 02/26/25 05:21
ALT 16 U/L (0-50) 02/26/25 05:21
Alkaline Phosphatase 60 U/L (38-126) 02/26/25 05:21
Amylase 49 U/L (30-110) 02/20/25 03:29
Lipase 87 U/L (23-300) 02/20/25 03:29
Vital Signs and I&O:
Vital Signs
Temp Pulse Resp BP Pulse Ox
98 F 58 16 132/74 97
02/26/25 07:00 02/26/25 08:50 02/26/25 07:00 02/26/25 08:50 02/26/25 07:00
I&O
02/25/25 02/26/25 02/27/25
06:59 06:59 06:59
Intake Total 903.5 / 903.5 2700 / 2700
Output Total 750 / 750 1175 / 1175
Balance 153.5 / 153.5 1525 / 1525
Physical Exam
Physical Exam
HEENT: Moist mucous membranes and Other (jaudice )
Cardiology: Other (bradicardia )
Pulmonary: Clear
GI: Soft, Distended and Non Tender
Extremities: Edema
Neuro: Other (oriented x 3 but per family confused, still with some shakiness)
[2025-02-26 11:00] VITALS: BP 102/57
[2025-02-26] MEDS: LASIX 20 MG PO (11:25)
[2025-02-26] MEDS: ALDACTONE 50 MG PO (11:26)
[2025-02-26] MEDS: FLUSH (NSS) IV ×2 (13:55)
[2025-02-26] MEDS: ROCEPHIN 2000 MG IV (13:56)
[2025-02-26] MEDS: STERILE WATER FOR INJECTION 20 ML IV (13:57)
--- NOTE | 2025-02-26 14:02 | W.PN.HOSP.TC ---
Addendum entered and electronically signed by Carolyn Harry MD 02/26/25 15:30:
I saw and evaluated the patient independently. I reviewed the resident�s note and agree with findings and plan as documented by Dr. Jordan.
GENERAL: chronically ill appearing male in no apparent distress--brighter and more talkative today
HEENT: NC/AT salivary cyst left lower jaw
HEART: regular rate and rhythm, +S1, +S2
LUNGS : clear to auscultation bilaterally
ABDOM: soft, nontender, nondistended, + bowel sounds, + ascites
EXT: no cyanosis, clubbing, or edema
NEUROLOGIC: appears depressed--very little interaction
Severe sepsis with Klebsiella pneumoniae SBP/bacteremia--resolved--with decompensated cirrhosis/hepatic encephalopathy/hyperbilirubinemia--sepsis resolved--finishing rocephin tomorrow with transition to cipro for prophylaxis--Tbili 14 with
downtrending numbers to 4.9-- MELD score on last admission 25, now MELD 37 this admission child class C -- awaiting insurance coverage to begin transplant application process/transfer to [place]--paracentesis 02/21 for 4L and 02/25 for 9L--s/p
albumin--apprec GI-- c/w lactulose, PPI, Xifaxin-- diuretics restarted by GI--apprec input
MORTEZA--Hepatorenal syndrome---restarted diuretics --apprec renal
Depressed mood- endorsed depression prior to this hospitalization- -psych unable to assess given multiple organic causes for change in affect and mood, re-evaluate when medically stable
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
SVT-- resolved (overnight 02/19)--- Cardiology following -- TTE showing mild , thickened valves, vegetation cannot be excluded however patient not a candidate for URIEL--cont coreg as BP tolerates
Paroxysmal A-fib--Not on anticoagulation- started on carvedilol as above
Salivary gland cyst
DVT Proph--SCDs
CODE STATUS--Full code
Original Note:
Today's Communication/Plan
-
transition to cipro
restarted diuretics at 20 lasix 50 aldactone
Cont lactulose/xifaxan for encephalopath
Updated on insurance plans.
Working with pillowcase sewer for emergency Medicaid application
Assessment / Plan
Assessment / Plan
Mr Maurizio Granados is a 59yo with no medical care for years, hx PAF(not on anticoagulation), salivary gland tumor (chronic for years), prior ETOH use years ago with admission in November with massive ascites with decompensated liver failure,
hyponatremia, coagulopathy, electrolyte imbalance. During that admission he had paracentesis x 3 for total of 28 liters of ascites removed and fluid studies c/w liver etiology with negative pathology. Etiology of liver disease was unclear. Liver
work up complete during admission revealed + ALETHEA, mild elevated A1AT, elevated immunoglobulin A, hepatitis B immunity with otherwise neg panel, normal AMA, SLA, LKM, ceruloplasmin, with neg ETOH screening with PETH neg <10 AFP 4.97. Imaging with
cirrhosis and ascites. 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 MRI with severe hepatic cirrhosis without HCC, severe portal HTN, mild ascites, upper abdominal adenopathy, GB distention, adrenal mass and CM. He
now presents today with abdominal distention and change in mental status. On admission noted with WBC 22,400, hbg 14.1, platelets 172, na 121, creat 2.6, BUN 29, lactate 7.5, bili 14.5, AST 44, ALT <30, alk phos 171, ammonia 40. She reports some
abdominal pain nausea, nonbloody vomiting with distention but denies diarrhea, constipation or rectal bleeding. Urine studies sent results pending underwent diagnostic paracentesis with 4 L off in the ED blood cultures obtained 2 g of IV Rocephin
started nephrology consulted and started 3% saline, IR consulted for thoracentesis, GI consulted, plate take out worker consulted. Ascitic fluid analysis positive for SBP with greater than 250 PMN. Blood cultures positive for gram-negative baccilli. On 02/19
patient went into SVT in the 170s. Received dose of Levophed, and 6 mg of adenosine with return to sinus tachycardia. Cardiology consulted and ordered TTE. Also repleted patient's mag, on admission Mg 1.9. Albumin challenge failed, HRS type 1.
Octreotide, albumin, levophed. Patients MELD 37, Child Class C, attempted to transfer to [facility] however due to lack of coverage for surgery/transplant patient was denied. GI placed Dobbhoff tube and oral lactulose was given. Patient started
having bowel movements with improvement of ammonia numbers. Patient continued to show improvement, mentation improved he was able to converse with us, he removed his Dobbhoff tube, his leukocytosis continues to decrease and his kidney function
continued to improve. He was downgraded to IMU for further care. Patient's mentation improved drastically as he was diuresed and he continued to poop out and the ammonia. Kidney function normalized and patient was taken off octreotide and fluids.
IR took 9 L off his abdomen. Patient was downgraded to the telemetry floor. He continues to have improvement in mentation and is now tolerating low-sodium diet. He had mild pleuritic chest pain due to expanding lung volumes and decreasing
ascitic volume, gave him pain medication which improved pain. He was taken off of IV antibiotics and transition to p.o. Cipro which she will take indefinitely for SBP prophylaxis. His diuretic medications were restarted and kidney function was
tracked. Application for emergency Medicaid was started so patient may have options for disposition planning.
#Severe sepsis, resolved
#SBP resolved
#Decompensated Cirrhosis
#Hepatic encephalopathy, resolved
#Hyperbilirubinemia, improving
- Anion gap 17 on admission, now closed
- prior workup unremarkable as above, suspicion for alcoholic hepatitis -- PEth pending
- T. bili, downtrending
- MELD score on last admission 25, now MELD 37 this admission child class C -- awaiting insurance coverage to begin transplant application process/transfer to [place]
- Transition to ciprofloxacin 500 twice daily, indefinitely for SBP PPx
Appreciate GI recs
- c/w lactulose for Hepatic encephalopathy -- AOx3
- Protonix 40 po qd
- Xifaxan added for BM on lactulose -- c/w Xifaxan
- no concern for GI bleeding at this time
- will c/w low sodium diet
#chest pain, improving
Right sided with deep inhalation
pleuritic
As needed 350 mg acetaminophen
#MORTEZA, resolved
#Hepatorenal syndrome Type I
- normal kidney function on recent discharge (Rockboard Lather 0.8)
- Rockboard Lather this admission 2.6 -- 3.1 s/p albumin challenge -- 2.4 -- 1.5--0.9
- Diuretics restarted 20 mg Lasix 50 mg Aldactone
- Strict I's and O's
- Trend BMP
- limited paracentesis to <5 L every other day to avoid large volume loss
#Depressed mood improving
- endorsed depression prior to this hospitalization
- On no psych medications
- Consult psych -- unable to assess given multiple organic causes for change in affect and mood, re-evaluate when medically stable
#Hyponatremia, resolved
- Na on admission 121, 124 130 134 135 139 137
- MS improving, no focal neurological deficits
#SVT, resolved
- Patient went into SVT overnight 7/8
- Mg 1.9, 1 g ordered to replete
- Received Levophed, 6 mg adenosine during clinical data analyst with return to sinus tach
- Cardiology following -- TTE showing mild , thickened valves, vegetation cannot be excluded however patient not a candidate for URIEL
- on carvedilol 3.125mg BID with parameters
#Paroxysmal A-fib
- Not on anticoagulation
- started on carvedilol as above
- C/t monitor on tele
# Salivary gland cyst
- stable, c/t monitor
DVT PPx:
SCDs
CODE STATUS:
Full code
Anticipated Discharge: > 48 hours
Subjective/Interval History
-
Mr. Granados was doing much better today. He reported that he had some right-sided chest pain. Comes with inspiration and is sharp 8 out of 10. He has not been coughing or having trouble breathing. He otherwise has no complaints. Updated the
about patient's wellbeing, she is really glad that he is doing much better. However she reports that cognitively he might not be there despite answering questions appropriately. She reports that he has a ' souless' response to her questions
and conversations. She does not feel safe taking Edward back home and updated her that we will evaluate him for rehab or SNF placement. However dependent on insurance outcome. Date of Service: February 26, 2025
Objective Data
-
Labs:
Laboratory Results
02/26/25
05:21
WBC 7.1
Hgb 9.1 L
Hct 26.9 L
Plt Count 55 L
Sodium 137
Potassium 4.0
Chloride 106
Carbon Dioxide 28
BUN 29 H
Creatinine 0.9
Glucose 101 H
Calcium 8.5
Total Bilirubin 4.9 H
AST 28
ALT 16
Alkaline Phosphatase 60
Vital Signs:
Vital Signs
Temp Pulse Resp BP Pulse Ox
98 F 53 16 102/57 99
02/26/25 11:00 02/26/25 11:26 02/26/25 11:00 02/26/25 11:26 02/26/25 11:00
I&O
02/25/25 02/26/25 02/27/25
06:59 06:59 06:59
Intake Total 903.5 / 903.5 2700 / 2700
Output Total 750 / 750 1175 / 1175
Balance 153.5 / 153.5 1525 / 1525
Review of Systems
-
History Source: Patient
Constitutional: Reports No Symptoms; Denies Fever or Chills
Respiratory: Reports No Symptoms and Pleurisy; Denies Cough or Trouble Breathing
Cardiac: Reports No Symptoms and Chest Pain; Denies Diaphoresis or Palpitations
Abdomen/GI: Reports No Symptoms; Denies Abdominal Pain, Nausea, Vomiting or Diarrhea
Genitourinary: Reports No Symptoms; Denies Dysuria
Skin: Reports No Symptoms; Denies Itching
Neuro: Reports No Symptoms; Denies Dizzy or Headache
Physical Exam
-
General: Well Developed, Well Nourished, No Apparent Distress and Appears Chronically Ill
HEENT: Normocephalic, Atraumatic and Other (Left salivary cyst)
Respiratory: Clear to Auscultation and Non Labored Respirations; Negative Crackles
Cardiac: Regular Rhythm, S1/S2 and Murmur; Negative Rub
GI: Soft, Nontender, Nondistended and Normal Bowel Sounds
Musculoskeletal: No Clubbing and No Cyanosis
Skin: Warm and Dry
Neuro: Awake, Alert and Oriented
Psych: Calm; Negative Depressed or Anxious
[2025-02-26 15:00] VITALS: BP 105/57
--- NOTE | 2025-02-26 15:27 | CM ---
CM reviewed pt with Dr Harry resident/ Dr Jordan
Pt will need eventual transplant at [facility], unable to transfer at this time due to lack of payor source
Pt with limited insurance policy
Discussion with [facility]- [place]
Pt over-income for MA but may be eligible for emergent MA
Physicians in agreement with completing emergent community MA paperwork which may be approved despite assets per [facility]
Awaiting [facility] to fax paperwork to CM office
Once received, CM to provide to Dr Harry for completion
Per [facility], will take a few weeks for processing
PT/OT orders placed, evals pending
CM will continue to follow for dc planning
CM to watch for possible higher level SNF/VN needs
CM state farm agent team member/Mildred Uribe aware of issues
Discharge Disposition- home vs watch for higher level needs
[2025-02-26 19:30] VITALS: BP 116/59
[2025-02-26 23:07] VITALS: BP 131/65
[2025-02-27 04:00] VITALS: BP 104/69
[2025-02-27 05:56] VITALS: BMI 33.9
[2025-02-27 07:00] VITALS: BP 121/64
[2025-02-27 07:21] LABS: INR 1.79; PT 21.0 Sec (11.4-14.6)
[2025-02-27 07:37] LABS: Hematocrit 29.0 % (39.0-52.0); Hemoglobin 10.1 g/dL (13.0-18.0); Mean Corp Hgb Conc. 34.8 g/dL (33.0-37.0); Mean Corpuscular Volume 107.0 fL (80.0-94.0); Platelet Count 60 10^3/uL (130-400); Red Cell Dist. Width 18.1 % (11.5-14.5)
[2025-02-27 08:10] LABS: ALT (SGPT) 24 U/L (0-50); AST (SGOT) 47 U/L (17-59); Albumin 3.1 g/dl (3.5-5.0); Alkaline Phosphatase 108 U/L (38-126); Blood Urea Nitrogen 28 mg/dl (9-20); Calcium 8.2 mg/dl (8.4-10.2); Carbon Dioxide 22 mmol/L (22-30); Chloride 102 mmol/L (98-107); Estimated Creatinine Clearance 89 ml/min; Glucose 110 mg/dl (70-99); Potassium 3.9 mmol/L (3.5-5.1); Sodium 132 mmol/L (135-145); Total Protein 5.9 g/dl (6.3-8.2); eGFR > 60.00
--- NOTE | 2025-02-27 08:32 | W.PN.HOSP.TC ---
Addendum entered and electronically signed by Carolyn Harry MD 02/27/25 15:42:
I saw and evaluated the patient independently. I reviewed the resident�s note and agree with findings and plan as documented by Dr. Jordan.
GENERAL: chronically ill appearing male in no apparent distress--brighter and more talkative today
HEENT: NC/AT salivary cyst left lower jaw
HEART: regular rate and rhythm, +S1, +S2
LUNGS : clear to auscultation bilaterally
ABDOM: soft, nontender, nondistended, + bowel sounds, + ascites
EXT: no cyanosis, clubbing, or edema
NEUROLOGIC: appears depressed--very little interaction
Severe sepsis with Klebsiella pneumoniae SBP/bacteremia--resolved--with decompensated cirrhosis/hepatic encephalopathy/hyperbilirubinemia--sepsis resolved--finishing rocephin tomorrow with transition to cipro for prophylaxis--Tbili 14 with
downtrending numbers to 4.0-- MELD score on last admission 25, now MELD 37 this admission child class C -- awaiting insurance coverage to begin transplant application process--paracentesis 02/21 for 4L and 02/25 for 9L--s/p albumin--apprec GI-- c/w
lactulose, PPI, Xifaxin-- diuretics restarted by GI--apprec input--check obs series, lactulose increased--may need another tap
MORTEZA--Hepatorenal syndrome---restarted diuretics --apprec renal
Depressed mood- endorsed depression prior to this hospitalization- -psych unable to assess given multiple organic causes for change in affect and mood, re-evaluate when medically stable--psych to re-eval
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
SVT-- resolved (overnight 02/19)--- Cardiology following -- TTE showing mild , thickened valves, vegetation cannot be excluded however patient not a candidate for URIEL--cont coreg as BP tolerates
Paroxysmal A-fib--Not on anticoagulation- started on carvedilol as above
Salivary gland cyst
DVT Proph--SCDs
CODE STATUS--Full code
pt refused to work with therapy but doesn't know why he refused
Original Note:
Today's Communication/Plan
-
pysch re consulted
PO diuretics
lactulose increased to TID
Assessment / Plan
Assessment / Plan
Mr Maurizio Granados is a 59yo with no medical care for years, hx PAF(not on anticoagulation), salivary gland tumor (chronic for years), prior ETOH use years ago with admission in November with massive ascites with decompensated liver failure,
hyponatremia, coagulopathy, electrolyte imbalance. During that admission he had paracentesis x 3 for total of 28 liters of ascites removed and fluid studies c/w liver etiology with negative pathology. Etiology of liver disease was unclear. Liver
work up complete during admission revealed + ALETHEA, mild elevated A1AT, elevated immunoglobulin A, hepatitis B immunity with otherwise neg panel, normal AMA, SLA, LKM, ceruloplasmin, with neg ETOH screening with PETH neg <10 AFP 4.97. Imaging with
cirrhosis and ascites. 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 MRI with severe hepatic cirrhosis without HCC, severe portal HTN, mild ascites, upper abdominal adenopathy, GB distention, adrenal mass and CM. He
now presents today with abdominal distention and change in mental status. On admission noted with WBC 22,400, hbg 14.1, platelets 172, na 121, creat 2.6, BUN 29, lactate 7.5, bili 14.5, AST 44, ALT <30, alk phos 171, ammonia 40. She reports some
abdominal pain nausea, nonbloody vomiting with distention but denies diarrhea, constipation or rectal bleeding. Urine studies sent results pending underwent diagnostic paracentesis with 4 L off in the ED blood cultures obtained 2 g of IV Rocephin
started nephrology consulted and started 3% saline, IR consulted for thoracentesis, GI consulted, manager enterprise consulted. Ascitic fluid analysis positive for SBP with greater than 250 PMN. Blood cultures positive for gram-negative baccilli. On 02/19
patient went into SVT in the 170s. Received dose of Levophed, and 6 mg of adenosine with return to sinus tachycardia. Cardiology consulted and ordered TTE. Also repleted patient's mag, on admission Mg 1.9. Albumin challenge failed, HRS type 1.
Octreotide, albumin, levophed. Patients MELD 37, Child Class C, attempted to transfer to [facility] however due to lack of coverage for surgery/transplant patient was denied. GI placed Dobbhoff tube and oral lactulose was given. Patient started
having bowel movements with improvement of ammonia numbers. Patient continued to show improvement, mentation improved he was able to converse with us, he removed his Dobbhoff tube, his leukocytosis continues to decrease and his kidney function
continued to improve. He was downgraded to IMU for further care. Patient's mentation improved drastically as he was diuresed and he continued to poop out and the ammonia. Kidney function normalized and patient was taken off octreotide and fluids.
IR took 9 L off his abdomen. Patient was downgraded to the telemetry floor. He continues to have improvement in mentation and is now tolerating low-sodium diet. He had mild pleuritic chest pain due to expanding lung volumes and decreasing
ascitic volume, gave him pain medication which improved pain. He was taken off of IV antibiotics and transition to p.o. Cipro which she will take indefinitely for SBP prophylaxis. His diuretic medications were restarted and kidney function was
tracked. Application for emergency Medicaid was started so patient may have options for disposition planning.
#Severe sepsis, resolved
#SBP resolved
#Decompensated Cirrhosis
#Hepatic encephalopathy, resolved
#Hyperbilirubinemia, improving
- Anion gap 17 on admission, now closed
- prior workup unremarkable as above, suspicion for alcoholic hepatitis -- PEth pending
- T. bili, downtrending
- MELD score on last admission 25, now MELD 37 this admission child class C -- awaiting insurance coverage to begin transplant application process/transfer to [place]
- Transition to ciprofloxacin 500 twice daily, indefinitely for SBP PPx
Appreciate GI recs
- lactulose TID
- Protonix 40 po qd
#chest pain, improving
Right sided with deep inhalation
pleuritic
As needed 650 mg acetaminophen
#MORTEZA, resolved
#Hepatorenal syndrome Type I
- normal kidney function on recent discharge (Geological Aide 0.8)
- Geological Aide this admission 2.6 -- 3.1 s/p albumin challenge -- 2.4 -- 1.5--0.9--1
- c/wDiuretics 20 mg Lasix 50 mg Aldactone
- Strict I's and O's
- Trend BMP
- limited paracentesis to <5 L every other day to avoid large volume loss
#Depressed mood improving
- endorsed depression prior to this hospitalization
- On no psych medications
- Consult psych -- unable to assess given multiple organic causes for change in affect and mood, re-evaluate when medically stable
- reevaluation requested
#Hyponatremia, resolved
- Na on admission 121
- MS improving, no focal neurological deficits
#SVT, resolved
- Patient went into SVT overnight 7
- Mg 1.9, 1 g ordered to replete
- Received Levophed, 6 mg adenosine during cable tv installer with return to sinus tach
- Cardiology following -- TTE showing mild , thickened valves, vegetation cannot be excluded however patient not a candidate for URIEL
- on carvedilol 3.125mg BID with parameters
#Paroxysmal A-fib
- Not on anticoagulation
- started on carvedilol as above
- C/t monitor on tele
# Salivary gland cyst
- stable, c/t monitor
DVT PPx:
SCDs
CODE STATUS:
Full code
Anticipated Discharge: > 48 hours
Subjective/Interval History
-
Patient reported doing well, with right chest wall pain that comes with deep inspiration. Yesterday pain medication relieved the pain. He did not ask for any more additional pain medication since the pain has been coming and encouraged him to talk
with his nurse when it does come up. He was unable to work with PT twice due to lack of motivation. Otherwise no other complaints. Date of Service: February 27, 2025
Objective Data
-
Labs:
Laboratory Results
02/27/25
07:00
WBC 9.1
Hgb 10.1 L
Hct 29.0 L
Plt Count 60 L
PT 21.0 H
INR 1.79
Sodium 132 L
Potassium 3.9
Chloride 102
Carbon Dioxide 22
BUN 28 H
Creatinine 1.0
Glucose 110 H
Calcium 8.2 L
Total Bilirubin 4.0 H
AST 47
ALT 24
Alkaline Phosphatase 108
Vital Signs:
Vital Signs
Temp Pulse Resp BP Pulse Ox
98.3 F 62 16 121/64 92
02/27/25 07:00 02/27/25 07:00 02/27/25 07:00 02/27/25 07:00 02/27/25 07:00
I&O
02/26/25 02/27/25 02/28/25
06:59 06:59 06:59
Intake Total 2700 / 2700 1050 / 1050
Output Total 1175 / 1175 700 / 700
Balance 1525 / 1525 350 / 350
Review of Systems
-
History Source: Patient
Constitutional: Reports No Symptoms; Denies Fever or Fatigue
EENT: Reports No Symptoms Reported; Denies Tearing or Runny Nose
Respiratory: Reports Pleurisy; Denies Cough or Trouble Breathing
Cardiac: Reports No Symptoms; Denies Chest Pain or Palpitations
Abdomen/GI: Reports No Symptoms; Denies Abdominal Pain, Nausea, Vomiting or Diarrhea
Genitourinary: Reports No Symptoms
Skin: Reports No Symptoms; Denies Itching
Neuro: Reports No Symptoms; Denies Dizzy or Headache
Physical Exam
-
General: Well Developed, Well Nourished and No Apparent Distress
HEENT: Normocephalic and Atraumatic
Respiratory: Clear to Auscultation; Negative Wheezes or Crackles
Cardiac: Regular Rhythm, S1/S2 and Murmur; Negative Rub
GI: Soft, Nontender, Nondistended and Normal Bowel Sounds
Musculoskeletal: No Cyanosis, Clubbing (mild un bilat UE), Edema, Right Lower Extrem (trace) and Edema, Left Lower Extrem (trace)
Skin: Warm and Dry
Neuro: Awake, Alert and Oriented
[2025-02-27] MEDS: CIPRO 500 MG PO (08:43)
[2025-02-27] MEDS: COREG 3.125 MG PO ×2 (08:43→21:04)
[2025-02-27] MEDS: DUPHALAC/CHRONULAC 20 GRAMS PO ×3 (08:43→21:04)
[2025-02-27] MEDS: PROTONIX 40 MG PO (08:43)
[2025-02-27] MEDS: XIFAXAN 550 MG PO ×2 (08:45→21:04)
[2025-02-27] MEDS: ALDACTONE 50 MG PO (08:46)
[2025-02-27] MEDS: LASIX 20 MG PO (08:46)
--- NOTE | 2025-02-27 08:51 | W.PN.GI.CBS2 ---
Addendum entered and electronically signed by Obinna Davis MD 02/27/25 10:12:
I saw and examined the patient.
The RETAIL WIRELESS SALES REPRESENTATIVE or PA's note was reviewed and I agree with the note.
Comment: Lethargic on exam today. Answers questions but sluggish
ABD soft distended, nontender
REC:
Increase lactulose back up to TID
Continue cipro daily lifelong for secondary SBP prophylaxis
Continue lasix 20mg, aldactone 50mg daily. Keep at this dose given ARF on admission
Needs OP GI/Hepatology f/u after d/c
Original Note:
Today's Communication / Plan
-
Etiology of symptoms with concern for advanced cirrhosis with SBP and HE on admission
s/p para 9650 liter WBC down to 93, s/p albumin given
cont chronic cipro for hx SBP
MELD 39 on admission now down to 21
cont low dose Lasix 20mg and Alacactone 50mg daily - creat remains normal
3 stools over last 24 hours -- monitor stool output and mental status-- pt states he feels mentation better today
cont current lactulose BID and Xifaxan-- if any lethargy consider increased lactulose to TID
cont PPI daily
will need OP EGD for screening- cont coreg BID as HR and BP tolerate
02/26 reviewed with with clarify OP coverage for follow up with GI/hepatology -social work working with patient for other options. Also discussed options of aggressive care with transplant work up vs hospice-- pt and considering options
Pt will need follow up with hepatology after admission-- ideally pending insurance will need set up for weekly para. I stressed need for regular follow up and lab monitoring with patient on current medication regiment. We also discussed
progression of liver disease with current admission.
Assessment / Plan
-
Pt is a 59yo with no medical care for years, hx PAF(not on anticoagulation), salivary gland tumor (chronic for years), prior ETOH use years ago with admission in November with massive ascites with decompensated liver failure, hyponatremia,
coagulopathy, electrolyte imbalance. During that admission he had paracentesis x 3 for total of 28 liters of ascites removed and fluid studies c/w liver etiology with neg pathology. He was advised hepatology and given contact for several
hepatologists and was also scheduled 12/21 in GI office and did not call to confirm without follow up. He was also advised follow up labs that were not completed. He was discharge on Lasix 40mg and Aldactone 50mg daily. Along with PPI daily and
Oxycodone.. Etiology of liver disease was unclear. Liver work up complete during admission revealed + ALETHEA, mild elevated A1AT, elevated immunoglobulin A, hepatitis B immunity with otherwise neg panel, normal AMA, SLA, LKM, ceruloplasmin, with
neg ETOH screening with PETH neg <10 AFP 4.97. Imaging with cirrhosis and ascites. 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 MRI with severe hepatic cirrhosis without HCC, severe portal HTN, mild ascites, upper
abdominal adenopathy, GB distention, adrenal mass and CM. He now presents with abdominal distention and change in mental status. On admission noted with WBC 22,400, hbg 14.1, platelets 172, na 121, creat 2.6, BUN 29, lactate 7.5, bili 14.5, AST
44, ALT <30, alk phos 171, ammonia 40.
-concern for decompensated cirrhosis likely ETOH related with MELD up to 39 on admission
-SBP s/p treatment and remains on chronic cipro
- hepatic encephalopathy on Lactulose and Xifaxan
-massive ascites
-EV per imaging
-MORTEZA - improved
-thrombocytopenia
-coagulopathy
-hyponatremia
-hx ETOH abuse years ago
-hypoalbuminemia on prior admission
-adrenal mass
other med problems:
-hx PAF
-salivary gland tumor- chronic per patient on prior admission
PLAN:
Etiology of symptoms with concern for advanced cirrhosis with SBP and HE on admission
s/p para 9650 liter WBC down to 93, s/p albumin given
cont chronic cipro for hx SBP
MELD 39 on admission now down to 21
cont low dose Lasix 20mg and Alacactone 50mg daily - creat remains normal
3 stools over last 24 hours -- monitor stool output and mental status-- pt states he feels mentation better today
cont current lactulose BID and Xifaxan-- if any lethargy consider increased lactulose to TID
cont PPI daily
will need OP EGD for screening- cont coreg BID as HR and BP tolerate
02/26 reviewed with with clarify OP coverage for follow up with GI/hepatology -social work working with patient for other options. Also discussed options of aggressive care with transplant work up vs hospice-- pt and considering options
Pt will need follow up with hepatology after admission-- ideally pending insurance will need set up for weekly para. I stressed need for regular follow up and lab monitoring with patient on current medication regiment. We also discussed
progression of liver disease with current admission.
Subjective
Subjective
Date of Service: February 27, 2025
2 large stools overnight and 3 stools total over 24 hours-- remains awake and alert
Objective
Data Reviewed
Laboratory Data:
Laboratory Results
02/27/25 07:00
02/27/25 07:00
Laboratory Results
PT 21.0 Sec (11.4-14.6) H 02/27/25 07:00
INR 1.79 02/27/25 07:00
APTT 45.6 Sec (23.4-35.0) H 02/22/25 03:52
Magnesium 2.2 mg/dl (1.6-2.3) 02/24/25 03:45
Total Bilirubin 4.0 mg/dl (0.2-1.3) H 02/27/25 07:00
AST 47 U/L (17-59) 02/27/25 07:00
ALT 24 U/L (0-50) 02/27/25 07:00
Alkaline Phosphatase 108 U/L (38-126) 02/27/25 07:00
Amylase 49 U/L (30-110) 02/20/25 03:29
Lipase 87 U/L (23-300) 02/20/25 03:29
Vital Signs and I&O:
Vital Signs
Temp Pulse Resp BP Pulse Ox
98.3 F 62 16 121/64 92
02/27/25 07:00 02/27/25 08:43 02/27/25 07:00 02/27/25 08:43 02/27/25 07:00
I&O
02/26/25 02/27/25 02/28/25
06:59 06:59 06:59
Intake Total 2700 / 2700 1050 / 1050
Output Total 1175 / 1175 700 / 700
Balance 1525 / 1525 350 / 350
Physical Exam
Physical Exam
HEENT: Anicteric, Moist mucous membranes and Other (left chronic neck fullness with chronic salivary gland tumor )
Cardiology: Normal Sinus Rhythm
Pulmonary: Clear
GI: Soft, Distended and Non Tender
Extremities: Edema
Neuro: Non Focal (oriented and awake no asterixis )
--- NOTE | 2025-02-27 09:53 | CM ---
Addendum entered by ALIREZA Diaz 02/27/25 13:37:
Financial form provided to resident for attending.
Original Note:
Received application for completion by attending for OR by Gavi Mcgowan. Spoke with attending to make aware. She stated to put documentation on patient chart so she can complete necessary documents.
Plan: Case management will continue to follow and assist with discharge planning. SNF vrs. VN when stable.
[2025-02-27 11:00] VITALS: BP 109/55
[2025-02-27] MEDS: FLUSH (NSS) IV ×2 (12:25)
[2025-02-27 15:00] VITALS: BP 111/54
--- NOTE | 2025-02-27 17:16 | W.PN.UPDATE ---
Update Note
Progress Note Update
i reviewed chart and attempted to see patient . he was at xray and not likely to be returning for some time. i did speak to nursing and PT. patient is not demonstrating any motivation to help himself. is this depression? is it his very serious
underlying medical illness. i will attempt to see him tomorrow but it is unlikely given my previous experience that he will talk much. can he be given an antidepressant ? of course he could be but they take some time to work and there will not be
instantaneous improvement.
[2025-02-27 19:29] VITALS: BP 126/69
--- NOTE | 2025-02-27 21:47 | PTCARENOTE ---
Pt grossly incontinent of liquid stool. Requiring multiple baths, linen changes, pt uncooperative and curses about being cold when care if provided. Makes no effort to toilet or call when soiled. Active order for FMS, reinserted at this time.
Immediately draining liquid brown/orange stools. Bed bath, linen change, and todd care completed. Set up to brush teeth. Call madalyn w/in reach
[2025-02-27 23:20] VITALS: BP 143/72
[2025-02-28 03:05] VITALS: BP 143/65
[2025-02-28 06:00] VITALS: BMI 33.8
--- NOTE | 2025-02-28 06:14 | PTCARENOTE ---
Cruz catheter removed at 0530 per order. Pt placed on time and amount. FMS leaking, cuff deflated and reinflated w/45 mL. Flushed per protocol x2 this shift.
[2025-02-28 07:00] VITALS: BP 129/62
[2025-02-28 07:36] LABS: Hematocrit 30.0 % (39.0-52.0); Hemoglobin 10.5 g/dL (13.0-18.0); Mean Corp Hgb Conc. 35.0 g/dL (33.0-37.0); Mean Corpuscular Volume 106.4 fL (80.0-94.0); Platelet Count 64 10^3/uL (130-400); Red Cell Dist. Width 18.2 % (11.5-14.5)
[2025-02-28 08:00] LABS: ALT (SGPT) 26 U/L (0-50); AST (SGOT) 50 U/L (17-59); Albumin 3.2 g/dl (3.5-5.0); Alkaline Phosphatase 91 U/L (38-126); Blood Urea Nitrogen 27 mg/dl (9-20); Calcium 8.4 mg/dl (8.4-10.2); Carbon Dioxide 23 mmol/L (22-30); Chloride 102 mmol/L (98-107); Estimated Creatinine Clearance 89 ml/min; Glucose 85 mg/dl (70-99); Potassium 3.9 mmol/L (3.5-5.1); Sodium 132 mmol/L (135-145); Total Protein 6.2 g/dl (6.3-8.2); eGFR > 60.00
[2025-02-28] MEDS: LASIX 20 MG PO (08:27)
[2025-02-28] MEDS: DUPHALAC/CHRONULAC 20 GRAMS PO ×3 (08:27→21:04)
[2025-02-28] MEDS: COREG 3.125 MG PO ×2 (08:28→20:36)
[2025-02-28] MEDS: PROTONIX 40 MG PO (08:28)
[2025-02-28] MEDS: XIFAXAN 550 MG PO ×2 (08:29→20:36)
[2025-02-28] MEDS: CIPRO 500 MG PO (08:29)
[2025-02-28] MEDS: ALDACTONE 50 MG PO (08:29)
--- NOTE | 2025-02-28 09:05 | W.PN.GI.CBS2 ---
Today's Communication / Plan
-
Check repeat paracentesis tomorrow. Cont daily cipro
Continue lactulose TID. Monitor mental status. Seems more alert today once awakened
Cont lasix 20mg/aldactone 50mg daily. No further increase at this time given ARF on admission
Cont coreg BID. OP EGD for variceal screening
SW follow up for outpatient insurance coverage
Assessment / Plan
-
Pt is a 59yo with no medical care for years, hx PAF(not on anticoagulation), salivary gland tumor (chronic for years), prior ETOH use years ago with admission in November with massive ascites with decompensated liver failure, hyponatremia,
coagulopathy, electrolyte imbalance. During that admission he had paracentesis x 3 for total of 28 liters of ascites removed and fluid studies c/w liver etiology with neg pathology. He was advised hepatology and given contact for several
hepatologists and was also scheduled 12/21 in GI office and did not call to confirm without follow up. He was also advised follow up labs that were not completed. He was discharge on Lasix 40mg and Aldactone 50mg daily. Along with PPI daily and
Oxycodone.. Etiology of liver disease was unclear. Liver work up complete during admission revealed + ALETHEA, mild elevated A1AT, elevated immunoglobulin A, hepatitis B immunity with otherwise neg panel, normal AMA, SLA, LKM, ceruloplasmin, with
neg ETOH screening with PETH neg <10 AFP 4.97. Imaging with cirrhosis and ascites. 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 MRI with severe hepatic cirrhosis without HCC, severe portal HTN, mild ascites, upper
abdominal adenopathy, GB distention, adrenal mass and CM. He now presents with abdominal distention and change in mental status. On admission noted with WBC 22,400, hbg 14.1, platelets 172, na 121, creat 2.6, BUN 29, lactate 7.5, bili 14.5, AST
44, ALT <30, alk phos 171, ammonia 40.
Impression:
Admitted with severe decompensated cirrhosis,ARF, HE likely EtOH with MELD 39 on admission
SBP with fluid wBC 2760 on 02/19, improved to 1437 on 02/21, then 93 on 02/25. Now on daily cipro
- hepatic encephalopathy on Lactulose and Xifaxan
-massive ascites
-EV per imaging. On coreg
-MORTEZA - improved
-thrombocytopenia
-coagulopathy
-hyponatremia
-hx ETOH abuse years ago
-hypoalbuminemia on prior admission
-adrenal mass
other med problems:
-hx PAF
-salivary gland tumor- chronic per patient on prior admission
Subjective
Subjective
Date of Service: February 28, 2025
Sleeping but arousable and answers questions. Seems more alert today
Objective
Data Reviewed
Laboratory Data:
Laboratory Results
02/28/25 06:34
02/28/25 06:34
Laboratory Results
PT 21.0 Sec (11.4-14.6) H 02/27/25 07:00
INR 1.79 02/27/25 07:00
APTT 45.6 Sec (23.4-35.0) H 02/22/25 03:52
Magnesium 2.2 mg/dl (1.6-2.3) 02/24/25 03:45
Total Bilirubin 5.4 mg/dl (0.2-1.3) H 02/28/25 06:34
AST 50 U/L (17-59) 02/28/25 06:34
ALT 26 U/L (0-50) 02/28/25 06:34
Alkaline Phosphatase 91 U/L (38-126) 02/28/25 06:34
Amylase 49 U/L (30-110) 02/20/25 03:29
Lipase 87 U/L (23-300) 02/20/25 03:29
Vital Signs and I&O:
Vital Signs
Temp Pulse Resp BP Pulse Ox
98.5 F 55 16 129/62 96
02/28/25 03:05 02/28/25 08:27 02/28/25 03:05 02/28/25 08:27 02/28/25 03:05
I&O
02/27/25 02/28/25 03/01/25
06:59 06:59 06:59
Intake Total 1050 / 1050 520 / 520
Output Total 700 / 700 425 / 425
Balance 350 / 350 95 / 95
Physical Exam
Physical Exam
GI: Soft, Distended and Non Tender
Extremities: No Edema
Neuro: Other (no asterixis)
--- NOTE | 2025-02-28 10:09 | W.PN.HOSP.TC ---
Addendum entered and electronically signed by Carolyn Harry MD 02/28/25 15:28:
I saw and evaluated the patient independently. I reviewed the resident�s note and agree with findings and plan as documented by Dr. Jordan.
GENERAL: chronically ill appearing male in no apparent distress--brighter and more talkative today
HEENT: NC/AT salivary cyst left lower jaw
HEART: regular rate and rhythm, +S1, +S2
LUNGS : clear to auscultation bilaterally
ABDOM: soft, nontender, nondistended, + bowel sounds, + ascites
EXT: no cyanosis, clubbing, or edema
NEUROLOGIC: nonfocal
Severe sepsis with Klebsiella pneumoniae SBP/bacteremia--resolved--with decompensated cirrhosis/hepatic encephalopathy/hyperbilirubinemia---finished rocephin and now on cipro for prophylaxis--Downtrending Tbili--child class C -- awaiting insurance
coverage to begin transplant application process--paracentesis 02/21 for 4L and 02/25 for 9L--s/p albumin--apprec GI-- c/w lactulose, PPI, Xifaxin-- diuretics restarted by GI--apprec input-- lactulose increased-- need another tap tomorrow 03/01
MORTEZA--Hepatorenal syndrome---restarted diuretics --apprec renal
Depressed mood- endorsed depression prior to this hospitalization- -psych unable to assess given multiple organic causes for change in affect and mood, apprec psych
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
SVT-- resolved (overnight 02/19)--- Cardiology following -- TTE showing mild , thickened valves, vegetation cannot be excluded however patient not a candidate for URIEL--cont coreg as BP tolerates
Paroxysmal A-fib--Not on anticoagulation- started on carvedilol as above
Salivary gland cyst
DVT Proph--SCDs
CODE STATUS--Full code
Original Note:
Today's Communication/Plan
-
Follow-up nutrition assessment
Tylenol scheduled for pain
Obstructive series showed for 4.5 cm dilated bowel loops
Assessment / Plan
Assessment / Plan
Mr Maurizio Granados is a 59yo with no medical care for years, hx PAF(not on anticoagulation), salivary gland tumor (chronic for years), prior ETOH use years ago with admission in November with massive ascites with decompensated liver failure,
hyponatremia, coagulopathy, electrolyte imbalance. During that admission he had paracentesis x 3 for total of 28 liters of ascites removed and fluid studies c/w liver etiology with negative pathology. Etiology of liver disease was unclear. Liver
work up complete during admission revealed + ALETHEA, mild elevated A1AT, elevated immunoglobulin A, hepatitis B immunity with otherwise neg panel, normal AMA, SLA, LKM, ceruloplasmin, with neg ETOH screening with PETH neg <10 AFP 4.97. Imaging with
cirrhosis and ascites. 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 MRI with severe hepatic cirrhosis without HCC, severe portal HTN, mild ascites, upper abdominal adenopathy, GB distention, adrenal mass and CM. He
now presents today with abdominal distention and change in mental status. On admission noted with WBC 22,400, hbg 14.1, platelets 172, na 121, creat 2.6, BUN 29, lactate 7.5, bili 14.5, AST 44, ALT <30, alk phos 171, ammonia 40. She reports some
abdominal pain nausea, nonbloody vomiting with distention but denies diarrhea, constipation or rectal bleeding. Urine studies sent results pending underwent diagnostic paracentesis with 4 L off in the ED blood cultures obtained 2 g of IV Rocephin
started nephrology consulted and started 3% saline, IR consulted for thoracentesis, GI consulted, senior marketing analyst consulted. Ascitic fluid analysis positive for SBP with greater than 250 PMN. Blood cultures positive for gram-negative baccilli. On 02/19
patient went into SVT in the 170s. Received dose of Levophed, and 6 mg of adenosine with return to sinus tachycardia. Cardiology consulted and ordered TTE. Also repleted patient's mag, on admission Mg 1.9. Albumin challenge failed, HRS type 1.
Octreotide, albumin, levophed. Patients MELD 37, Child Class C, attempted to transfer to [facility] however due to lack of coverage for surgery/transplant patient was denied. GI placed Dobbhoff tube and oral lactulose was given. Patient started
having bowel movements with improvement of ammonia numbers. Patient continued to show improvement, mentation improved he was able to converse with us, he removed his Dobbhoff tube, his leukocytosis continues to decrease and his kidney function
continued to improve. He was downgraded to IMU for further care. Patient's mentation improved drastically as he was diuresed and he continued to poop out and the ammonia. Kidney function normalized and patient was taken off octreotide and fluids.
IR took 9 L off his abdomen. Patient was downgraded to the telemetry floor. He continues to have improvement in mentation and is now tolerating low-sodium diet. He had mild pleuritic chest pain due to expanding lung volumes and decreasing
ascitic volume, gave him pain medication which improved pain. He was taken off of IV antibiotics and transition to p.o. Cipro which she will take indefinitely for SBP prophylaxis. His diuretic medications were restarted and kidney function was
tracked. Application for emergency Medicaid was started so patient may have options for disposition planning. Patient was unmotivated to work with PT, and psychiatry was reconsulted to rule in or rule out psychiatric conditions impacting his
motivation. He was also noted to not be eating his meals, with nutrition reporting less than 50% of meals eaten.
#Severe sepsis, resolved
#SBP resolved
#Decompensated Cirrhosis
#Hepatic encephalopathy, resolved
#Hyperbilirubinemia, improving
- prior workup unremarkable as above, suspicion for alcoholic hepatitis -- PEth negative
- MELD score on last admission 25, this admission MELD 37 this admission child class C
- ciprofloxacin 500 twice daily, indefinitely for SBP PPx
Appreciate GI recs
- lactulose TID
- Protonix 40 po qd
-Paracentesis tomorrow.
#chest/abd pain, improving
Right sided with deep inhalation
pleuritic
650 mg acetaminophen scheduled
Obstructive series found at 4.5 cm dilated bowel loops, no air-fluid levels
#MORTEZA, resolved
#Hepatorenal syndrome Type I
- normal kidney function on recent discharge (Commodity Supervisor 0.8)
- c/wDiuretics 20 mg Lasix 50 mg Aldactone
- Trend BMP
- limited paracentesis to <5 L every other day to avoid large volume loss
#Depressed mood improving
- endorsed depression prior to this hospitalization
- On no psych medications
- Consult psych
- reevaluation requested
#Hyponatremia, resolved
- MS improving, no focal neurological deficits
- Continue to monitor
#SVT, resolved
- Patient went into SVT overnight 02/19
- Mg 1.9, 1 g ordered to replete
- TTE showing mild , thickened valves, vegetation cannot be excluded however patient not a candidate for URIEL
- on carvedilol 3.125mg BID with parameters
#Paroxysmal A-fib
- Not on anticoagulation
- on carvedilol as above
- C/t monitor on tele
# Salivary gland cyst
- stable, c/t monitor
DVT PPx:
SCDs
CODE STATUS:
Full code
Anticipated Discharge: > 48 hours
Subjective/Interval History
-
Patient was sleeping this morning when I walked in. He was arousable but seemed cognitively slower than yesterday. He complained of the same pain in the right quadrant. Otherwise he had no other complaints. Nursing staff reports he does not eat
his food, and has been unwilling to participate with PT. Patient is still having adequate bowel movements and does not report any nausea or vomiting or fevers. date of Service: February 28, 2025
Objective Data
-
Labs:
Laboratory Results
02/28/25
06:34
WBC 9.1
Hgb 10.5 L
Hct 30.0 L
Plt Count 64 L
Sodium 132 L
Potassium 3.9
Chloride 102
Carbon Dioxide 23
BUN 27 H
Creatinine 1.0
Glucose 85
Calcium 8.4
Total Bilirubin 5.4 H
AST 50
ALT 26
Alkaline Phosphatase 91
Vital Signs:
Vital Signs
Temp Pulse Resp BP Pulse Ox
98 F 55 16 129/62 97
02/28/25 07:00 02/28/25 08:27 02/28/25 07:00 02/28/25 08:27 02/28/25 07:00
I&O
02/27/25 02/28/25 03/01/25
06:59 06:59 06:59
Intake Total 1050 / 1050 520 / 520
Output Total 700 / 700 425 / 425
Balance 350 / 350 95 / 95
Review of Systems
-
Unable to obtain full review of systems at this time due to: Acuity
History Source: Patient
Constitutional: Reports No Symptoms; Denies Fever
EENT: Reports No Symptoms Reported; Denies Tearing or Runny Nose
Respiratory: Reports No Symptoms; Denies Cough or Trouble Breathing
Cardiac: Reports No Symptoms; Denies Chest Pain or Palpitations
Abdomen/GI: Reports Abdominal Pain (Right upper quadrant); Denies Nausea or Vomiting
Genitourinary: Reports No Symptoms
Musculoskeletal: Reports No Symptoms
Skin: Reports No Symptoms
Neuro: Reports No Symptoms; Denies Dizzy or Headache
Physical Exam
-
General: No Apparent Distress, Appears Chronically Ill and Cachectic
HEENT: Normocephalic and Atraumatic
Respiratory: Clear to Auscultation and Non Labored Respirations; Negative Wheezes, Rhonchi or Crackles
Cardiac: Regular Rhythm, S1/S2 and Murmur (Loudest in mitral area)
GI: Soft, Nontender, Nondistended and Normal Bowel Sounds
Musculoskeletal: No Cyanosis, Edema, Right Lower Extrem (Trace) and Edema, Left Lower Extrem (Trace)
Skin: Warm and Dry
Neuro: Awake and Alert; Negative Oriented (Did not know time, knew place and name)
Psych: Other (Cognitively slower)
[2025-02-28 11:00] VITALS: BP 120/67
[2025-02-28] MEDS: FLUSH (NSS) IV ×2 (13:06)
--- NOTE | 2025-02-28 14:27 | W.PN.UPDATE ---
Update Note
Progress Note Update
patient seen chart reviewed. mr galvan appears much better compared to my visit with him last week. he was alert and oriented. he was sitting up in bed. hair was neatly combed . he was able to be attentive. we reviewed my visit with him last week
which he did not recall. he admits he feels like a different person today. he is willing to try an antidepressant. we did talk about the reality that when you are so sick as he is w liver disease it is hard to feel well mentally or physically. i do
have some concerns re antidepressant. ssri's are the safest for him but his sodium is low at 132. would see what it is tomorrow before starting an ssri. would consider zoloft if there is no objection from medical 25 mg. with zoloft you can get
the dose very low without breaking up pills as you would need to do w other ssri's. will follow
--- NOTE | 2025-02-28 14:31 | CM ---
Patient forms completed and [employer] aware and picking up forms from the chart. Patient recommended for SNF by PT/OT and CM will discuss options and start referrals. CM will continue to follow for discharge planning needs.
Plan; SNF
[2025-02-28 15:00] VITALS: BP 121/64
[2025-02-28 19:27] VITALS: BP 126/62
[2025-02-28 23:29] VITALS: BP 121/62
[2025-03-01] VITALS (10 sets, daily range): BP systolic 57–130; BP diastolic 56–69; PULSE 58; O2SAT 100; BMI 34.0
[2025-03-01 06:36] LABS: Hematocrit 28.5 % (39.0-52.0); Hemoglobin 10.0 g/dL (13.0-18.0); Mean Corp Hgb Conc. 35.1 g/dL (33.0-37.0); Mean Corpuscular Volume 106.7 fL (80.0-94.0); Platelet Count 73 10^3/uL (130-400); Red Cell Dist. Width 18.5 % (11.5-14.5)
[2025-03-01 06:57] LABS: ALT (SGPT) 26 U/L (0-50); AST (SGOT) 44 U/L (17-59); Albumin 3.0 g/dl (3.5-5.0); Alkaline Phosphatase 87 U/L (38-126); Blood Urea Nitrogen 25 mg/dl (9-20); Calcium 8.2 mg/dl (8.4-10.2); Carbon Dioxide 22 mmol/L (22-30); Chloride 100 mmol/L (98-107); Estimated Creatinine Clearance 99 ml/min; Glucose 87 mg/dl (70-99); Potassium 3.9 mmol/L (3.5-5.1); Sodium 128 mmol/L (135-145); Total Protein 6.0 g/dl (6.3-8.2); eGFR > 60.00
[2025-03-01] MEDS: COREG 3.125 MG PO ×2 (08:26→21:03)
[2025-03-01] MEDS: ALDACTONE 50 MG PO (08:26)
[2025-03-01] MEDS: PROTONIX 40 MG PO (08:26)
[2025-03-01] MEDS: DUPHALAC/CHRONULAC 20 GRAMS PO ×3 (08:26→21:07)
[2025-03-01] MEDS: XIFAXAN 550 MG PO ×2 (08:26→21:03)
[2025-03-01] MEDS: CIPRO 500 MG PO (08:26)
[2025-03-01] MEDS: LASIX 20 MG PO (08:26)
[2025-03-01] MEDS: FLUSH (NSS) IV ×2 (08:33)
[2025-03-01 10:59] LABS: Body Fluid Second Tech AMA
[2025-03-01] MEDS: FLEXBUMIN 100 IV (11:20)
[2025-03-01] MEDS: TYLENOL 500 MG PO ×2 (11:22→17:51)
--- NOTE | 2025-03-01 11:30 | W.PN.UPDATE ---
Update Note
Progress Note Update
patient seen chart reviewed. and d at bedside. spoke with nursing. patient was a little more withdrawn today. seemed content to let and d talk for him. w arlette expressed gratitude for 'saving his life' feels care at has been very good.
explained that we are holding off on antidep given sodium of 128. hopefully that will improve. noted paracentesis results. feels patient may be less communicative now given he had procedure earlier today. the patient did not offer an
explanation. he does say he will try to do PT today. does feel he is depressed apart from his physical debility will follow
--- NOTE | 2025-03-01 13:08 | W.PN.GI.CBS2 ---
Today's Communication / Plan
-
Paracentesis today for comfort 10L removed neg for SBP
Albumin IV x1 given
Await placement
No new GI recs otherwise will sign off please call for questions. Will FU with Dr Davis OP basis
Assessment / Plan
-
Pt is a 59yo with no medical care for years, hx PAF(not on anticoagulation), salivary gland tumor (chronic for years), prior ETOH use years ago with admission in November with massive ascites with decompensated liver failure, hyponatremia,
coagulopathy, electrolyte imbalance. During that admission he had paracentesis x 3 for total of 28 liters of ascites removed and fluid studies c/w liver etiology with neg pathology. He was advised hepatology and given contact for several
hepatologists and was also scheduled 12/21 in GI office and did not call to confirm without follow up. He was also advised follow up labs that were not completed. He was discharge on Lasix 40mg and Aldactone 50mg daily. Along with PPI daily and
Oxycodone.. Etiology of liver disease was unclear. Liver work up complete during admission revealed + ALETHEA, mild elevated A1AT, elevated immunoglobulin A, hepatitis B immunity with otherwise neg panel, normal AMA, SLA, LKM, ceruloplasmin, with
neg ETOH screening with PETH neg <10 AFP 4.97. Imaging with cirrhosis and ascites. 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 MRI with severe hepatic cirrhosis without HCC, severe portal HTN, mild ascites, upper
abdominal adenopathy, GB distention, adrenal mass and CM. He now presents with abdominal distention and change in mental status. On admission noted with WBC 22,400, hbg 14.1, platelets 172, na 121, creat 2.6, BUN 29, lactate 7.5, bili 14.5, AST
44, ALT <30, alk phos 171, ammonia 40.
Impression:
- ETOH cirrhosis MELD 39 on admission
not candidate for transfer for OLT evaluation due to insurance
- SBP diagnosed 02/19 and cleared on subsequent taps 02/21, 02/25
- hepatic encephalopathy on Lactulose and Xifaxan
- massive ascites
- EV per imaging. On coreg
- MORTEZA - improved
-thrombocytopenia
-coagulopathy
-hyponatremia
-hx ETOH abuse years ago
-hypoalbuminemia on prior admission
-adrenal mass
-hx PAF
-salivary gland tumor- chronic per patient on prior admission
Recommendations
- Paracentesis today 03/01 with 10L removed neg for SBP
- IV albumin x1 today
- He can have paracentesis PRN basis for comfort as needed
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
- C/w lasix 20 and aldactone 50mg daily basis. Serial Cr
- C/w lactulose and xifaximin. Ammonia levels normal
- Await placement
Subjective
Subjective
Date of Service: March 01, 2025
Had paracentesis of 10L removed today. Denies LH or dizziness. No abd pain. Tolerating diet without issues
Objective
Data Reviewed
Laboratory Data:
Laboratory Results
03/01/25 06:06
03/01/25 06:06
Laboratory Results
PT 21.0 Sec (11.4-14.6) H 02/27/25 07:00
INR 1.79 02/27/25 07:00
APTT 45.6 Sec (23.4-35.0) H 02/22/25 03:52
Magnesium 2.2 mg/dl (1.6-2.3) 02/24/25 03:45
Total Bilirubin 5.8 mg/dl (0.2-1.3) H 03/01/25 06:06
AST 44 U/L (17-59) 03/01/25 06:06
ALT 26 U/L (0-50) 03/01/25 06:06
Alkaline Phosphatase 87 U/L (38-126) 03/01/25 06:06
Amylase 49 U/L (30-110) 02/20/25 03:29
Lipase 87 U/L (23-300) 02/20/25 03:29
Vital Signs and I&O:
Vital Signs
Temp Pulse Resp BP Pulse Ox
98.3 F 58 18 130/60 99
03/01/25 11:25 03/01/25 11:25 03/01/25 11:25 03/01/25 11:25 03/01/25 11:25
I&O
02/28/25 03/01/25 03/02/25
06:59 06:59 06:59
Intake Total 520 / 520 1570 / 1570
Output Total 425 / 425 2074 / 2074
Balance 95 / 95 -505 / -505
Physical Exam
Physical Exam
GEN: No acute distress, conversant, pleasant
HEENT: +icteric, extraocular movements intact, clear oropharynx without exudates L side salivary mass
GI: soft, mildly-distended, +fluid wae not tender to palpation, normal active bowel sounds, no hepatosplenomegaly
EXT: warm, well perfused, 2+ edema bilaterally
NEURO: AAOx3, slowed speech non-focal
--- NOTE | 2025-03-01 13:20 | W.PN.HOSP.TC ---
Addendum entered and electronically signed by Carolyn Harry MD 03/01/25 17:44:
I saw and evaluated the patient independently. I reviewed the resident�s note and agree with findings and plan as documented by Dr. Jordan.
GENERAL: chronically ill appearing male in no apparent distress--brighter and more talkative today--sitting in the chair
HEENT: NC/AT salivary cyst left lower jaw
HEART: regular rate and rhythm, +S1, +S2
LUNGS : clear to auscultation bilaterally
ABDOM: soft, nontender, nondistended, + bowel sounds, + ascites
EXT: no cyanosis, clubbing, or edema
NEUROLOGIC: nonfocal
Severe sepsis with Klebsiella pneumoniae SBP/bacteremia--resolved--with decompensated cirrhosis/hepatic encephalopathy/hyperbilirubinemia---finished rocephin and now on cipro for prophylaxis--Downtrending Tbili--child class C -- awaiting insurance
coverage to begin transplant application process--paracentesis 02/21 for 4L and 02/25 for 9L--s/p albumin--apprec GI-- c/w lactulose, PPI, Xifaxin-- diuretics restarted by GI--apprec input-- lactulose increased--s/p tap 03/01 for 10L, s/p albumin
MORTEZA--Hepatorenal syndrome---restarted diuretics --apprec renal
Depressed mood- endorsed depression prior to this hospitalization- apprec psych--cannot start SSRI with hyponatremia
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
SVT-- resolved (overnight 02/19)--- Cardiology following -- TTE showing mild , thickened valves, vegetation cannot be excluded however patient not a candidate for URIEL--cont coreg as BP tolerates
Paroxysmal A-fib--Not on anticoagulation- started on carvedilol as above
Salivary gland cyst
DVT Proph--SCDs
CODE STATUS--Full code
Original Note:
Today's Communication/Plan
-
Paracentesis, 10 L plus albumin
Able to work with PT
Psychiatry holding off on starting antidepressant given low sodium
Working on insurance coverage
Assessment / Plan
Assessment / Plan
Mr Maurizio Granados is a 59yo with no medical care for years, hx PAF(not on anticoagulation), salivary gland tumor (chronic for years), prior ETOH use years ago with admission in November with massive ascites with decompensated liver failure,
hyponatremia, coagulopathy, electrolyte imbalance. During that admission he had paracentesis x 3 for total of 28 liters of ascites removed and fluid studies c/w liver etiology with negative pathology. Etiology of liver disease was unclear. Liver
work up complete during admission revealed + ALETHEA, mild elevated A1AT, elevated immunoglobulin A, hepatitis B immunity with otherwise neg panel, normal AMA, SLA, LKM, ceruloplasmin, with neg ETOH screening with PETH neg <10 AFP 4.97. Imaging with
cirrhosis and ascites. 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 MRI with severe hepatic cirrhosis without HCC, severe portal HTN, mild ascites, upper abdominal adenopathy, GB distention, adrenal mass and CM. He
now presents today with abdominal distention and change in mental status. On admission noted with WBC 22,400, hbg 14.1, platelets 172, na 121, creat 2.6, BUN 29, lactate 7.5, bili 14.5, AST 44, ALT <30, alk phos 171, ammonia 40. She reports some
abdominal pain nausea, nonbloody vomiting with distention but denies diarrhea, constipation or rectal bleeding. Urine studies sent results pending underwent diagnostic paracentesis with 4 L off in the ED blood cultures obtained 2 g of IV Rocephin
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 Ascitic fluid analysis positive for SBP with greater than 250 PMN. Blood cultures positive for gram-negative baccilli. On 02/19
patient went into SVT in the 170s. Received dose of Levophed, and 6 mg of adenosine with return to sinus tachycardia. Cardiology consulted and ordered TTE. Also repleted patient's mag, on admission Mg 1.9. Albumin challenge failed, HRS type 1.
Octreotide, albumin, levophed. Patients MELD 37, Child Class C, attempted to transfer to [facility] however due to lack of coverage for surgery/transplant patient was denied. GI placed Dobbhoff tube and oral lactulose was given. Patient started
having bowel movements with improvement of ammonia numbers. Patient continued to show improvement, mentation improved he was able to converse with us, he removed his Dobbhoff tube, his leukocytosis continues to decrease and his kidney function
continued to improve. He was downgraded to IMU for further care. Patient's mentation improved drastically as he was diuresed and he continued to poop out and the ammonia. Kidney function normalized and patient was taken off octreotide and fluids.
IR took 9 L off his abdomen. Patient was downgraded to the telemetry floor. He continues to have improvement in mentation and is now tolerating low-sodium diet. He had mild pleuritic chest pain due to expanding lung volumes and decreasing
ascitic volume, gave him pain medication which improved pain. He was taken off of IV antibiotics and transition to p.o. Cipro which she will take indefinitely for SBP prophylaxis. His diuretic medications were restarted and kidney function was
tracked. Application for emergency Medicaid was started so patient may have options for disposition planning. Patient was unmotivated to work with PT, and psychiatry was reconsulted to rule in or rule out psychiatric conditions impacting his
motivation. Psychiatry talked with patient, but will hold off starting antidepressant given low sodium numbers. He was also noted to not be eating his meals, with nutrition reporting less than 50% of meals eaten. On 03/01 paracentesis was done 10 L
taken off, followed by albumin. GI signed off, but will follow-up outpatient when patient is discharge. Patient started working with PT, was able to do some tasks with frequent redirection but needed frequent rest breaks, recommending skilled
rehab.
#Severe sepsis, resolved
#SBP resolved
#Decompensated Cirrhosis
#Hepatic encephalopathy, resolved
#Hyperbilirubinemia, improving
- prior workup unremarkable as above, suspicion for alcoholic hepatitis -- PEth negative
- MELD score on last admission 25, this admission MELD 37 this admission child class C
- ciprofloxacin 500 twice daily, indefinitely for SBP PPx
Appreciate GI recs
- lactulose TID
- Protonix 40 po qd
-Paracentesis 10L, albumin
#chest/abd pain, improving
Right sided with deep inhalation
pleuritic
650 mg acetaminophen scheduled
Obstructive series found at 4.5 cm dilated bowel loops, no air-fluid levels
#MORTEZA, resolved
#Hepatorenal syndrome Type I
- normal kidney function on recent discharge (Tool Analyst 0.8)
- c/wDiuretics 20 mg Lasix 50 mg Aldactone
- Trend BMP
- limited paracentesis to <5 L every other day to avoid large volume loss
#Depressed mood improving
- endorsed depression prior to this hospitalization
- On no psych medications
- Consult psych
- Will hold off starting antidepressant given low sodium numbers
# Deconditioning
Due to being bedbound at home, hospital
-Patient participating with PT
- PT recommending skilled rehab
#Hyponatremia,
- MS improving, no focal neurological deficits
- Continue to monitor
- 128 on 03/01
-Consider nephrology consult if continues to drop, consider 3% saline, consider [facility]
#SVT, resolved
- Patient went into SVT overnight 02/19
- Mg 1.9, 1 g ordered to replete
- TTE showing mild , thickened valves, vegetation cannot be excluded however patient not a candidate for URIEL
- on carvedilol 3.125mg BID with parameters
- Heart rates in the 50s, continue to monitor
#Paroxysmal A-fib
- Not on anticoagulation
- on carvedilol as above
- C/t monitor on tele
# Salivary gland cyst
- stable, c/t monitor
DVT PPx:
SCDs
CODE STATUS:
Full code
Anticipated Discharge: > 48 hours
Subjective/Interval History
-
Patient was seen at bedside today. He reports feeling okay, seemed a bit better today was able to talk more and crack a joke. Informed him that he had paracentesis upcoming today and that we are working on his application. He had no questions for
us but appreciated us for coming by. Attempted to talk to patient's , however she was busy but reported she will be available tomorrow. Date of Service: March 01, 2025
Objective Data
-
Labs:
Laboratory Results
03/01/25
06:06
WBC 9.3
Hgb 10.0 L
Hct 28.5 L
Plt Count 73 L
Sodium 128 L
Potassium 3.9
Chloride 100
Carbon Dioxide 22
BUN 25 H
Creatinine 0.9
Glucose 87
Calcium 8.2 L
Total Bilirubin 5.8 H
AST 44
ALT 26
Alkaline Phosphatase 87
Vital Signs:
Vital Signs
Temp Pulse Resp BP Pulse Ox
98.3 F 58 18 130/60 99
03/01/25 11:25 03/01/25 11:25 03/01/25 11:25 03/01/25 11:25 03/01/25 11:25
I&O
02/28/25 03/01/25 03/02/25
06:59 06:59 06:59
Intake Total 520 / 520 1570 / 1570
Output Total 425 / 425 2074
Balance 95 / 95 -505 / -505
Review of Systems
-
History Source: Patient
Constitutional: Reports No Symptoms; Denies Fever or Fatigue
EENT: Reports No Symptoms Reported; Denies Sore Throat or Runny Nose
Respiratory: Reports Pleurisy; Denies Cough, Trouble Breathing or Wheezing
Cardiac: Denies Chest Pain or Palpitations
Abdomen/GI: Reports No Symptoms; Denies Abdominal Pain, Nausea, Vomiting or Diarrhea
Genitourinary: Reports No Symptoms; Denies Dysuria
Musculoskeletal: Reports No Symptoms
Skin: Reports No Symptoms; Denies Itching or Rash
Neuro: Reports No Symptoms; Denies Dizzy, Headache or Weakness
Physical Exam
-
General: Well Developed, Well Nourished and No Apparent Distress
HEENT: Normocephalic and Atraumatic
Respiratory: Clear to Auscultation and Non Labored Respirations; Negative Wheezes or Crackles
Cardiac: Regular Rhythm, S1/S2 and Murmur; Negative Rub
GI: Soft, Nontender, Nondistended and Normal Bowel Sounds
Musculoskeletal: No Cyanosis, Edema, Right Lower Extrem and Edema, Left Lower Extrem
Skin: Warm and Dry
Neuro: Awake, Alert and Oriented
Psych: Calm
--- NOTE | 2025-03-01 15:56 | CM ---
Addendum entered by Hiwot Deutsch 03/01/25 17:13:
VM left for patient , to review options. CM sent referrals to SNF locations close to patient home. CM will continue to follow for discharge planning needs.
Plan; pending MA and SNF acceptance.
Original Note:
Patient seen at bedside with physicians on [address]. Patient pending MA application approval, documentation given to [facility] yesterday. Patient willing to go to SNF when insurance coverage is in place. CM will talk to family about options. CM will
continue to follow for discharge planning needs.
Plan; SNF when insurance in place; referrals to be sent for consideration.
[2025-03-02] MEDS: TYLENOL 500 MG PO ×3 (03:52→18:05)
[2025-03-02 04:00] VITALS: BP 119/68
[2025-03-02 06:00] VITALS: BMI 30.5
--- NOTE | 2025-03-02 06:00 | PTCARENOTE ---
Patient had a significant weight loss due to a Paracentesis from yesterday which removed 10L fluid.
[2025-03-02 06:52] LABS: Hematocrit 27.9 % (39.0-52.0); Hemoglobin 9.9 g/dL (13.0-18.0); Mean Corp Hgb Conc. 35.5 g/dL (33.0-37.0); Mean Corpuscular Volume 106.5 fL (80.0-94.0); Platelet Count 70 10^3/uL (130-400); Red Cell Dist. Width 18.3 % (11.5-14.5)
[2025-03-02 07:13] LABS: ALT (SGPT) 24 U/L (0-50); AST (SGOT) 40 U/L (17-59); Albumin 3.0 g/dl (3.5-5.0); Alkaline Phosphatase 81 U/L (38-126); Blood Urea Nitrogen 26 mg/dl (9-20); Calcium 8.3 mg/dl (8.4-10.2); Carbon Dioxide 24 mmol/L (22-30); Chloride 98 mmol/L (98-107); Estimated Creatinine Clearance 94 ml/min; Glucose 79 mg/dl (70-99); Potassium 3.9 mmol/L (3.5-5.1); Sodium 128 mmol/L (135-145); Total Protein 6.0 g/dl (6.3-8.2); eGFR > 60.00
[2025-03-02 07:45] VITALS: BP 116/60
[2025-03-02] MEDS: PROTONIX 40 MG PO (09:25)
[2025-03-02] MEDS: CIPRO 500 MG PO (09:25)
[2025-03-02] MEDS: DUPHALAC/CHRONULAC 20 GRAMS PO ×3 (09:25→21:56)
[2025-03-02] MEDS: XIFAXAN 550 MG PO ×2 (09:26→20:17)
[2025-03-02] MEDS: ALDACTONE 50 MG PO (09:26)
[2025-03-02] MEDS: LASIX 20 MG PO (09:26)
[2025-03-02] MEDS: COREG 3.125 MG PO ×2 (09:26→20:16)
--- NOTE | 2025-03-02 10:00 | W.PN.HOSP.TC ---
Addendum entered and electronically signed by Carolyn Harry MD 03/02/25 14:33:
I saw and evaluated the patient independently. I reviewed the resident�s note and agree with findings and plan as documented by Dr. Jordan.
GENERAL: chronically ill appearing male in no apparent distress--wants to go home
HEENT: NC/AT salivary cyst left lower jaw
HEART: regular rate and rhythm, +S1, +S2
LUNGS : clear to auscultation bilaterally
ABDOM: soft, nontender, nondistended, + bowel sounds, + ascites
EXT: no cyanosis, clubbing, or edema
NEUROLOGIC: nonfocal
Severe sepsis with Klebsiella pneumoniae SBP/bacteremia--resolved--with decompensated cirrhosis/hepatic encephalopathy/hyperbilirubinemia---finished rocephin and now on lifelong cipro for prophylaxis--Downtrending Tbili--child class C -- awaiting
insurance coverage to begin transplant application process--paracentesis 02/21 for 4L and 02/25 for 9L--s/p albumin--apprec GI-- c/w lactulose, PPI, Xifaxin-- diuretics restarted by GI--apprec input-- lactulose increased--s/p tap 03/01 for 10L, s/p
albumin
MORTEZA--Hepatorenal syndrome---restarted diuretics --apprec renal
Depressed mood- endorsed depression prior to this hospitalization- apprec psych--cannot start SSRI with hyponatremia
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
SVT-- resolved (overnight 02/19)--- Cardiology following -- TTE showing mild , thickened valves, vegetation cannot be excluded however patient not a candidate for URIEL--cont coreg as BP tolerates
Paroxysmal A-fib--Not on anticoagulation- started on carvedilol as above
Salivary gland cyst
DVT Proph--SCDs
CODE STATUS--Full code
Original Note:
Today's Communication/Plan
-
Patient feeling better
Encouraged more p.o. intake
Assessment / Plan
Assessment / Plan
Mr Maurizio Granados is a 59yo with no medical care for years, hx PAF(not on anticoagulation), salivary gland tumor (chronic for years), prior ETOH use years ago with admission in November with massive ascites with decompensated liver failure,
hyponatremia, coagulopathy, electrolyte imbalance. During that admission he had paracentesis x 3 for total of 28 liters of ascites removed and fluid studies c/w liver etiology with negative pathology. Etiology of liver disease was unclear. Liver
work up complete during admission revealed + ALETHEA, mild elevated A1AT, elevated immunoglobulin A, hepatitis B immunity with otherwise neg panel, normal AMA, SLA, LKM, ceruloplasmin, with neg ETOH screening with PETH neg <10 AFP 4.97. Imaging with
cirrhosis and ascites. 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 MRI with severe hepatic cirrhosis without HCC, severe portal HTN, mild ascites, upper abdominal adenopathy, GB distention, adrenal mass and CM. He
now presents today with abdominal distention and change in mental status. On admission noted with WBC 22,400, hbg 14.1, platelets 172, na 121, creat 2.6, BUN 29, lactate 7.5, bili 14.5, AST 44, ALT <30, alk phos 171, ammonia 40. She reports some
abdominal pain nausea, nonbloody vomiting with distention but denies diarrhea, constipation or rectal bleeding. Urine studies sent results pending underwent diagnostic paracentesis with 4 L off in the ED blood cultures obtained 2 g of IV Rocephin
started nephrology consulted and started 3% saline, IR consulted for thoracentesis, GI consulted, post hole digger consulted. Ascitic fluid analysis positive for SBP with greater than 250 PMN. Blood cultures positive for gram-negative baccilli. On 02/19
patient went into SVT in the 170s. Received dose of Levophed, and 6 mg of adenosine with return to sinus tachycardia. Cardiology consulted and ordered TTE. Also repleted patient's mag, on admission Mg 1.9. Albumin challenge failed, HRS type 1.
Octreotide, albumin, levophed. Patients MELD 37, Child Class C, attempted to transfer to [facility] however due to lack of coverage for surgery/transplant patient was denied. GI placed Dobbhoff tube and oral lactulose was given. Patient started
having bowel movements with improvement of ammonia numbers. Patient continued to show improvement, mentation improved he was able to converse with us, he removed his Dobbhoff tube, his leukocytosis continues to decrease and his kidney function
continued to improve. He was downgraded to IMU for further care. Patient's mentation improved drastically as he was diuresed and he continued to poop out and the ammonia. Kidney function normalized and patient was taken off octreotide and fluids.
IR took 9 L off his abdomen. Patient was downgraded to the telemetry floor. He continues to have improvement in mentation and is now tolerating low-sodium diet. He had mild pleuritic chest pain due to expanding lung volumes and decreasing
ascitic volume, gave him pain medication which improved pain. He was taken off of IV antibiotics and transition to p.o. Cipro which she will take indefinitely for SBP prophylaxis. His diuretic medications were restarted and kidney function was
tracked. Application for emergency Medicaid was started so patient may have options for disposition planning. Patient was unmotivated to work with PT, and psychiatry was reconsulted to rule in or rule out psychiatric conditions impacting his
motivation. Psychiatry talked with patient, but will hold off starting antidepressant given low sodium numbers. He was also noted to not be eating his meals, with nutrition reporting less than 50% of meals eaten. On 03/01 paracentesis was done 10 L
taken off, followed by albumin. GI signed off, but will follow-up outpatient when patient is discharge. Patient started working with PT, was able to do some tasks with frequent redirection but needed frequent rest breaks, recommending skilled
rehab.
#Severe sepsis, resolved
#SBP resolved
#Decompensated Cirrhosis
#Hepatic encephalopathy, resolved
#Hyperbilirubinemia, improving
total paracentesis to
- prior workup unremarkable as above, suspicion for alcoholic hepatitis -- PEth negative
- MELD score on last admission 25, this admission MELD 37 this admission child class C
- ciprofloxacin 500 twice daily, indefinitely for SBP PPx
Appreciate GI recs
- lactulose TID
- Protonix 40 po qd
#chest/abd pain, improving
Right sided with deep inhalation
pleuritic
650 mg acetaminophen scheduled
Obstructive series found at 4.5 cm dilated bowel loops, no air-fluid levels
#MORTEZA, resolved
#Hepatorenal syndrome Type I
- normal kidney function on recent discharge (Loom [employer] 0.8)
- c/wDiuretics 20 mg Lasix 50 mg Aldactone
- Trend BMP
- limited paracentesis to <5 L every other day to avoid large volume loss
#Depressed mood improving
- endorsed depression prior to this hospitalization
- On no psych medications
- Consult psych
- Will hold off starting antidepressant given low sodium numbers
# Deconditioning
Due to being bedbound at home, hospital
-Patient participating with PT
- PT recommending skilled rehab
#Hyponatremia,
- MS improving, no focal neurological deficits
- Continue to monitor
- 128 on 03/01
-Consider nephrology consult if continues to drop, consider 3% saline, consider Samsca
#SVT, resolved
- Patient went into SVT overnight 02/19
- Mg 1.9, 1 g ordered to replete
- TTE showing mild , thickened valves, vegetation cannot be excluded however patient not a candidate for URIEL
- on carvedilol 3.125mg BID with parameters
- Heart rates in the 50s, continue to monitor
#Paroxysmal A-fib
- Not on anticoagulation
- on carvedilol as above
- C/t monitor on tele
# Salivary gland cyst
- stable, c/t monitor
DVT PPx:
SCDs
CODE STATUS:
Full code
Anticipated Discharge: > 48 hours
Subjective/Interval History
-
Patient was seen at bedside today. When asked how he was doing he replied 'great!' He asked if he seemed good enough to go home and I informed him that PT is recommending acute rehab to which he was amenable. Informed him that we are still working
on insurance paperwork so that we can find him a rehab. He reported that the chest wall pain is still present and slightly better. He reported that he is trying to eat more despite not having a big appetite. Date of Service: March 02, 2025
Objective Data
-
Labs:
Laboratory Results
03/02/25
06:09
WBC 8.7
Hgb 9.9 L
Hct 27.9 L
Plt Count 70 L
Sodium 128 L
Potassium 3.9
Chloride 98
Carbon Dioxide 24
BUN 26 H
Creatinine 0.9
Glucose 79
Calcium 8.3 L
Total Bilirubin 6.2 H
AST 40
ALT 24
Alkaline Phosphatase 81
Vital Signs:
Vital Signs
Temp Pulse Resp BP Pulse Ox
98.2 F 59 16 116/60 100
03/02/25 07:45 03/02/25 07:45 03/02/25 07:45 03/02/25 07:45 03/02/25 07:45
I&O
03/01/25 03/02/25 03/03/25
06:59 06:59 06:59
Intake Total 1570 / 1570 660 / 660
Output Total 2074 715 / 715
Balance -505 / -505 -55 / -55
Review of Systems
-
History Source: Patient
Constitutional: Reports No Appetite; Denies Fever
EENT: Denies Sore Throat
Respiratory: Reports No Symptoms; Denies Cough or Trouble Breathing
Cardiac: Reports No Symptoms; Denies Chest Pain, Diaphoresis or Palpitations
Abdomen/GI: Reports No Symptoms; Denies Abdominal Pain, Nausea or Vomiting
Genitourinary: Reports No Symptoms; Denies Dysuria
Musculoskeletal: Reports No Symptoms
Skin: Reports No Symptoms; Denies Itching
Neuro: Reports No Symptoms and Weakness; Denies Dizzy or Headache
Physical Exam
-
General: No Apparent Distress, Comfortable and Conversant
HEENT: Normocephalic and Atraumatic
Respiratory: Clear to Auscultation and Non Labored Respirations; Negative Wheezes or Crackles
Cardiac: Regular Rhythm, S1/S2 and Murmur; Negative Rub
GI: Soft, Nontender, Normal Bowel Sounds and Distended
Musculoskeletal: No Cyanosis and No Edema
Skin: Warm and Dry
Neuro: Awake, Alert and Oriented
[2025-03-02 11:43] VITALS: BP 104/58
[2025-03-02 15:40] VITALS: BP 105/57
--- NOTE | 2025-03-02 17:55 | W.PN.UPDATE ---
Update Note
Progress Note Update
Patient not seen today. Na still low at 128 and will not consider an SSRI or SNRI. Will see tomorrow.
[2025-03-02 19:48] VITALS: BP 123/60
[2025-03-02 23:31] VITALS: BP 111/58
[2025-03-03] MEDS: TYLENOL 500 MG PO ×3 (02:56→18:50)
[2025-03-03 03:14] VITALS: BP 116/55
[2025-03-03 06:00] VITALS: BMI 29.9
--- NOTE | 2025-03-03 07:38 | PTCARENOTE ---
Cruz catheter was removed after teaching was provided and approval was received. Intact Cruz was removed successfully.
[2025-03-03 07:52] VITALS: BP 104/64
[2025-03-03] MEDS: CIPRO 500 MG PO (08:02)
[2025-03-03] MEDS: XIFAXAN 550 MG PO ×2 (08:02→21:40)
[2025-03-03] MEDS: PROTONIX 40 MG PO (08:02)
[2025-03-03] MEDS: COREG 3.125 MG PO ×2 (08:02→21:40)
[2025-03-03] MEDS: LASIX 20 MG PO (08:05)
[2025-03-03] MEDS: ALDACTONE 50 MG PO (08:05)
[2025-03-03] MEDS: DUPHALAC/CHRONULAC 20 GRAMS PO ×3 (08:06→21:39)
[2025-03-03 08:36] LABS: Blood Urea Nitrogen 24 mg/dl (9-20); Calcium 8.3 mg/dl (8.4-10.2); Carbon Dioxide 23 mmol/L (22-30); Chloride 100 mmol/L (98-107); Estimated Creatinine Clearance 93 ml/min; Glucose 86 mg/dl (70-99); Magnesium 1.9 mg/dl (1.6-2.3); Potassium 4.0 mmol/L (3.5-5.1); Sodium 128 mmol/L (135-145); eGFR > 60.00
--- NOTE | 2025-03-03 11:27 | W.PN.HOSP.TC ---
Addendum entered and electronically signed by Carolyn Harry MD 03/03/25 14:46:
I saw and evaluated the patient independently. I reviewed the resident�s note and agree with findings and plan as documented by Dr. Jordan.
GENERAL: chronically ill appearing male in no apparent distress-- visiting
HEENT: NC/AT salivary cyst left lower jaw
HEART: regular rate and rhythm, +S1, +S2
LUNGS : clear to auscultation bilaterally
ABDOM: soft, nontender, nondistended, + bowel sounds, + ascites
EXT: no cyanosis, clubbing, or edema
NEUROLOGIC: nonfocal
Severe sepsis with Klebsiella pneumoniae SBP/bacteremia--resolved--with decompensated cirrhosis/hepatic encephalopathy/hyperbilirubinemia---finished Rocephin and now on lifelong cipro for prophylaxis--Downtrending Tbili--child class C -- awaiting
insurance coverage to begin transplant application process--paracentesis 02/21 for 4L and 02/25 for 9L, 03/01 10L--s/p albumin--apprec GI-- c/w lactulose, PPI, Xifaxin-- diuretics restarted by GI--apprec input-- lactulose increased
MORTEZA--Hepatorenal syndrome---restarted diuretics --apprec renal
Depressed mood- endorsed depression prior to this hospitalization- apprec psych--cannot start SSRI with hyponatremia
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
SVT-- resolved (overnight 02/19)--- Cardiology following -- TTE showing mild , thickened valves, vegetation cannot be excluded however patient not a candidate for URIEL--cont coreg as BP tolerates
Paroxysmal A-fib--Not on anticoagulation- started on carvedilol as above
Salivary gland cyst
DVT Proph--SCDs
CODE STATUS--Full code
Original Note:
Today's Communication/Plan
-
Patient doing well
Eager to do rehab and get stronger
Updated at bedside and answered her questions
Assessment / Plan
Assessment / Plan
Mr Maurizio Granados is a 59yo with no medical care for years, hx PAF(not on anticoagulation), salivary gland tumor (chronic for years), prior ETOH use years ago with admission in November with massive ascites with decompensated liver failure,
hyponatremia, coagulopathy, electrolyte imbalance. During that admission he had paracentesis x 3 for total of 28 liters of ascites removed and fluid studies c/w liver etiology with negative pathology. Etiology of liver disease was unclear. Liver
work up complete during admission revealed + ALETHEA, mild elevated A1AT, elevated immunoglobulin A, hepatitis B immunity with otherwise neg panel, normal AMA, SLA, LKM, ceruloplasmin, with neg ETOH screening with PETH neg <10 AFP 4.97. Imaging with
cirrhosis and ascites. 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 MRI with severe hepatic cirrhosis without HCC, severe portal HTN, mild ascites, upper abdominal adenopathy, GB distention, adrenal mass and CM. He
now presents today with abdominal distention and change in mental status. On admission noted with WBC 22,400, hbg 14.1, platelets 172, na 121, creat 2.6, BUN 29, lactate 7.5, bili 14.5, AST 44, ALT <30, alk phos 171, ammonia 40. She reports some
abdominal pain nausea, nonbloody vomiting with distention but denies diarrhea, constipation or rectal bleeding. Urine studies sent results pending underwent diagnostic paracentesis with 4 L off in the ED blood cultures obtained 2 g of IV Rocephin
started nephrology consulted and started 3% saline, IR consulted for thoracentesis, GI consulted, forest manager consulted. Ascitic fluid analysis positive for SBP with greater than 250 PMN. Blood cultures positive for gram-negative baccilli. On 02/19
patient went into SVT in the 170s. Received dose of Levophed, and 6 mg of adenosine with return to sinus tachycardia. Cardiology consulted and ordered TTE. Also repleted patient's mag, on admission Mg 1.9. Albumin challenge failed, HRS type 1.
Octreotide, albumin, levophed. Patients MELD 37, Child Class C, attempted to transfer to [facility] however due to lack of coverage for surgery/transplant patient was denied. GI placed Dobbhoff tube and oral lactulose was given. Patient started
having bowel movements with improvement of ammonia numbers. Patient continued to show improvement, mentation improved he was able to converse with us, he removed his Dobbhoff tube, his leukocytosis continues to decrease and his kidney function
continued to improve. He was downgraded to IMU for further care. Patient's mentation improved drastically as he was diuresed and he continued to poop out and the ammonia. Kidney function normalized and patient was taken off octreotide and fluids.
IR took 9 L off his abdomen. Patient was downgraded to the telemetry floor. He continues to have improvement in mentation and is now tolerating low-sodium diet. He had mild pleuritic chest pain due to expanding lung volumes and decreasing
ascitic volume, gave him pain medication which improved pain. He was taken off of IV antibiotics and transition to p.o. Cipro which she will take indefinitely for SBP prophylaxis. His diuretic medications were restarted and kidney function was
tracked. Application for emergency Medicaid was started so patient may have options for disposition planning. Patient was unmotivated to work with PT, and psychiatry was reconsulted to rule in or rule out psychiatric conditions impacting his
motivation. Psychiatry talked with patient, but will hold off starting antidepressant given low sodium numbers. He was also noted to not be eating his meals, with nutrition reporting less than 50% of meals eaten. On 03/01 paracentesis was done 10 L
taken off, followed by albumin. GI signed off, but will follow-up outpatient when patient is discharge. Patient started working with PT, was able to do some tasks with frequent redirection but needed frequent rest breaks, recommending skilled
rehab.
#Severe sepsis, resolved
#SBP resolved
#Decompensated Cirrhosis
#Hepatic encephalopathy, resolved
#Hyperbilirubinemia, improving
total paracentesis to
- prior workup unremarkable as above, suspicion for alcoholic hepatitis -- PEth negative
- MELD score on last admission 25, this admission MELD 37 this admission child class C
- ciprofloxacin 500 twice daily, indefinitely for SBP PPx
Appreciate GI recs
- lactulose TID
- Protonix 40 po qd
#chest/abd pain, improving
#pleurisy
Right sided with deep inhalation
pleuritic
650 mg acetaminophen scheduled
Obstructive series found at 4.5 cm dilated bowel loops, no air-fluid levels, patient passing bowel
#MORTEZA, resolved
#Hepatorenal syndrome Type I
- normal kidney function on recent discharge (Chief Operating Officer 0.8)
- c/wDiuretics 20 mg Lasix 50 mg Aldactone
- Trend BMP
- limited paracentesis to <5 L every other day to avoid large volume loss
#Depressed mood improving
- endorsed depression prior to this hospitalization
- On no psych medications
- Consult psych
- Will hold off starting antidepressant given low sodium numbers
# Deconditioning
Due to being bedbound at home, hospital
-Patient participating with PT
- PT recommending skilled rehab
#Hyponatremia,
- MS improving, no focal neurological deficits
- Continue to monitor
- 128 on 03/01
-Consider nephrology consult if continues to drop, consider 3% saline, consider Samsca
#SVT, resolved
- Patient went into SVT overnight 02/19
- Mg 1.9, 1 g ordered to replete
- TTE showing mild , thickened valves, vegetation cannot be excluded however patient not a candidate for URIEL
- on carvedilol 3.125mg BID with parameters
- Heart rates in the 50s, continue to monitor
#Paroxysmal A-fib
- Not on anticoagulation
- on carvedilol as above
- C/t monitor on tele
# Salivary gland cyst
- stable, c/t monitor
DVT PPx:
SCDs
CODE STATUS:
Full code
Anticipated Discharge: > 48 hours
Subjective/Interval History
-
Patient and were seen at bedside. He reports feeling better and asked when he can go home. Told patient that we are waiting for him to get stronger by working with physical therapy possible skilled rehab and waiting for insurance so that he
could receive home meds. Patient amenable and is eager to work with physical therapy to get better so he could go home. Patient seemed a bit brighter today and cracked some jokes. Answered questions from about patient's condition, surgery,
and pending disposition. Date of Service: March 03, 2025
Objective Data
-
Labs:
Laboratory Results
03/03/25
07:57
Sodium 128 L
Potassium 4.0
Chloride 100
Carbon Dioxide 23
BUN 24 H
Creatinine 0.9
Glucose 86
Calcium 8.3 L
Vital Signs:
Vital Signs
Temp Pulse Resp BP Pulse Ox
98.2 F 64 16 104/64 98
03/03/25 07:52 03/03/25 08:05 03/03/25 07:52 03/03/25 08:05 03/03/25 07:52
I&O
03/02/25 03/03/25 03/04/25
06:59 06:59 06:59
Intake Total 660 / 660 1260 / 1260
Output Total 715 / 715 950 / 950
Balance -55 / -55 310 / 310
Review of Systems
-
History Source: Patient
Constitutional: Reports No Symptoms; Denies Fever or Fatigue
EENT: Reports No Symptoms Reported; Denies Sore Throat or Runny Nose
Respiratory: Reports Pleurisy; Denies Cough or Trouble Breathing
Cardiac: Reports No Symptoms; Denies Chest Pain or Palpitations
Abdomen/GI: Reports No Symptoms; Denies Abdominal Pain, Nausea or Vomiting
Genitourinary: Reports No Symptoms; Denies Dysuria
Musculoskeletal: Reports No Symptoms
Skin: Reports No Symptoms
Neuro: Reports No Symptoms; Denies Dizzy or Headache
Physical Exam
-
General: Well Developed, Well Nourished, No Apparent Distress and Comfortable
HEENT: Normocephalic and Atraumatic
Respiratory: Clear to Auscultation; Negative Wheezes or Crackles
Cardiac: Regular Rhythm, S1/S2 and Murmur; Negative Rub or Gallop
GI: Soft, Nontender and Distended
Musculoskeletal: No Cyanosis and No Edema
Skin: Warm and Dry
Neuro: Awake, Alert, Oriented and AO x 3
[2025-03-03 11:45] VITALS: BP 114/62
[2025-03-03 15:52] VITALS: BP 111/57
--- NOTE | 2025-03-03 18:05 | W.PN.UPDATE ---
Update Note
Progress Note Update
This is my first encounter with this 59 y/o man with hepatorenal syndrome, SIADH causing hyponatremia and concerns about depression. Presented with severe ascites. Being seen by psychiatry for some time during this long admission.
Jaundiced. He feels his mood is better. He can enjoy things (e.g. basketball on TV now). His speech is clear, he is personable and has full affect. His Na is still only 128 which makes treatment with SSRI/SNRI contraindicated. Buproprion may be
considered unless he is seizure risk from other medical conditions.
No past history of depression or psychiatric treatment.
Psychiatry will continue to follow.
[2025-03-03 19:19] VITALS: BP 125/62
[2025-03-03] MEDS: ULTRAM 50 MG PO (22:56)
[2025-03-03 23:31] VITALS: BP 121/65
[2025-03-04] VITALS (10 sets, daily range): BP systolic 65–119; BP diastolic 52–68; PULSE 61; O2SAT 100; BMI 29.8
[2025-03-04] MEDS: TYLENOL 500 MG PO ×3 (03:35→18:51)
[2025-03-04 06:36] LABS: Hematocrit 26.5 % (39.0-52.0); Hemoglobin 9.5 g/dL (13.0-18.0); Mean Corp Hgb Conc. 35.8 g/dL (33.0-37.0); Mean Corpuscular Volume 105.6 fL (80.0-94.0); Platelet Count 65 10^3/uL (130-400); Red Cell Dist. Width 18.2 % (11.5-14.5)
[2025-03-04 06:48] LABS: ALT (SGPT) 23 U/L (0-50); AST (SGOT) 38 U/L (17-59); Albumin 2.8 g/dl (3.5-5.0); Alkaline Phosphatase 96 U/L (38-126); Blood Urea Nitrogen 22 mg/dl (9-20); Calcium 8.0 mg/dl (8.4-10.2); Carbon Dioxide 22 mmol/L (22-30); Chloride 100 mmol/L (98-107); Estimated Creatinine Clearance 93 ml/min; Glucose 84 mg/dl (70-99); Potassium 4.1 mmol/L (3.5-5.1); Sodium 128 mmol/L (135-145); Total Protein 5.8 g/dl (6.3-8.2); eGFR > 60.00
[2025-03-04] MEDS: LASIX 20 MG PO (09:03)
[2025-03-04] MEDS: PROTONIX 40 MG PO (09:03)
[2025-03-04] MEDS: CIPRO 500 MG PO (09:03)
[2025-03-04] MEDS: COREG 3.125 MG PO ×2 (09:03→20:06)
[2025-03-04] MEDS: DUPHALAC/CHRONULAC 20 GRAMS PO ×3 (09:04→23:15)
[2025-03-04] MEDS: ALDACTONE 50 MG PO (09:04)
[2025-03-04] MEDS: XIFAXAN 550 MG PO ×2 (09:04→20:06)
--- NOTE | 2025-03-04 09:25 | W.PN.HOSP.TC ---
Today's Communication/Plan
-
Patient doing well
Continue current treatment plan
IR consult for para
Albumin
Assessment / Plan
Assessment / Plan
Mr Maurizio Granados is a 59yo with no medical care for years, hx PAF(not on anticoagulation), salivary gland tumor (chronic for years), prior ETOH use years ago with admission in November with massive ascites with decompensated liver failure,
hyponatremia, coagulopathy, electrolyte imbalance. During that admission he had paracentesis x 3 for total of 28 liters of ascites removed and fluid studies c/w liver etiology with negative pathology. Etiology of liver disease was unclear. Liver
work up complete during admission revealed + ALETHEA, mild elevated A1AT, elevated immunoglobulin A, hepatitis B immunity with otherwise neg panel, normal AMA, SLA, LKM, ceruloplasmin, with neg ETOH screening with PETH neg <10 AFP 4.97. Imaging with
cirrhosis and ascites. 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 MRI with severe hepatic cirrhosis without HCC, severe portal HTN, mild ascites, upper abdominal adenopathy, GB distention, adrenal mass and CM. He
now presents today with abdominal distention and change in mental status. On admission noted with WBC 22,400, hbg 14.1, platelets 172, na 121, creat 2.6, BUN 29, lactate 7.5, bili 14.5, AST 44, ALT <30, alk phos 171, ammonia 40. She reports some
abdominal pain nausea, nonbloody vomiting with distention but denies diarrhea, constipation or rectal bleeding. Urine studies sent results pending underwent diagnostic paracentesis with 4 L off in the ED blood cultures obtained 2 g of IV Rocephin
started nephrology consulted and started 3% saline, IR consulted for thoracentesis, GI consulted, account manager consulted. Ascitic fluid analysis positive for SBP with greater than 250 PMN. Blood cultures positive for gram-negative baccilli. On 02/19
patient went into SVT in the 170s. Received dose of Levophed, and 6 mg of adenosine with return to sinus tachycardia. Cardiology consulted and ordered TTE. Also repleted patient's mag, on admission Mg 1.9. Albumin challenge failed, HRS type 1.
Octreotide, albumin, levophed. Patients MELD 37, Child Class C, attempted to transfer to [facility] however due to lack of coverage for surgery/transplant patient was denied. GI placed Dobbhoff tube and oral lactulose was given. Patient started
having bowel movements with improvement of ammonia numbers. Patient continued to show improvement, mentation improved he was able to converse with us, he removed his Dobbhoff tube, his leukocytosis continues to decrease and his kidney function
continued to improve. He was downgraded to IMU for further care. Patient's mentation improved drastically as he was diuresed and he continued to poop out and the ammonia. Kidney function normalized and patient was taken off octreotide and fluids.
IR took 9 L off his abdomen. Patient was downgraded to the telemetry floor. He continues to have improvement in mentation and is now tolerating low-sodium diet. He had mild pleuritic chest pain due to expanding lung volumes and decreasing
ascitic volume, gave him pain medication which improved pain. He was taken off of IV antibiotics and transition to p.o. Cipro which she will take indefinitely for SBP prophylaxis. His diuretic medications were restarted and kidney function was
tracked. Application for emergency Medicaid was started so patient may have options for disposition planning. Patient was unmotivated to work with PT, and psychiatry was reconsulted to rule in or rule out psychiatric conditions impacting his
motivation. Psychiatry talked with patient, but will hold off starting antidepressant given low sodium numbers. He was also noted to not be eating his meals, with nutrition reporting less than 50% of meals eaten. On 03/01 paracentesis was done 10 L
taken off, followed by albumin. GI signed off, but will follow-up outpatient when patient is discharge. Patient started working with PT, was able to do some tasks with frequent redirection but needed frequent rest breaks, recommending skilled
rehab.
#Severe sepsis, resolved
#SBP resolved
#Decompensated Cirrhosis
#Hepatic encephalopathy, resolved
#Hyperbilirubinemia, improving
total paracentesis to
- prior workup unremarkable as above, suspicion for alcoholic hepatitis -- PEth negative
- MELD score on last admission 25, this admission MELD 37 this admission child class C
- ciprofloxacin 500 twice daily, indefinitely for SBP PPx
Appreciate GI recs
- lactulose TID
- Protonix 40 po qd
#chest/abd pain, improving
#pleurisy
Right sided with deep inhalation
pleuritic
650 mg acetaminophen scheduled
Obstructive series found at 4.5 cm dilated bowel loops, no air-fluid levels, patient passing bowel
#MORTEZA, resolved
#Hepatorenal syndrome Type I
- normal kidney function on recent discharge ([place] 0.8)
- c/wDiuretics 20 mg Lasix 50 mg Aldactone
- Trend BMP
- limited paracentesis to <5 L every other day to avoid large volume loss
#Depressed mood improving
- endorsed depression prior to this hospitalization
- On no psych medications
- Consult psych
- Will hold off starting antidepressant given low sodium numbers
# Deconditioning
Due to being bedbound at home, hospital
-Patient participating with PT
- PT recommending skilled rehab
#Hyponatremia,
- MS improving, no focal neurological deficits
- Continue to monitor
- Na 128
-Consider nephrology consult if continues to drop, consider 3% saline, consider Samsca
#SVT, resolved
- Patient went into SVT overnight 02/19
- Mg 1.9, 1 g ordered to replete
- TTE showing mild , thickened valves, vegetation cannot be excluded however patient not a candidate for URIEL
- on carvedilol 3.125mg BID with parameters
- Heart rates in the 50s, continue to monitor
#Paroxysmal A-fib
- Not on anticoagulation
- on carvedilol as above
- C/t monitor on tele
# Salivary gland cyst
- stable, c/t monitor
DVT PPx:
SCDs
CODE STATUS:
Full code
Anticipated Discharge: > 48 hours
Subjective/Interval History
-
Patient reported feeling great.patient was unable to work with PT yesterday while he is looking forward to working with them today. He reported no other complaints. Date of Service: March 04, 2025
Objective Data
-
Labs:
Laboratory Results
03/04/25
06:10
WBC 8.4
Hgb 9.5 L
Hct 26.5 L
Plt Count 65 L
Sodium 128 L
Potassium 4.1
Chloride 100
Carbon Dioxide 22
BUN 22 H
Creatinine 0.9
Glucose 84
Calcium 8.0 L
Total Bilirubin 6.0 H
AST 38
ALT 23
Alkaline Phosphatase 96
Vital Signs:
Vital Signs
Temp Pulse Resp BP Pulse Ox
98.4 F 65 16 114/68 98
03/04/25 07:30 03/04/25 07:30 03/04/25 07:30 03/04/25 09:03 03/04/25 07:30
I&O
03/03/25 03/04/25 03/05/25
06:59 06:59 06:59
Intake Total 1260 / 1260 780 / 780
Output Total 950 / 950 2049
Balance 310 / 310 -1270 / -1270
Review of Systems
-
History Source: Patient
Constitutional: Reports No Symptoms; Denies Fever or Fatigue
EENT: Reports No Symptoms Reported; Denies Tearing or Runny Nose
Respiratory: Reports No Symptoms; Denies Cough, Trouble Breathing or Wheezing
Cardiac: Reports No Symptoms; Denies Chest Pain
Abdomen/GI: Reports No Symptoms; Denies Abdominal Pain, Nausea or Vomiting
Genitourinary: Reports No Symptoms
Musculoskeletal: Reports No Symptoms
Skin: Reports No Symptoms
Neuro: Reports No Symptoms
Physical Exam
-
General: Well Developed, Well Nourished, No Apparent Distress and Comfortable
HEENT: Normocephalic and Atraumatic
Respiratory: Clear to Auscultation; Negative Wheezes, Rales or Crackles
Cardiac: Regular Rhythm, S1/S2 and Murmur
GI: Soft, Nontender, Nondistended and Normal Bowel Sounds
Musculoskeletal: No Clubbing, No Cyanosis and No Edema
Skin: Warm and Dry
Neuro: Awake, Alert and Oriented
[2025-03-04 16:12] LABS: Body Fluid Second Tech EYM
--- NOTE | 2025-03-04 16:21 | CM ---
Reviewed the chart notes and spoke with the patient at the bedside. CM spoke with [facility]'s dean of admissions Zandra. Per Zandra, they would need a financial application to be completed by spouse for business office to review.
They are the only facility thus far willing to accept with a MA pending status. CM continues to be available to patient/family and is monitoring medical plan for needs at discharge.
Plan; Discharge to SNF once bed secured.
[2025-03-04] MEDS: FLEXBUMIN 100 IV (16:38)
--- NOTE | 2025-03-05 02:37 | DOWNTIME ---
There was a [employer] Client Electrophysiology Technician Downtime on 03/05/2025 from 0100 to 03/05/2025 at 0220. Downtime documentation of patient's care, including medication administrations, has been reconciled in the electronic record per guidelines. Refer to the
patient's paper chart under the miscellaneous tab to see printed paper medication records and downtime forms.
[2025-03-05] MEDS: TYLENOL PO (02:41)
[2025-03-05 03:16] VITALS: BP 109/58
[2025-03-05 06:00] VITALS: BMI 27.2
[2025-03-05 07:30] VITALS: BP 116/62
--- NOTE | 2025-03-05 09:11 | W.PN.HOSP.TC ---
Today's Communication/Plan
-
Patient working with PT
Paracentesis yesterday
Stop rifaximin
Trust Administrative Assistant and patient started Medicaid pending SNF applications
Assessment / Plan
Assessment / Plan
Mr Maurizio Granados is a 59yo with no medical care for years, hx PAF(not on anticoagulation), salivary gland tumor (chronic for years), prior ETOH use years ago with admission in November with massive ascites with decompensated liver failure,
hyponatremia, coagulopathy, electrolyte imbalance. During that admission he had paracentesis x 3 for total of 28 liters of ascites removed and fluid studies c/w liver etiology with negative pathology. Etiology of liver disease was unclear. Liver
work up complete during admission revealed + ALETHEA, mild elevated A1AT, elevated immunoglobulin A, hepatitis B immunity with otherwise neg panel, normal AMA, SLA, LKM, ceruloplasmin, with neg ETOH screening with PETH neg <10 AFP 4.97. Imaging with
cirrhosis and ascites. 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 MRI with severe hepatic cirrhosis without HCC, severe portal HTN, mild ascites, upper abdominal adenopathy, GB distention, adrenal mass and CM. He
now presents today with abdominal distention and change in mental status. On admission noted with WBC 22,400, hbg 14.1, platelets 172, na 121, creat 2.6, BUN 29, lactate 7.5, bili 14.5, AST 44, ALT <30, alk phos 171, ammonia 40. She reports some
abdominal pain nausea, nonbloody vomiting with distention but denies diarrhea, constipation or rectal bleeding. Urine studies sent results pending underwent diagnostic paracentesis with 4 L off in the ED blood cultures obtained 2 g of IV Rocephin
started nephrology consulted and started 3% saline, IR consulted for thoracentesis, GI consulted, certified adaptive physical educator consulted. Ascitic fluid analysis positive for SBP with greater than 250 PMN. Blood cultures positive for gram-negative baccilli. On 02/19
patient went into SVT in the 170s. Received dose of Levophed, and 6 mg of adenosine with return to sinus tachycardia. Cardiology consulted and ordered TTE. Also repleted patient's mag, on admission Mg 1.9. Albumin challenge failed, HRS type 1.
Octreotide, albumin, levophed. Patients MELD 37, Child Class C, attempted to transfer to [facility] however due to lack of coverage for surgery/transplant patient was denied. GI placed Dobbhoff tube and oral lactulose was given. Patient started
having bowel movements with improvement of ammonia numbers. Patient continued to show improvement, mentation improved he was able to converse with us, he removed his Dobbhoff tube, his leukocytosis continues to decrease and his kidney function
continued to improve. He was downgraded to IMU for further care. Patient's mentation improved drastically as he was diuresed and he continued to poop out and the ammonia. Kidney function normalized and patient was taken off octreotide and fluids.
IR took 9 L off his abdomen. Patient was downgraded to the telemetry floor. He continues to have improvement in mentation and is now tolerating low-sodium diet. He had mild pleuritic chest pain due to expanding lung volumes and decreasing
ascitic volume, gave him pain medication which improved pain. He was taken off of IV antibiotics and transition to p.o. Cipro which she will take indefinitely for SBP prophylaxis. His diuretic medications were restarted and kidney function was
tracked. Application for emergency Medicaid was started so patient may have options for disposition planning. Patient was unmotivated to work with PT, and psychiatry was reconsulted to rule in or rule out psychiatric conditions impacting his
motivation. Psychiatry talked with patient, but will hold off starting antidepressant given low sodium numbers. He was also noted to not be eating his meals, with nutrition reporting less than 50% of meals eaten. On 03/01 paracentesis was done 10 L
taken off, followed by albumin. GI signed off, but will follow-up outpatient when patient is discharge. Patient started working with PT, was able to do some tasks with frequent redirection but needed frequent rest breaks, recommending skilled
rehab. On 03/04 IR conducted paracentesis draining 6 L, patient tolerated well and was given Flexbumin after. branch lending manager talked with patient about Medicaid pending applications to SNF and the process was started.
#Severe sepsis, resolved
#SBP resolved
#Decompensated Cirrhosis
#Hepatic encephalopathy, resolved
#Hyperbilirubinemia, improving
total paracentesis to 34L
- prior workup unremarkable as above, suspicion for alcoholic hepatitis -- PEth negative
- MELD score on last admission 25, this admission MELD 37 this admission child class C
- ciprofloxacin 500 twice daily, indefinitely for SBP PPx
Appreciate GI recs
- lactulose TID
- stop rifaximin
- Protonix 40 po qd
#chest/abd pain, improving
#pleurisy
Right sided with deep inhalation
pleuritic
650 mg acetaminophen scheduled
Obstructive series found at 4.5 cm dilated bowel loops, no air-fluid levels, patient passing bowel
#MORTEZA, resolved
#Hepatorenal syndrome Type I
- normal kidney function on recent discharge (Dr[employer] 0.8)
- c/wDiuretics 20 mg Lasix 50 mg Aldactone
- Trend BMP
#Depressed mood improving
- endorsed depression prior to this hospitalization
- On no psych medications
- Consult psych
- Will hold off starting antidepressant given low sodium numbers
# Deconditioning
Due to being bedbound at home, hospital
-Patient participating with PT
- PT recommending skilled rehab
#Hyponatremia,
- MS improving, no focal neurological deficits
- Continue to monitor
- Na 128
-Consider nephrology consult if continues to drop, consider 3% saline, consider Samsca
#SVT, resolved
- Patient went into SVT overnight 02/19
- Mg 1.9, 1 g ordered to replete
- TTE showing mild , thickened valves, vegetation cannot be excluded however patient not a candidate for URIEL
- on carvedilol 3.125mg BID with parameters
- Heart rates in the 50s, continue to monitor
#Paroxysmal A-fib
- Not on anticoagulation
- on carvedilol as above
- C/t monitor on tele
# Salivary gland cyst
- stable, c/t monitor
DVT PPx:
SCDs
CODE STATUS:
Full code
Anticipated Discharge: > 48 hours
Subjective/Interval History
-
Patient was seen at bedside today. He reports feeling good, worked with PT yesterday reported that it was difficult but he is eager to get stronger. He also spoke with social work about skilled rehab options. He is currently in the process of
applying. Otherwise he reports no complaints. Still has pleuritic right chest wall pain. He reports no issues with urination or bowel movements, has no nausea or vomiting. Patient had a paracentesis yesterday feels much better after. Date of
Service: March 05, 2025
Objective Data
-
Labs:
Laboratory Results
03/05/25 03/05/25
07:17 08:29
Sodium Cancelled Pending
Potassium Cancelled Pending
Chloride Cancelled Pending
Carbon Dioxide Cancelled Pending
BUN Cancelled Pending
Creatinine Cancelled Pending
Glucose Cancelled Pending
Calcium Cancelled Pending
Vital Signs:
Vital Signs
Temp Pulse Resp BP Pulse Ox
98.5 F 65 16 116/62 99
03/05/25 07:30 03/05/25 07:30 03/05/25 07:30 03/05/25 07:30 03/05/25 07:30
I&O
03/04/25 03/05/25 03/06/25
06:59 06:59 06:59
Intake Total 780 / 780 940 / 940
Output Total 2049 1650 / 1650
Balance -1270 / -1270 -710 / -710
Review of Systems
-
History Source: Patient
Constitutional: Reports No Symptoms and Weakness; Denies Fever, Weight Loss or Fatigue
EENT: Reports No Symptoms Reported; Denies Sore Throat or Runny Nose
Respiratory: Reports Pleurisy; Denies Cough, Trouble Breathing or Wheezing
Cardiac: Reports No Symptoms; Denies Chest Pain, Diaphoresis or Palpitations
Abdomen/GI: Reports No Symptoms; Denies Abdominal Pain, Nausea, Vomiting or Diarrhea
Genitourinary: Reports No Symptoms; Denies Dysuria
Musculoskeletal: Reports No Symptoms; Denies Joint Pain
Skin: Reports No Symptoms; Denies Itching
Neuro: Reports No Symptoms; Denies Dizzy or Headache
Physical Exam
-
General: Well Developed, Well Nourished, No Apparent Distress and Conversant
HEENT: Normocephalic and Atraumatic
Respiratory: Clear to Auscultation; Negative Wheezes, Rales or Crackles
Cardiac: Regular Rhythm, S1/S2 and Murmur; Negative Rub
GI: Soft, Nontender, Nondistended and Normal Bowel Sounds
Musculoskeletal: No Cyanosis and No Edema
Skin: Warm and Dry; Negative Rash
Neuro: Awake, Alert and Oriented
Psych: Calm
[2025-03-05 09:13] LABS: Blood Urea Nitrogen 20 mg/dl (9-20); Calcium 8.1 mg/dl (8.4-10.2); Carbon Dioxide 25 mmol/L (22-30); Chloride 102 mmol/L (98-107); Estimated Creatinine Clearance 93 ml/min; Glucose 83 mg/dl (70-99); Potassium 4.0 mmol/L (3.5-5.1); Sodium 130 mmol/L (135-145); eGFR > 60.00
[2025-03-05] MEDS: ALDACTONE 50 MG PO (09:18)
[2025-03-05] MEDS: DUPHALAC/CHRONULAC 20 GRAMS PO ×3 (09:18→23:41)
[2025-03-05] MEDS: PROTONIX 40 MG PO (09:18)
[2025-03-05] MEDS: XIFAXAN 550 MG PO (09:19)
[2025-03-05] MEDS: COREG 3.125 MG PO ×2 (09:19→20:32)
[2025-03-05] MEDS: LASIX 20 MG PO (09:19)
[2025-03-05] MEDS: CIPRO 500 MG PO (09:19)
[2025-03-05] MEDS: TYLENOL 500 MG PO ×2 (10:56→18:30)
[2025-03-05 11:07] VITALS: BP 111/62
--- NOTE | 2025-03-05 12:28 | CM ---
Reviewed the chart notes and spoke with the patient and daughter at the bedside. Left voice message for status on [facility]. Updated spouse regarding Amy Vaughn requesting financial application be completed.
Amy Vaughn e-mailed application to daughter at [email or web address]. CM continues to be available to patient/family and is monitoring medical plan for needs at discharge.
Plan: Discharge to [facility] once financial application has been reviewed and approved by their business office.
--- NOTE | 2025-03-05 12:33 | W.PN.UPDATE ---
Update Note
Progress Note Update
Pt seen, chart reviewed. Pt lying in bed, resting in no apparent distress. Pt denies feeling depressed, states he talked about this with his . Pt states he outlook is much more positive, he is focused on getting better. Pt denies any SI.
There was concern for depression, mainly from pt's ; antidepressant was not started due to low Sodium. Pt states he is sleeping well, eating okay.
Imp: TME, resolved
Adjustment d/o with depression, improved
Rec: No psychiatric treatment indicated; Psychiatry will sign off. Please reconsult for any new concerns
[2025-03-05 15:59] VITALS: BP 106/58
[2025-03-05 19:41] VITALS: BP 114/60
[2025-03-05 23:16] VITALS: BP 100/53
[2025-03-06] VITALS (9 sets, daily range): BP systolic 111–137; BP diastolic 57–69; PULSE 66–67; O2SAT 100; BMI 27.2
[2025-03-06] MEDS: TYLENOL PO ×2 (02:16→12:08)
[2025-03-06 07:36] LABS: Hematocrit 28.1 % (39.0-52.0); Hemoglobin 10.0 g/dL (13.0-18.0); Mean Corp Hgb Conc. 35.6 g/dL (33.0-37.0); Mean Corpuscular Volume 108.5 fL (80.0-94.0); Platelet Count 82 10^3/uL (130-400); Red Cell Dist. Width 18.9 % (11.5-14.5)
[2025-03-06 07:51] LABS: Blood Urea Nitrogen 21 mg/dl (9-20); Calcium 8.2 mg/dl (8.4-10.2); Carbon Dioxide 23 mmol/L (22-30); Chloride 101 mmol/L (98-107); Estimated Creatinine Clearance 83 ml/min; Glucose 90 mg/dl (70-99); Magnesium 1.8 mg/dl (1.6-2.3); Potassium 3.9 mmol/L (3.5-5.1); Sodium 130 mmol/L (135-145); eGFR > 60.00
[2025-03-06] MEDS: PROTONIX 40 MG PO (08:31)
[2025-03-06] MEDS: ALDACTONE 50 MG PO (08:31)
[2025-03-06] MEDS: DUPHALAC/CHRONULAC 20 GRAMS PO ×3 (08:37→21:23)
[2025-03-06] MEDS: LASIX 20 MG PO (08:37)
[2025-03-06] MEDS: CIPRO 500 MG PO (08:37)
[2025-03-06] MEDS: COREG 3.125 MG PO ×2 (08:40→21:23)
--- NOTE | 2025-03-06 09:16 | W.PN.HOSP.TC ---
Today's Communication/Plan
-
Continue current treatment plan
Assessment / Plan
Assessment / Plan
Mr Maurizio Granados is a 59yo with no medical care for years, hx PAF(not on anticoagulation), salivary gland tumor (chronic for years), prior ETOH use years ago with admission in November with massive ascites with decompensated liver failure,
hyponatremia, coagulopathy, electrolyte imbalance. During that admission he had paracentesis x 3 for total of 28 liters of ascites removed and fluid studies c/w liver etiology with negative pathology. Etiology of liver disease was unclear. Liver
work up complete during admission revealed + ALETHEA, mild elevated A1AT, elevated immunoglobulin A, hepatitis B immunity with otherwise neg panel, normal AMA, SLA, LKM, ceruloplasmin, with neg ETOH screening with PETH neg <10 AFP 4.97. Imaging with
cirrhosis and ascites. 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 MRI with severe hepatic cirrhosis without HCC, severe portal HTN, mild ascites, upper abdominal adenopathy, GB distention, adrenal mass and CM. He
now presents today with abdominal distention and change in mental status. On admission noted with WBC 22,400, hbg 14.1, platelets 172, na 121, creat 2.6, BUN 29, lactate 7.5, bili 14.5, AST 44, ALT <30, alk phos 171, ammonia 40. She reports some
abdominal pain nausea, nonbloody vomiting with distention but denies diarrhea, constipation or rectal bleeding. Urine studies sent results pending underwent diagnostic paracentesis with 4 L off in the ED blood cultures obtained 2 g of IV Rocephin
started nephrology consulted and started 3% saline, IR consulted for thoracentesis, GI consulted, valve liner rubber consulted. Ascitic fluid analysis positive for SBP with greater than 250 PMN. Blood cultures positive for gram-negative baccilli. On 02/19
patient went into SVT in the 170s. Received dose of Levophed, and 6 mg of adenosine with return to sinus tachycardia. Cardiology consulted and ordered TTE. Also repleted patient's mag, on admission Mg 1.9. Albumin challenge failed, HRS type 1.
Octreotide, albumin, levophed. Patients MELD 37, Child Class C, attempted to transfer to [facility] however due to lack of coverage for surgery/transplant patient was denied. GI placed Dobbhoff tube and oral lactulose was given. Patient started
having bowel movements with improvement of ammonia numbers. Patient continued to show improvement, mentation improved he was able to converse with us, he removed his Dobbhoff tube, his leukocytosis continues to decrease and his kidney function
continued to improve. He was downgraded to IMU for further care. Patient's mentation improved drastically as he was diuresed and he continued to poop out and the ammonia. Kidney function normalized and patient was taken off octreotide and fluids.
IR took 9 L off his abdomen. Patient was downgraded to the telemetry floor. He continues to have improvement in mentation and is now tolerating low-sodium diet. He had mild pleuritic chest pain due to expanding lung volumes and decreasing
ascitic volume, gave him pain medication which improved pain. He was taken off of IV antibiotics and transition to p.o. Cipro which she will take indefinitely for SBP prophylaxis. His diuretic medications were restarted and kidney function was
tracked. Application for emergency Medicaid was started so patient may have options for disposition planning. Patient was unmotivated to work with PT, and psychiatry was reconsulted to rule in or rule out psychiatric conditions impacting his
motivation. Psychiatry talked with patient, but will hold off starting antidepressant given low sodium numbers. He was also noted to not be eating his meals, with nutrition reporting less than 50% of meals eaten. On 03/01 paracentesis was done 10 L
taken off, followed by albumin. GI signed off, but will follow-up outpatient when patient is discharge. Patient started working with PT, was able to do some tasks with frequent redirection but needed frequent rest breaks, recommending skilled
rehab. On 03/04 IR conducted paracentesis draining 6 L, patient tolerated well and was given Flexbumin after. hospice case manager talked with patient about Medicaid pending applications to SNF and the process was started.
#Severe sepsis, resolved
#SBP resolved
#Decompensated Cirrhosis
#Hepatic encephalopathy, resolved
#Hyperbilirubinemia, improving
total paracentesis to 34L
- prior workup unremarkable as above, suspicion for alcoholic hepatitis -- PEth negative
- MELD score on last admission 25, this admission MELD 37 this admission child class C
- ciprofloxacin 500 twice daily, indefinitely for SBP PPx
Appreciate GI recs
- lactulose TID
- Protonix 40 po qd
#chest/abd pain, improving
#pleurisy
Right sided with deep inhalation
pleuritic
650 mg acetaminophen scheduled
Obstructive series found at 4.5 cm dilated bowel loops, no air-fluid levels, patient passing bowel
#MORTEZA, resolved
#Hepatorenal syndrome Type I
- normal kidney function on recent discharge (Duck Operator 0.8)
- c/wDiuretics 20 mg Lasix 50 mg Aldactone
- Trend BMP
#Depressed mood improving
- endorsed depression prior to this hospitalization
- On no psych medications
- Consult psych
- Will hold off starting antidepressant given low sodium numbers
# Deconditioning
Due to being bedbound at home, hospital
-Patient participating with PT
- PT recommending skilled rehab
#Hyponatremia,
- MS improving, no focal neurological deficits
- Continue to monitor
- Na 128
-Consider nephrology consult if continues to drop, consider 3% saline, consider Samsca
#SVT, resolved
- Patient went into SVT overnight 02/19
- Mg 1.9, 1 g ordered to replete
- TTE showing mild , thickened valves, vegetation cannot be excluded however patient not a candidate for URIEL
- on carvedilol 3.125mg BID with parameters
- Heart rates in the 50s, continue to monitor
#Paroxysmal A-fib
- Not on anticoagulation
- on carvedilol as above
- C/t monitor on tele
# Salivary gland cyst
- stable, c/t monitor
DVT PPx:
SCDs
CODE STATUS:
Full code
Anticipated Discharge: > 48 hours
Subjective/Interval History
-
Edelizabeth was doing well this morning. States he is feeling great. Worked with PT yesterday which was difficult but he understands he needs to work with them to get stronger. Otherwise had no other complaints. Will update later. Date of
Service: March 06, 2025
Objective Data
-
Labs:
Laboratory Results
03/06/25
06:50
WBC 6.8
Hgb 10.0 L
Hct 28.1 L
Plt Count 82 L D
Sodium 130 L
Potassium 3.9
Chloride 101
Carbon Dioxide 23
BUN 21 H
Creatinine 0.9
Glucose 90
Calcium 8.2 L
Vital Signs:
Vital Signs
Temp Pulse Resp BP Pulse Ox
98.4 F 63 18 115/68 100
03/06/25 07:43 03/06/25 07:43 03/06/25 07:43 03/06/25 08:40 03/06/25 07:43
I&O
03/05/25 03/06/25 03/07/25
06:59 06:59 06:59
Intake Total 940 / 940 840 / 840
Output Total 1650 / 1650 1025 / 1025
Balance -710 / -710 -185 / -185
Review of Systems
-
History Source: Patient
Constitutional: Reports No Symptoms; Denies Fever or Fatigue
EENT: Reports No Symptoms Reported; Denies Sore Throat or Runny Nose
Respiratory: Reports Pleurisy; Denies Cough, Trouble Breathing or Wheezing
Cardiac: Reports No Symptoms; Denies Chest Pain or Diaphoresis
Abdomen/GI: Reports No Symptoms; Denies Abdominal Pain, Nausea or Vomiting
Genitourinary: Reports No Symptoms; Denies Dysuria
Musculoskeletal: Reports No Symptoms; Denies Joint Pain
Skin: Reports No Symptoms; Denies Itching
Neuro: Reports No Symptoms; Denies Dizzy or Headache
Physical Exam
-
General: Well Developed, Well Nourished and No Apparent Distress
HEENT: Normocephalic and Atraumatic
Respiratory: Clear to Auscultation and Non Labored Respirations; Negative Wheezes or Crackles
Cardiac: Regular Rhythm and S1/S2; Negative Murmur
GI: Soft, Nontender, Nondistended and Normal Bowel Sounds
Musculoskeletal: No Cyanosis and No Edema
Skin: Warm and Dry; Negative Rash
Neuro: Awake, Alert and Oriented
--- NOTE | 2025-03-06 11:00 | WOUNDNOTE ---
[facility] RN note: Patient seen during prevention rounds. Patient is on a [employer] Accumax. Patient assisted with turning. Coccyx/pema skin with MASD d/t stooling. FMS in place with some stool leakage. Pema care given. Patient turned to L semi side lying
position with help from sales manager Isa and Nurse educator Kathy. Heels off bed with pillow. Air chair cushion given. t/c Spoke with bed tech and requested an air bed. Discussed with HANK Reeder who will coordinate switching bed if patient not
discharged today.
--- NOTE | 2025-03-06 11:00 | WOUNDNOTE ---
SACRAL/COCCYX (skin dimple)
--- NOTE | 2025-03-06 13:03 | PTCARENOTE ---
PVR 175, pt to [facility], FMS fell out. Resident notified, plan to replace after pt finished working with therapy. continue to encourage OOB and changing positions. CB in reach
--- NOTE | 2025-03-06 14:30 | CM ---
Reviewed the chart notes. Waiting for financial application to be reviewed by [place] business office once it is received. Voice message left on daughter's phone regarding receipt of application. CM continues to be available to
patient/family and is monitoring medical plan for needs at discharge.
Plan: Discharge to [facility] once financial application submitted, reviewed, and approved by business office.
[2025-03-07 02:13] VITALS: BP 120/57
[2025-03-07 06:00] VITALS: BMI 26.7
[2025-03-07 07:37] LABS: Hematocrit 28.1 % (39.0-52.0); Hemoglobin 9.7 g/dL (13.0-18.0); Mean Corp Hgb Conc. 34.5 g/dL (33.0-37.0); Mean Corpuscular Volume 108.9 fL (80.0-94.0); Platelet Count 82 10^3/uL (130-400); Red Cell Dist. Width 18.7 % (11.5-14.5)
[2025-03-07 07:47] VITALS: BP 127/71
[2025-03-07 08:06] LABS: Blood Urea Nitrogen 20 mg/dl (9-20); Calcium 8.4 mg/dl (8.4-10.2); Carbon Dioxide 23 mmol/L (22-30); Chloride 101 mmol/L (98-107); Estimated Creatinine Clearance 74 ml/min; Glucose 95 mg/dl (70-99); Potassium 3.8 mmol/L (3.5-5.1); Sodium 131 mmol/L (135-145); eGFR > 60.00
[2025-03-07] MEDS: DUPHALAC/CHRONULAC 20 GRAMS PO ×3 (08:45→21:37)
[2025-03-07] MEDS: LASIX 20 MG PO (08:46)
[2025-03-07] MEDS: PROTONIX 40 MG PO (08:46)
[2025-03-07] MEDS: ALDACTONE 50 MG PO (08:46)
[2025-03-07] MEDS: CIPRO 500 MG PO (08:46)
[2025-03-07] MEDS: COREG 3.125 MG PO ×2 (08:46→21:42)
--- NOTE | 2025-03-07 09:15 | CM ---
Reviewed the chart notes and spoke with the patient and his spouse at the bedside. Patient's daughter did receive e-mail from facility and patient's spouse will receive it today to complete. Attending updated. CM continues to be available to
patient/family and is monitoring medical plan for needs at discharge.
Plan: Discharge to SNF/rehab once bed secured.
--- NOTE | 2025-03-07 09:17 | W.PN.HOSP.TC ---
Today's Communication/Plan
-
Continue current treatment plan
FMS removed
Awaiting SNF applications
Assessment / Plan
Assessment / Plan
Mr Maurizio Granados is a 59yo with no medical care for years, hx PAF(not on anticoagulation), salivary gland tumor (chronic for years), prior ETOH use years ago with admission in November with massive ascites with decompensated liver failure,
hyponatremia, coagulopathy, electrolyte imbalance. During that admission he had paracentesis x 3 for total of 28 liters of ascites removed and fluid studies c/w liver etiology with negative pathology. Etiology of liver disease was unclear. Liver
work up complete during admission revealed + ALETHEA, mild elevated A1AT, elevated immunoglobulin A, hepatitis B immunity with otherwise neg panel, normal AMA, SLA, LKM, ceruloplasmin, with neg ETOH screening with PETH neg <10 AFP 4.97. Imaging with
cirrhosis and ascites. 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 MRI with severe hepatic cirrhosis without HCC, severe portal HTN, mild ascites, upper abdominal adenopathy, GB distention, adrenal mass and CM. He
now presents today with abdominal distention and change in mental status. On admission noted with WBC 22,400, hbg 14.1, platelets 172, na 121, creat 2.6, BUN 29, lactate 7.5, bili 14.5, AST 44, ALT <30, alk phos 171, ammonia 40. She reports some
abdominal pain nausea, nonbloody vomiting with distention but denies diarrhea, constipation or rectal bleeding. Urine studies sent results pending underwent diagnostic paracentesis with 4 L off in the ED blood cultures obtained 2 g of IV Rocephin
started nephrology consulted and started 3% saline, IR consulted for thoracentesis, GI consulted, barber shop manager consulted. Ascitic fluid analysis positive for SBP with greater than 250 PMN. Blood cultures positive for gram-negative baccilli. On 02/19
patient went into SVT in the 170s. Received dose of Levophed, and 6 mg of adenosine with return to sinus tachycardia. Cardiology consulted and ordered TTE. Also repleted patient's mag, on admission Mg 1.9. Albumin challenge failed, HRS type 1.
Octreotide, albumin, levophed. Patients MELD 37, Child Class C, attempted to transfer to [facility] however due to lack of coverage for surgery/transplant patient was denied. GI placed Dobbhoff tube and oral lactulose was given. Patient started
having bowel movements with improvement of ammonia numbers. Patient continued to show improvement, mentation improved he was able to converse with us, he removed his Dobbhoff tube, his leukocytosis continues to decrease and his kidney function
continued to improve. He was downgraded to IMU for further care. Patient's mentation improved drastically as he was diuresed and he continued to poop out and the ammonia. Kidney function normalized and patient was taken off octreotide and fluids.
IR took 9 L off his abdomen. Patient was downgraded to the telemetry floor. He continues to have improvement in mentation and is now tolerating low-sodium diet. He had mild pleuritic chest pain due to expanding lung volumes and decreasing
ascitic volume, gave him pain medication which improved pain. He was taken off of IV antibiotics and transition to p.o. Cipro which she will take indefinitely for SBP prophylaxis. His diuretic medications were restarted and kidney function was
tracked. Application for emergency Medicaid was started so patient may have options for disposition planning. Patient was unmotivated to work with PT, and psychiatry was reconsulted to rule in or rule out psychiatric conditions impacting his
motivation. Psychiatry talked with patient, but will hold off starting antidepressant given low sodium numbers. He was also noted to not be eating his meals, with nutrition reporting less than 50% of meals eaten. On 03/01 paracentesis was done 10 L
taken off, followed by albumin. GI signed off, but will follow-up outpatient when patient is discharge. Patient started working with PT, was able to do some tasks with frequent redirection but needed frequent rest breaks, recommending skilled
rehab. On 03/04 IR conducted paracentesis draining 6 L, patient tolerated well and was given Flexbumin after. animal ride manager talked with patient about Medicaid pending applications to SNF and the process was started. Patient's continence improving,
FMS removed.
#Severe sepsis, resolved
#SBP resolved
#Decompensated Cirrhosis
#Hepatic encephalopathy, resolved
#Hyperbilirubinemia, improving
total paracentesis to 34L
- prior workup unremarkable as above, suspicion for alcoholic hepatitis -- PEth negative
- MELD score on last admission 25, this admission MELD 37 this admission child class C
- ciprofloxacin 500 twice daily, indefinitely for SBP PPx
Appreciate GI recs
- lactulose TID
- Protonix 40 po qd
#chest/abd pain, improving
#pleurisy
Right sided with deep inhalation
pleuritic
650 mg acetaminophen scheduled
Obstructive series found at 4.5 cm dilated bowel loops, no air-fluid levels, patient passing bowel
#MORTEZA, resolved
#Hepatorenal syndrome Type I
- normal kidney function on recent discharge (Math Professor 0.8)
- c/wDiuretics 20 mg Lasix 50 mg Aldactone
- Trend BMP
#Depressed mood improving
- endorsed depression prior to this hospitalization
- On no psych medications
- Consult psych
- Will hold off starting antidepressant given low sodium numbers
# Deconditioning
Due to being bedbound at home, hospital
-Patient participating with PT
- PT recommending skilled rehab
#Hyponatremia,
- MS improving, no focal neurological deficits
- Continue to monitor
- Na 128
-Consider nephrology consult if continues to drop, consider 3% saline, consider Samsca
#SVT, resolved
- Patient went into SVT overnight 02/19
- Mg 1.9, 1 g ordered to replete
- TTE showing mild , thickened valves, vegetation cannot be excluded however patient not a candidate for URIEL
- on carvedilol 3.125mg BID with parameters
- Heart rates in the 50s, continue to monitor
#Paroxysmal A-fib
- Not on anticoagulation
- on carvedilol as above
- C/t monitor on tele
# Salivary gland cyst
- stable, c/t monitor
DVT PPx:
SCDs
CODE STATUS:
Full code
Anticipated Discharge: > 48 hours
Subjective/Interval History
-
Patient was doing well today, he was seen at bedside with . FMS fell out yesterday while patient was working with PT. Reports that he is able to tell when he has to go and is able to call nursing staff. Had improved balance with PT yesterday
and is eager to work to get stronger. Patient's reports that she is filling out application for SNF and appreciates case management's help. Date of Service: March 07, 2025
Objective Data
-
Labs:
Laboratory Results
03/07/25
06:46
WBC 7.3
Hgb 9.7 L
Hct 28.1 L
Plt Count 82 L
Sodium 131 L
Potassium 3.8
Chloride 101
Carbon Dioxide 23
BUN 20
Creatinine 1.0
Glucose 95
Calcium 8.4
Vital Signs:
Vital Signs
Temp Pulse Resp BP Pulse Ox
98.3 F 91 22 127/71 100
03/07/25 07:47 03/07/25 07:47 03/07/25 02:13 03/07/25 07:47 03/07/25 07:47
I&O
03/06/25 03/07/25 03/08/25
06:59 06:59 06:59
Intake Total 840 / 840 1440 / 1440
Output Total 1025 / 1025
Balance -185 / -185 1440 / 1440
Review of Systems
-
History Source: Patient
All other systems: Reviewed and negative
Constitutional: Reports No Symptoms; Denies Fever or Fatigue
EENT: Reports No Symptoms Reported; Denies Sore Throat or Runny Nose
Respiratory: Reports Pleurisy; Denies Cough, Hemoptysis or Trouble Breathing
Cardiac: Reports No Symptoms; Denies Chest Pain or Palpitations
Abdomen/GI: Reports No Symptoms; Denies Abdominal Pain, Nausea, Vomiting or Diarrhea
Genitourinary: Reports No Symptoms; Denies Dysuria or Frequency
Musculoskeletal: Reports No Symptoms
Skin: Reports No Symptoms
Neuro: Reports No Symptoms; Denies Dizzy or Headache
Physical Exam
-
General: Well Developed, Well Nourished, No Apparent Distress and Comfortable
HEENT: Normocephalic, Atraumatic and Moist Mucous Membranes
Respiratory: Clear to Auscultation and Non Labored Respirations; Negative Wheezes or Crackles
Cardiac: Regular Rhythm, S1/S2 and Murmur
GI: Soft, Nontender, Nondistended and Normal Bowel Sounds
Musculoskeletal: No Cyanosis and No Edema
Skin: Warm and Dry; Negative Rash
Neuro: Awake, Alert, Oriented and No Motor Deficits
Psych: Calm
[2025-03-07 11:20] VITALS: BP 118/65
--- NOTE | 2025-03-07 11:51 | PTCARENOTE ---
pt had x1 large emesis of undigested food after eating [employer] breakfast. denied further nausea, refused zofran. cleaned up, assisted back to bed.
[2025-03-07 16:01] VITALS: BP 131/74
--- NOTE | 2025-03-07 16:06 | PTCARENOTE ---
resident notified pt had x3 episodes of emesis. afebrile, denies nausea.
[2025-03-07] MEDS: ZOFRAN 4 MG IV (16:39)
[2025-03-07 19:19] VITALS: BP 116/65
[2025-03-07 20:33] LABS: Ammonia < 9 umol/L (9-30)
[2025-03-07 23:03] VITALS: BP 110/56
[2025-03-08 03:14] VITALS: BP 113/54
[2025-03-08 06:00] VITALS: BMI 27.0
[2025-03-08 07:40] VITALS: BP 107/60
[2025-03-08] MEDS: PROTONIX 40 MG PO (07:51)
[2025-03-08] MEDS: CIPRO 500 MG PO (07:51)
[2025-03-08] MEDS: DUPHALAC/CHRONULAC 20 GRAMS PO ×3 (07:51→21:44)
[2025-03-08] MEDS: COREG 3.125 MG PO ×2 (07:51→21:44)
[2025-03-08] MEDS: LASIX 20 MG PO (07:51)
[2025-03-08] MEDS: ALDACTONE 50 MG PO (07:51)
[2025-03-08 08:13] LABS: Hematocrit 28.2 % (39.0-52.0); Hemoglobin 9.8 g/dL (13.0-18.0); Mean Corp Hgb Conc. 34.8 g/dL (33.0-37.0); Mean Corpuscular Volume 111.0 fL (80.0-94.0); Platelet Count 82 10^3/uL (130-400); Red Cell Dist. Width 19.0 % (11.5-14.5)
[2025-03-08 08:28] LABS: Blood Urea Nitrogen 22 mg/dl (9-20); Calcium 8.6 mg/dl (8.4-10.2); Carbon Dioxide 25 mmol/L (22-30); Chloride 101 mmol/L (98-107); Estimated Creatinine Clearance 74 ml/min; Glucose 100 mg/dl (70-99); Potassium 3.9 mmol/L (3.5-5.1); Sodium 133 mmol/L (135-145); eGFR > 60.00
--- NOTE | 2025-03-08 10:04 | W.PN.HOSP.TC ---
Today's Communication/Plan
-
Vomiting last night, improved with Zofran
Abdominal x-ray normal
Continue current treatment plan, monitor GI symptoms
Assessment / Plan
Assessment / Plan
Mr Maurizio Granados is a 59yo with no medical care for years, hx PAF(not on anticoagulation), salivary gland tumor (chronic for years), prior ETOH use years ago with admission in November with massive ascites with decompensated liver failure,
hyponatremia, coagulopathy, electrolyte imbalance. During that admission he had paracentesis x 3 for total of 28 liters of ascites removed and fluid studies c/w liver etiology with negative pathology. Etiology of liver disease was unclear. Liver
work up complete during admission revealed + ALETHEA, mild elevated A1AT, elevated immunoglobulin A, hepatitis B immunity with otherwise neg panel, normal AMA, SLA, LKM, ceruloplasmin, with neg ETOH screening with PETH neg <10 AFP 4.97. Imaging with
cirrhosis and ascites. 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 MRI with severe hepatic cirrhosis without HCC, severe portal HTN, mild ascites, upper abdominal adenopathy, GB distention, adrenal mass and CM. He
now presents today with abdominal distention and change in mental status. On admission noted with WBC 22,400, hbg 14.1, platelets 172, na 121, creat 2.6, BUN 29, lactate 7.5, bili 14.5, AST 44, ALT <30, alk phos 171, ammonia 40. She reports some
abdominal pain nausea, nonbloody vomiting with distention but denies diarrhea, constipation or rectal bleeding. Urine studies sent results pending underwent diagnostic paracentesis with 4 L off in the ED blood cultures obtained 2 g of IV Rocephin
started nephrology consulted and started 3% saline, IR consulted for thoracentesis, GI consulted, manager of corporate consulted. Ascitic fluid analysis positive for SBP with greater than 250 PMN. Blood cultures positive for gram-negative baccilli. On 02/19
patient went into SVT in the 170s. Received dose of Levophed, and 6 mg of adenosine with return to sinus tachycardia. Cardiology consulted and ordered TTE. Also repleted patient's mag, on admission Mg 1.9. Albumin challenge failed, HRS type 1.
Octreotide, albumin, levophed. Patients MELD 37, Child Class C, attempted to transfer to [facility] however due to lack of coverage for surgery/transplant patient was denied. GI placed Dobbhoff tube and oral lactulose was given. Patient started
having bowel movements with improvement of ammonia numbers. Patient continued to show improvement, mentation improved he was able to converse with us, he removed his Dobbhoff tube, his leukocytosis continues to decrease and his kidney function
continued to improve. He was downgraded to IMU for further care. Patient's mentation improved drastically as he was diuresed and he continued to poop out and the ammonia. Kidney function normalized and patient was taken off octreotide and fluids.
IR took 9 L off his abdomen. Patient was downgraded to the telemetry floor. He continues to have improvement in mentation and is now tolerating low-sodium diet. He had mild pleuritic chest pain due to expanding lung volumes and decreasing
ascitic volume, gave him pain medication which improved pain. He was taken off of IV antibiotics and transition to p.o. Cipro which she will take indefinitely for SBP prophylaxis. His diuretic medications were restarted and kidney function was
tracked. Application for emergency Medicaid was started so patient may have options for disposition planning. Patient was unmotivated to work with PT, and psychiatry was reconsulted to rule in or rule out psychiatric conditions impacting his
motivation. Psychiatry talked with patient, but will hold off starting antidepressant given low sodium numbers. He was also noted to not be eating his meals, with nutrition reporting less than 50% of meals eaten. On 03/01 paracentesis was done 10 L
taken off, followed by albumin. GI signed off, but will follow-up outpatient when patient is discharge. Patient started working with PT, was able to do some tasks with frequent redirection but needed frequent rest breaks, recommending skilled
rehab. On 03/04 IR conducted paracentesis draining 6 L, patient tolerated well and was given Flexbumin after. manager life sciences talked with patient about Medicaid pending applications to SNF and the process was started. Patient's continence improving,
FMS removed. On 03/07 patient had some nausea and vomiting after eating [employer], patient reported that his body usually does not settle well with it. Ordered abdominal x-ray which showed normal gas patterns, patient continue to stool, and
vomiting alleviated after Zofran.
#Severe sepsis, resolved
#SBP resolved
#Decompensated Cirrhosis
#Hepatic encephalopathy, resolved
#Hyperbilirubinemia, improving
total paracentesis to 34L
- prior workup unremarkable as above, suspicion for alcoholic hepatitis -- PEth negative
- MELD score on last admission 25, this admission MELD 37 this admission child class C
- ciprofloxacin 500 twice daily, indefinitely for SBP PPx
Appreciate GI recs
- lactulose TID, consider decreasing to BID if incontinence continues
- Protonix 40 po qd
#chest/abd pain, improving
#pleurisy
Right sided with deep inhalation
pleuritic
650 mg acetaminophen as needed
#MORTEZA, resolved
#Hepatorenal syndrome Type I
- normal kidney function on recent discharge ([employer]ar Starcher 0.8)
- c/wDiuretics 20 mg Lasix 50 mg Aldactone
- Trend BMP
#Depressed mood improving
- endorsed depression prior to this hospitalization
- On no psych medications
- Consult psych
- Will hold off starting antidepressant given low sodium numbers
# Deconditioning
Due to being bedbound at home, hospital
-Patient participating with PT
- PT recommending skilled rehab
#Hyponatremia,
- MS improving, no focal neurological deficits
- Continue to monitor
- Na 128
-Consider nephrology consult if continues to drop, consider 3% saline, consider Samsca
#SVT, resolved
- Patient went into SVT overnight 02/19
- Mg 1.9, 1 g ordered to replete
- TTE showing mild , thickened valves, vegetation cannot be excluded however patient not a candidate for URIEL
- on carvedilol 3.125mg BID with parameters
- Heart rates in the 50s, continue to monitor
#Paroxysmal A-fib
- Not on anticoagulation
- on carvedilol as above
- C/t monitor on tele
# Salivary gland cyst
- stable, c/t monitor
DVT PPx:
SCDs
CODE STATUS:
Full code
Anticipated Discharge: > 48 hours
Subjective/Interval History
-
Last night patient had some nausea and vomiting after eating [employer]ingham[employer]. States that [employer]ingham[employer] usually is does not settle well with him. Vomiting stopped after administration of Zofran and patient was able to eat dinner and breakfast this morning
without issues. He states that he also might have already eaten because he feels pressure to ingest more and get stronger so that he is not a burden to family or hospital staff. Reassured patient that we do not want him to feel pressure and to
overeat and to take his time with getting stronger. Patient also endorses some lower abdominal pain upon palpation and abdominal x-ray was ordered to evaluate for SBO, abdominal x-ray showed no signs of bowel obstruction. Overnight there was
concern about his mentation and ammonia levels were ordered which were not elevated. This morning patient feels a lot better, but was embarrassed about soiling the bed and reiterated that he did not want to feel like a burden to staff but does not
want FMS replaced. Date of Service: March 08, 2025
Objective Data
-
Labs:
Laboratory Results
03/08/25
07:44
WBC 7.2
Hgb 9.8 L
Hct 28.2 L
Plt Count 82 L
Sodium 133 L
Potassium 3.9
Chloride 101
Carbon Dioxide 25
BUN 22 H
Creatinine 1.0
Glucose 100 H
Calcium 8.6
Vital Signs:
Vital Signs
Temp Pulse Resp BP Pulse Ox
98.2 F 61 16 107/60 100
03/08/25 07:40 03/08/25 07:51 03/08/25 07:40 03/08/25 07:51 03/08/25 07:40
I&O
03/07/25 03/08/25 03/09/25
06:59 06:59 06:59
Intake Total 1440 / 1440 480 / 480
Balance 1440 / 1440 480 / 480
Review of Systems
-
History Source: Patient
Constitutional: Reports No Symptoms; Denies Fever or Fatigue
EENT: Denies No Symptoms Reported, Sore Throat or Runny Nose
Respiratory: Reports Pleurisy; Denies Cough, Trouble Breathing or Wheezing
Cardiac: Reports No Symptoms; Denies Chest Pain
Abdomen/GI: Reports No Symptoms; Denies Abdominal Pain, Nausea, Vomiting or Diarrhea
Genitourinary: Reports No Symptoms; Denies Dysuria
Musculoskeletal: Reports No Symptoms; Denies Joint Pain
Neuro: Reports No Symptoms; Denies Dizzy or Headache
Physical Exam
-
General: Well Developed, Well Nourished and No Apparent Distress
HEENT: Normocephalic and Atraumatic
Respiratory: Clear to Auscultation; Negative Wheezes, Rales or Crackles
Cardiac: Regular Rhythm, S1/S2 and Murmur
GI: Soft, Nondistended, Normal Bowel Sounds and Tender (Suprapubic region, sharp quality)
Musculoskeletal: No Cyanosis and No Edema
Skin: Warm and Dry; Negative Rash
Neuro: Awake, Alert and Oriented
Psych: Anxious
--- NOTE | 2025-03-08 11:03 | CM ---
Reviewed the chart notes. Waiting on financial paperwork to be completed by spouse and submitted to [employer] for review. CM continues to be available to patient/family and is monitoring medical plan for needs at discharge.
Plan: Discharge to SNF/rehab once bed secured.
[2025-03-08 11:10] VITALS: BP 118/52
[2025-03-08 12:35] VITALS: BP 113/60; PULSE 78; O2SAT 100
[2025-03-08 15:10] VITALS: BP 118/48
[2025-03-08 23:54] VITALS: BP 123/62
[2025-03-09 06:00] VITALS: BMI 26.8
[2025-03-09 07:35] VITALS: BP 122/65
[2025-03-09] MEDS: COREG 3.125 MG PO ×2 (08:29→21:23)
[2025-03-09] MEDS: CIPRO 500 MG PO (08:30)
[2025-03-09] MEDS: DUPHALAC/CHRONULAC 20 GRAMS PO (08:30)
[2025-03-09] MEDS: LASIX 20 MG PO (08:30)
[2025-03-09] MEDS: ALDACTONE 50 MG PO (08:30)
[2025-03-09] MEDS: PROTONIX 40 MG PO (08:30)
--- NOTE | 2025-03-09 10:10 | W.PN.HOSP.TC ---
Today's Communication/Plan
-
Reduce lactulose to 10 g 3 times daily
Start oxycodone 5 mg as needed for moderate to severe pain
Otherwise continue with current management
Pending insurance approval for SNF
Assessment / Plan
Assessment / Plan
Mr Maurizio Granados is a 59yo with no medical care for years, hx PAF(not on anticoagulation), salivary gland tumor (chronic for years), prior ETOH use years ago with admission in November with massive ascites with decompensated liver failure,
hyponatremia, coagulopathy, electrolyte imbalance. During that admission he had paracentesis x 3 for total of 28 liters of ascites removed and fluid studies c/w liver etiology with negative pathology. Etiology of liver disease was unclear. Liver
work up complete during admission revealed + ALETHEA, mild elevated A1AT, elevated immunoglobulin A, hepatitis B immunity with otherwise neg panel, normal AMA, SLA, LKM, ceruloplasmin, with neg ETOH screening with PETH neg <10 AFP 4.97. Imaging with
cirrhosis and ascites. 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 MRI with severe hepatic cirrhosis without HCC, severe portal HTN, mild ascites, upper abdominal adenopathy, GB distention, adrenal mass and CM. He
now presents today with abdominal distention and change in mental status. On admission noted with WBC 22,400, hbg 14.1, platelets 172, na 121, creat 2.6, BUN 29, lactate 7.5, bili 14.5, AST 44, ALT <30, alk phos 171, ammonia 40. She reports some
abdominal pain nausea, nonbloody vomiting with distention but denies diarrhea, constipation or rectal bleeding. Urine studies sent results pending underwent diagnostic paracentesis with 4 L off in the ED blood cultures obtained 2 g of IV Rocephin
started nephrology consulted and started 3% saline, IR consulted for thoracentesis, GI consulted, drying room attendant consulted. Ascitic fluid analysis positive for SBP with greater than 250 PMN. Blood cultures positive for gram-negative baccilli. On 02/19
patient went into SVT in the 170s. Received dose of Levophed, and 6 mg of adenosine with return to sinus tachycardia. Cardiology consulted and ordered TTE. Also repleted patient's mag, on admission Mg 1.9. Albumin challenge failed, HRS type 1.
Octreotide, albumin, levophed. Patients MELD 37, Child Class C, attempted to transfer to [facility] however due to lack of coverage for surgery/transplant patient was denied. GI placed Dobbhoff tube and oral lactulose was given. Patient started
having bowel movements with improvement of ammonia numbers. Patient continued to show improvement, mentation improved he was able to converse with us, he removed his Dobbhoff tube, his leukocytosis continues to decrease and his kidney function
continued to improve. He was downgraded to IMU for further care. Patient's mentation improved drastically as he was diuresed and he continued to poop out and the ammonia. Kidney function normalized and patient was taken off octreotide and fluids.
IR took 9 L off his abdomen. Patient was downgraded to the telemetry floor. He continues to have improvement in mentation and is now tolerating low-sodium diet. He had mild pleuritic chest pain due to expanding lung volumes and decreasing
ascitic volume, gave him pain medication which improved pain. He was taken off of IV antibiotics and transition to p.o. Cipro which she will take indefinitely for SBP prophylaxis. His diuretic medications were restarted and kidney function was
tracked. Application for emergency Medicaid was started so patient may have options for disposition planning. Patient was unmotivated to work with PT, and psychiatry was reconsulted to rule in or rule out psychiatric conditions impacting his
motivation. Psychiatry talked with patient, but will hold off starting antidepressant given low sodium numbers. He was also noted to not be eating his meals, with nutrition reporting less than 50% of meals eaten. On 03/01 paracentesis was done 10 L
taken off, followed by albumin. GI signed off, but will follow-up outpatient when patient is discharge. Patient started working with PT, was able to do some tasks with frequent redirection but needed frequent rest breaks, recommending skilled
rehab. On 03/04 IR conducted paracentesis draining 6 L, patient tolerated well and was given Flexbumin after. veterinary manager talked with patient about Medicaid pending applications to SNF and the process was started. Patient's continence improving,
FMS removed. On 03/07 patient had some nausea and vomiting after eating [employer], patient reported that his body usually does not settle well with it. Ordered abdominal x-ray which showed normal gas patterns, patient continue to stool, and
vomiting alleviated after Zofran.
#Severe sepsis, resolved
#SBP resolved
#Decompensated Cirrhosis
#Hepatic encephalopathy, resolved
#Hyperbilirubinemia, improving
total paracentesis to 34L
- prior workup unremarkable as above, suspicion for alcoholic hepatitis -- PEth negative
- MELD score on last admission 25, this admission MELD 37 this admission child class C
- ciprofloxacin 500 twice daily, indefinitely for SBP PPx
Appreciate GI recs
- lactulose TID; decreased to 10 g 3 times daily from 20 g with goal 2-3 BM daily
- Protonix 40 po qd
#chest/abd pain, improving
#pleurisy
Right sided with deep inhalation
pleuritic
650 mg acetaminophen as needed
Start PRN oxy 5 mg
#MORTEZA, resolved
#Hepatorenal syndrome Type I
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
- c/wDiuretics 20 mg Lasix 50 mg Aldactone
- Trend BMP
#Depressed mood improving
- endorsed depression prior to this hospitalization
- On no psych medications
- Consult psych
- Will hold off starting antidepressant given low sodium numbers
# Deconditioning
Due to being bedbound at home, hospital
-Patient participating with PT
- PT recommending skilled rehab
#Hyponatremia,
- MS improving, no focal neurological deficits
- Continue to monitor
- Na 128
-Consider nephrology consult if continues to drop, consider 3% saline, consider Samsca
#SVT, resolved
- Patient went into SVT overnight 02/19
- Mg 1.9, 1 g ordered to replete
- TTE showing mild , thickened valves, vegetation cannot be excluded however patient not a candidate for URIEL
- on carvedilol 3.125mg BID with parameters
- Heart rates in the 50s, continue to monitor
#Paroxysmal A-fib
- Not on anticoagulation
- on carvedilol as above
- C/t monitor on tele
# Salivary gland cyst
- stable, c/t monitor
DVT PPx:
SCDs
CODE STATUS:
Full code
Anticipated Discharge: > 48 hours
Subjective/Interval History
-
Date of Service: March 09, 2025
Seen and examined while seated in the chair. AFVSS this morning. No acute events overnight.
States he still has some abdomen pain related to frequent paracenteses. Also having fairly frequent bowel movements, more than 3 to 4/day from what he tells me
Denies any other new complaints this morning, generally feeling well
Objective Data
-
Vital Signs:
Vital Signs
Temp Pulse Resp BP Pulse Ox
98.1 F 62 18 122/65 100
03/09/25 07:35 03/09/25 08:29 03/09/25 07:35 03/09/25 08:29 03/09/25 07:35
I&O
03/08/25 03/09/25 03/10/25
06:59 06:59 06:59
Intake Total 480 / 480 900 / 900
Balance 480 / 480 900 / 900
Review of Systems
-
History Source: Patient
All other systems: Reviewed and negative
Physical Exam
-
General: Well Developed, No Apparent Distress, Appears Chronically Ill and Cachectic
HEENT: Normocephalic, Atraumatic, Moist Mucous Membranes, Anicteric and Other (Soft mobile mass of the left parotid region)
Cardiac: Regular Rhythm, S1/S2 and Murmur; Negative Rub or Gallop
GI: Soft, Normal Bowel Sounds, Tender (Mild, no peritoneal signs) and Distended (Present though improved from previous)
Musculoskeletal: No Clubbing, No Cyanosis and No Edema
Skin: Warm and Dry; Negative Rash or Jaundice
Neuro: AO x 3 and Nonfocal/Grossly Intact
Psych: Calm
[2025-03-09 15:25] VITALS: BP 110/55
[2025-03-09] MEDS: ROXICODONE 5 MG PO ×2 (15:47→21:24)
[2025-03-09] MEDS: DUPHALAC/CHRONULAC 10 GRAMS PO ×2 (15:48→21:23)
[2025-03-09 23:25] VITALS: BP 105/47
[2025-03-10] MEDS: ROXICODONE 5 MG PO ×3 (05:05→19:43)
[2025-03-10 06:00] VITALS: BMI 27.3
[2025-03-10 07:22] LABS: INR 1.49; PT 18.5 Sec (11.4-14.6)
[2025-03-10 07:30] VITALS: BP 94/57
[2025-03-10 07:46] LABS: Hematocrit 25.2 % (39.0-52.0); Hemoglobin 8.9 g/dL (13.0-18.0); Mean Corp Hgb Conc. 35.3 g/dL (33.0-37.0); Mean Corpuscular Volume 109.6 fL (80.0-94.0); Nucleated Red Blood Cells % 0 % (-); Platelet Count 76 10^3/uL (130-400); Red Cell Dist. Width 18.6 % (11.5-14.5)
[2025-03-10 07:54] LABS: ALT (SGPT) 32 U/L (0-50); AST (SGOT) 45 U/L (17-59); Albumin 2.9 g/dl (3.5-5.0); Alkaline Phosphatase 115 U/L (38-126); Blood Urea Nitrogen 20 mg/dl (9-20); Calcium 8.1 mg/dl (8.4-10.2); Carbon Dioxide 22 mmol/L (22-30); Chloride 98 mmol/L (98-107); Estimated Creatinine Clearance 74 ml/min; Glucose 90 mg/dl (70-99); Potassium 3.9 mmol/L (3.5-5.1); Sodium 127 mmol/L (135-145); Total Protein 6.0 g/dl (6.3-8.2); eGFR > 60.00
[2025-03-10 08:38] VITALS: BP 96/51
[2025-03-10] MEDS: DUPHALAC/CHRONULAC 10 GRAMS PO (08:50)
[2025-03-10] MEDS: PROTONIX 40 MG PO (08:50)
[2025-03-10] MEDS: CIPRO 500 MG PO (08:50)
[2025-03-10] MEDS: ALDACTONE PO (09:08)
[2025-03-10] MEDS: COREG PO (09:09)
[2025-03-10] MEDS: LASIX PO (09:09)
[2025-03-10] MEDS: LASIX 20 MG PO (10:44)
[2025-03-10] MEDS: ALDACTONE 50 MG PO (10:45)
--- NOTE | 2025-03-10 12:53 | W.PN.HOSP.TC ---
Today's Communication/Plan
-
IR paracentesis and albumin
Encourage oral solute intake and 1500 mL FR
Continue to trend CBC on PPI
Continue current management otherwise
Pending medical assistance application for SNF
Assessment / Plan
Assessment / Plan
Mr Maurizio Granados is a 59yo with no medical care for years, hx PAF(not on anticoagulation), salivary gland tumor (chronic for years), prior ETOH use years ago with admission in November with massive ascites with decompensated liver failure,
hyponatremia, coagulopathy, electrolyte imbalance. During that admission he had paracentesis x 3 for total of 28 liters of ascites removed and fluid studies c/w liver etiology with negative pathology. Etiology of liver disease was unclear. Liver
work up complete during admission revealed + ALETHEA, mild elevated A1AT, elevated immunoglobulin A, hepatitis B immunity with otherwise neg panel, normal AMA, SLA, LKM, ceruloplasmin, with neg ETOH screening with PETH neg <10 AFP 4.97. Imaging with
cirrhosis and ascites. 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 MRI with severe hepatic cirrhosis without HCC, severe portal HTN, mild ascites, upper abdominal adenopathy, GB distention, adrenal mass and CM. He
now presents today with abdominal distention and change in mental status. On admission noted with WBC 22,400, hbg 14.1, platelets 172, na 121, creat 2.6, BUN 29, lactate 7.5, bili 14.5, AST 44, ALT <30, alk phos 171, ammonia 40. She reports some
abdominal pain nausea, nonbloody vomiting with distention but denies diarrhea, constipation or rectal bleeding. Urine studies sent results pending underwent diagnostic paracentesis with 4 L off in the ED blood cultures obtained 2 g of IV Rocephin
started nephrology consulted and started 3% saline, IR consulted for thoracentesis, GI consulted, parts representative consulted. Ascitic fluid analysis positive for SBP with greater than 250 PMN. Blood cultures positive for gram-negative baccilli. On 02/19
patient went into SVT in the 170s. Received dose of Levophed, and 6 mg of adenosine with return to sinus tachycardia. Cardiology consulted and ordered TTE. Also repleted patient's mag, on admission Mg 1.9. Albumin challenge failed, HRS type 1.
Octreotide, albumin, levophed. Patients MELD 37, Child Class C, attempted to transfer to [facility] however due to lack of coverage for surgery/transplant patient was denied. GI placed Dobbhoff tube and oral lactulose was given. Patient started
having bowel movements with improvement of ammonia numbers. Patient continued to show improvement, mentation improved he was able to converse with us, he removed his Dobbhoff tube, his leukocytosis continues to decrease and his kidney function
continued to improve. He was downgraded to IMU for further care. Patient's mentation improved drastically as he was diuresed and he continued to poop out and the ammonia. Kidney function normalized and patient was taken off octreotide and fluids.
IR took 9 L off his abdomen. Patient was downgraded to the telemetry floor. He continues to have improvement in mentation and is now tolerating low-sodium diet. He had mild pleuritic chest pain due to expanding lung volumes and decreasing
ascitic volume, gave him pain medication which improved pain. He was taken off of IV antibiotics and transition to p.o. Cipro which she will take indefinitely for SBP prophylaxis. His diuretic medications were restarted and kidney function was
tracked. Application for emergency Medicaid was started so patient may have options for disposition planning. Patient was unmotivated to work with PT, and psychiatry was reconsulted to rule in or rule out psychiatric conditions impacting his
motivation. Psychiatry talked with patient, but will hold off starting antidepressant given low sodium numbers. He was also noted to not be eating his meals, with nutrition reporting less than 50% of meals eaten. On 03/01 paracentesis was done 10 L
taken off, followed by albumin. GI signed off, but will follow-up outpatient when patient is discharge. Patient started working with PT, was able to do some tasks with frequent redirection but needed frequent rest breaks, recommending skilled
rehab. On 03/04 IR conducted paracentesis draining 6 L, patient tolerated well and was given Flexbumin after. estimator project manager talked with patient about Medicaid pending applications to SNF and the process was started. Patient's continence improving,
FMS removed. On 03/07 patient had some nausea and vomiting after eating [employer], patient reported that his body usually does not settle well with it. Ordered abdominal x-ray which showed normal gas patterns, patient continue to stool, and
vomiting alleviated after Zofran.
#Severe sepsis, resolved
# Ascites with SBP, now resolved
#Decompensated Cirrhosis
#Hepatic encephalopathy, resolved
#Hyperbilirubinemia, improving
total paracentesis to 34L
- prior workup unremarkable as above, suspicion for alcoholic hepatitis -- PEth negative
- MELD score on last admission 25, this admission MELD 37 this admission child class C
- ciprofloxacin 500 twice daily, indefinitely for SBP PPx
-Appreciate GI recs
- lactulose TID; decreased to 10 g 3 times daily from 20 g with goal 2-3 BM daily
- Protonix 40 po qd
- Consults IR again today for therapeutic paracentesis
#chest/abd pain, improving
#pleurisy
Right sided with deep inhalation
pleuritic
650 mg acetaminophen as needed
Continue with PRN oxy 5 mg
#MORTEZA, resolved
#Hepatorenal syndrome Type I
-S/p IV albumin/octreotide/as needed vasopressors
-normal kidney function on recent discharge (Distribution System Operator 0.8)
-c/w Diuretics 20 mg Lasix 50 mg Aldactone
-Trend BMP
#Depressed mood improving
- endorsed depression prior to this hospitalization
- On no psych medications
- Consult psych
- Will hold off starting antidepressant given low sodium numbers
# Deconditioning
Due to being bedbound at home, hospital
-Patient participating with PT
- PT recommending skilled rehab
#Hyponatremia,
- MS improving, no focal neurological deficits
- Continue to monitor
- Na 128 -> 133 -> 127
-Consider nephrology consult if continues to drop, consider 3% saline, consider Samsca
#SVT, resolved
- Patient went into SVT overnight 02/19
- Mg 1.9, 1 g ordered to replete
- TTE showing mild , thickened valves, vegetation cannot be excluded however patient not a candidate for URIEL
- on carvedilol 3.125mg BID with parameters
- Heart rates in the 50s, continue to monitor
#Paroxysmal A-fib
- Not on anticoagulation
- on carvedilol as above
- C/t monitor on tele
# Salivary gland cyst
- stable, c/t monitor
DVT PPx:
SCDs
CODE STATUS:
Full code
Anticipated Discharge: 24 - 48 hours
Subjective/Interval History
-
Date of Service: March 10, 2025
Seen and examined at bedside. No acute events reported overnight. AFVSS this morning.
Sodium dropped to 127 from 133, hemoglobin dropped from 9.8-8.7. Denies any known bleeding, states his intake has been stable. Still having multiple bowel movements daily, denies melena or hematochezia
Denies any other new complaints as of this morning
Objective Data
-
Labs:
Laboratory Results
03/10/25
06:30
WBC 7.3
Hgb 8.9 L
Hct 25.2 L
Plt Count 76 L
PT 18.5 H
INR 1.49
Sodium 127 L
Potassium 3.9
Chloride 98
Carbon Dioxide 22
BUN 20
Creatinine 1.0
Glucose 90
Calcium 8.1 L
Total Bilirubin 4.2 H
AST 45
ALT 32
Alkaline Phosphatase 115
Vital Signs:
Vital Signs
Temp Pulse Resp BP Pulse Ox
98.4 F 68 16 100/52 100
03/10/25 07:30 03/10/25 10:44 03/10/25 07:30 03/10/25 10:44 03/10/25 07:30
I&O
03/09/25 03/10/25 03/11/25
06:59 06:59 06:59
Intake Total 900 / 900 1120 / 1120
Balance 900 / 900 1120 / 1120
Review of Systems
-
History Source: Patient
All other systems: Reviewed and negative
Physical Exam
-
General: Well Developed, No Apparent Distress, Appears Chronically Ill and Other (Mobile and soft left parotid mass)
HEENT: Normocephalic, Atraumatic and Moist Mucous Membranes
Respiratory: Clear to Auscultation and Non Labored Respirations; Negative Accessory Resp Muscle Use
Cardiac: Regular Rhythm, S1/S2 and Murmur; Negative Rub or Gallop
GI: Soft, Nontender, Normal Bowel Sounds and Distended
Musculoskeletal: No Clubbing, No Cyanosis and No Edema
Skin: Warm and Dry; Negative Rash
Neuro: AO x 3, Nonfocal/Grossly Intact and Central Nerve's Intact; Negative Tremors
Psych: Calm
Data Reviewed
-
Labs: Labs Reviewed by me, Discussed with Physician (Interventional radiology) and Discussed with Patient
[2025-03-10] MEDS: DUPHALAC/CHRONULAC PO ×2 (15:06→22:43)
[2025-03-10 15:25] VITALS: BP 118/61
[2025-03-10] MEDS: COREG 3.125 MG PO (19:44)
[2025-03-10 23:14] VITALS: BP 109/55
[2025-03-11] MEDS: ROXICODONE 5 MG PO ×4 (05:45→23:34)
[2025-03-11 05:59] VITALS: BMI 27.5
[2025-03-11 07:45] VITALS: BP 109/59
[2025-03-11 08:09] LABS: Hematocrit 23.9 % (39.0-52.0); Hemoglobin 8.6 g/dL (13.0-18.0); Mean Corp Hgb Conc. 36.0 g/dL (33.0-37.0); Mean Corpuscular Volume 108.6 fL (80.0-94.0); Nucleated Red Blood Cells % 0 % (-); Platelet Count 76 10^3/uL (130-400); Red Cell Dist. Width 17.9 % (11.5-14.5)
[2025-03-11 08:30] VITALS: BP 113/61; BP_SYST 68
[2025-03-11 08:39] LABS: ALT (SGPT) 30 U/L (0-50); AST (SGOT) 41 U/L (17-59); Albumin 2.8 g/dl (3.5-5.0); Alkaline Phosphatase 127 U/L (38-126); Blood Urea Nitrogen 20 mg/dl (9-20); Calcium 7.9 mg/dl (8.4-10.2); Carbon Dioxide 24 mmol/L (22-30); Chloride 97 mmol/L (98-107); Estimated Creatinine Clearance 74 ml/min; Glucose 92 mg/dl (70-99); Magnesium 1.5 mg/dl (1.6-2.3); Potassium 4.0 mmol/L (3.5-5.1); Sodium 126 mmol/L (135-145); Total Protein 5.9 g/dl (6.3-8.2); eGFR > 60.00
[2025-03-11 09:09] VITALS: BP 108/55
[2025-03-11] MEDS: DUPHALAC/CHRONULAC 10 GRAMS PO ×3 (09:34→21:02)
[2025-03-11] MEDS: LASIX 20 MG PO (09:35)
[2025-03-11] MEDS: CIPRO 500 MG PO (09:35)
[2025-03-11] MEDS: ALDACTONE 50 MG PO (09:35)
[2025-03-11] MEDS: COREG 3.125 MG PO (09:35)
[2025-03-11] MEDS: PROTONIX 40 MG PO (09:35)
[2025-03-11 12:01] LABS: Body Fluid Second Tech EM
[2025-03-11 15:58] VITALS: BP 101/48
--- NOTE | 2025-03-11 16:25 | CM ---
VM messages left for patient daughter and requesting call back about the information/paperwork not completed per Amy Vaughn. Also placed phone numbers in all scripts for facility to try for patient. Patient family has not completed paperwork
for MA roxy at SNF. [facility] and they are awaiting MA number. CM will continue to follow for discharge planning needs.
Plan; SNF
--- NOTE | 2025-03-11 16:46 | W.PN.HOSP.TC ---
Addendum entered and electronically signed by Carolyn Harry MD 03/11/25 17:40:
I saw and evaluated the patient independently. I reviewed the resident�s note and agree with findings and plan as documented by Dr. Israel.
GENERAL: chronically ill appearing male in no apparent distress
HEENT: NC/AT-- salivary cyst left lower jaw
HEART: regular rate and rhythm, +S1, +S2
LUNGS : clear to auscultation bilaterally
ABDOM: soft, nontender, nondistended, + bowel sounds
EXT: no cyanosis, clubbing, or edema
NEUROLOGIC: nonfocal
Severe sepsis with Klebsiella pneumoniae SBP/bacteremia--resolved--with decompensated cirrhosis/hepatic encephalopathy/hyperbilirubinemia---finished Rocephin and now on lifelong cipro for prophylaxis--Downtrending Tbili--child class C -- awaiting
insurance coverage to begin transplant application process--paracentesis 02/21 = 4L and 02/25 = 9L, 03/01 = 10L, 03/04 = 6L, 03/11 = 3L--s/p albumin--apprec GI-- c/w lactulose, PPI, Xifaxin-- diuretics-- lactulose increased
MORTEZA--Hepatorenal syndrome---restarted diuretics --apprec renal
Depressed mood- endorsed depression prior to this hospitalization- apprec psych--cannot start SSRI with hyponatremia
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
SVT-- resolved (overnight 02/19)--- Cardiology following -- TTE showing mild , thickened valves, vegetation cannot be excluded however patient not a candidate for URIEL--cont coreg as BP tolerates
Paroxysmal A-fib--Not on anticoagulation- started on carvedilol as above
Deconditioning--Due to being bedbound at home, hospital- PT following, recommended skilled rehab, [facility] completes paperwork
Salivary gland cyst
DVT Proph--SCDs
CODE STATUS--Full code
Original Note:
Today's Communication/Plan
-
- Follow-up with about discharge paperwork, otherwise last option to discharge home
Assessment / Plan
Assessment / Plan
Mr. Granados is a 59-year-old male admitted on 02/19/2025 with history of PAF (not on AC), salivary gland tumor (chronic), prior EtOH use with admission in November with massive ascites with decompensated liver failure, hyponatremia, coagulopathy,
electrolyte imbalance, who presented with liver cirrhosis of unknown etiology with decompensation complicated by portal hypertension with ascites and esophageal nonbleeding varices now status post HRS and triple therapy, hepatic encephalopathy
requiring lactulose/rifaximin/rectal tube, SBP on Cipro, and 37 L paracentesis (most recent on 03/11/2025) fluid removal since admission. He is on a 1500 mL fluid restriction and is clinically stable for discharge, which has been complicated by
social work issues. Please see H&P for full hospital course and detailed summary.
#Severe sepsis, resolved
#Ascites with SBP, now resolved
#Decompensated Cirrhosis
#Hepatic encephalopathy, resolved
#Hyperbilirubinemia, improving total paracentesis to 37L with the most recent today 03/11/2025, where IR took off 3 L
- After prior workup per previous notes, high suspicion for alcoholic hepatitis -- PEth negative
- MELD score on last admission 25, this admission MELD 37 this admission child class C
- Indefinitely on ciprofloxacin 500 twice daily for SBP PPx
- Per GI:
- Continue lactulose 10 g TID; decreased on 03/10/2025 from 20 g with goal 2-3 BM daily
- Protonix 40 po qd
- IR paracentesis 03/11/2025, 3 L off, no albumin supplemented
#Right sided with deep inhalation, pleuritic
-Continue 650 mg acetaminophen as needed
-Continue with PRN oxy 5 mg
#MORTEZA, resolved
#Hepatorenal syndrome Type I
-S/p IV albumin/octreotide/as needed vasopressors
-c/w Diuretics 20 mg, Lasix 50 mg, and Aldactone
- Continue to trend BMP
#Depressed mood improving
- endorsed depression prior to this hospitalization
- Psych consulted, but cannot start antidepressant given low sodium
#Deconditioning
Due to being bedbound at home, hospital
- PT following, recommended skilled rehab, plan to discharge to [facility] pending completes paperwork
#Hyponatremia,
- Asymptomatic, continuing to monitor
- Na 126 today back 127 back 133
- Consider nephrology consult if continues to drop or clinical change, otherwise consider 3% saline and Samsca
#SVT, resolved
- Patient went into SVT overnight 02/19
- Mg 1.9, 1 g ordered to replete
- TTE showing mild , thickened valves, vegetation cannot be excluded however patient not a candidate for URIEL
- Continue carvedilol 3.125mg BID with parameters
#Paroxysmal A-fib
- Not on anticoagulation
-Stable, continue to monitor
# Salivary gland cyst
- stable, continue to monitor
DVT PPx:
SCDs
CODE STATUS:
Full code
Anticipated Discharge: Within 24 hours (Pending filled out paperwork, social work assisting)
Subjective/Interval History
-
Date of Service: March 11, 2025
Mr. Granados is a 59-year-old male admitted on 02/19/2025 with history of PAF (not on AC), salivary gland tumor (chronic), prior EtOH use with admission in November with massive ascites with decompensated liver failure, hyponatremia, coagulopathy,
electrolyte imbalance, who presented with liver cirrhosis of unknown etiology with decompensation complicated by portal hypertension with ascites and esophageal nonbleeding varices now status post HRS and triple therapy, hepatic encephalopathy
requiring lactulose/rifaximin/rectal tube, SBP on Cipro, and 37 L paracentesis (most recent on 03/11/2025) fluid removal since admission. He is clinically stable and awaiting discharge. Please see H&P for full hospital course and detailed summary.
Overnight:
- He had a paracentesis this morning, IR took off 3 L
- He had 4 bowel movements, goal is 2-3 bowel movements daily
- On rounds, he has no complaints and says he feels ready to go home. However, his still has to complete paperwork [facility]. Social work is assisting.
Objective Data
-
Labs:
Laboratory Results
03/11/25
07:24
WBC 7.6
Hgb 8.6 L
Hct 23.9 L
Plt Count 76 L
Sodium 126 L
Potassium 4.0
Chloride 97 L
Carbon Dioxide 24
BUN 20
Creatinine 1.0
Glucose 92
Calcium 7.9 L
Total Bilirubin 3.8 H
AST 41
ALT 30
Alkaline Phosphatase 127 H
Vital Signs:
Vital Signs
Temp Pulse Resp BP Pulse Ox
98.2 F 65 16 101/48 99
03/11/25 15:58 03/11/25 15:58 03/11/25 15:58 03/11/25 15:58 03/11/25 15:58
I&O
03/10/25 03/11/25 03/12/25
06:59 06:59 06:59
Intake Total 1120 / 1120 720 / 720
Balance 1120 / 1120 720 / 720
Review of Systems
-
Constitutional: Reports Weakness
Respiratory: Reports No Symptoms
Cardiac: Reports No Symptoms
Abdomen/GI: Reports Bloated
Genitourinary: Reports No Symptoms
Musculoskeletal: Reports No Symptoms
Skin: Reports Other (Jaundiced)
Neuro: Reports No Symptoms
Endocrine: Reports No Symptoms
Hematologic / Lymphatic: Reports No Symptoms
Allergy / Immunology: Reports No Symptoms
Physical Exam
-
General: Well Developed, Conversant and Appears Chronically Ill
HEENT: Normocephalic
Respiratory: Clear to Auscultation
Cardiac: Regular Rhythm
GI: Distended
Genito-urinary: No Costovertebral Tender
Skin: Jaundice
Neuro: Awake, Alert and Oriented
Psych: Calm
Data Reviewed
-
Labs: Discussed with Physician
[2025-03-11] MEDS: COREG PO (20:48)
[2025-03-11 23:22] VITALS: BP 104/54
[2025-03-12 05:20] VITALS: BMI 26.5
[2025-03-12 07:59] VITALS: BP 113/59
[2025-03-12] MEDS: MAGNESIUM SULFATE 100 IV (08:35)
[2025-03-12] MEDS: DUPHALAC/CHRONULAC 10 GRAMS PO ×3 (08:35→21:02)
[2025-03-12] MEDS: ALDACTONE 50 MG PO (08:37)
[2025-03-12] MEDS: PROTONIX 40 MG PO (08:37)
[2025-03-12] MEDS: COREG 3.125 MG PO ×2 (08:38→21:03)
[2025-03-12] MEDS: LASIX 20 MG PO (08:38)
[2025-03-12] MEDS: CIPRO 500 MG PO (08:38)
[2025-03-12] MEDS: ROXICODONE 5 MG PO ×3 (09:00→21:05)
[2025-03-12 09:30] LABS: ALT (SGPT) 35 U/L (0-50); AST (SGOT) 51 U/L (17-59); Albumin 3.0 g/dl (3.5-5.0); Alkaline Phosphatase 147 U/L (38-126); Blood Urea Nitrogen 16 mg/dl (9-20); Calcium 8.3 mg/dl (8.4-10.2); Carbon Dioxide 26 mmol/L (22-30); Chloride 96 mmol/L (98-107); Estimated Creatinine Clearance 74 ml/min; Glucose 87 mg/dl (70-99); Potassium 4.3 mmol/L (3.5-5.1); Sodium 126 mmol/L (135-145); Total Protein 6.3 g/dl (6.3-8.2); eGFR > 60.00
[2025-03-12 12:52] VITALS: BP 97/54; PULSE 65; O2SAT 99
[2025-03-12 12:59] VITALS: BP 97/54; PULSE 65; O2SAT 99
[2025-03-12 15:26] VITALS: BP 111/57
--- NOTE | 2025-03-12 16:40 | CM ---
Per patient she was anticipating the SNF that she worked with was looking at taking patient. CM sent updated clinicals to [facility] and CM spoke with admissions who will be assessing patient to see if they can accept. CM will continue to
follow for discharge planning needs.
Plan;SNF; pending MA
--- NOTE | 2025-03-12 18:44 | W.PN.HOSP.TC ---
Addendum entered and electronically signed by Carolyn Harry MD 03/12/25 20:45:
I saw and evaluated the patient independently. I reviewed the resident�s note and agree with findings and plan as documented by Dr. Israel.
GENERAL: chronically ill appearing male in no apparent distress
HEENT: NC/AT-- salivary cyst left lower jaw
HEART: regular rate and rhythm, +S1, +S2
LUNGS : clear to auscultation bilaterally
ABDOM: soft, nontender, nondistended, + bowel sounds
EXT: no cyanosis, clubbing, or edema
NEUROLOGIC: nonfocal
Severe sepsis with Klebsiella pneumoniae SBP/bacteremia--resolved--with decompensated cirrhosis/hepatic encephalopathy/hyperbilirubinemia---finished Rocephin and now on lifelong cipro for prophylaxis--Downtrending Tbili--child class C -- awaiting
insurance coverage to begin transplant application process--paracentesis 02/21 = 4L and 02/25 = 9L, 03/01 = 10L, 03/04 = 6L, 03/11 = 3L--s/p albumin--apprec GI-- c/w lactulose, PPI, Xifaxin-- diuretics-- lactulose increased--will likely need weekly
paracentesis set up at discharge
MORTEZA--Hepatorenal syndrome---restarted diuretics --apprec renal
Depressed mood- endorsed depression prior to this hospitalization- apprec psych--cannot start SSRI with hyponatremia
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
SVT-- resolved (overnight 02/19)--- Cardiology following -- TTE showing mild , thickened valves, vegetation cannot be excluded however patient not a candidate for URIEL--cont coreg as BP tolerates
Paroxysmal A-fib--Not on anticoagulation- started on carvedilol as above
Deconditioning--Due to being bedbound at home, hospital- PT following, recommended skilled rehab, plan to discharge pending completing paperwork
Salivary gland cyst
DVT Proph--SCDs
Original Note:
Today's Communication/Plan
-
Continue to trend BMP and sodium
Pending discharge
Assessment / Plan
Assessment / Plan
Mr. Granados is a 59-year-old male admitted on 02/19/2025 with history of PAF (not on AC), salivary gland tumor (chronic), prior EtOH use with admission in November with massive ascites with decompensated liver failure, hyponatremia, coagulopathy,
electrolyte imbalance, who presented with liver cirrhosis of unknown etiology with decompensation complicated by portal hypertension with ascites and esophageal nonbleeding varices now status post HRS and triple therapy, hepatic encephalopathy
requiring lactulose/rifaximin/rectal tube, SBP on Cipro, and 37 L paracentesis (most recent on 03/11/2025) fluid removal since admission. He is on a 1500 mL fluid restriction and is clinically stable for discharge, which has been complicated by
social work issues. Please see H&P for full hospital course and detailed summary.
#Severe sepsis, resolved
#Ascites with SBP, now resolved
#Decompensated Cirrhosis
#Hepatic encephalopathy, resolved
#Hyperbilirubinemia, improving total paracentesis to 37L with the most recent today 03/11/2025, where IR took off 3 L
- After prior workup per previous notes, high suspicion for alcoholic hepatitis -- PEth negative
- MELD score on last admission 25, this admission MELD 37 this admission child class C
- Indefinitely on ciprofloxacin 500 twice daily for SBP PPx
- Per GI:
- Continue lactulose 10 g TID; decreased on 03/10/2025 from 20 g with goal 2-3 BM daily
- Protonix 40 po qd
- IR paracentesis 03/11/2025, 3 L off, no albumin supplemented
--- Has been getting weekly paracentesis in his admission, will need them outpatient
#Right sided with deep inhalation, pleuritic
-Continue 650 mg acetaminophen as needed
-Continue with PRN oxy 5 mg
#MORTEZA, resolved
#Hepatorenal syndrome Type I
-S/p IV albumin/octreotide/as needed vasopressors
-c/w Diuretics 20 mg, Lasix 50 mg, and Aldactone
- Continue to trend BMP
#Depressed mood improving
- endorsed depression prior to this hospitalization
- Psych consulted, but cannot start antidepressant given low sodium
#Deconditioning
Due to being bedbound at home, hospital
- PT following, recommended skilled rehab, plan to discharge to [facility] pending paperwork and financial clearance
#Hyponatremia,
- Asymptomatic, continuing to monitor
- Na 126 back 126 back 127 back 133
- Consider nephrology consult if continues to drop or clinical change, otherwise consider 3% saline and Samsca
#SVT, resolved
- Patient went into SVT overnight 02/19
- Mg 1.9, 1 g ordered to replete
- TTE showing mild , thickened valves, vegetation cannot be excluded however patient not a candidate for URIEL
- Continue carvedilol 3.125mg BID with parameters
#Paroxysmal A-fib
- Not on anticoagulation
-Stable, continue to monitor
# Salivary gland cyst
- stable, continue to monitor
DVT PPx:
SCDs
CODE STATUS:
Full code
Anticipated Discharge: Within 24 hours (Pending social work)
Subjective/Interval History
-
Date of Service: March 12, 2025
Mr. Granados is a 59-year-old male admitted on 02/19/2025 with history of PAF (not on AC), salivary gland tumor (chronic), prior EtOH use with admission in November with massive ascites with decompensated liver failure, hyponatremia, coagulopathy,
electrolyte imbalance, who presented with liver cirrhosis of unknown etiology with decompensation complicated by portal hypertension with ascites and esophageal nonbleeding varices now status post HRS and triple therapy, hepatic encephalopathy
requiring lactulose/rifaximin/rectal tube, SBP on Cipro, and 37 L paracentesis (most recent on 03/11/2025) fluid removal since admission.� He is clinically stable and awaiting discharge, likely to [facility].� Please see H&P for full hospital
course and detailed summary.
Overnight:
-Supplemented magnesium for 1.5
- No acute events
- He says he feels better today after the paracentesis yesterday, denies any pain, would like to get discharged with possible
Objective Data
-
Labs:
Laboratory Results
03/12/25
08:57
Sodium 126 L
Potassium 4.3
Chloride 96 L
Carbon Dioxide 26
BUN 16
Creatinine 1.0
Glucose 87
Calcium 8.3 L
Total Bilirubin 4.4 H
AST 51
ALT 35
Alkaline Phosphatase 147 H
Vital Signs:
Vital Signs
Temp Pulse Resp BP Pulse Ox
98.0 F 71 18 111/57 98
03/12/25 15:26 03/12/25 15:26 03/12/25 15:26 03/12/25 15:26 03/12/25 15:26
I&O
03/11/25 03/12/25 03/13/25
06:59 06:59 06:59
Intake Total 720 / 720 810 / 810 820 / 820
Balance 720 / 720 810 / 810 820 / 820
Review of Systems
-
Respiratory: Reports No Symptoms
Cardiac: Reports No Symptoms
Abdomen/GI: Reports Bloated
Genitourinary: Reports No Symptoms
Skin: Reports Other (Jaundice)
Physical Exam
-
General: No Apparent Distress, Comfortable, Conversant and Appears Chronically Ill
HEENT: Normocephalic and PERRLA
Respiratory: Clear to Auscultation and Non Labored Respirations
Cardiac: Regular Rhythm and S1/S2
GI: Soft and Normal Bowel Sounds
Skin: Warm
Psych: Calm
Data Reviewed
-
Labs: Discussed with Physician
[2025-03-12 23:41] VITALS: BP 99/61
[2025-03-13 05:20] VITALS: BMI 26.6
[2025-03-13 07:38] VITALS: BP 101/54
[2025-03-13] MEDS: CIPRO 500 MG PO (09:09)
[2025-03-13] MEDS: LASIX 20 MG PO (09:09)
[2025-03-13] MEDS: PROTONIX 40 MG PO (09:09)
[2025-03-13] MEDS: DUPHALAC/CHRONULAC 10 GRAMS PO ×2 (09:09→15:07)
[2025-03-13] MEDS: COREG 3.125 MG PO ×2 (09:18→20:27)
[2025-03-13] MEDS: ALDACTONE 50 MG PO (09:18)
[2025-03-13] MEDS: ROXICODONE 5 MG PO ×2 (09:22→17:42)
--- NOTE | 2025-03-13 14:56 | CM ---
Patient seen at bedside with physician on [address]. Patient declined by [facility]. CM will call to patient . Patient birthday today. Patient still pending MA number per [facility], liaison today. CM continues to follow for discharge planning needs.
Plan; SNF
[2025-03-13 15:21] VITALS: BP 99/54
--- NOTE | 2025-03-13 15:22 | WOUNDNOTE ---
SACRAL COCCYX/BUTTOCKS
--- NOTE | 2025-03-13 15:23 | WOUNDNOTE ---
[facility] RN NOTE: Patient visited as part of prevention rounds. Patient is is on a [employer] Max Air and demonstrated ability to turn self in bed. Patient now [facility] with device and assist of one. Patient demonstrated ability to turn in
and move in bed with some assistance and prompting. Buttock and sacral skin remains blanchable and intact. Heels blanchable and intact. Air cushion in chair. Patient reports fair appetite. RN, Nannette given update.
--- NOTE | 2025-03-13 16:16 | W.PN.HOSP.TC ---
Addendum entered and electronically signed by Carolyn Harry MD 03/13/25 18:44:
I saw and evaluated the patient independently. I reviewed the resident�s note and agree with findings and plan as documented by Dr. Israel.
GENERAL: chronically ill appearing male in no apparent distress--it is his birthday today!
HEENT: NC/AT-- salivary cyst left lower jaw
HEART: regular rate and rhythm, +S1, +S2
LUNGS : clear to auscultation bilaterally
ABDOM: soft, nontender, nondistended, + bowel sounds
EXT: no cyanosis, clubbing, or edema
NEUROLOGIC: nonfocal
Severe sepsis with Klebsiella pneumoniae SBP/bacteremia--resolved--with decompensated cirrhosis/hepatic encephalopathy/hyperbilirubinemia---finished Rocephin and now on lifelong cipro for prophylaxis--Downtrending Tbili--child class C -- awaiting
insurance coverage to begin transplant application process--paracentesis 02/21=4L and 02/25=9L, 03/01=10L, 03/04=6L, 03/11=3L--s/p albumin--apprec GI-- c/w lactulose, PPI, Xifaxin-- diuretics---will likely need weekly paracentesis set up at discharge
MORTEZA--Hepatorenal syndrome---restarted diuretics --apprec renal
Depressed mood- endorsed depression prior to this hospitalization- apprec psych--cannot start SSRI with hyponatremia
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
SVT-- resolved (overnight 02/19)--- Cardiology following -- TTE showing mild , thickened valves, vegetation cannot be excluded however patient not a candidate for URIEL--cont coreg as BP tolerates
Paroxysmal A-fib--Not on anticoagulation- started on carvedilol as above
Deconditioning--Due to being bedbound at home, hospital- PT following, recommended skilled rehab, plan to discharge pending completing paperwork
Salivary gland cyst
DVT Proph--SCDs
Original Note:
Today's Communication/Plan
-
Hold all blood pressure medications (carvedilol 3.125 mg, Lasix 20 mg, spironolactone 50 mg) for systolic blood pressure less than 90.
Clinically stable for discharge. Likely going to [facility] pending case management.
Assessment / Plan
Assessment / Plan
Mr. Granados is a 59-year-old male admitted on 02/19/2025 with history of PAF (not on AC), salivary gland cyst (chronic), prior EtOH use with admission in November with massive ascites with decompensated liver failure, hyponatremia, coagulopathy,
electrolyte imbalance, who presented with liver cirrhosis of unknown etiology with decompensation complicated by portal hypertension with ascites and esophageal nonbleeding varices now status post HRS and triple therapy, hepatic encephalopathy
requiring lactulose/rifaximin/rectal tube, SBP on Cipro, and 37 L paracentesis (most recent on 03/11/2025) fluid removal since admission. He is on a 1500 mL fluid restriction and is clinically stable for discharge, which has been complicated by
social work issues. He will likely go to [facility], fully in the next day or 2 pending case management request. Please see H&P for full hospital course and detailed summary.
#Severe sepsis, resolved
#Ascites with SBP, now resolved
#Decompensated Cirrhosis
#Hepatic encephalopathy, resolved
#Hyperbilirubinemia, improving total paracentesis to 37L with the most recent today 03/11/2025, where IR took off 3 L
- After prior workup per previous notes, high suspicion for alcoholic hepatitis -- PEth negative
- MELD score on last admission 25, this admission MELD 37 this admission child class C
- Indefinitely on ciprofloxacin 500 twice daily for SBP PPx
- Per GI:
- Continue lactulose 10 g TID; decreased on 03/10/2025 from 20 g with goal 2-3 BM daily
- Protonix 40 po qd
- IR paracentesis 03/11/2025, 3 L off, no albumin supplemented
--- Has been getting weekly paracentesis in his admission, will need them outpatient every 5 to 7 days
#Right sided with deep inhalation, pleuritic
-Continue 650 mg acetaminophen as needed
-Continue with PRN oxy 5 mg
#MORTEZA, resolved
#Hepatorenal syndrome Type I
-S/p IV albumin/octreotide/as needed vasopressors
-c/w Diuretics 20 mg, Lasix 50 mg, and Aldactone
- Continue to trend BMP
#Depressed mood improving
- endorsed depression prior to this hospitalization
- Psych consulted, but cannot start antidepressant given low sodium
#Deconditioning
Due to being bedbound at home, hospital
- PT following, recommended skilled rehab, plan to discharge to [facility] pending paperwork and financial clearance
#Hyponatremia,
- Asymptomatic, continuing to monitor
- Na 126 stable
- Consider nephrology consult if continues to drop or clinical change, otherwise consider 3% saline and Samsca
#SVT, resolved
- Patient went into SVT overnight 02/19
- TTE showing mild , thickened valves, vegetation cannot be excluded however patient not a candidate for URIEL
- Continue carvedilol 3.125mg BID with parameters. Hold all blood pressure medications (carvedilol 3.125 mg, Lasix 20 mg, spironolactone 50 mg) for systolic blood pressure less than 90.
#Paroxysmal A-fib
- Not on anticoagulation
-Stable, continue to monitor
# Salivary gland cyst
- stable, continue to monitor
DVT PPx:
SCDs
CODE STATUS:
Full code
Anticipated Discharge: 24 - 48 hours
Subjective/Interval History
-
Date of Service: March 13, 2025
Mr. Granados is a 60-year-old male admitted on 02/19/2025 with history of PAF (not on AC), salivary gland cyst (chronic), prior EtOH use with admission in November with massive ascites with decompensated liver failure, hyponatremia, coagulopathy,
electrolyte imbalance, who presented with liver cirrhosis of unknown etiology with decompensation complicated by portal hypertension with ascites and esophageal nonbleeding varices now status post HRS and triple therapy, hepatic encephalopathy
requiring lactulose/rifaximin/rectal tube, SBP on Cipro, and 37 L paracentesis (most recent on 03/11/2025) fluid removal since admission.� He is clinically stable and awaiting discharge, likely to [facility].� Please see H&P for full hospital
course and detailed summary.
- This morning, he is in a great mood as is his birthday today. He does not report any pain nor clinical changes. He is excited for cake and a constitution party with his daughter and later today.
- Case management informed him of [facility] discharge pending. He will need weekly paracentesis outpatient.
- Hold all blood pressure medications (carvedilol 3.125 mg, Lasix 20 mg, spironolactone 50 mg) for systolic blood pressure less than 90.
Objective Data
-
Vital Signs:
Vital Signs
Temp Pulse Resp BP Pulse Ox
98.5 F 75 18 101/54 100
03/13/25 07:38 03/13/25 09:18 03/13/25 07:38 03/13/25 09:18 03/13/25 10:12
I&O
03/12/25 03/13/25 03/14/25
06:59 06:59 06:59
Intake Total 810 / 810 1300 / 1300
Balance 810 / 810 1300 / 1300
Review of Systems
-
Constitutional: Reports No Symptoms
EENT: Reports No Symptoms Reported
Respiratory: Reports No Symptoms
Cardiac: Reports No Symptoms
Abdomen/GI: Reports Bloated
Genitourinary: Reports No Symptoms
Musculoskeletal: Reports No Symptoms
Skin: Reports Other (Jaundice)
Neuro: Reports No Symptoms
Endocrine: Reports No Symptoms
Hematologic / Lymphatic: Reports No Symptoms
Physical Exam
-
General: No Apparent Distress, Comfortable, Conversant and Appears Chronically Ill
HEENT: Normocephalic, Atraumatic and Moist Mucous Membranes
Respiratory: Non Labored Respirations
Cardiac: Regular Rhythm and S1/S2
GI: Soft and Nontender
Musculoskeletal: Clubbing
Skin: Warm, Dry and Jaundice
[2025-03-13] MEDS: DUPHALAC/CHRONULAC PO (22:20)
[2025-03-13 23:41] VITALS: BP 112/46
[2025-03-14 06:00] VITALS: BMI 26.8
[2025-03-14] MEDS: ROXICODONE 5 MG PO ×4 (06:37→21:28)
[2025-03-14 07:29] VITALS: BP 121/71
[2025-03-14] MEDS: PROTONIX 40 MG PO (08:16)
[2025-03-14] MEDS: LASIX 20 MG PO (08:16)
[2025-03-14] MEDS: DUPHALAC/CHRONULAC 10 GRAMS PO ×2 (08:16→15:53)
[2025-03-14] MEDS: COREG 3.125 MG PO ×2 (08:16→21:28)
[2025-03-14] MEDS: CIPRO 500 MG PO (08:16)
[2025-03-14] MEDS: ALDACTONE 50 MG PO (08:16)
[2025-03-14 08:30] LABS: ALT (SGPT) 35 U/L (0-50); AST (SGOT) 49 U/L (17-59); Albumin 2.8 g/dl (3.5-5.0); Alkaline Phosphatase 193 U/L (38-126); Blood Urea Nitrogen 15 mg/dl (9-20); Calcium 7.9 mg/dl (8.4-10.2); Carbon Dioxide 24 mmol/L (22-30); Chloride 95 mmol/L (98-107); Estimated Creatinine Clearance 73 ml/min; Glucose 107 mg/dl (70-99); Magnesium 1.9 mg/dl (1.6-2.3); Potassium 3.8 mmol/L (3.5-5.1); Sodium 124 mmol/L (135-145); Total Protein 6.1 g/dl (6.3-8.2); eGFR > 60.00
--- NOTE | 2025-03-14 10:10 | CM ---
Addendum entered by Hiwot Deutsch 03/14/25 15:59:
Patient now stating that she will take patient home tomorrow. CM updated physician. CM will investigate private pay costs for patient with [facility] and patient states that they have a walker, wheelchair and commode at home. Patient to pick
up patient tomorrow approx 1pm.
Original Note:
VM left for patient requesting call back about discharge options.
--- NOTE | 2025-03-14 10:28 | W.PN.HOSP.TC ---
Addendum entered and electronically signed by Carolyn Harry MD 03/14/25 19:34:
I saw and evaluated the patient independently. I reviewed the resident�s note and agree with findings and plan as documented by Dr. Israel.
GENERAL: chronically ill appearing male in no apparent distress
HEENT: NC/AT-- salivary cyst left lower jaw
HEART: regular rate and rhythm, +S1, +S2
LUNGS : clear to auscultation bilaterally
ABDOM: soft, nontender, nondistended, + bowel sounds
EXT: no cyanosis, clubbing, or edema
NEUROLOGIC: nonfocal
Severe sepsis with Klebsiella pneumoniae SBP/bacteremia--resolved--with decompensated cirrhosis/hepatic encephalopathy/hyperbilirubinemia---finished Rocephin and now on lifelong cipro for prophylaxis--Downtrending Tbili--child class C -- awaiting
insurance coverage to begin transplant application process--paracentesis 02/21=4L and 02/25=9L, 03/01=10L, 03/04=6L, 03/11=3L--s/p albumin--apprec GI-- c/w lactulose, PPI, Xifaxin-- diuretics---will likely need weekly paracentesis set up at discharge
MORTEZA--Hepatorenal syndrome---restarted diuretics --apprec renal
Depressed mood- endorsed depression prior to this hospitalization- apprec psych--cannot start SSRI with hyponatremia
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
SVT-- resolved (overnight 02/19)--- Cardiology following -- TTE showing mild , thickened valves, vegetation cannot be excluded however patient not a candidate for URIEL--cont coreg as BP tolerates
Paroxysmal A-fib--Not on anticoagulation- started on carvedilol as above
Deconditioning--Due to being bedbound at home, hospital- PT following, recommended skilled rehab, does not want the only SNF that accepted him--planning for d/c home with her tomorrow--will eval for need for paracentesis prior to d/c
Salivary gland cyst
DVT Proph--SCDs
code status-- full code
Original Note:
Today's Communication/Plan
-
Lactulose held ISO 3 bowel movements
Nephro reconsulted for Na 124, appreciate recs
Otherwise awaiting discharge placement with weekly paracentesis
Abdominal ultrasound 03/15/2025, with possible paracentesis with IR if needed
Assessment / Plan
Assessment / Plan
Maurizio is a 60-year-old male admitted on 02/19/2025 with history of PAF (not on AC), salivary gland cyst (chronic), prior EtOH use with admission in November with massive ascites with decompensated liver failure, hyponatremia, coagulopathy, electrolyte
imbalance, who presented with liver cirrhosis of unknown etiology with decompensation complicated by portal hypertension with ascites and esophageal nonbleeding varices now status post HRS and triple therapy, hepatic encephalopathy requiring
lactulose/rifaximin/rectal tube, SBP on Cipro, and 37 L paracentesis (most recent on 03/11/2025) fluid removal since admission. He is on a 1500 mL fluid restriction and is clinically stable for discharge, which has been complicated by social work
issues. Initially it was thought he will likely go to [facility], but now plan to go home with OP follow-up. Of note his sodium has been downtrending and was 124 on 03/14/2025 back 126, so nephro was reconsulted on 03/14/2025. Please see H&P
for full hospital course and detailed summary.
#Severe sepsis, resolved
#Ascites with SBP, now resolved
#Decompensated Cirrhosis
#Hepatic encephalopathy, resolved
#Hyperbilirubinemia, improving total paracentesis to 37L with the most recent 03/11/2025, where IR took off 3 L
- After prior workup per previous notes, high suspicion for alcoholic hepatitis -- PEth negative
- MELD score on last admission 25, this admission MELD 37 this admission child class C
- Indefinitely on ciprofloxacin 500 twice daily for SBP PPx
- Per GI:
- Continue lactulose 10 g TID; decreased on 03/10/2025 from 20 g with goal 2-3 BM daily
-- Held lactulose on 03/14/2025 ISO 3 bowel movements
- Protonix 40 po qd
- IR paracentesis 03/11/2025, 3 L off, no albumin supplemented
--- Has been getting weekly paracentesis in his admission, will need them outpatient every 5 to 7 days
----Abdominal ultrasound 03/15/2025, with possible paracentesis with IR if needed
#Right sided with deep inhalation, pleuritic
-Continue 650 mg acetaminophen as needed
-Continue with PRN oxy 5 mg
#MORTEZA, resolved
#Hepatorenal syndrome Type I
-S/p IV albumin/octreotide/as needed vasopressors
-c/w Diuretics 20 mg, Lasix 50 mg, and Aldactone 50 mg with parameters
- Continue to trend BMP
#Depressed mood improving
- endorsed depression prior to this hospitalization
- Psych consulted, but cannot start antidepressant given low sodium
#Deconditioning
Due to being bedbound at home, hospital
- PT following, recommended skilled rehab, initial plan to discharge to [facility] pending paperwork and financial clearance, however on 03/14/2025, correctional counselor/case manager discussed with and patient will likely go home tomorrow 03/15/2025 to home with
outpatient follow-up.
#Hyponatremia,
- Asymptomatic, continuing to monitor
- Na 124 on 03/14/2025 back 126 x 2
- Nephrology reconsulted, appreciate recs
-- Samsca x 1 03/14/25
#SVT, resolved
- Patient went into SVT overnight 02/19
- TTE showing mild , thickened valves, vegetation cannot be excluded however patient not a candidate for URIEL
- Continue carvedilol 3.125mg BID with parameters.
#Paroxysmal A-fib
- Not on anticoagulation
-Stable, continue to monitor
# Salivary gland cyst
- stable, continue to monitor
DVT PPx:
SCDs
CODE STATUS:
Full code
Anticipated Discharge: Within 24 hours (Awaiting social work)
Subjective/Interval History
-
Date of Service: March 14, 2025
Maurizio is a 60-year-old male admitted on 02/19/2025 with history of PAF (not on AC), salivary gland tumor (chronic), prior EtOH use with admission in November with massive ascites with decompensated liver failure, hyponatremia, coagulopathy, electrolyte
imbalance, who presented with liver cirrhosis of unknown etiology with decompensation complicated by portal hypertension with ascites and esophageal nonbleeding varices now status post HRS and triple therapy, hepatic encephalopathy requiring
lactulose/rifaximin/rectal tube, SBP on Cipro, and 37 L paracentesis (most recent on 03/11/2025) fluid removal since admission.� He is clinically stable and awaiting discharge, likely to [facility].� Please see H&P for full hospital course and
detailed summary.
- He had a great birthday green party with his and daughter last night. This morning, he is feeling some pain in his abdomen for which he requested his oxy and that seems to help.
- His lactulose was held as he had 3 bowel movements.
- Otherwise, he continues to feel well and is awaiting discharge plan.
- Na 124 today, nephrology consulted and ordered Samsca one-time dose.
Objective Data
-
Labs:
Laboratory Results
03/14/25
07:05
Sodium 124 L
Potassium 3.8
Chloride 95 L
Carbon Dioxide 24
BUN 15
Creatinine 1.0
Glucose 107 H
Calcium 7.9 L
Total Bilirubin 2.8 H
AST 49
ALT 35
Alkaline Phosphatase 193 H
Vital Signs:
Vital Signs
Temp Pulse Resp BP Pulse Ox
98.1 F 79 18 121/71 100
03/14/25 07:29 03/14/25 07:29 03/14/25 07:29 03/14/25 07:29 03/14/25 07:29
I&O
03/13/25 03/14/25 03/15/25
06:59 06:59 06:59
Intake Total 1300 / 1300 1080 / 1080
Balance 1300 / 1300 1080 / 1080
Review of Systems
-
Constitutional: Reports No Symptoms
EENT: Reports No Symptoms Reported
Respiratory: Reports No Symptoms
Cardiac: Reports No Symptoms
Abdomen/GI: Reports Abdominal Pain
Genitourinary: Reports No Symptoms
Musculoskeletal: Reports No Symptoms
Skin: Reports Other (Jaundice)
Neuro: Reports No Symptoms
Endocrine: Reports No Symptoms
Hematologic / Lymphatic: Reports No Symptoms
Allergy / Immunology: Reports No Symptoms
Physical Exam
-
General: Conversant and Appears Chronically Ill
HEENT: Normocephalic and Other (Chronic left-sided salivary cyst)
Respiratory: Clear to Auscultation
Cardiac: Regular Rhythm and S1/S2
GI: Soft and Nontender
Musculoskeletal: Clubbing
Skin: Warm, Dry and Jaundice
Neuro: Awake, Alert, Oriented and Nonfocal/Grossly Intact
Psych: Calm and Intact Judgement/Insight
--- NOTE | 2025-03-14 14:10 | W.PN.NEPH.PH ---
Today's Communication / Plan
-
Samsca x 1
Assessment/Plan
-
IMP:
Acute metabolic encephalopathy
Severe sepsis secondary to presumed SBP.
Lactic acidosis 7.5
Acute kidney injury
Severe hyponatremia
Elevated Total bilirubin
Decompensated cirrhosis of unclear etiology
SBP
Plan:
Recalled for recurrent hyponatremia secondary to end-stage liver disease
Sodium 124
Continue fluid restriction
Weekly paracentesis
Will give Samsca x 1
No acute indication for hypertonic saline at this time
Hold Lasix as he has no lower extremity edema
d/w pt
-
-
Date of Service: March 14, 2025
CC / HPI / ROS
-
Chief Complaint:
Hyponatremia
History of Present Illness:
MORTEZA/Cr resolved
BP stable
Sodium 124 acute on chronic
ROS:
no reported cp or sob
no fever
non oliguric
Labs
-
Labs:
WBC 7.6 10^3/uL (4.8-10.8) 03/11/25 07:24
RBC 2.20 10^6/uL (4.70-6.10) L 03/11/25 07:24
Hgb 8.6 g/dL (13.0-18.0) L 03/11/25 07:24
Hct 23.9 % (39.0-52.0) L 03/11/25 07:24
Plt Count 76 10^3/uL (130-400) L 03/11/25 07:24
Sodium 124 mmol/L (135-145) L 03/14/25 07:05
Potassium 3.8 mmol/L (3.5-5.1) 03/14/25 07:05
Chloride 95 mmol/L (98-107) L 03/14/25 07:05
Carbon Dioxide 24 mmol/L (22-30) 03/14/25 07:05
BUN 15 mg/dl (9-20) 03/14/25 07:05
Creatinine 1.0 mg/dL (0.7-1.3) 03/14/25 07:05
eGFR > 60.00 03/14/25 07:05
Glucose 107 mg/dl (70-99) H 03/14/25 07:05
Calcium 7.9 mg/dl (8.4-10.2) L 03/14/25 07:05
Pax-Y-Fztetoukcqn Pept 1800 pg/ml 02/20/25 03:29
Albumin 2.8 g/dl (3.5-5.0) L 03/14/25 07:05
Physical Exam
-
Vital Signs:
Vital Signs
Temp Pulse Resp BP Pulse Ox
98.1 F 79 18 121/71 100
03/14/25 07:29 03/14/25 07:29 03/14/25 07:29 03/14/25 07:29 03/14/25 07:29
Respiratory:: Bilateral: CTA
Lung Excursion:: Normal
Abdomen:: Soft
Bowel Sounds:: Normal
Extremity Edema:: None: Bilateral:
[2025-03-14] MEDS: SAMSCA 30 MG PO (14:42)
[2025-03-14 15:08] VITALS: BP 95/54
[2025-03-14] MEDS: DUPHALAC/CHRONULAC PO (21:05)
[2025-03-14 23:00] VITALS: BP 95/56
[2025-03-15] MEDS: ROXICODONE 5 MG PO (01:31)
[2025-03-15 05:54] VITALS: BMI 26.8
[2025-03-15 07:55] VITALS: BP 100/57
[2025-03-15 08:05] LABS: ALT (SGPT) 34 U/L (0-50); AST (SGOT) 44 U/L (17-59); Albumin 2.7 g/dl (3.5-5.0); Alkaline Phosphatase 164 U/L (38-126); Blood Urea Nitrogen 17 mg/dl (9-20); Calcium 8.1 mg/dl (8.4-10.2); Carbon Dioxide 25 mmol/L (22-30); Chloride 96 mmol/L (98-107); Estimated Creatinine Clearance 82 ml/min; Glucose 96 mg/dl (70-99); Magnesium 1.8 mg/dl (1.6-2.3); Potassium 4.2 mmol/L (3.5-5.1); Sodium 124 mmol/L (135-145); Total Protein 5.9 g/dl (6.3-8.2); eGFR > 60.00
[2025-03-15] MEDS: PROTONIX 40 MG PO (08:56)
[2025-03-15] MEDS: COREG 3.125 MG PO (08:56)
[2025-03-15] MEDS: CIPRO 500 MG PO (08:56)
[2025-03-15] MEDS: ALDACTONE 50 MG PO (08:57)
[2025-03-15] MEDS: DUPHALAC/CHRONULAC 10 GRAMS PO (08:58)
[2025-03-15 09:54] VITALS: BP 110/61; BP_SYST 60
[2025-03-15 10:27] VITALS: BP 107/46
[2025-03-15 10:32] LABS: Body Fluid Second Tech CF
[2025-03-15] MEDS: SODIUM CHLORIDE 1 GRAM PO (12:06)
[2025-03-15] MEDS: FLEXBUMIN 100 IV ×2 (12:06→13:45)
--- NOTE | 2025-03-15 13:21 | VNURNOTE ---
Chemical Processing Supervisor spoke with via phone call t to [facility], schedule and homebound status. is agreeable and understands that visits at home will be 2-3 x per week to assess and teach medical management.
[facility] after discharge from .
[facility] referral completed in [facility].
Current [place] is [place]. Informed with that if [place] does not [place] patient, he will be responsible for the cost of all HH visits. THis liaison provided with current visit rates.
No current PCP. informed she will have to set up an appt with the resedency clinic and [facility] can not start services until he has his first appointment. Brochure for [facility] left in patients room./
--- NOTE | 2025-03-15 15:53 | W.PN.HOSP.TC ---
Addendum entered and electronically signed by Carolyn Harry MD 03/15/25 19:11:
I saw and evaluated the patient independently. I reviewed the resident�s note and agree with findings and plan as documented by Dr. Israel.
GENERAL: chronically ill appearing male in no apparent distress
HEENT: NC/AT-- salivary cyst left lower jaw
HEART: regular rate and rhythm, +S1, +S2
LUNGS : clear to auscultation bilaterally
ABDOM: soft, nontender, nondistended, + bowel sounds
EXT: no cyanosis, clubbing, or edema
NEUROLOGIC: nonfocal
Severe sepsis with Klebsiella pneumoniae SBP/bacteremia--resolved--with decompensated cirrhosis/hepatic encephalopathy/hyperbilirubinemia---finished Rocephin and now on lifelong cipro for prophylaxis--Downtrending Tbili--child class C -- awaiting
insurance coverage to begin transplant application process--paracentesis 02/21=4L and 02/25=9L, 03/01=10L, 03/04=6L, 03/11=3L, 03/15=2L--s/p albumin--apprec GI-- c/w lactulose, PPI, Xifaxin-- diuretics---will likely need weekly paracentesis set up at
discharge--follow up at [facility]--OK for d/c-- taking pt home
MORTEZA--Hepatorenal syndrome---restarted diuretics --apprec renal
Depressed mood- endorsed depression prior to this hospitalization- apprec psych--cannot start SSRI with hyponatremia
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
SVT-- resolved (overnight 02/19)--- Cardiology following -- TTE showing mild , thickened valves, vegetation cannot be excluded however patient not a candidate for URIEL--cont coreg as BP tolerates
Paroxysmal A-fib--Not on anticoagulation- started on carvedilol as above
Deconditioning--Due to being bedbound at home, hospital- PT following, recommended skilled rehab, does not want the only SNF that accepted him--planning for d/c home with her tomorrow
Salivary gland cyst
DVT Proph--SCDs
code status-- full code
Original Note:
Today's Communication/Plan
-
Plan to DC today with outpatient follow-up on 03/18/[address] Obinna Davis (GI)
Will need paracentesis in 5 to 7 days, most recent done today by IR
Assessment / Plan
Assessment / Plan
Maurizio is a 60-year-old male admitted on 02/19/2025 with history of PAF (not on AC), salivary gland cyst (chronic), prior EtOH use with admission in November with massive ascites with decompensated liver failure, hyponatremia, coagulopathy, electrolyte
imbalance, who presented with liver cirrhosis of unknown etiology with decompensation complicated by portal hypertension with ascites and esophageal nonbleeding varices now status post HRS and triple therapy, hepatic encephalopathy requiring
lactulose/rifaximin/rectal tube, SBP on Cipro, and 37 L paracentesis (most recent on 03/11/2025) fluid removal since admission. He is on a 1500 mL fluid restriction and is clinically stable for discharge, which has been complicated by social work
issues. Initially it was thought he will likely go to [facility], but now plan to go home with OP follow-up. Of note his sodium has been downtrending and was 124 on 03/14/2025 back 126, so nephro was reconsulted on 03/14/2025. Please see H&P
for full hospital course and detailed summary.
#Severe sepsis, resolved
#Ascites with SBP, now resolved
#Decompensated Cirrhosis
#Hepatic encephalopathy, resolved
#Hyperbilirubinemia, improving total paracentesis to 37L with the most recent 03/11/2025, where IR took off 3 L
- After prior workup per previous notes, high suspicion for alcoholic hepatitis -- PEth negative
- MELD score on last admission 25, this admission MELD 37 this admission child class C
- Indefinitely on ciprofloxacin 500 twice daily for SBP PPx
- Per GI:
- Continue lactulose 10 g TID; decreased on 03/10/2025 from 20 g with goal 2-3 BM daily
-- On lactulose with goal of 2-3 BMs daily
- Protonix 40 po qd
- IR paracentesis 03/11/2025, 3 L off, no albumin supplemented
--- Has been getting weekly paracentesis in his admission, will need them outpatient every 5 to 7 days
----Abdominal ultrasound 03/15/2025 and paracentesis with IR, 2.1L off
------ Given Albumin 50 afterwards
#Right sided with deep inhalation, pleuritic
-Continue 650 mg acetaminophen as needed
-Continue with PRN oxy 5 mg
#MORTEZA, resolved
#Hepatorenal syndrome Type I
-S/p IV albumin/octreotide/as needed vasopressors
-c/w Diuretics 20 mg, Lasix 50 mg, and Aldactone 50 mg with parameters
- Continue to trend BMP
#Depressed mood improving
- endorsed depression prior to this hospitalization
- Psych consulted, but cannot start antidepressant given low sodium
#Deconditioning
Due to being bedbound at home, hospital
- PT following, recommended skilled rehab, initial plan to discharge to [facility] pending paperwork and financial clearance, however on 03/14/2025, employment evaluator/case manager discussed with and patient will likely go home today 03/15/2025 to home with
outpatient follow-up.
#Hyponatremia,
- Asymptomatic, continuing to monitor
- Na 124 s/p Samsca 03/14/25, started on Salt tabs 1g BID per Nephro
#SVT, resolved
- Patient went into SVT overnight 02/19
- TTE showing mild , thickened valves, vegetation cannot be excluded however patient not a candidate for URIEL
- Continue carvedilol 3.125mg BID with parameters.
#Paroxysmal A-fib
- Not on anticoagulation
-Stable, continue to monitor
# Salivary gland cyst
- stable, continue to monitor
DVT PPx:
SCDs
CODE STATUS:
Full code
Anticipated Discharge: Today
Subjective/Interval History
-
Date of Service: March 15, 2025
Maurizio is a 60-year-old male admitted on 02/19/2025 with history of PAF (not on AC), salivary gland tumor (chronic), prior EtOH use with admission in November with massive ascites with decompensated liver failure, hyponatremia, coagulopathy, electrolyte
imbalance, who presented with liver cirrhosis of unknown etiology with decompensation complicated by portal hypertension with ascites and esophageal nonbleeding varices now status post HRS and triple therapy, hepatic encephalopathy requiring
lactulose/rifaximin/rectal tube, SBP on Cipro, and 37 L paracentesis (most recent on 03/11/2025) fluid removal since admission.� He is clinically stable and awaiting discharge, likely to [facility].� Please see H&P for full hospital course and
detailed summary.
- Paracentesis this morning with 2.1 L off, given albumin per GI
- Na 124 today, started on salt tabs 1g BID per nephro
- ok to dc home with VN and GI follow-up today
Objective Data
-
Labs:
Laboratory Results
03/15/25
07:27
Sodium 124 L
Potassium 4.2
Chloride 96 L
Carbon Dioxide 25
BUN 17
Creatinine 0.9
Glucose 96
Calcium 8.1 L
Total Bilirubin 2.7 H
AST 44
ALT 34
Alkaline Phosphatase 164 H
Vital Signs:
Vital Signs
Temp Pulse Resp BP Pulse Ox
98 F 61 14 107/46 100
03/15/25 09:54 03/15/25 10:27 03/15/25 10:27 03/15/25 10:27 03/15/25 09:54
I&O
03/14/25 03/15/25 03/16/25
06:59 06:59 06:59
Intake Total 1080 / 1080 980 / 980 480 / 480
Balance 1080 / 1080 980 / 980 480 / 480
Review of Systems
-
Constitutional: Reports No Symptoms
Respiratory: Reports No Symptoms
Cardiac: Reports No Symptoms
Abdomen/GI: Reports Bloated
Genitourinary: Reports No Symptoms
Skin: Reports No Symptoms
Neuro: Reports No Symptoms
Endocrine: Reports No Symptoms
Hematologic / Lymphatic: Reports No Symptoms
Allergy / Immunology: Reports No Symptoms
Physical Exam
-
General: No Apparent Distress and Appears Chronically Ill
HEENT: Normocephalic, Atraumatic and Other (chronic salivary cyst)
Respiratory: Clear to Auscultation and Non Labored Respirations
Cardiac: Regular Rhythm and S1/S2
GI: Soft, Nontender and Nondistended
Skin: Warm, Dry and Jaundice
Neuro: AO x 3
Psych: Calm and Intact Judgement/Insight
[2025-03-15 15:57] VITALS: BP 99/59
--- NOTE | 2025-03-15 16:52 | CM ---
Patient for discharge today with at bedside. Patient to be followed by [facility] and GI with plan for paracentesis weekly per physician. Patient is still waiting for MA number and CM requested Gavi to call patient with update tuesday. Patient
family comfortable with plan for discharge at this time. CM will continue to follow for discharge planning needs.
Plan; home with [facility], GI and paracentesis as per physician.
--- NOTE | 2025-03-15 19:29 | W.DCSUMMARY ---
Addendum entered and electronically signed by Carolyn Harry MD 03/16/25 07:12:
Read, reviewed, and agree. See same day progress note for additional details. Time spent coordinating care, DC planning, review of DC plan of care with resident, transition of care, review of records in EMR, med rec, consults, notes, d/w
consultants, nursing, family, and CM = 60 minutes
In regards to his medication list, nephrology has stopped his Lasix but patient may likely need that back based on reaccumulation of ascitic fluid. He will be discharged with salt tablets. Ciprofloxacin will need to continue indefinitely for
spontaneous bacterial peritonitis prophylaxis. Lactulose and spironolactone were continued.
Original Note:
Discharge Summary
Discharge Data
Date of Admission: 02/19/25
Date of Discharge: 03/15/25
-
Pending Results: No
Hospital Course
Discharging Physician : Wilmar Israel MD/RAYMON
Disposition : Home with visiting nurse and outpatient paracentesis
Primary care physician : Does not have currently, will follow-up in [facility] resident clinic
Principal Discharge diagnosis : Hepatorenal syndrome, ascites, spontaneous bacterial peritonitis, hyponatremia, deconditioned
Hospital Course : This admission lasted from 02/19/2025 to 03/15/2025. Please see thorough hospital course below. Refer to daily notes for more detail.
Mr Edgardo Granados is a 60-year-old male with limited medical care prior to this admission, who has a history of hx PAF (not on anticoagulation), chronic salivary gland cyst, prior ETOH use years ago with admission in November with massive ascites with
decompensated liver failure, hyponatremia, coagulopathy, electrolyte imbalance. During that admission he had paracentesis x 3 for total of 28 liters of ascites removed and fluid studies c/w liver etiology with negative pathology. Etiology of liver
disease at that time was unclear. Liver work up complete during that admission revealed + ALETHEA, mild elevated A1AT, elevated immunoglobulin A, hepatitis B immunity with otherwise neg panel, normal AMA, SLA, LKM, ceruloplasmin, with neg ETOH
screening with PETH neg <10 AFP 4.97. Imaging with cirrhosis and ascites. 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 MRI with severe hepatic cirrhosis without HCC, severe portal HTN, mild ascites, upper abdominal
adenopathy, GB distention, adrenal mass and CM.
This admission began on 02/19/2025 where presented with altered mental status. History was severely limited by his encephalopathy, was noted to present with ascites and jaundice. Upon arrival to the ED heart rate in range of 120 to 130/min, RR mid
20s, afebrile, on room air comfortably. Labs with WBC 22.4 with neutrophilic predominance, serum sodium 121, chloride 82, BUN 29, creatinine 2.6, lactate 7.5, T. bili 14.5, ammonia 40. Urine studies sent, results pending. Underwent diagnostic
paracentesis in the ED, blood cultures x 2 were obtained, then was started on IV ceftriaxone 2 g daily. Nephrology was consulted and started 3% saline. He was lethargic on exam, protecting airway, GCS low otherwise. Jaundice skin with scleral
icterus noted. Tachycardic with regular sounds, lungs clear. Abdomen distended with fluid wave. 2+ edema, no JVD. 1+ pulses, skin cold to lower extremities with bluish discoloration of plantar feet. Neurologic exam limited though no obvious
FND. Urine studies sent results pending underwent diagnostic paracentesis with 4 L off in the ED blood cultures obtained 2 g of IV Rocephin started nephrology consulted and started 3% saline, IR consulted for thoracentesis, GI consulted, financial engineer
consulted. Ascitic fluid analysis positive for SBP with greater than 250 PMN. Blood cultures positive for gram-negative baccilli. On 02/19 patient went into SVT in the 170s. Received dose of Levophed, and 6 mg of adenosine with return to sinus
tachycardia. Cardiology consulted and ordered TTE. Also repleted patient's mag, on admission Mg 1.9.
Albumin challenge failed, and HRS type 1 diagnosed. Octreotide, albumin, levophed given. Patients MELD 37, Child Class C, attempted to transfer to [facility] however due to lack of coverage for surgery/transplant patient was denied. Case
management was involved throughout hospital course, although insurance proved to be a big barrier to care throughout his hospitalization. GI was consulted and followed through hospital course. GI placed Dobbhoff tube and oral lactulose was given.
Patient started having bowel movements with improvement of ammonia numbers. Patient continued to show improvement, mentation improved he was able to converse with us, he removed his Dobbhoff tube, his leukocytosis continued to decrease and his
kidney function continued to improve. He was downgraded to IMU for further care. Patient's mentation improved drastically as he was diuresed and he continued to poop out and the ammonia. Kidney function normalized and patient was taken off
octreotide and fluids. IR took 9 L off his abdomen. Patient was downgraded to the telemetry floor. He continues to have improvement in mentation and is now tolerating low-sodium diet. He had mild pleuritic chest pain due to expanding lung
volumes and decreasing ascitic volume, gave him pain medication which improved pain. He was taken off of IV antibiotics and transition to p.o. Cipro which she will take indefinitely for SBP prophylaxis. His diuretic medications were restarted and
kidney function was tracked. Application for emergency Medicaid was started so patient may have options for disposition planning. Patient was unmotivated to work with PT, and psychiatry was reconsulted to rule in or rule out psychiatric conditions
impacting his motivation. Psychiatry talked with patient, but will hold off starting antidepressant given low sodium numbers. He was also noted to not be eating his meals, with nutrition reporting less than 50% of meals eaten. On 03/01 paracentesis
was done 10 L taken off, followed by albumin. GI signed off, but continued to follow-up outpatient. Mr. Granados started working with PT, was able to do some tasks with frequent redirection but needed frequent rest breaks, and PT recommending
skilled rehab. On 03/04 IR conducted paracentesis draining 6 L, patient tolerated well and was given Flexbumin after.
strategic communications manager talked with patient about Medicaid pending applications to SNF and the process was started. Patient's continence improving, FMS removed. On 03/07 patient had some nausea and vomiting after eating [employer], patient reported that his
body usually does not settle well with it. Ordered abdominal x-ray which showed normal gas patterns, patient continue to stool, and vomiting alleviated after Zofran. His hospital course through 03/07/2025 to 03/15/2025 was most prolonged due to case
management and placement issues as it was deemed that Mr. Granados would need weekly paracentesis at the very least outpatient. During this time, nephrology, GI, IR were still involved in managing his weekly paracentesis, hyponatremia (which was
managed with 1 dose of Samsca followed by salt tablets 1 g twice daily), and lactulose for a goal of 2-3 bowel movements daily. On Mr. Granados[birth year] 60th birthday 03/13/2025, he and his family shared that they would like to go home with visiting nurse
in outpatient paracentesis and follow-up. They shared they may have some family support that may be able to help pay medical bills while insurance is pending. Over the course of his hospitalization he had about 40 L of ascites removed with
adequate albumin repletion. Of note he will follow-up with Dr. Obinna Davis (residential care officer) on 03/18/2025 at noon for further care management and he will pursue PCP via [facility] while insurance pens.
His final plan outlined per hospital diagnoses is outlined below:
#Severe sepsis, resolved
#Ascites with SBP, now resolved
#Decompensated Cirrhosis
#Hepatic encephalopathy, resolved
#Hyperbilirubinemia, improving total paracentesis to 37L with the most recent 03/11/2025, where IR took off 3 L
- After prior workup per previous notes, high suspicion for alcoholic hepatitis -- PEth negative
- MELD score on last admission 25, this admission MELD 37 this admission child class C
- Indefinitely on ciprofloxacin 500 twice daily for SBP PPx
- Per GI:
- Continue lactulose 10 g TID; decreased on 03/10/2025 from 20 g with goal 2-3 BM daily
-- On lactulose with goal of 2-3 BMs daily
- Protonix 40 po qd
- IR paracentesis 03/11/2025, 3 L off, no albumin supplemented
--- Has been getting weekly paracentesis in his admission, will need them outpatient every 5 to 7 days
----Abdominal ultrasound 03/15/2025 and paracentesis with IR, 2.1L off
------ Given Albumin 50 afterwards
#Right sided with deep inhalation, pleuritic
-Continue 650 mg acetaminophen as needed
-Continue with PRN oxy 5 mg
#MORTEZA, resolved
#Hepatorenal syndrome Type I
-S/p IV albumin/octreotide/as needed vasopressors
-c/w Diuretics 20 mg, Lasix 50 mg, and Aldactone 50 mg with parameters
- Continue to trend BMP
#Depressed mood improving
- endorsed depression prior to this hospitalization
- Psych consulted, but cannot start antidepressant given low sodium
#Deconditioning
Due to being bedbound at home, hospital
- PT following, recommended skilled rehab, initial plan to discharge to [facility] pending paperwork and financial clearance, however on 03/14/2025, embedded case manager discussed with and patient will likely go home today 03/15/2025 to home with
outpatient follow-up.
#Hyponatremia,
- Asymptomatic, continuing to monitor
- Na 124 s/p Samsca 03/14/25, started on Salt tabs 1g BID per Nephro
#SVT, resolved
- Patient went into SVT overnight 02/19
- TTE showing mild , thickened valves, vegetation cannot be excluded however patient not a candidate for URIEL
- Continue carvedilol 3.125mg BID with parameters.
#Paroxysmal A-fib
- Not on anticoagulation
-Stable, continue to monitor
# Salivary gland cyst
- stable, continue to monitor
Important imaging findings : Abdominal ultrasounds 02/19/2025 through 03/15/2025 redemonstrating accumulation of ascites after weekly paracentesis. Unremarkable renal ultrasound 02/20/2025. Please see imaging tab for more details.
Discharge Plan
-
Patient Disposition: Home (Routine Discharge)
Discharge Diagnosis/Procedures: Decompensated cirrhosis with hepatic encephalopathy
Ascites
Spontaneous Bacterial Peritonitis
Hepatorenal syndrome
Evaluation for liver transplant
Hyponatremia
Condition: Good
Diet: Regular
Additional Diets: 1500 mL (1.5L) fluid restriction daily
Activity: As tolerated
Driving Restrictions: As prior to admission
Bathing Restrictions: None
Blood Work: CMP and CBC w/ diff in a week
Others Tests: Paracentesis in 5 to 7 days from now, between 03/20/2025 and 03/22/2025. Follow-up with Dr. Obinna Davis (residential care officer) on 03/18/2025 at noon. He will schedule this.
Other Services: VN
Activity Restrictions/Additional Instructions:
Zinc barrier ointment (i.e. Calazime) to coccyx/carrie skin BID and prn incontinence.
Evaluate for an air mattress.
Pressure redistributing chair cushion (i.e. Air chair cushion).
Elevate heels off bed with pillow/s.
Referrals:
[facility] [Other] - in one to two weeks
Referral Note: Please call this number on 03/18/2025, to schedule an appointment with our resident clinic to be seen. You may have to pay $100 if [place] insurance still pending. It will be refunded upon approval.
Obinna Davis MD [Active, Gastroenterology] - 03/18/25 12:00 pm
Referral Note: You will need paracentesis in 5 to 7 days from now, between 03/20/2025 and 03/22/2025. Follow-up with Dr. Obinna Davis (residential care officer) on 03/18/2025 at noon. He will schedule this.
Additional Discharge Medication Instructions: renal stopped your furosemide (lasix)--you may need to restart. Discuss with GI at your appointment
Prescriptions:
New
ciprofloxacin HCl 500 mg Tablet
500 mg PO DAILY 30 Days Qty: 30 0RF
carvedilol 3.125 mg Tablet
3.125 mg PO BID 30 Days Qty: 60 0RF
pantoprazole 40 mg Tablet,Delayed Release (Dr/Ec)
40 mg PO DAILY 30 Days Qty: 30 0RF
spironolactone 50 mg Tablet
50 mg PO DAILY 30 Days Qty: 30 0RF
lactulose 10 gram/15 mL Solution
10 g PO TID 30 Days Qty: 1350 0RF
sodium chloride 1,000 mg Tablet,Soluble
1,000 mg PO BID 30 Days Qty: 60 0RF
oxycodone 5 mg Tablet
5 mg PO Q4HPRN PRN (Reason: moderate-severe pain) Qty: 10 0RF
Discontinued
furosemide 40 mg tablet
40 mg PO DAILY
pantoprazole [Protonix] 40 mg tablet,delayed release (DR/EC)
40 mg PO DAILY
spironolactone 50 mg tablet
100 mg PO DAILY
Discharge Orders:
Discharge Patient (As Directed); Ordered 03/15/25
Ordered By: Wilmar Israel
Discharge Date and Time
Discharge Date/Time: 03/15/25 16:57
Print Language: DIVEHI
== END 2025-03-15 16:57 | disposition home health service (06) | DRG 871 ==
LOC: 2 NORTH 15:01
PROVIDERS: Nurse Practitioner; Nurse Practitioner Adult Health; Nurse Practitioner Family; Radiology Diagnostic Radiology; Radiology Vascular & Interventional Radiology; Specialist; Student in an Organized Health Care Education/Training Program; ADMITTING PHYSICIAN Internal Medicine; ATTENDING PHYSICIAN Internal Medicine; EMERGENCY PHYSICIAN Emergency Medicine; OTHER PHYSICIAN Internal Medicine; OTHER PHYSICIAN Internal Medicine Cardiovascular Disease; OTHER PHYSICIAN Internal Medicine Critical Care Medicine; OTHER PHYSICIAN Psychiatry & Neurology Psychiatry
PROC: 0W9G3ZZ Drainage of Peritoneal Cavity, Percutaneous Approach (ICD-10-PCS; 2025-02-19)
PROC: 02HV33Z Insertion of Infusion Device into Superior Vena Cava, Percutaneous Approach (ICD-10-PCS; 2025-02-19)
DX: A41.59 Other Gram-negative sepsis (principal); G92.8 Other toxic encephalopathy; K76.7 Hepatorenal syndrome; K65.2 Spontaneous bacterial peritonitis; I81 Portal vein thrombosis; D68.9 Coagulation defect, unspecified; N17.9 Acute kidney failure, unspecified; K76.6 Portal hypertension; E87.20 Acidosis, unspecified; I47.19 Other supraventricular tachycardia; E22.2 Syndrome of inappropriate secretion of antidiuretic hormone; I85.10 Secondary esophageal varices without bleeding; I48.0 Paroxysmal atrial fibrillation; R65.20 Severe sepsis without septic shock; F17.210 Nicotine dependence, cigarettes, uncomplicated; K11.6 Mucocele of salivary gland; K76.82 Hepatic encephalopathy; R62.7 Adult failure to thrive; K70.31 Alcoholic cirrhosis of liver with ascites; D69.6 Thrombocytopenia, unspecified; E27.9 Disorder of adrenal gland, unspecified; K70.40 Alcoholic hepatic failure without coma; F10.11 Alcohol abuse, in remission; F32.A Depression, unspecified; Z74.01 Bed confinement status; Z79.899 Other long term (current) drug therapy
CPT/HCPCS: 49083; 71045; 74018; 74022; 76700; 76705; 76770; 80048; 80053; 80076; 81003; 81015; 82042; 82077; 82140; 82150; 82570; 82607; 82728; 82805; 82962; 83540; 83550; 83605; 83615; 83690; 83735; 83880; 83935; 84157; 84300; 85025; 85027; 85610; 85730; 86850; 86900; 86901; 87015; 87040; 87070; 87077; 87086; 87147; 87154; 87186; 87205; 88112; 88305; 89051; 92526; 92610; 93005; 93306; 93975; 96365; 96366; 97116; 97163; 97167; 97530; 97535; 99291; J0153; P9047

== ENCOUNTER → 2025-03-29 09:19 | Outpatient (REF) | payer OTHER, MEDICAID, SELFPAY ==
[2025-03-29 09:58] VITALS: BP 127/67; BP_SYST 85
[2025-03-29 10:48] VITALS: BP 108/65
[2025-03-29 13:18] LABS: Body Fluid Second Tech CMB
== END ==
LOC: RADI 09:19
PROVIDERS: ATTENDING PHYSICIAN Specialist
DX: R18.8 Other ascites (principal)
CPT/HCPCS: 49083; 82042; 83615; 84157; 87015; 87070; 87205; 88112; 88305; 89051

== ENCOUNTER → 2025-04-11 08:59 | Outpatient (REF) | payer OTHER, MEDICAID, SELFPAY ==
[2025-04-11 09:15] VITALS: BP 116/63; BP_SYST 59
[2025-04-11 10:35] VITALS: BP 104/53
[2025-04-11 12:58] LABS: Body Fluid Second Tech EF
== END ==
LOC: RADI 08:59
PROVIDERS: ATTENDING PHYSICIAN Specialist
DX: R18.8 Other ascites (principal)
CPT/HCPCS: 49083; 87015; 87070; 87205; 89051

== ENCOUNTER 2025-04-11 10:41 | Outpatient (RCR) | payer OTHER, MEDICAID, SELFPAY ==
[2025-03-29] MEDS: FLEXBUMIN 100 IV (11:20)
[2025-03-29 11:22] VITALS: BP 98/51
[2025-03-29 11:30] VITALS: BP 98/51
[2025-03-29] MEDS: FLEXBUMIN 50 IV (13:09)
[2025-03-29 13:13] VITALS: BP 95/43
[2025-03-29 14:10] VITALS: BP 94/48
[2025-04-11 10:50] VITALS: BP 100/55
[2025-04-11 11:01] VITALS: BP 100/55
[2025-04-11] MEDS: FLEXBUMIN 100 IV ×2 (11:01→12:35)
[2025-04-11 12:36] VITALS: BP 117/70
[2025-04-11] MEDS: FLEXBUMIN 50 IV (14:14)
[2025-04-11 14:15] VITALS: BP 105/50
[2025-04-11 15:03] VITALS: BP 103/49
== END 2025-04-12 10:16 | disposition home or self-care (01) ==
LOC: OID 10:41
PROVIDERS: ATTENDING PHYSICIAN Specialist
DX: K74.60 Unspecified cirrhosis of liver (principal); K76.82 Hepatic encephalopathy; K65.2 Spontaneous bacterial peritonitis
CPT/HCPCS: 96365; 96366; P9047

== ENCOUNTER → 2025-04-26 09:12 | Outpatient (REF) | payer MEDICAID, SELFPAY ==
[2025-04-26 09:30] VITALS: BP 129/70; BP_SYST 66
[2025-04-26 10:19] VITALS: BP 104/57
[2025-04-26 11:35] LABS: Body Fluid Second Tech US
== END ==
LOC: RADI 09:12
PROVIDERS: ATTENDING PHYSICIAN Specialist
DX: R18.8 Other ascites (principal)
CPT/HCPCS: 49083; 87015; 87070; 87205; 89051

== ENCOUNTER → 2025-05-10 09:18 | Outpatient (REF) | payer MEDICAID, SELFPAY ==
[2025-05-10 09:30] VITALS: BP 119/68; BP_SYST 76
[2025-05-10 10:18] LABS: Body Fluid Second Tech EM
[2025-05-10 10:30] VITALS: BP 108/54
== END ==
LOC: RADI 09:18
PROVIDERS: ATTENDING PHYSICIAN Specialist; FAMILY PHYSICIAN Nurse Practitioner Family; OTHER PHYSICIAN Student in an Organized Health Care Education/Training Program
DX: R18.8 Other ascites (principal)
CPT/HCPCS: 49083; 87015; 87070; 87205; 89051

== ENCOUNTER 2025-05-10 11:26 | Outpatient (RCR) | payer MEDICAID, SELFPAY ==
[2025-04-26 11:08] VITALS: BP 116/60
[2025-04-26] MEDS: FLEXBUMIN 50 IV (11:11)
[2025-04-26] MEDS: FLEXBUMIN 100 IV ×2 (12:02→13:34)
[2025-04-26 12:04] VITALS: BP 97/56
[2025-04-26 13:36] VITALS: BP 104/57
[2025-04-26 15:21] VITALS: BP 104/54
[2025-05-10] MEDS: FLEXBUMIN 100 IV ×2 (11:35→13:21)
[2025-05-10 11:38] VITALS: BP 108/59
[2025-05-10 11:39] VITALS: BP 108/59
[2025-05-10 13:23] VITALS: BP 111/53
[2025-05-10] MEDS: FLEXBUMIN 50 IV (15:05)
[2025-05-10 15:06] VITALS: BP 104/50
[2025-05-10 16:04] VITALS: BP 103/57
== END 2025-05-14 23:59 | disposition home or self-care (01) ==
LOC: OID 11:26
PROVIDERS: ATTENDING PHYSICIAN Specialist
DX: K74.60 Unspecified cirrhosis of liver (principal); K76.82 Hepatic encephalopathy; K65.2 Spontaneous bacterial peritonitis
CPT/HCPCS: 96365; 96366; P9047

== ENCOUNTER → 2025-05-24 08:44 | Outpatient (REF) | payer MEDICAID, SELFPAY ==
[2025-05-24 09:02] VITALS: BP 111/78; BP_SYST 75
[2025-05-24 10:05] VITALS: BP 115/74; BP_SYST 67
[2025-05-24 10:54] LABS: Hematocrit 32.2 % (39.0-52.0); Hemoglobin 11.2 g/dL (13.0-18.0); Mean Corp Hgb Conc. 34.8 g/dL (33.0-37.0); Mean Corpuscular Volume 95.8 fL (80.0-94.0); Nucleated Red Blood Cells % 0 % (-); Platelet Count 102 10^3/uL (130-400); Red Cell Dist. Width 14.6 % (11.5-14.5)
[2025-05-24 11:15] LABS: ALT (SGPT) 16 U/L (0-50); AST (SGOT) 28 U/L (17-59); Albumin 3.0 g/dl (3.5-5.0); Alkaline Phosphatase 150 U/L (38-126); Blood Urea Nitrogen 14 mg/dl (9-20); Calcium 8.5 mg/dl (8.4-10.2); Carbon Dioxide 23 mmol/L (22-30); Chloride 97 mmol/L (98-107); Glucose 90 mg/dl (70-99); Potassium 4.2 mmol/L (3.5-5.1); Sodium 125 mmol/L (135-145); Total Protein 5.9 g/dl (6.3-8.2); eGFR > 60.00
[2025-05-24 12:06] LABS: Body Fluid Second Tech CMB
== END ==
LOC: RADI 08:44
PROVIDERS: ATTENDING PHYSICIAN Specialist; OTHER PHYSICIAN Student in an Organized Health Care Education/Training Program
DX: R18.8 Other ascites (principal); K74.60 Unspecified cirrhosis of liver
CPT/HCPCS: 36415; 49083; 80053; 85025; 87015; 87070; 87205; 89051

== ENCOUNTER → 2025-06-03 09:03 | Outpatient (REF) | payer MEDICAID, SELFPAY ==
[2025-06-03 09:19] VITALS: BP 120/58; BP_SYST 68
[2025-06-03 10:43] VITALS: BP 105/60; BP_SYST 65
[2025-06-03 11:39] LABS: Body Fluid Second Tech EM
== END ==
LOC: RADI 09:03
PROVIDERS: ATTENDING PHYSICIAN Specialist
DX: R18.8 Other ascites (principal)
CPT/HCPCS: 49083; 87015; 87070; 87205; 89051

== ENCOUNTER → 2025-06-11 09:16 | Outpatient (REF) | payer MEDICAID, SELFPAY ==
[2025-06-11 09:30] VITALS: BP 113/59; BP_SYST 61
[2025-06-11 10:43] VITALS: BP 105/66; BP_SYST 58
[2025-06-11 14:11] LABS: Body Fluid Second Tech HB
== END ==
LOC: RADI 09:16
PROVIDERS: ATTENDING PHYSICIAN Specialist
DX: R18.8 Other ascites (principal)
CPT/HCPCS: 49083; 87015; 87070; 87205; 89051

== ENCOUNTER 2025-06-11 10:57 | Outpatient (RCR) | payer MEDICAID, SELFPAY ==
[2025-05-24 11:05] VITALS: BP 105/59
[2025-05-24 11:10] VITALS: BP 105/59
[2025-05-24] MEDS: FLEXBUMIN 100 IV ×2 (11:11→12:47)
[2025-05-24 12:48] VITALS: BP 98/61
[2025-05-24 13:30] VITALS: BP 105/64
[2025-05-24] MEDS: FLEXBUMIN 50 IV (14:23)
[2025-05-24 14:25] VITALS: BP 105/64
[2025-06-03] MEDS: FLEXBUMIN 100 IV ×2 (11:12→13:00)
[2025-06-03 11:17] VITALS: BP 101/53
[2025-06-03 13:01] VITALS: BP 99/51
[2025-06-03] MEDS: FLEXBUMIN 50 IV (14:43)
[2025-06-11 11:12] VITALS: BP 106/59
[2025-06-11] MEDS: FLEXBUMIN 100 IV (11:26)
[2025-06-11] MEDS: FLEXBUMIN 50 IV (13:10)
[2025-06-11 13:11] VITALS: BP 97/57
[2025-06-11 14:03] VITALS: BP 94/51
== END 2025-06-14 23:59 | disposition home or self-care (01) ==
LOC: OID 10:57
PROVIDERS: ATTENDING PHYSICIAN Specialist
DX: K74.60 Unspecified cirrhosis of liver (principal); K76.82 Hepatic encephalopathy; K65.2 Spontaneous bacterial peritonitis
CPT/HCPCS: 96365; 96366; P9047

== ENCOUNTER → 2025-06-20 08:53 | Outpatient (REF) | payer MEDICAID, OTHER, SELFPAY ==
[2025-06-20 09:10] VITALS: BP 112/67; BP_SYST 78
[2025-06-20 10:49] VITALS: BP 109/59
[2025-06-20 11:38] LABS: Body Fluid Second Tech HB
== END ==
LOC: RADI 08:53
PROVIDERS: ATTENDING PHYSICIAN Specialist; FAMILY PHYSICIAN Nurse Practitioner Family
DX: R18.8 Other ascites (principal)
CPT/HCPCS: 49083; 87015; 87070; 87205; 89051

== ENCOUNTER 2025-06-20 10:29 | Outpatient (RCR) | payer OTHER, SELFPAY ==
[2025-06-20] MEDS: FLEXBUMIN 50 IV (10:43)
[2025-06-20 10:46] VITALS: BP 108/62
[2025-06-20] MEDS: FLEXBUMIN 100 IV (11:38)
[2025-06-20 11:45] VITALS: BP 91/42
[2025-06-20 13:20] VITALS: BP 96/50
== END 2025-07-12 12:50 | disposition home or self-care (01) ==
LOC: OID 10:29
PROVIDERS: ATTENDING PHYSICIAN Specialist
DX: K74.60 Unspecified cirrhosis of liver (principal); K76.82 Hepatic encephalopathy; K65.2 Spontaneous bacterial peritonitis
CPT/HCPCS: 96365; 96366; P9047

== ENCOUNTER 2025-06-28 12:06 | Inpatient (IN) | payer OTHER, SELFPAY ==
[2025-06-28] VITALS (18 sets, daily range): BP systolic 90–120; BP diastolic 55–85; BMI 30.1; BMI 28.8
[2025-06-28 09:58] LABS: Hematocrit 31.2 % (39.0-52.0); Hemoglobin 11.4 g/dL (13.0-18.0); Mean Corp Hgb Conc. 36.5 g/dL (33.0-37.0); Mean Corpuscular Volume 96.3 fL (80.0-94.0); Nucleated Red Blood Cells % 0 % (-); Platelet Count 111 10^3/uL (130-400); Red Cell Dist. Width 14.5 % (11.5-14.5)
[2025-06-28 10:11] LABS: INR 1.32; PT 16.7 Sec (11.4-14.6)
[2025-06-28 10:12] LABS: APTT 36.7 Sec (23.4-35.0)
--- NOTE | 2025-06-28 10:21 | ED.GENMED ---
History of Present Illness
General
Chief Complaint: Weakness
Source: patient
Exam Limitations: none
Time Seen by Provider: 06/28/25 09:27
Nursing documentation reviewed up to this point in time: agreed with
History of Present Illness
History of Present Illness:
The patient is a 60-year-old man with a past medical history of end-stage liver disease who undergoes weekly paracentesis. Patient reports that he was due for paracentesis at 9 AM this morning. Patient reports that due to so much fluid building
up, he missed the last 2 steps while walking in his home. Patient reports that he fell onto his knees. He did not hit his head. Patient reports his knees are slightly sore. He denies neck pain and back pain. Patient reports that he was unable
to get up so his family had a call 911 and he was brought to the ED. Patient has minimal complaints. Patient denies headache, sore throat, cough, fevers and chills.
Past History
Past History
ED Past Medical History: Arrthythmia and Other (Hepatic cirrhosis, left facial/jaw)
ED Past Surgical History: Orthopedic (Left wrist surgery) and Other (Paracentesis)
Patient has exhibited threatening behavior?: No
Social History
Tobacco: Non-smoker
Alcohol: None
Drug: None
Personal:
Living: with family
Employment: Other
Family History
Family History: Other
Review of Systems
Review of Systems
Allergies reviewed?: Yes
All Other Systems: ROS reviewed and negative except as documented in HPI and ROS
Constitutional: Reports weight gain and fatigue (Chronic)
EENT: Reports no symptoms
Respiratory: Reports no symptoms
Cardiac: Reports no symptoms
ABD/GI: Reports anorexia (Chronic)
: Reports no symptoms
Musculoskeletal: Reports no symptoms
Skin: Reports no symptoms
Neurological: Reports no symptoms
Endocrine: Reports no symptoms
Hematologic/Lymphatic: Reports no symptoms
Psychiatric: Reports no symptoms
Phy Exam
Physical Exam
Physical Exam:
Physical Exam
General: no apparent distress, chronically ill. Appears pale, atraumatic appearing face and head
Neck: supple. Nontender C-spine
Heart: s1/s2 regular rate and rhythm,
Lungs: No acute respiratory distress. Decreased breath sounds bilaterally
Abdomen: Significant ascites. Abdomen is nontender throughout, no vertebral spine tenderness
Neuro: alert and oriented. no focal neurological deficits
Skin: no rash
Psychiatric: well kept. interactive and cooperative
Extremities: no edema. Mild soft tissue tenderness bilateral knees. No bony tenderness or deformity of bilateral knees.
Course
Orders/Labs/Results
Orders:
Orders
06/28/25 09:40
PTT Urgent
Prothrombin Time Urgent
06/28/25 09:41
Basic Metabolic Panel Urgent
Complete Blood Count/With Diff Urgent
06/28/25 10:26
Electrocardiogram (*1) Urgent
Reason for Study: Other
Other Reason for Exam: hyponatremia
EKG- Treatment ONCE
Abnormal Lab Results
06/28/25 06/28/25
09:40 09:41
RBC 3.24 L 10^6/uL
(4.70-6.10)
Hgb 11.4 L g/dL
(13.0-18.0)
Hct 31.2 L %
(39.0-52.0)
MCV 96.3 H fL
(80.0-94.0)
MCH 35.2 H pg
(27.0-31.0)
Plt Count 111 L 10^3/uL
(130-400)
Abs Immat Gran (auto) 0.1 H 10^3/uL
(0-0.05)
Absolute Neuts (auto) 6.6 H 10^3/uL
(1.4-6.5)
Absolute Lymphs (auto) 0.9 L 10^3/uL
(1.2-3.4)
Absolute Monos (auto) 0.7 H 10^3/uL
(0.1-0.6)
Immature Gran % 1.1 H %
(0-0.5)
Neutrophils % 78.4 H %
(42.2-75.2)
Lymphocytes % 11.2 L %
(20.5-51.1)
PT 16.7 H Sec
(11.4-14.6)
APTT 36.7 H Sec
(23.4-35.0)
Sodium 114 L* mmol/L
(135-145)
Chloride 90 L mmol/L
(98-107)
Carbon Dioxide 21 L mmol/L
(22-30)
BUN 29 H mg/dl
(9-20)
Creatinine 1.9 H mg/dL
(0.7-1.3)
06/28/25 09:41
06/28/25 09:41
Vital Signs
Initial and Last Documented VS:
Initial Vital Signs
BP
120/55
06/28/25 09:24
Last Documented Vital Signs
Temp Pulse Resp BP Pulse Ox
98.3 F 87 16 105/73 100
06/28/25 09:30 06/28/25 10:00 06/28/25 10:00 06/28/25 10:00 06/28/25 10:24
MDM/Problems Addressed
Differential Diagnosis Includes:
Acute hyponatremia, acute UTI, generalized weakness and fluid overload
MDM/Problems Addressed:
Patient presents with acute on chronic generalized weakness and fall
Chronic conditions affecting care:
Chronic hyponatremia
Acute Exacerbation and/or Progression of Chronic Illness:
Patient can have acute on chronic hyponatremia causing him to be more weak than normal
*Pulse Oximetry
SaO2: 100
Oxygen Mode of Delivery: Room air
Patient hypoxic: no
*EKG
Interpreted by ED Provider?: Yes
Interpretation: abnormal
Comparison EKG: no changes
Rate: normal
Rhythm: sinus
[place]: left axis deviation
Interval: first degree heart block
Ischemia: no ischemia
*Secondary Teacher Interpretation
Rate: normal
Interpretation: normal
Rhythm: sinus
*Critical Care Note
Total Time (30-74mins, 75-104mins- exclusive of procedures): Not Applicable
Data Reviewed
Review of Other/Old Records Reveals: Labs (Sodium was 125 from 05/24/2025)
Source: patient
Patient Management
Social determinants of health affecting care: Living situation and Strong social support
Discussion with other providers: Hospitalist and Other (Reviewed low sodium with Dr. Nathan. Also spoke to Dr. Longo who told me that IR would likely be able to fit patient in today for a paracentesis)
ED Attending Note
-
Portions of this chart may have been created with voice recognition software.� Occasional wrong word or��sound alike� substitutions may have occurred due to the inherent limitations of voice recognition software.
Discharge Plan
Departure
Patient Disposition: Admit
Date of Disposition: 06/28/25
Time of Disposition: 10:27
Admit to: Telemetry
Presentation/result/management discussed w/ accepting MD/DO: Hospitalist
Patient with high blood pressure during this ER visit?: No
Condition: Fair
Covid-19: Not Applicable
Discharge Problem:
Acute on chronic generalized weakness, Acute on chronic hyponatremia
Prescriptions:
No Action
ciprofloxacin HCl 500 mg Tablet
500 mg PO DAILY 30 Days Qty: 30 0RF
carvedilol 3.125 mg Tablet
3.125 mg PO BID 30 Days Qty: 60 0RF
pantoprazole 40 mg Tablet,Delayed Release (Dr/Ec)
40 mg PO DAILY 30 Days Qty: 30 0RF
spironolactone 50 mg Tablet
50 mg PO DAILY 30 Days Qty: 30 0RF
lactulose 10 gram/15 mL Solution
10 g PO TID 30 Days Qty: 1350 0RF
sodium chloride 1,000 mg Tablet,Soluble
1,000 mg PO BID 30 Days Qty: 60 0RF
furosemide [Lasix] 20 mg Tablet
20 mg PO DAILY
trazodone 50 mg Tablet
50 mg PO HS
acetaminophen [Tylenol] 325 mg Tablet
650 mg PO Q6HPRN PRN (Reason: mild pain)
Referrals:
NONE,* [Family Provider, Internal Medicine]
Interventions
Interventions:
*Risk Screen - Suicide Last Done: 06/28/25 09:28
*General Assessment Last Done: 06/28/25 09:28
*Neglect/Abuse Screening Last Done: 06/28/25 09:28
*ED- Fall Risk Assessment Last Done: 06/28/25 09:25
*ED COVID-19 Vaccine History Last Done: 06/28/25 09:25
*ED Influenza Vaccine History Last Done: 06/28/25 09:25
ED- Cardiac Assessment Last Done: 06/28/25 09:32
ED- Neurological Assessment Last Done: 06/28/25 09:32
ED- Pulmonary Assessment Last Done: 06/28/25 09:32
Discharge Date and Time
Print Language: MAURITANIAN
[2025-06-28 10:25] LABS: Blood Urea Nitrogen 29 mg/dl (9-20); Calcium 8.4 mg/dl (8.4-10.2); Carbon Dioxide 21 mmol/L (22-30); Chloride 90 mmol/L (98-107); Estimated Creatinine Clearance 44 ml/min; Glucose 98 mg/dl (70-99); Sodium 114 mmol/L (135-145); eGFR 39.89
--- NOTE | 2025-06-28 11:14 | CM ---
Addendum entered by Hiwot Deutsch 06/28/25 11:20:
Patient stated he is having difficulties with steps. Patient indicated he goes up/down on his knees, watch for therapy assessment when appropriate.
Original Note:
Patient seen at bedside in ED. Patient lives with and 26 y/o daughter in a 1st floor apartment with 3 steps to enter. Patient states that he has a walker and a cane for ambulation at home. Patient does not drive or work. Patient stated that he
has a PCP but does not remember name of the PCP. Pharmacy is [facility] on [address] in [place]. Patient stated that he was awaiting his to come but his plan is home with VN. Patient has weekly paracentesis. Patient indicated that she was
worried that patient was increasingly weaker lately per patient. CM will continue to follow for discharge planning needs. CM will continue to follow for discharge planning needs.
Plan; home with VN/parasentesis vs SNF pending medical treatment plan.
--- NOTE | 2025-06-28 11:48 | HPS.HSE ---
Family Physician
-
Family Physician: * NONE
Chief Complaint
-
generalized weakness , fall
History of Present Illness
Patient is a 60-year-old male with nonalcoholic cirrhosis, recurrent ascites, esophageal varices, chronic hyponatremia, history of A-fib, essential hypertension came to ER with new some generalized weakness and near fall. Apparently patient have
history of cirrhosis of requiring periodic paracentesis on outpatient basis. Patient follows up with GI in office. Patient was due to have his outpatient paracentesis today although started having generalized weakness. When patient was going
upstairs almost missed 2 steps and had to sit down. Patient was unable to get up from the floor afterward and family member called 911.. In ER patient not voicing any complaints except having some abdominal tightness and pain. No nausea vomiting
diarrhea reported. Denies of having any shortness of breath chest pain palpitation.
Medical History
Past Medical History
Past Medical History: Reports Other
Additional Past Medical History:
nonalcoholic cirrhosis, recurrent ascites, esophageal varices, chronic hyponatremia, history of A-fib, essential hypertension
Past Surgical History: Reports Other
Social History
Tobacco: Non-smoker
Alcohol: None
Drug: None
Living: With Family
Family History
Family History: Not pertinent
Allergies / Home Medications
Allergies reflects when Allergies were last updated in qunb.
Home Medications with original date entered in qunb
Allergy/Medication List:
Allergies
Allergy/AdvReac Type Severity Reaction Status Date / Time
No Known Allergies Allergy Verified 06/28/25 09:25
Home Medications
carvedilol 3.125 mg tablet 3.125 mg PO BID 30 days #60 tabs 03/15/25
ciprofloxacin HCl 500 mg tablet 500 mg PO DAILY 30 days #30 tabs 03/15/25
lactulose 10 gram/15 mL oral solution 10 g (15 mL) PO TID 30 days #1,350 mL 03/15/25
pantoprazole 40 mg tablet,delayed release 40 mg PO DAILY GI issue 30 days #30 tabs 03/15/25
sodium chloride 1,000 mg soluble tablet 1,000 mg PO BID 30 days #60 tabs 03/15/25
spironolactone 50 mg tablet 50 mg PO DAILY Liver issues 30 days #30 tabs 03/15/25
furosemide 20 mg tablet (Lasix) 20 mg PO DAILY 03/29/25
trazodone 50 mg tablet 50 mg PO HS 06/20/25
acetaminophen 325 mg tablet (Tylenol) 650 mg PO Q6HPRN PRN mild pain 06/28/25
Review of Systems
-
A 12 point ROS was completed and negative except as noted: Yes
Physical Exam
Vital Signs
Vital Signs
Temp Pulse Resp BP Pulse Ox
98.3 F 87 16 105/73 100
06/28/25 09:30 06/28/25 10:00 06/28/25 10:00 06/28/25 10:00 06/28/25 10:24
Physical Exam
General: No Apparent Distress
HEENT: Moist mucous membranes; No Oxygen
Respiratory: Clear
Cardiac: S1/S2 and Regular Rhythm; No Murmur or Rub
GI: Soft and Non Tender; No Organomegaly
Musculoskeletal: Edema, Left Lower Extremity and Edema, Right Lower Extremity
Skin: No Rash
Neuro: Awake, Alert, Oriented and Nonfocal/grossly intact
Psych: Calm
Laboratory Results
-
06/28/25 09:41
06/28/25 09:41
Laboratory Results
PT 16.7 Sec (11.4-14.6) H 06/28/25 09:40
INR 1.32 06/28/25 09:40
APTT 36.7 Sec (23.4-35.0) H 06/28/25 09:40
Total Bilirubin Cancelled 06/28/25 09:41
AST Cancelled 06/28/25 09:41
ALT Cancelled 06/28/25 09:41
Alkaline Phosphatase Cancelled 06/28/25 09:41
Impression/Plan
-
1. Acute on chronic hyponatremia
- Check urine electrolytes
- Have history of chronic hyponatremia with end-stage liver disease
- Baseline sodium of 120+, comes with sodium 114.
- Reported generalized weakness. No overt confusion/seizures report
- Ordered 3% normal saline
- Admit to IMU for monitoring
- Follow-up BMP check after 3% saline
- Nephrology consulted for further help
2. Recurrent ascites
History of spontaneous bacterial peritonitis
- Patient have usually 5 to 6 L of ascitic fluid drained every 2 weeks or so
- Contacted interventional radiology and will do partial paracentesis of 2 L only today as patient have renal function and may aggravate further by decreasing effective intravascular volume
- Check acetic fluid cell count and Gram stain/
- Maintain patient on chronic prophylactic dose of ciprofloxacin
3. Acute kidney injury
- Baseline creatinine close to 1.2 and elevated 1.0
- Check urinalysis
- Hold furosemide/Aldactone for time being
- Bladder scan and straight cath protocol ordered
4. End-stage liver disease
- Reason for cirrhosis unclear, GI note from office reviewed
- Maintain on home dose of lactulose
- Aldactone/Lasix on hold as mentioned above
5. Gastroesophageal reflux disease
- Maintained on Protonix
- History of esophageal varices by imaging, no reported melena/hematemesis/hematochezia
Chronic anemia
Essential hypertension
Full code
SCD
Total time spent : 77 mins
I personally saw and examined the patient.
I have reviewed all diagnostic interpretations and treatment plans as written.
Time includes patient management by me, time spent at the patients bedside, time to review lab and imaging results, discussing patient care, documentation in the medical record, and time spent with the family or caregiver and discussing care plan
with RN/Consultants.
[2025-06-28] MEDS: SODIUM CHLORIDE 3% 250 IV ×2 (12:16→23:00)
--- NOTE | 2025-06-28 12:21 | W.CON.NEPH ---
Consultation
-
Date/Time Consultation Requested: 06/28/25 1030
Date/Time Consultation Performed: 06/28/25 1120
Requesting Provider: Shaan Diana
Performing Provider: Una Paige
Reason for Consultation: Hyponatremia, MORTEZA
Medical History
-
Chief Complaint: weakness and fall
History of Present Illness:
60-year-old male with ESLD, portal hypertension with ascites on weekly paracentesis and esophageal varices on lasix and spironolactone, chr hyponatremia on salt tab, paroxysmal AF not on AC who presented to ER today with weakness and fall at home.
He was supposed to have paracentesis today however while he was walking from home missed steps and fell into his knees with LOC or head injury. He reprots following GI out pt with Ryan here and had testing doen but not active on trasnplant list
yet. He offers no fevers or dysuria. he has abd discomfort and chest discomfort from distension. Appetite is poor due to distention too. He reports complaint with FR but does not recall how much he was drinking. No cough, edema. He notes increased
abd pain since he running out of oxy in last month and now takes NSAIDs.
His labs shows sodium 114, cr 1.9, baseline 0.9-1.2. Nephrology asked to eval and treat of hyponatremia, MORTEZA.
Past Medical History
Paroxysmal Atrial Fibrillation
Salivary Gland Cyst / Tumor
liver cirrhosis. ESLD
portal HTN. e varices
hyponatremia
Past Surgical History: Other (left hand ORIF)
Social History
Tobacco: Former Smoker
Alcohol: Former
Personal:
Living: With Family
Employment: Not Employed
Family History
mother with h/o cirrhosis
Allergies / Home Medications
Allergy/AdvReac Type Severity Reaction Status Date / Time
No Known Allergies Allergy Verified 06/28/25 09:25
�Medication �Instructions �Recorded �Confirmed �Type
carvedilol 3.125 mg tablet 3.125 mg PO BID 30 days #60 tabs 03/15/25 06/28/25 Rx
ciprofloxacin HCl 500 mg tablet 500 mg PO DAILY 30 days #30 tabs 03/15/25 06/28/25 Rx
lactulose 10 gram/15 mL oral 10 g (15 mL) PO TID 30 days #1,350 03/15/25 06/28/25 Rx
solution mL
pantoprazole 40 mg tablet,delayed 40 mg PO DAILY GI issue 30 days 03/15/25 06/28/25 Rx
release #30 tabs
sodium chloride 1,000 mg soluble 1,000 mg PO BID 30 days #60 tabs 03/15/25 06/28/25 Rx
tablet
spironolactone 50 mg tablet 50 mg PO DAILY Liver issues 30 03/15/25 06/28/25 Rx
days #30 tabs
furosemide 20 mg tablet (Lasix) 20 mg PO DAILY 03/29/25 06/28/25 History
trazodone 50 mg tablet 50 mg PO HS 06/20/25 06/28/25 History
acetaminophen 325 mg tablet 650 mg PO Q6HPRN PRN mild pain 06/28/25 06/28/25 History
(Tylenol)
Review of Systems
-
All other systems: Negative unless noted
Physical Exam
Vital Signs
Vital Signs
Temp Pulse Resp BP Pulse Ox
98.3 F 95 21 111/70 100
06/28/25 09:30 06/28/25 11:52 06/28/25 11:52 06/28/25 11:00 06/28/25 11:52
Lab Results
WBC 8.4 10^3/uL (4.8-10.8) 06/28/25 09:41
RBC 3.24 10^6/uL (4.70-6.10) L 06/28/25 09:41
Hgb 11.4 g/dL (13.0-18.0) L 06/28/25 09:41
Hct 31.2 % (39.0-52.0) L 06/28/25 09:41
Plt Count 111 10^3/uL (130-400) L 06/28/25 09:41
Sodium 114 mmol/L (135-145) L* 06/28/25 09:41
Potassium mmol/L (3.5-5.1) 06/28/25 09:41
Chloride 90 mmol/L (98-107) L 06/28/25 09:41
Carbon Dioxide 21 mmol/L (22-30) L 06/28/25 09:41
BUN 29 mg/dl (9-20) H 06/28/25 09:41
Creatinine 1.9 mg/dL (0.7-1.3) H 06/28/25 09:41
eGFR 39.89 06/28/25 09:41
Glucose 98 mg/dl (70-99) 06/28/25 09:41
Calcium 8.4 mg/dl (8.4-10.2) 06/28/25 09:41
Albumin Cancelled 06/28/25 09:41
Physical Exam
General: Awake, Alert, Oriented, AOx3, No Distress and Nontoxic
HEENT: EOMI, Ear/Nose Intact and Facial Symmetry
Respiratory: Clear, Normal Excursion and Nonlabored Respirations
Cardiac: S1/S2 and Regular Rate/Rhythm
Breast: Deferred by me
Abdomen: Soft, Nontender and Other (distended ++)
Rectal: Deferred by Provider
Musculoskeletal: No Cyanosis and Edema (trace)
Skin: No Rash
Neuro: Nonfocal/Grossly Intact
Psych: Mood/afflect pleasant, Insight/judgement good and Appropriate
Data Reviewed
-
Labs: Labs Reviewed by me, Discussed with Nurse and Discussed with Patient
Assessment/Plan
-
IMP:
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
Severe hyponatremia
MORTEZA
ESLD
Asictes weekly paracentesis
Non gap met acidosis
E varices
portal HTN
Plan:
A/w weakness and fall at home
severe hyponatremia-likely secondary to end-stage liver disease+pain
check U studies, start HTS at 20 and follow Q4h labs , goal of correction 6-8meq/day
baseline sodium in mid 120s
reviewed imp of FR 40ounces/day, hold salt tab while on HTS
plan paracentesis -partial one today with alb IV
MORTEZA-check UA, can not r/o HRS 2 with frequent paracentesis
also he was taking NSAIDs-reviewed to stop taking
hold lasix, ALdactone for time being
BP stable ok for cont coreg
reviewed in detail with pt
d/w primary and nursing
[2025-06-28] MEDS: ROXICODONE 5 MG PO ×2 (13:34→21:11)
[2025-06-28 14:06] LABS: Body Fluid Second Tech US
[2025-06-28 14:45] LABS: Sodium 116 mmol/L (135-145)
--- NOTE | 2025-06-28 15:00 | PTCARENOTE ---
Patient received from the ER. Patient AAO, VSS. Patient able to ambulate to chair with a rolling walker. Admission questions answered, oriented to room. 2 RN skin checked performed. 3% saline @ 20mL/hr, repeat Na was drawn prior to arriving to
the floor. No tests scheduled at this time. Call bergman in reach.
[2025-06-28 16:19] LABS: Blood Urea Nitrogen 27 mg/dl (9-20); Calcium 8.6 mg/dl (8.4-10.2); Carbon Dioxide 20 mmol/L (22-30); Estimated Creatinine Clearance 35 ml/min; Glucose 98 mg/dl (70-99); eGFR 37.50
[2025-06-28] MEDS: DUPHALAC/CHRONULAC 10 GRAMS PO ×2 (16:29→21:11)
[2025-06-28] MEDS: CIPRO 500 MG PO (16:29)
[2025-06-28 16:31] LABS: Chloride 91 mmol/L (98-107); Potassium 4.6 mmol/L (3.5-5.1)
[2025-06-28 18:25] LABS: Sodium 118 mmol/L (135-145)
--- NOTE | 2025-06-28 18:43 | PTCARENOTE ---
Nephrology updated with recent Na of 118. Per order, holding 3% at this time and rechecking lab in 4 hours.
[2025-06-28] MEDS: COREG 3.125 MG PO (21:10)
[2025-06-28] MEDS: DESYREL 50 MG PO (21:11)
[2025-06-28 22:33] LABS: Sodium 114 mmol/L (135-145)
[2025-06-29] VITALS (10 sets, daily range): BP systolic 96–111; BP diastolic 60–72; BMI 29.0
--- NOTE | 2025-06-29 01:22 | W.PN.UPDATE ---
Update Note
Progress Note Update
NA level from 220 back down to 114. Nephro recommends re-initiation of 3% nss at 20ml/hr
[2025-06-29 04:13] LABS: INR 1.43; PT 17.7 Sec (11.4-14.6)
[2025-06-29 04:16] LABS: Hematocrit 29.6 % (39.0-52.0); Hemoglobin 10.5 g/dL (13.0-18.0); Mean Corp Hgb Conc. 35.5 g/dL (33.0-37.0); Mean Corpuscular Volume 98.7 fL (80.0-94.0); Platelet Count 93 10^3/uL (130-400); Red Cell Dist. Width 14.8 % (11.5-14.5)
[2025-06-29 04:33] LABS: ALT (SGPT) 15 U/L (0-50); AST (SGOT) 30 U/L (17-59); Albumin 2.8 g/dl (3.5-5.0); Alkaline Phosphatase 148 U/L (38-126); Blood Urea Nitrogen 28 mg/dl (9-20); Calcium 8.3 mg/dl (8.4-10.2); Carbon Dioxide 19 mmol/L (22-30); Chloride 94 mmol/L (98-107); Estimated Creatinine Clearance 42 ml/min; Glucose 93 mg/dl (70-99); Potassium 4.9 mmol/L (3.5-5.1); Sodium 119 mmol/L (135-145); Total Protein 5.6 g/dl (6.3-8.2); eGFR 45.58
[2025-06-29] MEDS: ROXICODONE 5 MG PO ×3 (04:36→22:18)
[2025-06-29 05:03] LABS: Urine Character Clear (Clear)
--- NOTE | 2025-06-29 05:13 | PTCARENOTE ---
Pt Na repeat Na 114. 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 Restarted at 2300. Pt tolerating well. No complaints at this time. Vitals stable at this time. Pt having pain in abd at times, see mar for medication admin. Pt
repeat Na 119. Assessment care and vitals as charted.
[2025-06-29] MEDS: COREG 3.125 MG PO ×2 (08:03→21:01)
[2025-06-29] MEDS: DUPHALAC/CHRONULAC 10 GRAMS PO ×2 (08:04→17:00)
[2025-06-29] MEDS: PROTONIX 40 MG PO (08:04)
[2025-06-29] MEDS: CIPRO 500 MG PO (08:04)
[2025-06-29] MEDS: SODIUM CHLORIDE 1 GRAM PO ×2 (08:04→21:01)
[2025-06-29] MEDS: ZOFRAN 4 MG IV (08:07)
--- NOTE | 2025-06-29 09:44 | PTCARENOTE ---
Patient c/o of nausea. PRN zofran given. Moderate amount of green vomit. Patient stated he 'felt much better after'. Dr. Pasquale mearz.
[2025-06-29 10:47] LABS: Sodium 119 mmol/L (135-145)
--- NOTE | 2025-06-29 11:37 | W.PN.NEPH.PH ---
Addendum entered and electronically signed by Una Nathan MD 06/29/25 12:57:
monitor mild met acidosis likely from resp alkalosis from abd distension
Original Note:
Today's Communication / Plan
-
cont HTS, follow labs
prn lasix
Assessment/Plan
-
IMP:
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
Severe hyponatremia
MORTEZA
ESLD
Asictes weekly paracentesis
Non gap met acidosis
E varices
portal HTN
Plan:
A/w weakness and fall at home
severe hyponatremia-likely secondary to end-stage liver disease+pain
U osmo 422, U na <5,
sodium upto 119 with HTS, cont same increase rate to 30
cont q4hr labs and goal of correction 6-8meq/day
baseline sodium in mid 120s
reviewed imp of FR 40ounces/day, cont salt tab
plan paracentesis when can, has partial one on 06/28
MORTEZA-bland UA, can not r/o HRS with frequent paracentesis
also he was taking NSAIDs-reviewed to stop taking
hold ALdactone for time being, may resume lasix based on next labs
BP stable ok for cont coreg
reviewed in detail with pt and nursing
-
-
Date of Service: June 29, 2025
CC / HPI / ROS
-
Chief Complaint:
Hyponatremia, MORTEZA
History of Present Illness:
MORTEZA/Cr improving to 1.7
BP stable
Sodium up at 119 acute on chronic
ROS:
no reported cp or sob
however discomfort from ascites
no fever
no dysuria
Labs
-
Labs:
WBC 8.1 10^3/uL (4.8-10.8) 06/29/25 03:47
RBC 3.00 10^6/uL (4.70-6.10) L 06/29/25 03:47
Hgb 10.5 g/dL (13.0-18.0) L 06/29/25 03:47
Hct 29.6 % (39.0-52.0) L 06/29/25 03:47
Plt Count 93 10^3/uL (130-400) L 06/29/25 03:47
Potassium 4.9 mmol/L (3.5-5.1) 06/29/25 03:47
Chloride 94 mmol/L (98-107) L 06/29/25 03:47
Carbon Dioxide 19 mmol/L (22-30) L 06/29/25 03:47
BUN 28 mg/dl (9-20) H 06/29/25 03:47
Creatinine 1.7 mg/dL (0.7-1.3) H 06/29/25 03:47
eGFR 45.58 06/29/25 03:47
Glucose 93 mg/dl (70-99) 06/29/25 03:47
Calcium 8.3 mg/dl (8.4-10.2) L 06/29/25 03:47
Albumin 2.8 g/dl (3.5-5.0) L 06/29/25 03:47
Physical Exam
-
Vital Signs:
Vital Signs
Temp Pulse Resp BP Pulse Ox
97.9 F 86 11 102/67 100
06/29/25 07:26 06/29/25 08:03 06/29/25 08:00 06/29/25 08:03 06/29/25 08:00
Cardiovascular:: Regular rate and rhythm
Respiratory:: Bilateral: CTA
Lung Excursion:: Normal
Abdomen:: Distended, Nontender and Soft
Extremity Edema:: None: Bilateral: (trace)
Cruz Catheter: No
--- NOTE | 2025-06-29 11:56 | PTCARENOTE ---
Dr. Giordano and Dr. Nathan made aware of sodium critical result. Orders to redraw sodium placed. Continue 3% gtt. Care ongoing.
[2025-06-29] MEDS: SODIUM CHLORIDE 3% 250 IV ×2 (11:59→23:43)
--- NOTE | 2025-06-29 13:21 | PTCARENOTE ---
Patient AOx3. On RA with SpO2 greater than 92%. NSR with first degree on monitor. BP stable. Utilizes bedside commode. Assist x1 with RW when OOB. IVF running per order. Call bergman within reach, bed in lowest position, and bed of wheels locked.
--- NOTE | 2025-06-29 13:52 | W.PN.HOSP.TC ---
Today's Communication/Plan
-
monitor Na level
HTS per nephro
transfer to med/surg level
Assessment / Plan
Assessment / Plan
1. Acute on chronic hyponatremia
- Have history of chronic hyponatremia with end-stage liver disease
- Baseline sodium of 120+, comes with sodium 114.
- Reported generalized weakness. No overt confusion/seizures report
- Getting 3rd bag of 3% hypertonic saline, last Na of 119
- Nephrology help appreciated.
2. Recurrent ascites
History of spontaneous bacterial peritonitis
- Patient have usually 5 to 6 L of ascitic fluid drained every 2 weeks or so
- s/p partial paracentesis of 2L on 06/28, fluid studies reviewed - neg for SBP
- Maintain patient on chronic prophylactic dose of ciprofloxacin
- once renal function appropriate, patient can go for full therapeutic paracentesis
3. Acute kidney injury
- Baseline creatinine close to 1.2 and elevated to 2 at admit
- UA bland. Urine Na < 5 and Uosm 422
- Hold furosemide/Aldactone for time being
- Bladder scan and straight cath protocol ordered
4. End-stage liver disease
- Reason for cirrhosis unclear, GI note from office reviewed
- Maintain on home dose of lactulose
- Aldactone/Lasix on hold as mentioned above
5. Gastroesophageal reflux disease
- Maintained on Protonix
- History of esophageal varices by imaging, no reported melena/hematemesis/hematochezia
6. Metabolic acidosis
- due to renal dysfunction and hypertonic saline related
- monitor
7. Nausea/vomiting
- episode of non blood containing emesis
- symptomatic care. monitor.
Chronic anemia
Essential hypertension
Full code
SCD
Anticipated Discharge: 24 - 48 hours
Subjective/Interval History
-
Date of Service: June 29, 2025
Continues to complain some abdominal discomfort
Episode of vomiting in the morning, clear bilious vomiting
no diarrhea
denies chest pain / palpitation / dizziness
Objective Data
-
Labs:
Laboratory Results
06/29/25 06/29/25 06/29/25
03:47 03:47 09:24
WBC 8.1
Hgb 10.5 L
Hct 29.6 L
Plt Count 93 L
PT 17.7 H
INR 1.43
Sodium 119 L* Cancelled 119 L*
Potassium 4.9
Chloride 94 L
Carbon Dioxide 19 L
BUN 28 H
Creatinine 1.7 H
Glucose 93
Calcium 8.3 L
Total Bilirubin 2.5 H
AST 30
ALT 15
Alkaline Phosphatase 148 H
Vital Signs:
Vital Signs
Temp Pulse Resp BP Pulse Ox
97.9 F 91 12 105/60 100
06/29/25 07:26 06/29/25 12:00 06/29/25 12:00 06/29/25 12:00 06/29/25 12:00
I&O
06/28/25 06/29/25 06/30/25
06:59 06:59 06:59
Intake Total 440 / 440 480 / 480
Balance 440 / 440 480 / 480
Review of Systems
-
Respiratory: Reports No Symptoms
Cardiac: Reports No Symptoms
Abdomen/GI: Denies Abdominal Pain or Nausea
Physical Exam
-
General: Cachectic
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
Respiratory: Clear to Auscultation
GI: Soft, Nontender and Distended
Neuro: Awake, Alert, Oriented and AO x 3
Psych: Calm and Intact Judgement/Insight
[2025-06-29 15:05] LABS: Sodium 117 mmol/L (135-145)
--- NOTE | 2025-06-29 16:45 | PTCARENOTE ---
Dr. Giordano and Dr. Nathan made aware of sodium critical result. Now new orders at this time. Care ongoing.
[2025-06-29] MEDS: LASIX 20 MG IV (17:27)
--- NOTE | 2025-06-29 17:36 | PTCARENOTE ---
Verbal report given to 4W RN Shelby. Patient belongings transferred with patient.
[2025-06-29 17:47] LABS: Hepatitis C Antibody Negative (Negative)
[2025-06-29 18:44] LABS: Sodium 119 mmol/L (135-145)
[2025-06-29] MEDS: DESYREL 50 MG PO (21:01)
[2025-06-29] MEDS: DUPHALAC/CHRONULAC PO (21:04)
[2025-06-29 23:23] LABS: Sodium 114 mmol/L (135-145)
[2025-06-30] VITALS (8 sets, daily range): BP systolic 91–104; BP diastolic 54–65
[2025-06-30 03:46] LABS: Sodium 116 mmol/L (135-145)
[2025-06-30 07:37] LABS: Hematocrit 28.4 % (39.0-52.0); Hemoglobin 9.9 g/dL (13.0-18.0); Mean Corp Hgb Conc. 34.9 g/dL (33.0-37.0); Mean Corpuscular Volume 99.3 fL (80.0-94.0); Platelet Count 90 10^3/uL (130-400); Red Cell Dist. Width 14.7 % (11.5-14.5)
[2025-06-30 07:53] LABS: ALT (SGPT) 16 U/L (0-50); AST (SGOT) 30 U/L (17-59); Albumin 2.7 g/dl (3.5-5.0); Alkaline Phosphatase 156 U/L (38-126); Blood Urea Nitrogen 26 mg/dl (9-20); Calcium 8.3 mg/dl (8.4-10.2); Carbon Dioxide 21 mmol/L (22-30); Chloride 94 mmol/L (98-107); Estimated Creatinine Clearance 44 ml/min; Glucose 96 mg/dl (70-99); Potassium 4.7 mmol/L (3.5-5.1); Sodium 116 mmol/L (135-145); Total Protein 5.5 g/dl (6.3-8.2); eGFR 49.02
[2025-06-30] MEDS: DUPHALAC/CHRONULAC 10 GRAMS PO ×3 (08:01→21:30)
[2025-06-30] MEDS: CIPRO 500 MG PO (08:02)
[2025-06-30] MEDS: COREG 3.125 MG PO ×2 (08:02→19:30)
[2025-06-30] MEDS: PROTONIX 40 MG PO (08:02)
[2025-06-30] MEDS: SODIUM CHLORIDE 1 GRAM PO ×2 (08:03→19:30)
[2025-06-30] MEDS: ROXICODONE 5 MG PO ×4 (08:08→23:43)
[2025-06-30 10:03] LABS: Sodium 120 mmol/L (135-145)
--- NOTE | 2025-06-30 12:49 | W.PN.HOSP.TC ---
Today's Communication/Plan
-
see note
Assessment / Plan
Assessment / Plan
1. Acute on chronic hyponatremia
- Have history of chronic hyponatremia with end-stage liver disease
- Baseline sodium of 120+, comes with sodium 114 in ER
- Reported generalized weakness. No overt confusion/seizures report
- Patient sodium is resistant to treatment and rapidly downtrended off 3% NS. Discussed with nephrology and patient will be transferred to IMU. Patient will require continual monitoring of sodium with repeat hypertonic saline infusion as needed
- Nephrology help appreciated.
2. Recurrent ascites
History of spontaneous bacterial peritonitis
- Patient have usually 5 to 6 L of ascitic fluid drained every 2 weeks or so
- s/p partial paracentesis of 2L on 06/28, fluid studies reviewed - neg for SBP
- Maintain patient on chronic prophylactic dose of ciprofloxacin
- Discussed with nephrology and patient should be able to get a repeat paracentesis tomorrow . Repeat renal function has to be checked before a second paracentesis.
3. Acute kidney injury - slow improvement
- Baseline creatinine close to 1.2 and elevated to 2 at admit
- UA bland. Urine Na < 5 and Uosm 422
- Hold Aldactone for time being
- Bladder scan and straight cath protocol ordered
- Nephro providing PRN dose of Lasix to help hyponatremia correction
4. End-stage liver disease
- Reason for cirrhosis unclear, GI note from office reviewed
- Maintain on home dose of lactulose
- Aldactone/Lasix on hold as mentioned above
5. Gastroesophageal reflux disease
- Maintained on Protonix
- History of esophageal varices by imaging, no reported melena/hematemesis/hematochezia
6. Metabolic acidosis
- due to renal dysfunction and hypertonic saline related
- monitor
7. Nausea/vomiting
- episode of non blood containing emesis
- symptomatic care. monitor.
Chronic anemia
Essential hypertension
Full code
SCD
Total time spent : 55 mins
Case discussed with nephrology
Patient at high risk of complications from refractory hyponatremia of possible metabolic encephalopathy/seizures.
Transfer to IMU for close monitoring
Anticipated Discharge: > 48 hours
Subjective/Interval History
-
Date of Service: June 30, 2025
Patient continues to have abdominal discomfort
Had episode of nausea and vomiting in the morning as well
No confusion/seizure episode reported
Objective Data
-
Labs:
Laboratory Results
06/30/25 06/30/25 06/30/25
03:14 06:44 09:42
WBC 8.5
Hgb 9.9 L
Hct 28.4 L
Plt Count 90 L
Sodium 116 L* 116 L* 120 L
Potassium 4.7
Chloride 94 L
Carbon Dioxide 21 L
BUN 26 H
Creatinine 1.6 H
Glucose 96
Calcium 8.3 L
Total Bilirubin 2.3 H
AST 30
ALT 16
Alkaline Phosphatase 156 H
Vital Signs:
Vital Signs
Temp Pulse Resp BP Pulse Ox
98.7 F 95 17 97/56 100
06/30/25 07:00 06/30/25 07:00 06/30/25 07:00 06/30/25 07:00 06/30/25 07:00
I&O
06/29/25 06/30/25 07/01/25
06:59 06:59 06:59
Intake Total 440 / 440 1270 / 1270 480 / 480
Balance 440 / 440 1270 / 1270 480 / 480
Review of Systems
-
Respiratory: Reports No Symptoms
Cardiac: Reports No Symptoms
Abdomen/GI: Reports No Symptoms
Physical Exam
-
General: Cachectic
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
Respiratory: Clear to Auscultation
GI: Soft, Nontender and Distended
Neuro: Awake, Alert, Oriented and AO x 3
Psych: Calm and Intact Judgement/Insight
[2025-06-30] MEDS: SODIUM CHLORIDE 3% 250 IV (12:56)
--- NOTE | 2025-06-30 13:06 | W.PN.NEPH.PH ---
Today's Communication / Plan
-
cont HTS, likely lasix
cont frequent labs
smsca soon
Assessment/Plan
-
IMP:
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
Severe hyponatremia
MORTEZA
ESLD
Asictes weekly paracentesis
Non gap met acidosis
E varices
portal HTN
Plan:
A/w weakness and fall at home
severe hyponatremia-likely secondary to end-stage liver disease+pain
U osmo 422, U na <5,
sodium upto 120 with HTS, has been difficult to manage steady level
cont HTS, likely lasix again today , hoping smsaca soon
cont q4hr labs and goal of correction 6-8meq/day
baseline sodium in mid 120s
reviewed imp of FR 40ounces/day, cont salt tab
plan paracentesis tomorrow, has partial one on 06/28
MORTEZA-bland UA, can not r/o HRS with frequent paracentesis
also he was taking NSAIDs-reviewed to stop taking
hold ALdactone for time being, cr slightly better
BP stable ok for cont coreg
reviewed in detail with pt and nursing
d/w primary
-
-
Date of Service: June 30, 2025
CC / HPI / ROS
-
Chief Complaint:
Hyponatremia, MORTEZA
History of Present Illness:
MORTEZA/Cr improving to 1.6
BP stable
Sodium up at 120 acute on chronic
ROS:
no reported cp or sob
however discomfort from ascites
no fever
no dysuria
Labs
-
Labs:
WBC 8.5 10^3/uL (4.8-10.8) 06/30/25 06:44
RBC 2.86 10^6/uL (4.70-6.10) L 06/30/25 06:44
Hgb 9.9 g/dL (13.0-18.0) L 06/30/25 06:44
Hct 28.4 % (39.0-52.0) L 06/30/25 06:44
Plt Count 90 10^3/uL (130-400) L 06/30/25 06:44
Potassium 4.7 mmol/L (3.5-5.1) 06/30/25 06:44
Chloride 94 mmol/L (98-107) L 06/30/25 06:44
Carbon Dioxide 21 mmol/L (22-30) L 06/30/25 06:44
BUN 26 mg/dl (9-20) H 06/30/25 06:44
Creatinine 1.6 mg/dL (0.7-1.3) H 06/30/25 06:44
eGFR 49.02 06/30/25 06:44
Glucose 96 mg/dl (70-99) 06/30/25 06:44
Calcium 8.3 mg/dl (8.4-10.2) L 06/30/25 06:44
Albumin 2.7 g/dl (3.5-5.0) L 06/30/25 06:44
Physical Exam
-
Vital Signs:
Vital Signs
Temp Pulse Resp BP Pulse Ox
98.7 F 95 17 97/56 100
06/30/25 07:00 06/30/25 07:00 06/30/25 07:00 06/30/25 07:00 06/30/25 07:00
Cardiovascular:: Regular rate and rhythm
Respiratory:: Bilateral: CTA
Lung Excursion:: Normal
Abdomen:: Distended, Nontender and Soft
Extremity Edema:: +1: Bilateral:
Cruz Catheter: No
--- NOTE | 2025-06-30 13:29 | PTCARENOTE ---
Addendum entered by Jake Goyal RN 06/30/25 13:34:
Report given to IMU Nurse Maritza.
Original Note:
Transferring pt back over to IMU, as per Dr. Giordano. Pt put on the monitor via Sonia to transport the pt back to IMU. Report called and given to the nurse who had him yesterday.
--- NOTE | 2025-06-30 13:55 | PTCARENOTE ---
Patient arrived to IMU from 4W. Ambulated assist x1 from bed to chair. 3% gtt running at 30 mL/hr. AOx3. On RA with SpO2 greater than 92%. NSR with first degree on monitor. BP soft, but MAP greater than 65. Call bergman within reach, bed in lowest
position, and bed of wheels locked.
[2025-06-30 15:36] LABS: Sodium 119 mmol/L (135-145)
[2025-06-30] MEDS: LASIX 40 MG IV (16:23)
[2025-06-30 20:57] LABS: Sodium 118 mmol/L (135-145)
[2025-06-30] MEDS: DESYREL 50 MG PO (21:30)
[2025-06-30] MEDS: SAMSCA 7.5 MG PO (21:31)
--- NOTE | 2025-06-30 21:42 | PTCARENOTE ---
Pt needing Q4 labs. Veins blowing when attempted. Midline requested. VAT to bed side and placed midline. Pt NA resulting 118 Nephrology made aware 3% now stopped. Samsca ordered. Pt having complaints of pain in abd, prn medication given per order.
[2025-07-01] VITALS (18 sets, daily range): BP systolic 86–123; BP diastolic 48–78; BMI 30.6
[2025-07-01 00:56] LABS: Sodium 117 mmol/L (135-145)
--- NOTE | 2025-07-01 01:03 | PTCARENOTE ---
Pt repeat lab resulting Na 117. Night TOY DESIGNER made aware.
[2025-07-01] MEDS: ROXICODONE 5 MG PO ×2 (05:07→12:44)
[2025-07-01 05:23] LABS: Hematocrit 26.7 % (39.0-52.0); Hemoglobin 9.4 g/dL (13.0-18.0); Mean Corp Hgb Conc. 35.2 g/dL (33.0-37.0); Mean Corpuscular Volume 100.8 fL (80.0-94.0); Platelet Count 81 10^3/uL (130-400); Red Cell Dist. Width 14.7 % (11.5-14.5)
[2025-07-01 05:42] LABS: ALT (SGPT) 17 U/L (0-50); AST (SGOT) 30 U/L (17-59); Albumin 2.6 g/dl (3.5-5.0); Alkaline Phosphatase 188 U/L (38-126); Blood Urea Nitrogen 25 mg/dl (9-20); Calcium 8.3 mg/dl (8.4-10.2); Carbon Dioxide 21 mmol/L (22-30); Chloride 97 mmol/L (98-107); Estimated Creatinine Clearance 48 ml/min; Glucose 101 mg/dl (70-99); Potassium 4.7 mmol/L (3.5-5.1); Sodium 119 mmol/L (135-145); Total Protein 5.5 g/dl (6.3-8.2); eGFR 45.58
[2025-07-01] MEDS: COREG 3.125 MG PO ×2 (07:41→19:26)
[2025-07-01] MEDS: SODIUM CHLORIDE 1 GRAM PO ×2 (07:42→19:26)
[2025-07-01] MEDS: CIPRO 500 MG PO (07:42)
[2025-07-01] MEDS: PROTONIX 40 MG PO (07:42)
--- NOTE | 2025-07-01 09:15 | PTCARENOTE ---
Patient received from night filler. Patient AAO, VSS. Some complaints of abdominal pain but no medication requested. No events noted overnight. Repeat labs tis afternoon monitoring sodium. Scheduled for paracentesis this AM, no other testing
scheduled. Call bergman in reach.
[2025-07-01] MEDS: DUPHALAC/CHRONULAC PO (09:30)
--- NOTE | 2025-07-01 10:06 | W.PN.NEPH.PH ---
Today's Communication / Plan
-
Follow BMP at 2 PM
Repeat Samsca 7.5 mg
Holding Lasix and/or hypertonic saline at this time
Assessment/Plan
-
IMP:
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
Severe hyponatremia
MORTEZA
ESLD
Asictes weekly paracentesis
Non gap met acidosis
E varices
portal HTN
Plan:
A/w weakness and fall at home
severe hyponatremia-likely secondary to end-stage liver disease+pain
U osmo 422, U na <5,
sodium upto 120 with HTS, has been difficult to manage steady level
We will repeat Samsca 7.5 mg today as sodium is now up to 119
Recheck lites at 2 PM
cont q8hr labs and goal of correction 6-8meq/day
baseline sodium in mid 120s
reviewed imp of FR 40ounces/day, cont salt tab
plan paracentesis today has partial one on 06/28
MORTEZA-bland UA, can not r/o HRS with frequent paracentesis , creatinine up to 1.7
also he was taking NSAIDs-reviewed to stop taking
holding ALdactone for time being
BP stable ok for cont coreg
Patient at high clinical risk with persistent profound hyponatremia refractory to multiple interventions with hemodynamic instability and worsening renal failure
Unfortunately there is very little that we will have to offer both in the short and long-term as patient's hyponatremia is a function of his end-stage liver disease and there appears to be no interventions available for that
d/w primary
-
-
Date of Service: July 01, 2025
CC / HPI / ROS
-
Chief Complaint:
Hyponatremia, MORTEZA
History of Present Illness:
MORTEZA/Cr worsening to 1 point
Hemodynamically labile
Sodium at 119 (acute on chronic) following Samsca administration last evening
ROS:
Weights up
no reported cp or sob
however discomfort from ascites
no fever
no dysuria
Labs
-
Labs:
WBC 8.3 10^3/uL (4.8-10.8) 07/01/25 05:13
RBC 2.65 10^6/uL (4.70-6.10) L 07/01/25 05:13
Hgb 9.4 g/dL (13.0-18.0) L 07/01/25 05:13
Hct 26.7 % (39.0-52.0) L 07/01/25 05:13
Plt Count 81 10^3/uL (130-400) L 07/01/25 05:13
Sodium 119 mmol/L (135-145) L* 07/01/25 05:13
Potassium 4.7 mmol/L (3.5-5.1) 07/01/25 05:13
Chloride 97 mmol/L (98-107) L 07/01/25 05:13
Carbon Dioxide 21 mmol/L (22-30) L 07/01/25 05:13
BUN 25 mg/dl (9-20) H 07/01/25 05:13
Creatinine 1.7 mg/dL (0.7-1.3) H 07/01/25 05:13
eGFR 45.58 07/01/25 05:13
Glucose 101 mg/dl (70-99) H 07/01/25 05:13
Calcium 8.3 mg/dl (8.4-10.2) L 07/01/25 05:13
Albumin 2.6 g/dl (3.5-5.0) L 07/01/25 05:13
Physical Exam
-
Vital Signs:
Vital Signs
Temp Pulse Resp BP Pulse Ox
98.2 F 122 12 99/53 95
07/01/25 07:22 07/01/25 07:41 07/01/25 06:00 07/01/25 07:41 07/01/25 09:53
Cardiovascular:: Regular rate and rhythm
Respiratory:: Bilateral: CTA
Lung Excursion:: Normal
Abdomen:: Distended, Nontender and Soft
Extremity Edema:: +1: Bilateral:
Cruz Catheter: No
[2025-07-01] MEDS: FLEXBUMIN 100 IV (11:59)
[2025-07-01] MEDS: SAMSCA 7.5 MG PO (11:59)
[2025-07-01 12:57] LABS: Body Fluid Second Tech HB
[2025-07-01 14:38] LABS: Blood Urea Nitrogen 24 mg/dl (9-20); Calcium 8.2 mg/dl (8.4-10.2); Carbon Dioxide 19 mmol/L (22-30); Chloride 96 mmol/L (98-107); Estimated Creatinine Clearance 54 ml/min; Glucose 99 mg/dl (70-99); Potassium 4.2 mmol/L (3.5-5.1); Sodium 119 mmol/L (135-145); eGFR 52.97
--- NOTE | 2025-07-01 14:50 | W.PN.HOSP.TC ---
Today's Communication/Plan
-
repeat BMP and reassess with Nephrology
IV Albumin post-paracentesis
short and director long term care outlook guarded
Assessment / Plan
Assessment / Plan
Assessment:
Acute on chronic hyponatremia
- Has history of chronic hyponatremia in setting of end-stage liver disease
- Baseline sodium of 120+, comes with sodium 114 in ER
- Reported generalized weakness. No overt confusion/seizures report
- Nephrology following, s/p 3% saline and Samsca
- continue serial BMPs
- may need to consider Lasix and/or hypertonic saline again; hyponatremia management remains difficult to treat.
Recurrent ascites
History of spontaneous bacterial peritonitis
- Patient have usually 5 to 6 L of ascitic fluid drained every 2 weeks or so
- s/p partial paracentesis of 2L on 06/28; no SBP
- s/p paracentesis 3.6L removed on 07/01; no SBP
- continue chronic prophylactic dose of ciprofloxacin
Acute kidney injury - slow improvement
- Baseline creatinine close to 1.2 and elevated to 2 at admit
- UA bland. Urine Na < 5 and Uosm 422
- Hold Aldactone for time being
- Bladder scan and straight cath protocol ordered
- Nephrology following
End-stage liver disease
- Reason for cirrhosis unclear, GI note from office reviewed
- Maintain on home dose of lactulose
- Aldactone/Lasix on hold as mentioned above
- unclear if transplant candidate
Gastroesophageal reflux disease
- Maintained on Protonix
- History of esophageal varices by imaging, no reported melena/hematemesis/hematochezia
Metabolic acidosis
- due to renal dysfunction and hypertonic saline related
- monitor
Nausea/vomiting
- episode of non blood containing emesis
- symptomatic care. monitor.
Chronic anemia
Essential hypertension
DVT ppx: SCDs
Code: Full
Anticipated Discharge: > 48 hours
Subjective/Interval History
-
Date of Service: July 01, 2025
s/p 3.4L removed today with paracentesis; feels improved
denies CP or SOB
no fevers
receiving 25g Albumin post-paracentesis
Na remains 119 after Samsca
Objective Data
-
Labs:
Laboratory Results
07/01/25 07/01/25
05:13 14:07
WBC 8.3
Hgb 9.4 L
Hct 26.7 L
Plt Count 81 L
Sodium 119 L* 119 L*
Potassium 4.7 4.2
Chloride 97 L 96 L
Carbon Dioxide 21 L 19 L
BUN 25 H 24 H
Creatinine 1.7 H 1.5 H
Glucose 101 H 99
Calcium 8.3 L 8.2 L
Total Bilirubin 1.9 H
AST 30
ALT 17
Alkaline Phosphatase 188 H
Vital Signs:
Vital Signs
Temp Pulse Resp BP Pulse Ox
98.8 F 116 13 86/54 95
07/01/25 11:41 07/01/25 10:00 07/01/25 10:00 07/01/25 10:00 07/01/25 09:53
I&O
06/30/25 07/01/25 07/02/25
06:59 06:59 06:59
Intake Total 1270 / 1270 600 / 600
Output Total 325 / 325
Balance 1270 / 1270 275 / 275
Physical Exam
-
General: No Apparent Distress
HEENT: Normocephalic and Atraumatic
Respiratory: Negative Wheezes
Cardiac: Regular Rhythm and S1/S2
GI: Soft and Distended (mildly)
Musculoskeletal: Edema, Right Lower Extrem and Edema, Left Lower Extrem
Neuro: AO x 3
Psych: Calm
Data Reviewed
-
Total Time Spent with Patient (in minutes): 42
Labs: Labs Reviewed by me
[2025-07-01] MEDS: DUPHALAC/CHRONULAC 10 GRAMS PO ×2 (16:04→21:04)
--- NOTE | 2025-07-01 16:31 | CM ---
F/U: Patient transferred to the IMU for Sodium monitoring and PT/OT has not made recommendations yet. PLAN: TBD, Home PT/VN vs. SNF.
[2025-07-01 19:55] LABS: Carbon Dioxide 21 mmol/L (22-30); Chloride 97 mmol/L (98-107); Potassium 4.6 mmol/L (3.5-5.1); Sodium 122 mmol/L (135-145)
[2025-07-01] MEDS: DESYREL 50 MG PO (21:04)
[2025-07-02] VITALS (16 sets, daily range): BP systolic 88–126; BP diastolic 59–79; PULSE 84; O2SAT 100; BMI 29.4
--- NOTE | 2025-07-02 03:24 | PTCARENOTE ---
Pt denies complaints at this time. VSS. Maintained SR with first degree AV block on CM. Can be noncompliant with BP cuff at times. Call bergman within reach. Care ongoing
[2025-07-02 03:58] LABS: Hematocrit 25.9 % (39.0-52.0); Hemoglobin 9.2 g/dL (13.0-18.0); Mean Corp Hgb Conc. 35.5 g/dL (33.0-37.0); Mean Corpuscular Volume 101.6 fL (80.0-94.0); Platelet Count 67 10^3/uL (130-400); Red Cell Dist. Width 14.8 % (11.5-14.5)
[2025-07-02 04:07] LABS: Blood Urea Nitrogen 23 mg/dl (9-20); Calcium 8.4 mg/dl (8.4-10.2); Carbon Dioxide 22 mmol/L (22-30); Chloride 98 mmol/L (98-107); Estimated Creatinine Clearance 54 ml/min; Glucose 84 mg/dl (70-99); Potassium 4.5 mmol/L (3.5-5.1); Sodium 124 mmol/L (135-145); eGFR 52.97
[2025-07-02] MEDS: DUPHALAC/CHRONULAC 10 GRAMS PO ×3 (08:47→22:05)
[2025-07-02] MEDS: SODIUM CHLORIDE 1 GRAM PO ×2 (08:48→20:20)
[2025-07-02] MEDS: CIPRO 500 MG PO (08:48)
[2025-07-02] MEDS: COREG 3.125 MG PO (08:48)
[2025-07-02] MEDS: PROTONIX 40 MG PO (08:48)
[2025-07-02] MEDS: ROXICODONE 5 MG PO ×3 (08:48→20:21)
--- NOTE | 2025-07-02 11:11 | W.PN.NEPH.PH ---
Today's Communication / Plan
-
Repeat Samsca 7.5 mg
Serum sodium slowly rising
Assessment/Plan
-
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
Severe hyponatremia
MORTEZA
ESLD
Asictes weekly paracentesis
Non gap met acidosis
E varices
portal HTN
Plan:
A/w weakness and fall at home
severe hyponatremia-likely secondary to end-stage liver disease+pain
U osmo 422, U na <5,
sodium upto 120 with HTS, has been difficult to manage steady level
We will repeat Samsca 7.5 mg today as sodium is now up to 124 (this will be the third dose of samsca provided)
baseline sodium in mid 120s
reviewed imp of FR 40ounces/day, continue with salt tab
plan paracentesis today has partial one on 06/28
MORTEZA-bland UA, can not r/o HRS with frequent paracentesis , creatinine down to 1.5
also he was taking NSAIDs-reviewed to stop taking
holding ALdactone for time being
BP stable ok for cont coreg
Patient at high clinical risk with persistent profound hyponatremia refractory to multiple interventions with hemodynamic instability and worsening renal failure
Unfortunately there is very little that we will have to offer both in the short and long-term as patient's hyponatremia is a function of his end-stage liver disease and there appears to be no interventions available for that
d/w primary
-
-
Date of Service: July 02, 2025
CC / HPI / ROS
-
Chief Complaint:
Hyponatremia, MORTEZA
History of Present Illness:
MORTEZA/Cr down to 1.5
Hemodynamically labile
Sodium at 124 (acute on chronic) following Samsca administration last evening
ROS:
Weights up
no reported cp or sob
however discomfort from ascites
no fever
no dysuria
Labs
-
Labs:
WBC 6.2 10^3/uL (4.8-10.8) 07/02/25 03:33
RBC 2.55 10^6/uL (4.70-6.10) L 07/02/25 03:33
Hgb 9.2 g/dL (13.0-18.0) L 07/02/25 03:33
Hct 25.9 % (39.0-52.0) L 07/02/25 03:33
Plt Count 67 10^3/uL (130-400) L 07/02/25 03:33
Sodium 124 mmol/L (135-145) L 07/02/25 03:33
Potassium 4.5 mmol/L (3.5-5.1) 07/02/25 03:33
Chloride 98 mmol/L (98-107) 07/02/25 03:33
Carbon Dioxide 22 mmol/L (22-30) 07/02/25 03:33
BUN 23 mg/dl (9-20) H 07/02/25 03:33
Creatinine 1.5 mg/dL (0.7-1.3) H 07/02/25 03:33
eGFR 52.97 07/02/25 03:33
Glucose 84 mg/dl (70-99) 07/02/25 03:33
Calcium 8.4 mg/dl (8.4-10.2) 07/02/25 03:33
Albumin 2.6 g/dl (3.5-5.0) L 07/01/25 05:13
Physical Exam
-
Vital Signs:
Vital Signs
Temp Pulse Resp BP Pulse Ox
98.5 F 88 14 126/70 98
07/02/25 07:39 07/02/25 08:00 07/02/25 08:00 07/02/25 08:00 07/02/25 09:03
Cardiovascular:: Regular rate and rhythm
Respiratory:: Bilateral: CTA
Lung Excursion:: Normal
Abdomen:: Distended, Nontender and Soft
Extremity Edema:: +1: Bilateral:
Cruz Catheter: No
[2025-07-02] MEDS: SAMSCA 7.5 MG PO (12:27)
--- NOTE | 2025-07-02 12:32 | W.PN.HOSP.TC ---
Today's Communication/Plan
-
Samsca and repeat BMP in AM
setup outpatient transplant eval with [facility]/Dr. Zuñiga
Assessment / Plan
Assessment / Plan
Assessment:
Acute on chronic hyponatremia
- Has history of chronic hyponatremia in setting of end-stage liver disease
- Baseline sodium of 120+, comes with sodium 114 in ER
- Reported generalized weakness. No overt confusion/seizures report
- Nephrology following, s/p 3% saline and Samsca
- continue serial BMPs - today 124; further Samsca today
- may need to consider Lasix and/or hypertonic saline again; hyponatremia management remains difficult to treat.
Recurrent ascites
History of spontaneous bacterial peritonitis
- Patient have usually 5 to 6 L of ascitic fluid drained every 2 weeks or so
- s/p partial paracentesis of 2L on 06/28; no SBP
- s/p paracentesis 3.6L removed on 07/01; no SBP
- continue chronic prophylactic dose of ciprofloxacin
Acute kidney injury - slow improvement
- Baseline creatinine close to 1.2 and elevated to 2 at admit
- UA bland. Urine Na < 5 and Uosm 422
- Hold Aldactone for time being
- Bladder scan and straight cath protocol ordered
- Nephrology following
End-stage liver disease
- Reason for cirrhosis unclear, GI note from office reviewed
- Maintain on home dose of lactulose
- Aldactone/Lasix on hold as mentioned above
- would need transplant eval with [facility] - Dr. Zuñiga.
Gastroesophageal reflux disease
- Maintained on Protonix
- History of esophageal varices by imaging, no reported melena/hematemesis/hematochezia
Metabolic acidosis
- due to renal dysfunction and hypertonic saline related
- monitor
Nausea/vomiting
- episode of non blood containing emesis
- symptomatic care. monitor.
Chronic anemia
Essential hypertension
DVT ppx: SCDs
Code: Full
Anticipated Discharge: > 48 hours
Subjective/Interval History
-
Date of Service: July 02, 2025
na 124 this AM
denies any new complaints
Objective Data
-
Labs:
Laboratory Results
07/02/25
03:33
WBC 6.2
Hgb 9.2 L
Hct 25.9 L
Plt Count 67 L
Sodium 124 L
Potassium 4.5
Chloride 98
Carbon Dioxide 22
BUN 23 H
Creatinine 1.5 H
Glucose 84
Calcium 8.4
Vital Signs:
Vital Signs
Temp Pulse Resp BP Pulse Ox
98.4 F 88 14 126/70 98
07/02/25 12:16 07/02/25 08:00 07/02/25 08:00 07/02/25 08:00 07/02/25 09:03
I&O
07/01/25 07/02/25 07/03/25
06:59 06:59 06:59
Intake Total 600 / 600 500 / 500
Output Total 325 / 325 575 / 575 500 / 500
Balance 275 / 275 -75 / -75 -500 / -500
Physical Exam
-
General: No Apparent Distress
HEENT: Normocephalic and Atraumatic
Respiratory: Negative Wheezes
Cardiac: Regular Rhythm
GI: Soft and Distended
Musculoskeletal: No Edema
Neuro: AO x 3
Psych: Calm
Data Reviewed
-
Total Time Spent with Patient (in minutes): 42
Labs: Labs Reviewed by me
--- NOTE | 2025-07-02 15:13 | CM ---
F/U: Hospitalist state that patient might be ready in a few days and that the has caregiver questions. JASIEL Hidalgo spoke to who said that caregiving has been tough and that she wanted to know if she could be a paid caregiver. Working and
caring for her has been difficult, JASIEL Hidalgo normalized this and provided her with 2 resources to call. Then we discussed the fact that PT/OT recommend SNF.
stated that she wants SNF because he cannot be, for example, a 2 person assist at home with her. 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 allowed me
to make referrals to SNF and she is aware the insurance is a barrier- some places may not have a contract with [facility]. JASIEL Hidalgo spoke to the patient, he stated that he is a 2 person assist because of his fluid build up, and once completely
drained (he is not here due to kidney function), he would be able to walk 'really good'. JASIEL Hidalgo asked him to talk to his and PT/OT will see him again. PLAN: Home PT vs. SNF.
--- NOTE | 2025-07-02 17:45 | PTCARENOTE ---
Patient AAOx3 can make his needs known. Calling for RN appropriately. OOB to chair and BR with assistance x1 and rolling walker. Patient very weak and tires easily. Pt. complaining of upper abdominal pain. Medicating with roxicodone as ordered.
Pain is 7/10 after medication 4/10. Patient abdomen with ascites and firm. Paracentesis x2 this admission. LE's with +1 edema. VS stable. Will continue to monitor.
[2025-07-02] MEDS: COREG PO (20:21)
[2025-07-02] MEDS: DESYREL 50 MG PO (22:05)
--- NOTE | 2025-07-02 23:55 | PTCARENOTE ---
Pt AAOx3. Pt able to make needs known. 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 Assessment care and vitals as charted. Call bergman within reach. bed in lowest position.
[2025-07-03] VITALS (13 sets, daily range): BP systolic 90–106; BP diastolic 60–75; BMI 29.4
[2025-07-03] MEDS: ROXICODONE 5 MG PO ×4 (00:28→20:15)
--- NOTE | 2025-07-03 06:07 | DOWNTIME ---
There was a [employer] Downtime on 07/03/2025 from 0100 to 07/03/2025 at 0255. Downtime documentation of patient's care, including medication administrations, has been reconciled in the electronic record per guidelines. Refer to the
patient's paper chart under the miscellaneous tab to see printed paper medication records and downtime forms.
[2025-07-03 06:48] LABS: Blood Urea Nitrogen 21 mg/dl (9-20); Calcium 8.5 mg/dl (8.4-10.2); Carbon Dioxide 21 mmol/L (22-30); Chloride 100 mmol/L (98-107); Estimated Creatinine Clearance 59 ml/min; Glucose 82 mg/dl (70-99); Potassium 4.5 mmol/L (3.5-5.1); Sodium 122 mmol/L (135-145); eGFR > 60.00
--- NOTE | 2025-07-03 09:18 | W.PN.HOSP.TC ---
Today's Communication/Plan
-
Await further nephrology recs for hyponatremia
eventual SNF dc
OP GI + Hepatology f/u being arranged
Assessment / Plan
Assessment / Plan
Assessment:
Acute on chronic hyponatremia
- Has history of chronic hyponatremia in setting of end-stage liver disease
- Baseline sodium of 120+, comes with sodium 114 in ER
- Reported generalized weakness. No overt confusion/seizures report
- Nephrology following, s/p 3% saline and Samsca doses
- continue serial BMPs - today 122; await Nephrology input
- may need to consider Lasix and/or hypertonic saline again; hyponatremia management remains difficult to treat.
Recurrent ascites
History of spontaneous bacterial peritonitis
- Patient have usually 5 to 6 L of ascitic fluid drained every 1 week
- s/p partial paracentesis of 2L on 06/28; no SBP and cultures negative
- s/p paracentesis 3.6L removed on 07/01; no SBP and cultures negative
- continue chronic prophylactic dose of ciprofloxacin
Acute kidney injury - slow improvement
- Baseline creatinine close to 1.2 and elevated to 2 at admit. Cr 1.2 today
- UA bland. Urine Na < 5 and Uosm 422
- Hold Aldactone for time being
- Bladder scan and straight cath protocol
- Nephrology following
End-stage liver disease
- Reason for cirrhosis unclear
- Maintain on home dose of lactulose
- Aldactone/Lasix on hold as mentioned above
- d/w Dr. Davis via TT on 07/02. Patient has appointment with Dr. Davis on 07/16. Dr. Davis's office is in contact with Dr. Zuñiga's ([facility]) office for setting up transplant eval
Gastroesophageal reflux disease
- Maintained on Protonix
- History of esophageal varices by imaging, no reported melena/hematemesis/hematochezia
Metabolic acidosis
- due to renal dysfunction and hypertonic saline related
- monitor
Nausea/vomiting
- episode of non blood containing emesis
- symptomatic care. monitor.
Chronic anemia
Essential hypertension
DVT ppx: SCDs
Code: Full
Dispo: d/w patient and . Agreeable to SNF. referrals sent by CM.
Anticipated Discharge: > 48 hours
Subjective/Interval History
-
Date of Service: July 03, 2025
denies any new complaints
abdomen soft, no tenderness
Na 122
Objective Data
-
Labs:
Laboratory Results
07/03/25 07/03/25
04:16 06:02
Sodium Cancelled 122 L
Potassium Cancelled 4.5
Chloride Cancelled 100
Carbon Dioxide Cancelled 21 L
BUN Cancelled 21 H
Creatinine Cancelled 1.2
Glucose Cancelled 82
Calcium Cancelled 8.5
Vital Signs:
Vital Signs
Temp Pulse Resp BP Pulse Ox
98.3 F 91 14 93/69 100
07/03/25 07:27 07/03/25 06:00 07/03/25 06:00 07/03/25 06:00 07/03/25 06:00
I&O
07/02/25 07/03/25 07/04/25
06:59 06:59 06:59
Intake Total 500 / 500 1190 / 1190
Output Total 575 / 575 1350 / 1350
Balance -75 / -75 -160 / -160
Physical Exam
-
General: No Apparent Distress
HEENT: Normocephalic and Atraumatic
Respiratory: Negative Wheezes
Cardiac: Regular Rhythm and S1/S2
GI: Soft and Distended
Genito-urinary: No Costovertebral Tender
Neuro: AO x 3
Psych: Calm
Data Reviewed
-
Total Time Spent with Patient (in minutes): 44
Labs: Labs Reviewed by me
[2025-07-03] MEDS: DUPHALAC/CHRONULAC 10 GRAMS PO ×3 (09:36→22:18)
[2025-07-03] MEDS: COREG 3.125 MG PO ×2 (09:37→20:14)
[2025-07-03] MEDS: SODIUM CHLORIDE 1 GRAM PO ×2 (09:38→20:14)
[2025-07-03] MEDS: PROTONIX 40 MG PO (09:38)
[2025-07-03] MEDS: CIPRO 500 MG PO (09:39)
[2025-07-03] MEDS: SAMSCA 30 MG PO (13:06)
--- NOTE | 2025-07-03 13:43 | W.PN.NEPH.PH ---
Today's Communication / Plan
-
samsca
Assessment/Plan
-
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
Severe hyponatremia
MORTEZA
ESLD
Asictes weekly paracentesis
Non gap met acidosis
E varices
portal HTN
Plan:
A/w weakness and fall at home
severe hyponatremia-likely secondary to end-stage liver disease+pain, suspect increased free water intake too
U osmo 422, U na <5,
sodium upto 124 yesterday but today at 122, tighten FR 33ounces/day, pt seem to over boarding FR
will give increased dose of samsca 30mg today-this will be 4th dose
baseline sodium in mid 120s
reviewed imp of FR, continue with salt tab
MORTEZA-bland UA, can not r/o HRS with frequent paracentesis , creatinine down to 1.2
also he was taking NSAIDs-reviewed to stop taking
holding ALdactone for time being, probably resume soon
BP stable on low dose coreg
Patient at high clinical risk with persistent profound hyponatremia refractory to multiple interventions with hemodynamic instability
Unfortunately there is very little that we will have to offer both in the short and long-term as patient's hyponatremia is a function of his end-stage liver disease and there appears to be no interventions available for that, highly recommended to
get eval for liver transplant
d/w nursing
-
-
Date of Service: July 03, 2025
CC / HPI / ROS
-
Chief Complaint:
Hyponatremia, MORTEZA
History of Present Illness:
MORTEZA/Cr down to 1.2
Hemodynamically labile
Sodium was at 124 (acute on chronic) following Samsca administration last evening, today at down to 122
ROS:
no reported cp or sob
no fever
no dysuria
Labs
-
Labs:
WBC 6.2 10^3/uL (4.8-10.8) 07/02/25 03:33
RBC 2.55 10^6/uL (4.70-6.10) L 07/02/25 03:33
Hgb 9.2 g/dL (13.0-18.0) L 07/02/25 03:33
Hct 25.9 % (39.0-52.0) L 07/02/25 03:33
Plt Count 67 10^3/uL (130-400) L 07/02/25 03:33
Sodium 122 mmol/L (135-145) L 07/03/25 06:02
Potassium 4.5 mmol/L (3.5-5.1) 07/03/25 06:02
Chloride 100 mmol/L (98-107) 07/03/25 06:02
Carbon Dioxide 21 mmol/L (22-30) L 07/03/25 06:02
BUN 21 mg/dl (9-20) H 07/03/25 06:02
Creatinine 1.2 mg/dL (0.7-1.3) 07/03/25 06:02
eGFR > 60.00 07/03/25 06:02
Glucose 82 mg/dl (70-99) 07/03/25 06:02
Calcium 8.5 mg/dl (8.4-10.2) 07/03/25 06:02
Albumin 2.6 g/dl (3.5-5.0) L 07/01/25 05:13
Physical Exam
-
Vital Signs:
Vital Signs
Temp Pulse Resp BP Pulse Ox
98.4 F 117 16 105/69 98
07/03/25 13:13 07/03/25 12:00 07/03/25 12:00 07/03/25 12:00 07/03/25 12:00
Cardiovascular:: Regular rate and rhythm
Respiratory:: Bilateral: CTA
Lung Excursion:: Normal
Abdomen:: Distended, Nontender and Soft
Extremity Edema:: +1: Bilateral:
Cruz Catheter: No
--- NOTE | 2025-07-03 14:57 | CM ---
F/U: Found a facility [facility] from the list of referrals, then spoke to the patient, and the in person, both are fine with [facility], which will hold the bed for tomorrow, Tuesday, and will take the patient on Tuesday IF authorization from
[place] is obtained. JASIEL Hidalgo spoke to liaison Miranda and now waiting for patient to be ready. will bring lactulose from home and [facility] will arranged paracentesis weekly via their wheelchair van service where they will bill Medicaid for the
transport. PLAN: SNF at [facility].
--- NOTE | 2025-07-03 15:38 | PTCARENOTE ---
Patient out of bed for meals. Assist x1 with walker. Appetite better today. Sodium level 122 today. Samsca administered as ordered. VS stable. Call bergman in reach.
[2025-07-03] MEDS: DESYREL 50 MG PO (22:18)
[2025-07-04] VITALS (18 sets, daily range): BP systolic 94–127; BP diastolic 62–85; PULSE 90–113; O2SAT 100
--- NOTE | 2025-07-04 03:59 | PTCARENOTE ---
Pt struggling to follow fluid restriction. Pt becoming tearful over night about not being able to have water or ice chips. Education and emotional support given. Mouth swabs offered but would need to be monitored. Pt wanted us to leave swab cup at
bed side more education given about reason why RN cannot eave water swab cup bed side due to Pt inability to refrain from drinking. Pt in agreeing he will ring when mouth is dry for ice chips in small amounts to maintain FR.
[2025-07-04] MEDS: ROXICODONE 5 MG PO ×4 (05:06→22:41)
[2025-07-04 06:03] LABS: Blood Urea Nitrogen 20 mg/dl (9-20); Calcium 8.4 mg/dl (8.4-10.2); Carbon Dioxide 22 mmol/L (22-30); Chloride 101 mmol/L (98-107); Estimated Creatinine Clearance 55 ml/min; Glucose 111 mg/dl (70-99); Potassium 4.5 mmol/L (3.5-5.1); Sodium 124 mmol/L (135-145); eGFR > 60.00
[2025-07-04] MEDS: SODIUM CHLORIDE 1 GRAM PO ×2 (10:33→22:24)
[2025-07-04] MEDS: CIPRO 500 MG PO (10:33)
[2025-07-04] MEDS: DESENEX/MITRAZOL/ZEASORB 1 APPLIC TOPICAL ×2 (10:33→19:44)
[2025-07-04] MEDS: PROTONIX 40 MG PO (10:34)
[2025-07-04] MEDS: DUPHALAC/CHRONULAC 10 GRAMS PO ×3 (10:34→22:24)
[2025-07-04] MEDS: LASIX 40 MG PO (10:34)
[2025-07-04] MEDS: COREG PO (10:35)
--- NOTE | 2025-07-04 11:54 | W.PN.HOSP.TC ---
Today's Communication/Plan
-
no intervention today, d/w Nephrology. Monitor AM BMP to establish sodium trend
outpatient liver transplant evaluation set for July
DC planning to SNF
Assessment / Plan
Assessment / Plan
Assessment:
Acute on chronic hyponatremia
- Has history of chronic hyponatremia in setting of end-stage liver disease
- Baseline sodium of 120+, comes with sodium 114 in ER
- Reported generalized weakness. No overt confusion/seizures report
- Nephrology following, s/p 3% saline and multiple high Samsca doses
- continue serial BMPs - today 124
- d/w Nephrology and observe today 07/04 without intervention to establish hyponatremia trends
- hyponatremia management remains difficult to treat.
Recurrent ascites
History of spontaneous bacterial peritonitis
- Patient have usually 5 to 6 L of ascitic fluid drained every 1 week
- s/p partial paracentesis of 2L on 06/28; no SBP and cultures negative
- s/p paracentesis 3.6L removed on 07/01; no SBP and cultures negative
- continue chronic prophylactic dose of ciprofloxacin
Acute kidney injury - slow improvement
- Baseline creatinine close to 1.2 and elevated to 2 at admit. Cr 1.2 today
- UA bland. Urine Na < 5 and Uosm 422
- Hold Aldactone for time being
- Bladder scan and straight cath protocol
- Nephrology following
End-stage liver disease
- Reason for cirrhosis unclear
- Maintain on home dose of lactulose
- Aldactone/Lasix on hold as mentioned above
- d/w Dr. Davis via TT on 07/02. Patient has appointment with Dr. Davis on 07/16. Dr. Davis's office is in contact with Dr. Zuñiga's ([facility]) office for setting up transplant eval
Gastroesophageal reflux disease
- Maintained on Protonix
- History of esophageal varices by imaging, no reported melena/hematemesis/hematochezia
Metabolic acidosis
- due to renal dysfunction and hypertonic saline related
- monitor
Nausea/vomiting
- episode of non blood containing emesis
- symptomatic care. monitor.
Chronic anemia
Essential hypertension
DVT ppx: SCDs
Code: Full
Dispo: d/w patient and . Agreeable to SNF. referrals sent by CM.
Anticipated Discharge: > 48 hours
Subjective/Interval History
-
Date of Service: July 04, 2025
resting comfortably
Na 124 despite 30mg Samsca
Objective Data
-
Labs:
Laboratory Results
07/04/25
05:10
Sodium 124 L
Potassium 4.5
Chloride 101
Carbon Dioxide 22
BUN 20
Creatinine 1.3
Glucose 111 H
Calcium 8.4
Vital Signs:
Vital Signs
Temp Pulse Resp BP Pulse Ox
97.8 F 89 14 94/67 99
07/04/25 11:49 07/04/25 09:12 07/04/25 09:12 07/04/25 10:35 07/04/25 09:50
I&O
07/03/25 07/04/25 07/05/25
06:59 06:59 06:59
Intake Total 1190 / 1190 1030 / 1030
Output Total 1350 / 1350 1130 / 1130
Balance -160 / -160 -100 / -100
Physical Exam
-
General: No Apparent Distress
HEENT: Normocephalic and Atraumatic
Respiratory: Negative Wheezes
Cardiac: Regular Rhythm and S1/S2
GI: Soft and Nontender
Musculoskeletal: No Edema
Neuro: AO x 3
Psych: Calm
Data Reviewed
-
Total Time Spent with Patient (in minutes): 44
Labs: Labs Reviewed by me
--- NOTE | 2025-07-04 11:55 | W.PN.NEPH.PH ---
Today's Communication / Plan
-
resume lasix and monitor
Assessment/Plan
-
IMP:
Weakness s/p M fall RUN LEAD
Severe hyponatremia
MORTEZA
ESLD
Asictes weekly paracentesis
Non gap met acidosis
E varices
portal HTN
Plan:
A/w weakness and fall at home
severe hyponatremia-likely secondary to end-stage liver disease+pain, suspect increased free water intake too
U osmo 422, U na <5,
very refractory to treatment for hypoantremia highly suspect this is all from ESLD
sodium only upto 124 after sasmca, FR 33ounces/day and salt tab
will resume lasix at 40mg daily and monitor
baseline sodium in mid 120s
MORTEZA-bland UA, can not r/o HRS with frequent paracentesis , creatinine stable 1.3
also he was taking NSAIDs-reviewed to stop taking
holding ALdactone for time being, probably resume soon
BP soft on low dose coreg
Patient at high clinical risk with persistent profound hyponatremia refractory to multiple interventions with hemodynamic instability
Unfortunately there is very little that we will have to offer both in the short and long-term as patient's hyponatremia is a function of his end-stage liver disease and there appears to be no interventions available for that, highly recommended to
get eval for liver transplant
d/w nursing and pt
-
-
Date of Service: July 04, 2025
CC / HPI / ROS
-
Chief Complaint:
Hyponatremia, MORTEZA
History of Present Illness:
MORTEZA/Cr stable at 1.3
Hemodynamically labile
Sodium was at 124 (acute on chronic) following Samsca administration last evening
ROS:
no reported cp or sob
no fever
no dysuria
Labs
-
Labs:
WBC 6.2 10^3/uL (4.8-10.8) 07/02/25 03:33
RBC 2.55 10^6/uL (4.70-6.10) L 07/02/25 03:33
Hgb 9.2 g/dL (13.0-18.0) L 07/02/25 03:33
Hct 25.9 % (39.0-52.0) L 07/02/25 03:33
Plt Count 67 10^3/uL (130-400) L 07/02/25 03:33
Sodium 124 mmol/L (135-145) L 07/04/25 05:10
Potassium 4.5 mmol/L (3.5-5.1) 07/04/25 05:10
Chloride 101 mmol/L (98-107) 07/04/25 05:10
Carbon Dioxide 22 mmol/L (22-30) 07/04/25 05:10
BUN 20 mg/dl (9-) 07/04/25 05:10
Creatinine 1.3 mg/dL (0.7-1.3) 07/04/25 05:10
eGFR > 60.00 07/04/25 05:10
Glucose 111 mg/dl (70-99) H 07/04/25 05:10
Calcium 8.4 mg/dl (8.4-10.2) 07/04/25 05:10
Albumin 2.6 g/dl (3.5-5.0) L 07/01/25 05:13
Physical Exam
-
Vital Signs:
Vital Signs
Temp Pulse Resp BP Pulse Ox
97.8 F 89 14 94/67 99
07/04/25 11:49 07/04/25 09:12 07/04/25 09:12 07/04/25 10:35 07/04/25 09:50
Cardiovascular:: Regular rate and rhythm
Respiratory:: Bilateral: CTA
Lung Excursion:: Normal
Abdomen:: Distended, Nontender and Soft
Extremity Edema:: +1: Bilateral:
Cruz Catheter: No
--- NOTE | 2025-07-04 16:02 | CM ---
F/U: Patient still not ready until perhaps tomorrow due to sodium. will bring lactulose from home and [facility] will arranged paracentesis weekly via their wheelchair van service where they will bill Medicaid for the transport. Patient can be
accepted over the weekend is not ready tomorrow. PLAN: SNF at [facility].
--- NOTE | 2025-07-04 19:33 | PTCARENOTE ---
day shift note. see nursing flowsheet. fluid restriction maintained. am coreg held per parameters. pt in sinus tachy 130s with activity. abdomen firm and disteneded with ascites.
[2025-07-04] MEDS: COREG 3.125 MG PO (19:42)
[2025-07-04] MEDS: DESYREL 50 MG PO (22:24)
--- NOTE | 2025-07-04 22:44 | PTCARENOTE ---
Pt c/o 03/24 pain in abdomen. Last BM 07/03. +bowel sounds, abdomen round/distended d/t ascites. Last paracentesis 07/01. At baseline receives paracentesis 2x/week. 5mg oxycodone given for pain.
[2025-07-05] VITALS (18 sets, daily range): BP systolic 88–123; BP diastolic 51–83; BMI 29.6
[2025-07-05 06:23] LABS: Blood Urea Nitrogen 21 mg/dl (9-20); Calcium 8.4 mg/dl (8.4-10.2); Carbon Dioxide 22 mmol/L (22-30); Chloride 103 mmol/L (98-107); Estimated Creatinine Clearance 66 ml/min; Glucose 83 mg/dl (70-99); Potassium 4.2 mmol/L (3.5-5.1); Sodium 126 mmol/L (135-145); eGFR > 60.00
[2025-07-05] MEDS: PROTONIX 40 MG PO (07:36)
[2025-07-05] MEDS: COREG 3.125 MG PO ×2 (07:36→20:17)
[2025-07-05] MEDS: SODIUM CHLORIDE 1 GRAM PO ×2 (07:36→20:17)
[2025-07-05] MEDS: DUPHALAC/CHRONULAC 10 GRAMS PO ×3 (07:36→22:39)
[2025-07-05] MEDS: LASIX 40 MG PO (07:36)
[2025-07-05] MEDS: CIPRO 500 MG PO (07:36)
[2025-07-05] MEDS: DESENEX/MITRAZOL/ZEASORB 1 APPLIC TOPICAL ×2 (07:37→20:18)
[2025-07-05] MEDS: ROXICODONE 5 MG PO ×3 (07:41→20:16)
--- NOTE | 2025-07-05 10:12 | W.PN.NEPH.PH ---
Today's Communication / Plan
-
Repeat Samsca 15 mg
Maintain Lasix fluid restriction and salt tablet
Follow BMP while inpatient
Assessment/Plan
-
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
Severe hyponatremia
MORTEZA
ESLD
Asictes weekly paracentesis
Non gap met acidosis
E varices
portal HTN
Plan:
A/w weakness and fall at home
severe hyponatremia-likely secondary to end-stage liver disease+pain, suspect increased free water intake too
U osmo 422, U na <5,
very refractory to treatment for hypoantremia highly suspect this is all from ESLD
sodium only upto 126 after sasmca, FR 33ounces/day and salt tab, will repeat Samsca 15mg
maintain lasix at 40mg daily and monitor
baseline sodium in mid 120s
MORTEZA-bland UA, can not r/o HRS with frequent paracentesis , creatinine stable 1.3
also he was taking NSAIDs-reviewed to stop taking
holding ALdactone for time being, probably resume soon
BP soft on low dose coreg
Patient at high clinical risk with persistent profound hyponatremia refractory to multiple interventions with hemodynamic instability
Unfortunately there is very little that we will have to offer both in the short and long-term as patient's hyponatremia is a function of his end-stage liver disease and there appears to be no interventions available for that
d/w nursing and pt
-
-
Date of Service: July 05, 2025
CC / HPI / ROS
-
Chief Complaint:
Hyponatremia, MORTEZA
History of Present Illness:
MORTEZA/Cr stable at 1.2
Hemodynamically labile
Sodium was at 126 (acute on chronic) with Lasix fluid restriction and salt tablet
ROS:
no reported cp or sob
no fever
no dysuria
Labs
-
Labs:
WBC 6.2 10^3/uL (4.8-10.8) 07/02/25 03:33
RBC 2.55 10^6/uL (4.70-6.10) L 07/02/25 03:33
Hgb 9.2 g/dL (13.0-18.0) L 07/02/25 03:33
Hct 25.9 % (39.0-52.0) L 07/02/25 03:33
Plt Count 67 10^3/uL (130-400) L 07/02/25 03:33
Sodium 126 mmol/L (135-145) L 07/05/25 05:38
Potassium 4.2 mmol/L (3.5-5.1) 07/05/25 05:38
Chloride 103 mmol/L (98-107) 07/05/25 05:38
Carbon Dioxide 22 mmol/L (22-30) 07/05/25 05:38
BUN 21 mg/dl (9-20) H 07/05/25 05:38
Creatinine 1.2 mg/dL (0.7-1.3) 07/05/25 05:38
eGFR > 60.00 07/05/25 05:38
Glucose 83 mg/dl (70-99) 07/05/25 05:38
Calcium 8.4 mg/dl (8.4-10.2) 07/05/25 05:38
Albumin 2.6 g/dl (3.5-5.0) L 07/01/25 05:13
Physical Exam
-
Vital Signs:
Vital Signs
Temp Pulse Resp BP Pulse Ox
98.1 F 117 12 96/62 99
07/05/25 07:55 07/05/25 10:00 07/05/25 10:00 07/05/25 10:00 07/05/25 10:00
Cardiovascular:: Regular rate and rhythm
Respiratory:: Bilateral: CTA
Lung Excursion:: Normal
Abdomen:: Distended, Nontender and Soft
Extremity Edema:: +1: Bilateral:
Cruz Catheter: No
--- NOTE | 2025-07-05 10:18 | PTCARENOTE ---
Pt screaming at housekeeping and PCT this AM over room not being cleaned. Housekeeping mopped floors and provided card to patient that stated last full cleaning for his memory. This RN talked pt down and provided emotional support/listening ear for
pt to calm down. Pt in tears apologizing for behavior. Linens and socks changed. Hygiene and oral care provided. Pt visibly more comfortable at this time. No new orders.
[2025-07-05] MEDS: SAMSCA 15 MG PO (10:28)
--- NOTE | 2025-07-05 11:47 | W.PN.HOSP.TC ---
Today's Communication/Plan
-
paracentesis today with labs
Samsca
continue Lasix
Assessment / Plan
Assessment / Plan
Assessment:
Acute on chronic hyponatremia
- Has history of chronic hyponatremia in setting of end-stage liver disease
- Baseline sodium of 120+, comes with sodium 114 in ER
- Reported generalized weakness. No overt confusion/seizures report
- Nephrology following, s/p 3% saline and multiple high Samsca doses
- continue serial BMPs - today 126
- d/w Nephrology and continue Lasix. Additional Samsca today
- hyponatremia management remains difficult to treat.
- Liver transplant will be definitive fix for hyponatremia
Recurrent ascites
History of spontaneous bacterial peritonitis
- Patient have usually 5 to 6 L of ascitic fluid drained every 1 week
- s/p partial paracentesis of 2L on 06/28; no SBP and cultures negative
- s/p paracentesis 3.6L removed on 07/01; no SBP and cultures negative
- repeat paracentesis with labs today
- continue chronic prophylactic dose of ciprofloxacin
Acute kidney injury - slow improvement
- Baseline creatinine close to 1.2 and elevated to 2 at admit. Cr 1.2 today
- UA bland. Urine Na < 5 and Uosm 422
- Hold Aldactone for time being
- Bladder scan and straight cath protocol
- Nephrology following
End-stage liver disease
- Reason for cirrhosis unclear
- Maintain on home dose of lactulose
- Aldactone/Lasix on hold as mentioned above
- d/w Dr. Davis via TT on 07/02. Patient has appointment with Dr. Davis on 07/16. Dr. Davis's office is in contact with Dr. Zuñiga's ([facility]) office for setting up transplant eval
Gastroesophageal reflux disease
- Maintained on Protonix
- History of esophageal varices by imaging, no reported melena/hematemesis/hematochezia
Metabolic acidosis
- due to renal dysfunction and hypertonic saline related
- monitor
Nausea/vomiting
- episode of non blood containing emesis
- symptomatic care. monitor.
Chronic anemia
Essential hypertension
DVT ppx: SCDs
Code: Full
Dispo: d/w patient and . Agreeable to SNF. referrals sent by CM.
Anticipated Discharge: 24 - 48 hours
Subjective/Interval History
-
Date of Service: July 05, 2025
feels abdominal distention and discomfort
Objective Data
-
Labs:
Laboratory Results
07/05/25
05:38
Sodium 126 L
Potassium 4.2
Chloride 103
Carbon Dioxide 22
BUN 21 H
Creatinine 1.2
Glucose 83
Calcium 8.4
Vital Signs:
Vital Signs
Temp Pulse Resp BP Pulse Ox
98.5 F 117 12 96/62 99
07/05/25 11:32 07/05/25 10:00 07/05/25 10:00 07/05/25 10:00 07/05/25 10:00
I&O
07/04/25 07/05/25 07/06/25
06:59 06:59 06:59
Intake Total 1030 / 1030 1040 / 1040
Output Total 1130 / 1130
Balance -100 / -100 1040 / 1040
Physical Exam
-
General: No Apparent Distress
HEENT: Normocephalic and Atraumatic
Respiratory: Negative Wheezes
Cardiac: Regular Rhythm and S1/S2
GI: Tender (slightly) and Distended
Genito-urinary: No Costovertebral Tender
Neuro: AO x 3
Psych: Calm
Data Reviewed
-
Total Time Spent with Patient (in minutes): 42
Labs: Labs Reviewed by me
--- NOTE | 2025-07-05 12:48 | PTCARENOTE ---
Patient AOx3. On RA with SpO2 greater than 92%. Dyspnea on exertion. Sinus tach with PVC's on monitor. BP stable. Round, obese, distended abdomen. Plan is to do paracentesis today. Tolerating oral diet. Needs reinforcement regarding fluid
restriction. Assist x1 with RW when OOB. Call bergman within reach, bed in lowest position, and bed of wheels locked.
--- NOTE | 2025-07-05 13:15 | PTCARENOTE ---
Patient off unit to go to IR for paracentesis.
--- NOTE | 2025-07-05 13:55 | CM ---
Continuing to follow BMP, NA remains low @ 126. Paracentesis today. Not medically cleared for discharge. Discharge POC: [facility] has accepted and is willing to transport patient for weekly paracentesis. Will need insurance auth. Per attending,
uncertain date of discharge.
--- NOTE | 2025-07-05 14:56 | PTCARENOTE ---
Patient arrived back to IMU from IR post paracentesis. VSS. Band aid C/D/I. Care ongoing.
[2025-07-05] MEDS: FLEXBUMIN 100 IV ×2 (15:04→16:43)
[2025-07-05 15:30] LABS: Body Fluid Second Tech BGK
[2025-07-05] MEDS: ZOFRAN 4 MG IV (16:10)
--- NOTE | 2025-07-05 16:13 | PTCARENOTE ---
Patient c/o nausea. PRN zofran given per MAR. Vomit bag within reach. Patient sitting in chair. Care ongoing.
--- NOTE | 2025-07-05 17:19 | PTCARENOTE ---
Verbal report given to [facility] [place]. Patient belongings transferred with patient.
--- NOTE | 2025-07-05 18:28 | PTCARENOTE ---
Received pt from IMU in wheelchair, pt ambulated with assistance of 1 person with a rolling walker, AAOx3, pt resting comfortably in bed with call bergman at side, no new orders at this time.
[2025-07-05] MEDS: DESYREL 50 MG PO (22:39)
[2025-07-06 03:05] VITALS: BP 99/62
[2025-07-06 06:00] VITALS: BMI 27.6
[2025-07-06 07:29] LABS: Hematocrit 25.1 % (39.0-52.0); Hemoglobin 8.9 g/dL (13.0-18.0); Mean Corp Hgb Conc. 35.5 g/dL (33.0-37.0); Mean Corpuscular Volume 97.7 fL (80.0-94.0); Platelet Count 68 10^3/uL (130-400); Red Cell Dist. Width 15.0 % (11.5-14.5)
[2025-07-06 07:32] VITALS: BP 101/70
[2025-07-06 07:50] LABS: Blood Urea Nitrogen 20 mg/dl (9-20); Calcium 8.6 mg/dl (8.4-10.2); Carbon Dioxide 22 mmol/L (22-30); Chloride 100 mmol/L (98-107); Estimated Creatinine Clearance 55 ml/min; Glucose 73 mg/dl (70-99); Potassium 3.7 mmol/L (3.5-5.1); Sodium 127 mmol/L (135-145); eGFR > 60.00
[2025-07-06] MEDS: SODIUM CHLORIDE 1 GRAM PO ×2 (09:31→20:41)
[2025-07-06] MEDS: CIPRO 500 MG PO (09:31)
[2025-07-06] MEDS: COREG 3.125 MG PO ×2 (09:31→20:40)
[2025-07-06] MEDS: ROXICODONE 5 MG PO ×2 (09:31→20:44)
[2025-07-06] MEDS: LASIX 40 MG PO (09:31)
[2025-07-06] MEDS: PROTONIX 40 MG PO (09:32)
[2025-07-06] MEDS: DUPHALAC/CHRONULAC 10 GRAMS PO ×3 (09:32→22:55)
[2025-07-06] MEDS: DESENEX/MITRAZOL/ZEASORB 1 APPLIC TOPICAL ×2 (09:35→20:41)
[2025-07-06 11:16] VITALS: BP 101/57
--- NOTE | 2025-07-06 12:59 | W.PN.HOSP.TC ---
Today's Communication/Plan
-
Medically stable for DC to SNF pending auth. CM aware.
Assessment / Plan
Assessment / Plan
Assessment:
Acute on chronic hyponatremia
- Has history of chronic hyponatremia in setting of end-stage liver disease
- Baseline sodium of 120+, comes with sodium 114 in ER
- Reported generalized weakness. No overt confusion/seizures report
- Nephrology following, s/p 3% saline and multiple high Samsca doses
- continue serial BMPs - today 127
- stable for DC per Nephrology
- continue Lasix, OFR and Salt tabs
- overall hyponatremia management remains difficult to treat.; Liver transplant will be definitive fix for hyponatremia
Recurrent ascites
History of spontaneous bacterial peritonitis
- Patient have usually 5 to 6 L of ascitic fluid drained every 1 week
- s/p partial paracentesis of 2L on 06/28; no SBP and cultures negative
- s/p paracentesis 3.6L removed on 07/01; no SBP and cultures negative
- s/p paracentesis 5.5L removed 07/05; no SBP and cultures negative
- d/w GI team (sees Dr. Davis) and likely will need 2x/weekly paracentesis outpatient
- continue chronic prophylactic dose of ciprofloxacin
Acute kidney injury - slow improvement
- Baseline creatinine close to 1.2 and elevated to 2 at admit. Cr 1.2 today
- UA bland. Urine Na < 5 and Uosm 422
- Hold Aldactone
- Bladder scan and straight cath protocol
- Nephrology following
End-stage liver disease
- Reason for cirrhosis unclear
- Maintain on home dose of lactulose
- continue Lasix
- Aldactone on hold due to low BP
- d/w Dr. Davis via TT on 07/02. Patient has appointment with Dr. Davis on 07/16. Dr. Davis's office is in contact with Dr. Zuñiga's ([facility]) office for setting up transplant eval
Gastroesophageal reflux disease
- Maintained on Protonix
- History of esophageal varices by imaging, no reported melena/hematemesis/hematochezia
Metabolic acidosis
- due to renal dysfunction and hypertonic saline related
- monitor
Nausea/vomiting
- episode of non blood containing emesis
- symptomatic care. monitor.
Chronic anemia
Essential hypertension
DVT ppx: SCDs
Code: Full
Dispo: Medically stable for DC to SNF pending auth. CM aware.
Anticipated Discharge: > 48 hours
Subjective/Interval History
-
Date of Service: July 06, 2025
resting comfortably
Na 127
Objective Data
-
Labs:
Laboratory Results
07/06/25
06:25
WBC 5.2
Hgb 8.9 L
Hct 25.1 L
Plt Count 68 L
Sodium 127 L
Potassium 3.7
Chloride 100
Carbon Dioxide 22
BUN 20
Creatinine 1.3
Glucose 73
Calcium 8.6
Vital Signs:
Vital Signs
Temp Pulse Resp BP Pulse Ox
98.3 F 78 16 101/57 99
07/06/25 11:16 07/06/25 11:16 07/06/25 11:16 07/06/25 11:16 07/06/25 11:16
I&O
07/05/25 07/06/25 07/07/25
06:59 06:59 06:59
Intake Total 1040 / 1040 920 / 920
Balance 1040 / 1040 920 / 920
Physical Exam
-
General: No Apparent Distress
HEENT: Normocephalic and Atraumatic
Respiratory: Negative Wheezes
Cardiac: Regular Rhythm and S1/S2
GI: Soft
Genito-urinary: No Costovertebral Tender
Musculoskeletal: No Edema
Neuro: AO x 3
Psych: Calm
Data Reviewed
-
Total Time Spent with Patient (in minutes): 42
Labs: Labs Reviewed by me
--- NOTE | 2025-07-06 14:56 | W.PN.NEPH.PH ---
Today's Communication / Plan
-
maintain FR and lasix
Assessment/Plan
-
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
Severe hyponatremia
MORTEZA
ESLD
Asictes weekly paracentesis
Non gap met acidosis
E varices
portal HTN
Plan:
A/w weakness and fall at home
severe hyponatremia-likely secondary to end-stage liver disease+pain, suspect increased free water intake too
U osmo 422, U na <5, now 127
very refractory to treatment for hypoantremia highly suspect this is all from ESLD
sodium only upto 126 after sasmca, FR 33ounces/day and salt tab,
maintain lasix at 40mg daily and monitor
baseline sodium in mid 120s
MORTEZA-bland UA, can not r/o HRS with frequent paracentesis , creatinine stable 1.3
also he was taking NSAIDs-reviewed to stop taking
holding ALdactone for time being, probably resume soon
BP soft on low dose coreg
Patient at high clinical risk with persistent profound hyponatremia refractory to multiple interventions with hemodynamic instability
Unfortunately there is very little that we will have to offer both in the short and long-term as patient's hyponatremia is a function of his end-stage liver disease and there appears to be no interventions available for that
d/w nursing and pt
-
-
Date of Service: July 06, 2025
CC / HPI / ROS
-
Chief Complaint:
Hyponatremia, MORTEZA
History of Present Illness:
MORTEZA/Cr stable at 1.3
Hemodynamically labile
Sodium was at 126 (acute on chronic) with Lasix fluid restriction and salt tablet
ROS:
no reported cp or sob
no fever
no dysuria
Labs
-
Labs:
WBC 5.2 10^3/uL (4.8-10.8) 07/06/25 06:25
RBC 2.57 10^6/uL (4.70-6.10) L 07/06/25 06:25
Hgb 8.9 g/dL (13.0-18.0) L 07/06/25 06:25
Hct 25.1 % (39.0-52.0) L 07/06/25 06:25
Plt Count 68 10^3/uL (130-400) L 07/06/25 06:25
Sodium 127 mmol/L (135-145) L 07/06/25 06:25
Potassium 3.7 mmol/L (3.5-5.1) 07/06/25 06:25
Chloride 100 mmol/L (98-107) 07/06/25 06:25
Carbon Dioxide 22 mmol/L (22-30) 07/06/25 06:25
BUN 20 mg/dl (9-20) 07/06/25 06:25
Creatinine 1.3 mg/dL (0.7-1.3) 07/06/25 06:25
eGFR > 60.00 07/06/25 06:25
Glucose 73 mg/dl (70-99) 07/06/25 06:25
Calcium 8.6 mg/dl (8.4-10.2) 07/06/25 06:25
Albumin 2.6 g/dl (3.5-5.0) L 07/01/25 05:13
Physical Exam
-
Vital Signs:
Vital Signs
Temp Pulse Resp BP Pulse Ox
98.3 F 78 16 101/57 99
07/06/25 11:16 07/06/25 11:16 07/06/25 11:16 07/06/25 11:16 07/06/25 11:16
Cardiovascular:: Regular rate and rhythm
Respiratory:: Bilateral: CTA
Lung Excursion:: Normal
Abdomen:: Distended, Nontender and Soft
Extremity Edema:: +1: Bilateral:
Cruz Catheter: No
[2025-07-06 15:34] VITALS: BP 109/53
[2025-07-06 19:37] VITALS: BP 104/60
[2025-07-06] MEDS: DESYREL 50 MG PO (22:55)
[2025-07-06 23:20] VITALS: BP 103/60
[2025-07-07] VITALS (7 sets, daily range): BP systolic 86–130; BP diastolic 49–66; PULSE 81
[2025-07-07 07:32] LABS: Blood Urea Nitrogen 19 mg/dl (9-20); Calcium 8.2 mg/dl (8.4-10.2); Carbon Dioxide 22 mmol/L (22-30); Chloride 101 mmol/L (98-107); Estimated Creatinine Clearance 59 ml/min; Glucose 85 mg/dl (70-99); Potassium 4.0 mmol/L (3.5-5.1); Sodium 126 mmol/L (135-145); eGFR > 60.00
[2025-07-07] MEDS: ROXICODONE 5 MG PO ×2 (08:29→15:41)
[2025-07-07] MEDS: SODIUM CHLORIDE 1 GRAM PO ×2 (08:30→21:01)
[2025-07-07] MEDS: CIPRO 500 MG PO (08:30)
[2025-07-07] MEDS: DUPHALAC/CHRONULAC 10 GRAMS PO ×3 (08:30→21:05)
[2025-07-07] MEDS: PROTONIX 40 MG PO (08:30)
[2025-07-07] MEDS: COREG 3.125 MG PO ×2 (08:31→21:02)
[2025-07-07] MEDS: LASIX 40 MG PO (08:31)
[2025-07-07] MEDS: DESENEX/MITRAZOL/ZEASORB 1 APPLIC TOPICAL ×2 (08:34→21:02)
--- NOTE | 2025-07-07 09:48 | W.PN.NEPH.PH ---
Today's Communication / Plan
-
Samsca 15 mg p.o. x 1
Assessment/Plan
-
IMP:
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
Severe hyponatremia
MORTEZA
ESLD
Asictes weekly paracentesis
Non gap met acidosis
E varices
portal HTN
Plan:
A/w weakness and fall at home
severe hyponatremia-likely secondary to end-stage liver disease+pain, suspect increased free water intake too
U osmo 422, U na <5, now 126
Will repeat Samsca 15 mg p.o. x 1
very refractory to treatment for hypoantremia highly suspect this is all from ESLD
FR 33ounces/day and salt tab, Lasix 40 mg to
maintain lasix at 40mg daily and monitor
baseline sodium in mid 120s
MORTEZA-bland UA, can not r/o HRS with frequent paracentesis , creatinine stable 1.3
also he was taking NSAIDs-reviewed to stop taking
holding ALdactone for time being, probably resume soon
BP soft on low dose coreg
Patient at high clinical risk with persistent profound hyponatremia refractory to multiple interventions with hemodynamic instability
Unfortunately there is very little that we will have to offer both in the short and long-term as patient's hyponatremia is a function of his end-stage liver disease and there appears to be no interventions available for that
d/w nursing and pt
-
-
Date of Service: July 07, 2025
CC / HPI / ROS
-
Chief Complaint:
Hyponatremia, MORTEZA
History of Present Illness:
MORTEZA/Cr stable at 1.2
Hemodynamically labile
Sodium was at 126 (acute on chronic) with Lasix fluid restriction and salt tablet
ROS:
no reported cp or sob
no fever
no dysuria
Labs
-
Labs:
WBC 5.2 10^3/uL (4.8-10.8) 07/06/25 06:25
RBC 2.57 10^6/uL (4.70-6.10) L 07/06/25 06:25
Hgb 8.9 g/dL (13.0-18.0) L 07/06/25 06:25
Hct 25.1 % (39.0-52.0) L 07/06/25 06:25
Plt Count 68 10^3/uL (130-400) L 07/06/25 06:25
Sodium 126 mmol/L (135-145) L 07/07/25 06:35
Potassium 4.0 mmol/L (3.5-5.1) 07/07/25 06:35
Chloride 101 mmol/L (98-107) 07/07/25 06:35
Carbon Dioxide 22 mmol/L (22-30) 07/07/25 06:35
BUN 19 mg/dl (9-20) 07/07/25 06:35
Creatinine 1.2 mg/dL (0.7-1.3) 07/07/25 06:35
eGFR > 60.00 07/07/25 06:35
Glucose 85 mg/dl (70-99) 07/07/25 06:35
Calcium 8.2 mg/dl (8.4-10.2) L 07/07/25 06:35
Albumin 2.6 g/dl (3.5-5.0) L 07/01/25 05:13
Physical Exam
-
Vital Signs:
Vital Signs
Temp Pulse Resp BP Pulse Ox
98.3 F 81 17 102/59 100
07/07/25 07:34 07/07/25 08:31 07/07/25 07:34 07/07/25 08:31 07/07/25 07:34
Cardiovascular:: Regular rate and rhythm
Respiratory:: Bilateral: CTA
Lung Excursion:: Normal
Abdomen:: Distended, Nontender and Soft
Extremity Edema:: +1: Bilateral:
Cruz Catheter: No
[2025-07-07] MEDS: SAMSCA 15 MG PO (10:50)
--- NOTE | 2025-07-07 11:40 | W.PN.HOSP.TC ---
Today's Communication/Plan
-
Samsca today
assess on Tuesday for repeat paracentesis needs
DC planning to SNF
Assessment / Plan
Assessment / Plan
Assessment:
Acute on chronic hyponatremia
- Has history of chronic hyponatremia in setting of end-stage liver disease
- Baseline sodium of 120+, comes with sodium 114 in ER
- Reported generalized weakness. No overt confusion/seizures report
- Nephrology following, s/p 3% saline and multiple high Samsca doses
- continue serial BMPs - today 127
- stable for DC per Nephrology
- continue Lasix, OFR and Salt tabs
- overall hyponatremia management remains difficult to treat.; Liver transplant will be definitive fix for hyponatremia
Recurrent ascites
History of spontaneous bacterial peritonitis
- Patient have usually 5 to 6 L of ascitic fluid drained every 1 week
- s/p partial paracentesis of 2L on 06/28; no SBP and cultures negative
- s/p paracentesis 3.6L removed on 07/01; no SBP and cultures negative
- s/p paracentesis 5.5L removed 07/05; no SBP and cultures negative
- d/w GI team (sees Dr. Davis) and likely will need 2x/weekly paracentesis outpatient
- continue chronic prophylactic dose of ciprofloxacin
Acute kidney injury - slow improvement
- Baseline creatinine close to 1.2 and elevated to 2 at admit. Cr 1.2 today
- UA bland. Urine Na < 5 and Uosm 422
- Hold Aldactone
- Bladder scan and straight cath protocol
- Nephrology following
End-stage liver disease
- Reason for cirrhosis unclear
- Maintain on home dose of lactulose
- continue Lasix
- Aldactone on hold due to low BP
- d/w Dr. Davis via TT on 07/02. Patient has appointment with Dr. Davis on 07/16. Dr. Davis's office is in contact with Dr. Zuñiga's ([facility]) office for setting up transplant eval
Gastroesophageal reflux disease
- Maintained on Protonix
- History of esophageal varices by imaging, no reported melena/hematemesis/hematochezia
Metabolic acidosis
- due to renal dysfunction and hypertonic saline related
- monitor
Nausea/vomiting
- episode of non blood containing emesis
- symptomatic care. monitor.
Chronic anemia
Essential hypertension
DVT ppx: SCDs
Code: Full
Dispo: Medically stable for DC to SNF pending auth. CM aware.
Anticipated Discharge: 24 - 48 hours
Subjective/Interval History
-
Date of Service: July 07, 2025
resting comfortably
Na 126 today
Objective Data
-
Labs:
Laboratory Results
07/07/25
06:35
Sodium 126 L
Potassium 4.0
Chloride 101
Carbon Dioxide 22
BUN 19
Creatinine 1.2
Glucose 85
Calcium 8.2 L
Vital Signs:
Vital Signs
Temp Pulse Resp BP Pulse Ox
98.5 F 85 18 130/65 100
07/07/25 11:18 07/07/25 11:18 07/07/25 11:18 07/07/25 11:18 07/07/25 11:18
I&O
07/06/25 07/07/25 07/08/25
06:59 06:59 06:59
Intake Total 920 / 920 600 / 600
Balance 920 / 920 600 / 600
Physical Exam
-
General: No Apparent Distress
HEENT: Normocephalic and Atraumatic
Respiratory: Negative Wheezes
Cardiac: Regular Rhythm and S1/S2
GI: Soft and Nontender
Genito-urinary: No Costovertebral Tender
Neuro: AO x 3
Psych: Calm
Data Reviewed
-
Total Time Spent with Patient (in minutes): 42
Labs: Labs Reviewed by me
[2025-07-07] MEDS: MORPHINE SULFATE 1 MG IV (18:46)
[2025-07-07] MEDS: DESYREL 50 MG PO (21:02)
[2025-07-08] VITALS (9 sets, daily range): BP systolic 95–113; BP diastolic 50–74; PULSE 72; O2SAT 100; BMI 27.1
[2025-07-08 07:00] LABS: Blood Urea Nitrogen 19 mg/dl (9-20); Calcium 8.4 mg/dl (8.4-10.2); Carbon Dioxide 22 mmol/L (22-30); Chloride 102 mmol/L (98-107); Estimated Creatinine Clearance 55 ml/min; Glucose 90 mg/dl (70-99); Potassium 4.1 mmol/L (3.5-5.1); Sodium 128 mmol/L (135-145); eGFR > 60.00
[2025-07-08] MEDS: LASIX 40 MG PO ×2 (07:30→15:21)
[2025-07-08] MEDS: SODIUM CHLORIDE 1 GRAM PO ×2 (07:30→20:09)
[2025-07-08] MEDS: PROTONIX 40 MG PO (07:30)
[2025-07-08] MEDS: CIPRO 500 MG PO (07:30)
[2025-07-08] MEDS: DUPHALAC/CHRONULAC 10 GRAMS PO ×3 (07:31→21:49)
[2025-07-08] MEDS: ROXICODONE 5 MG PO ×3 (07:32→20:14)
[2025-07-08] MEDS: ZOFRAN 4 MG IV (07:32)
[2025-07-08] MEDS: DESENEX/MITRAZOL/ZEASORB 1 APPLIC TOPICAL ×2 (07:43→20:12)
[2025-07-08] MEDS: COREG PO (07:49)
[2025-07-08 13:02] LABS: Body Fluid Second Tech SS
--- NOTE | 2025-07-08 13:28 | W.PN.NEPH.PH ---
Today's Communication / Plan
-
increase lasix
Assessment/Plan
-
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
Severe hyponatremia
MORTEZA
ESLD
Asictes weekly paracentesis
Non gap met acidosis
E varices
portal HTN
Plan:
follow BMP
continue NaCl 1 gm BID
increase lasix to 80mg daily
samsca prn
-
-
Date of Service: July 08, 2025
CC / HPI / ROS
-
Chief Complaint:
Hyponatremia, MORTEZA
History of Present Illness:
MORTEZA/Cr stable 1.3
Hemodynamically labile
Sodium up to 128
s/p 1 L LVP 07/08
ROS:
no reported cp or sob
no fever
no dysuria
Labs
-
Labs:
WBC 5.2 10^3/uL (4.8-10.8) 07/06/25 06:25
RBC 2.57 10^6/uL (4.70-6.10) L 07/06/25 06:25
Hgb 8.9 g/dL (13.0-18.0) L 07/06/25 06:25
Hct 25.1 % (39.0-52.0) L 07/06/25 06:25
Plt Count 68 10^3/uL (130-400) L 07/06/25 06:25
Sodium 128 mmol/L (135-145) L 07/08/25 05:54
Potassium 4.1 mmol/L (3.5-5.1) 07/08/25 05:54
Chloride 102 mmol/L (98-107) 07/08/25 05:54
Carbon Dioxide 22 mmol/L (22-30) 07/08/25 05:54
BUN 19 mg/dl (9-20) 07/08/25 05:54
Creatinine 1.3 mg/dL (0.7-1.3) 07/08/25 05:54
eGFR > 60.00 07/08/25 05:54
Glucose 90 mg/dl (70-99) 07/08/25 05:54
Calcium 8.4 mg/dl (8.4-10.2) 07/08/25 05:54
Albumin 2.6 g/dl (3.5-5.0) L 07/01/25 05:13
Physical Exam
-
Vital Signs:
Vital Signs
Temp Pulse Resp BP Pulse Ox
98.0 F 112 16 98/74 100
07/08/25 11:41 07/08/25 12:15 07/08/25 12:15 07/08/25 12:15 07/08/25 11:41
Cardiovascular:: Regular rate and rhythm
Respiratory:: Bilateral: Coarse
Lung Excursion:: Normal
Abdomen:: Nontender and Soft
Bowel Sounds:: Normal
Extremity Edema:: +1: Bilateral:
--- NOTE | 2025-07-08 14:15 | W.PN.HOSP.TC ---
Today's Communication/Plan
-
discharge planning for snf rehab
Assessment / Plan
Assessment / Plan
Assessment:
Acute on chronic hyponatremia
- Has history of chronic hyponatremia in setting of end-stage liver disease
- Baseline sodium of 120+, comes with sodium 114 in ER
- Reported generalized weakness. No overt confusion/seizures report
- Nephrology following, s/p 3% saline and multiple high Samsca doses
- continue serial BMPs - today 128
- stable for DC per Nephrology
- continue Lasix, OFR and Salt tabs
- overall hyponatremia management remains difficult to treat.; Liver transplant will be definitive fix for hyponatremia
Recurrent ascites
History of spontaneous bacterial peritonitis
- Patient have usually 5 to 6 L of ascitic fluid drained every 1 week
- s/p partial paracentesis of 2L on 06/28; no SBP and cultures negative
- s/p paracentesis 3.6L removed on 07/01; no SBP and cultures negative
- s/p paracentesis 5.5L removed 07/05; no SBP and cultures negative
- d/w GI team (sees Dr. Davis) and likely will need 2x/weekly paracentesis outpatient
- Interventional [facility] consulted for repeat paracentesis
Acute kidney injury - slow improvement
- Baseline creatinine close to 1.2 and elevated to 2 at admit. Cr 1.2 today
- UA bland. Urine Na < 5 and Uosm 422
- Hold Aldactone
- Bladder scan and straight cath protocol
- Nephrology following
End-stage liver disease
- Reason for cirrhosis unclear
- Maintain on home dose of lactulose
- continue Lasix
- Aldactone on hold due to low BP
- d/w Dr. Davis via TT on 07/02. Patient has appointment with Dr. Davis on 07/16. Dr. Davis's office is in contact with Dr. Zuñiga's ([facility]) office for setting up transplant eval
Gastroesophageal reflux disease
- Maintained on Protonix
- History of esophageal varices by imaging, no reported melena/hematemesis/hematochezia
Metabolic acidosis
- due to renal dysfunction and hypertonic saline related
- monitor
Nausea/vomiting
- episode of non blood containing emesis
- symptomatic care. monitor.
Chronic anemia
Essential hypertension
DVT ppx: SCDs
Code: Full
Anticipated Discharge: Today
Subjective/Interval History
-
Date of Service: July 08, 2025
No issues overnight
Blood pressure soft
abd discomfort
Objective Data
-
Labs:
Laboratory Results
07/08/25
05:54
Sodium 128 L
Potassium 4.1
Chloride 102
Carbon Dioxide 22
BUN 19
Creatinine 1.3
Glucose 90
Calcium 8.4
Vital Signs:
Vital Signs
Temp Pulse Resp BP Pulse Ox
98.0 F 112 16 98/74 100
07/08/25 11:41 07/08/25 12:15 07/08/25 12:15 07/08/25 12:15 07/08/25 11:41
I&O
07/07/25 07/08/25 07/09/25
06:59 06:59 06:59
Intake Total 600 / 600 980 / 980
Output Total 750 / 750
Balance 600 / 600 230 / 230
Review of Systems
-
Respiratory: Reports No Symptoms
Cardiac: Reports No Symptoms
Abdomen/GI: Reports No Symptoms
Physical Exam
-
General: No Apparent Distress
HEENT: Normocephalic and Atraumatic
Respiratory: Negative Wheezes
Cardiac: Regular Rhythm and S1/S2
GI: Soft and Nontender
Genito-urinary: No Costovertebral Tender
Neuro: AO x 3
Psych: Calm
--- NOTE | 2025-07-08 15:03 | CM ---
CM following re: discharge planning.
Reviewed pt's chart, met with pt.
Pt is s/p 1 L LVP 07/08, continue supportive care.
PT and POT continue recommending SNF level of care and pt preferred [facility]. CM spoke to [facility] SN[facility] liaison and she confirmed that pt will be accepted for admission when medically stable and based on bed availability
on the day of discharge.
D/C plan: [facility] based on bed availability on the day of discharge.
CM will follow with discharge plan updates as hospitalization progresses
[2025-07-08] MEDS: COREG 3.125 MG PO (20:10)
[2025-07-08] MEDS: DESYREL 50 MG PO (21:49)
[2025-07-09] VITALS (7 sets, daily range): BP systolic 96–122; BP diastolic 50–69; PULSE 116; O2SAT 98; BMI 28.5
[2025-07-09] MEDS: ROXICODONE 5 MG PO ×4 (05:09→20:15)
[2025-07-09 06:26] LABS: Hematocrit 26.6 % (39.0-52.0); Hemoglobin 9.5 g/dL (13.0-18.0); Mean Corp Hgb Conc. 35.7 g/dL (33.0-37.0); Mean Corpuscular Volume 97.8 fL (80.0-94.0); Platelet Count 90 10^3/uL (130-400); Red Cell Dist. Width 14.7 % (11.5-14.5)
[2025-07-09] MEDS: ZOFRAN 4 MG IV (06:47)
[2025-07-09 07:08] LABS: Blood Urea Nitrogen 19 mg/dl (9-20); Calcium 8.6 mg/dl (8.4-10.2); Carbon Dioxide 23 mmol/L (22-30); Chloride 98 mmol/L (98-107); Estimated Creatinine Clearance 51 ml/min; Glucose 91 mg/dl (70-99); Potassium 3.9 mmol/L (3.5-5.1); Sodium 125 mmol/L (135-145); eGFR 57.54
[2025-07-09] MEDS: LASIX 80 MG PO (08:42)
[2025-07-09] MEDS: CIPRO 500 MG PO (08:42)
[2025-07-09] MEDS: SODIUM CHLORIDE 1 GRAM PO ×2 (08:42→20:14)
[2025-07-09] MEDS: DUPHALAC/CHRONULAC 10 GRAMS PO ×3 (08:42→21:49)
[2025-07-09] MEDS: COREG 3.125 MG PO ×2 (08:42→20:11)
[2025-07-09] MEDS: PROTONIX 40 MG PO (08:43)
[2025-07-09] MEDS: DESENEX/MITRAZOL/ZEASORB 1 APPLIC TOPICAL ×2 (08:46→20:17)
--- NOTE | 2025-07-09 11:40 | W.PN.NEPH.PH ---
Today's Communication / Plan
-
samsca
Assessment/Plan
-
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
Severe hyponatremia
MORTEZA
ESLD
Asictes weekly paracentesis
Non gap met acidosis
E varices
portal HTN
Plan:
follow BMP
continue NaCl 1 gm BID, FR, lasix 80mg daily
samsca today
-
-
Date of Service: July 09, 2025
CC / HPI / ROS
-
Chief Complaint:
Hyponatremia, MORTEZA
History of Present Illness:
MORTEZA/Cr stable 1.4
Hemodynamically labile
Sodium down to 125
s/p 1 L LVP 07/08
ROS:
no reported cp or sob
no fever
no dysuria
Labs
-
Labs:
WBC 6.9 10^3/uL (4.8-10.8) 07/09/25 05:55
RBC 2.72 10^6/uL (4.70-6.10) L 07/09/25 05:55
Hgb 9.5 g/dL (13.0-18.0) L 07/09/25 05:55
Hct 26.6 % (39.0-52.0) L 07/09/25 05:55
Plt Count 90 10^3/uL (130-400) L D 07/09/25 05:55
Sodium 125 mmol/L (135-145) L 07/09/25 05:55
Potassium 3.9 mmol/L (3.5-5.1) 07/09/25 05:55
Chloride 98 mmol/L (98-107) 07/09/25 05:55
Carbon Dioxide 23 mmol/L (22-30) 07/09/25 05:55
BUN 19 mg/dl (9-20) 07/09/25 05:55
Creatinine 1.4 mg/dL (0.7-1.3) H 07/09/25 05:55
eGFR 57.54 07/09/25 05:55
Glucose 91 mg/dl (70-99) 07/09/25 05:55
Calcium 8.6 mg/dl (8.4-10.2) 07/09/25 05:55
Albumin 2.6 g/dl (3.5-5.0) L 07/01/25 05:13
Physical Exam
-
Vital Signs:
Vital Signs
Temp Pulse Resp BP Pulse Ox
98.2 F 81 12 114/62 100
07/09/25 11:32 07/09/25 11:32 07/09/25 11:32 07/09/25 11:32 07/09/25 11:32
Cardiovascular:: Regular rate and rhythm
Lung Excursion:: Normal
Abdomen:: Distended and Nontender
Bowel Sounds:: Normal
Extremity Edema:: +2: Bilateral:
[2025-07-09] MEDS: SAMSCA 15 MG PO (12:31)
--- NOTE | 2025-07-09 12:50 | CM ---
Addendum entered by Hiwot Deutsch 07/09/25 13:57:
[facility] does not have bed available at this time per Liaison. CM spoke with patient and to discuss [facility] or [facility]. Pending authorization patient and requested referral to [facility]. Please call report to
[phone]/fax [phone]. Patient talking with daughter about transportation to SNF and will update CM if patient is for wheelchair van or family transportation. CM will continue to follow for discharge planning needs.
Plan; [facility]; pending authorization and transportation.
Original Note:
Patient seen at bedside on [address]. Patient states that he is eager to go to [facility]. CM called to confirm bed at [facility] and started auth with [facility]. Await confirmation of bed and auth.
Plan; transfer to SNF when bed available and auth in place
--- NOTE | 2025-07-09 13:01 | W.PN.HOSP.TC ---
Today's Communication/Plan
-
medically stable for discharge
monitor Na level
Assessment / Plan
Assessment / Plan
Acute on chronic hyponatremia
- Has history of chronic hyponatremia in setting of end-stage liver disease
- Baseline sodium of 120+, comes with sodium 114 in ER
- Reported generalized weakness. No overt confusion/seizures report
- Nephrology following, s/p 3% saline and multiple high Samsca doses
- continue serial BMPs - today 125
- stable for DC per Nephrology
- continue Lasix, OFR and Salt tabs
- overall hyponatremia management remains difficult to treat.; Liver transplant will be definitive fix for hyponatremia
Recurrent ascites
History of spontaneous bacterial peritonitis
- Patient have usually 5 to 6 L of ascitic fluid drained every 1 week
- s/p partial paracentesis of 2L on 06/28; no SBP and cultures negative
- s/p paracentesis 3.6L removed on 07/01; no SBP and cultures negative
- s/p paracentesis 5.5L removed 07/05; no SBP and cultures negative
- s/p paracentesis of 2.1L on 07/08 - no SBP on fluid testing
- d/w GI team (sees Dr. Davis) and likely will need 2x/weekly paracentesis outpatient
Acute kidney injury - slow improvement
- Baseline creatinine close to 1.2 and elevated to 2 at admit. Cr 1.2 today
- UA bland. Urine Na < 5 and Uosm 422
- Bladder scan and straight cath protocol
- Taken off of [facility]
- Nephrology following
End-stage liver disease
- Reason for cirrhosis unclear
- Maintain on home dose of lactulose
- Aldactone discontinued
- d/w Dr. Davis via TT on 07/02. Patient has appointment with Dr. Davis on 07/16. Dr. Davis's office is in contact with Dr. Zuñiga's ([facility]) office for setting up transplant eval
- Lasix dose has been increased to 80mg/d
Gastroesophageal reflux disease
- Maintained on Protonix
- History of esophageal varices by imaging, no reported melena/hematemesis/hematochezia
Metabolic acidosis
- due to renal dysfunction and hypertonic saline related
- monitor
Nausea/vomiting - resolved
- symptomatic care. monitor.
Chronic anemia
Essential hypertension
DVT ppx: SCDs
Code: Full
Anticipated Discharge: Today
Subjective/Interval History
-
Date of Service: July 09, 2025
No issues reported overnight
Resting comfortably in bed
Objective Data
-
Labs:
Laboratory Results
07/09/25
05:55
WBC 6.9
Hgb 9.5 L
Hct 26.6 L
Plt Count 90 L D
Sodium 125 L
Potassium 3.9
Chloride 98
Carbon Dioxide 23
BUN 19
Creatinine 1.4 H
Glucose 91
Calcium 8.6
Vital Signs:
Vital Signs
Temp Pulse Resp BP Pulse Ox
98.2 F 81 12 114/62 100
07/09/25 11:32 07/09/25 11:32 07/09/25 11:32 07/09/25 11:32 07/09/25 11:32
I&O
07/08/25 07/09/25 07/10/25
06:59 06:59 06:59
Intake Total 980 / 980 1400 / 1400
Output Total 750 / 750 1070 / 1070
Balance 230 / 230 330 / 330
Review of Systems
-
Respiratory: Reports No Symptoms
Cardiac: Reports No Symptoms
Abdomen/GI: Reports No Symptoms
Physical Exam
-
General: No Apparent Distress
Musculoskeletal: Negative Edema, Right Lower Extrem or Edema, Left Lower Extrem
Neuro: Awake, Alert, Oriented, AO x 3 and No Motor Deficits
Psych: Calm
--- NOTE | 2025-07-09 13:19 | CM ---
Addendum entered by Hiwot Deutsch 07/09/25 16:21:
auth still pending will need to change to [facility] from [facility] due to bed availability when confirmed.
Npi for [facility] is [id number]
Dr. Hicks NPI is [id number]
Original Note:
[facility] auth initiated in [facility]- pended reference #[id number]
[2025-07-09] MEDS: DESYREL 50 MG PO (21:49)
[2025-07-10 03:07] VITALS: BP 104/60
[2025-07-10] MEDS: ROXICODONE 5 MG PO ×3 (05:54→15:39)
[2025-07-10 05:58] VITALS: BMI 28.7
--- NOTE | 2025-07-10 06:00 | PTCARENOTE ---
Pt HR in the 130's-140's with activity. Pt is asymptomatic. Pt given pain medicine. Plan of care reviewed with the Pt.
[2025-07-10 07:17] VITALS: BP 104/61
[2025-07-10 08:08] LABS: Blood Urea Nitrogen 21 mg/dl (9-20); Calcium 8.5 mg/dl (8.4-10.2); Carbon Dioxide 23 mmol/L (22-30); Chloride 99 mmol/L (98-107); Estimated Creatinine Clearance 51 ml/min; Glucose 102 mg/dl (70-99); Potassium 3.9 mmol/L (3.5-5.1); Sodium 128 mmol/L (135-145); eGFR 57.54
[2025-07-10] MEDS: SODIUM CHLORIDE 1 GRAM PO (09:26)
[2025-07-10] MEDS: DUPHALAC/CHRONULAC 10 GRAMS PO ×2 (09:26→15:39)
[2025-07-10] MEDS: PROTONIX 40 MG PO (09:26)
[2025-07-10] MEDS: LASIX 80 MG PO (09:26)
[2025-07-10] MEDS: CIPRO 500 MG PO (09:26)
[2025-07-10] MEDS: COREG 3.125 MG PO (09:27)
[2025-07-10] MEDS: DESENEX/MITRAZOL/ZEASORB 1 APPLIC TOPICAL (09:28)
[2025-07-10 11:00] VITALS: BP 91/56
--- NOTE | 2025-07-10 11:20 | W.PN.HOSP.TC ---
Today's Communication/Plan
-
Continue discharge planning for SNF rehab
monitor Na level
Assessment / Plan
Assessment / Plan
Acute on chronic hyponatremia
- Has history of chronic hyponatremia in setting of end-stage liver disease
- Baseline sodium of 120+, comes with sodium 114 in ER
- Reported generalized weakness. No overt confusion/seizures report
- Nephrology following, s/p 3% saline and multiple high Samsca doses
- continue serial BMPs - today 128
- stable for DC per Nephrology
- continue Lasix, OFR and Salt tabs
- overall hyponatremia management remains difficult to treat.; Liver transplant will be definitive fix for hyponatremia
Recurrent ascites
History of spontaneous bacterial peritonitis
- Patient have usually 5 to 6 L of ascitic fluid drained every 1 week
- s/p partial paracentesis of 2L on 06/28; no SBP and cultures negative
- s/p paracentesis 3.6L removed on 07/01; no SBP and cultures negative
- s/p paracentesis 5.5L removed 07/05; no SBP and cultures negative
- s/p paracentesis of 2.1L on 07/08 - no SBP on fluid testing
- d/w GI team (sees Dr. Davis) and likely will need 2x/weekly paracentesis outpatient
Acute kidney injury - slow improvement
- Baseline creatinine close to 1.2 and elevated to 2 at admit. Cr 1.2 today
- UA bland. Urine Na < 5 and Uosm 422
- Bladder scan and straight cath protocol
- Taken off of MRA
- Nephrology following
End-stage liver disease
- Reason for cirrhosis unclear
- Maintain on home dose of lactulose
- Aldactone discontinued
- d/w Dr. Davis via TT on 07/02. Patient has appointment with Dr. Davis on 07/16. Dr. Davis's office is in contact with Dr. Zuñiga's ([facility]) office for setting up transplant eval
- Lasix dose has been increased to 80mg/d
Gastroesophageal reflux disease
- Maintained on Protonix
- History of esophageal varices by imaging, no reported melena/hematemesis/hematochezia
Metabolic acidosis
- due to renal dysfunction and hypertonic saline related
- monitor
Nausea/vomiting - resolved
- symptomatic care. monitor.
Chronic anemia
Essential hypertension
DVT ppx: SCDs
Code: Full
Anticipated Discharge: Today
Subjective/Interval History
-
Date of Service: July 10, 2025
Denies of any issues overnight
No excessive abdominal pain/distention
Soft bowel movements
No nausea or vomiting
Objective Data
-
Labs:
Laboratory Results
07/10/25
07:27
Sodium 128 L
Potassium 3.9
Chloride 99
Carbon Dioxide 23
BUN 21 H
Creatinine 1.4 H
Glucose 102 H
Calcium 8.5
Vital Signs:
Vital Signs
Temp Pulse Resp BP Pulse Ox
98.4 F 88 16 104/61 100
07/10/25 07:17 07/10/25 09:26 07/10/25 07:17 07/10/25 09:26 07/10/25 07:17
I&O
07/09/25 07/10/25 07/11/25
06:59 06:59 06:59
Intake Total 1400 / 1400 480 / 480
Output Total 1070 / 1070 625 / 625
Balance 330 / 330 -145 / -145
Review of Systems
-
Respiratory: Reports No Symptoms
Cardiac: Reports No Symptoms
Abdomen/GI: Reports No Symptoms
Physical Exam
-
General: No Apparent Distress
Musculoskeletal: Negative Edema, Right Lower Extrem or Edema, Left Lower Extrem
Neuro: Awake, Alert, Oriented, AO x 3 and No Motor Deficits
Psych: Calm
--- NOTE | 2025-07-10 11:49 | W.PN.NEPH.PH ---
Today's Communication / Plan
-
Monitor BMP while inpatient
Maintain Lasix sodium tablets and fluid restrict
Assessment/Plan
-
IMP:
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
Severe hyponatremia
MORTEZA
ESLD
Asictes weekly paracentesis
Non gap met acidosis
E varices
portal HTN
Plan:
follow BMP
Sodium up to 128 following Samsca administration on 07/09/2025
continue NaCl 1 gm BID, FR, lasix 80mg daily
Weights rising and creatinine up to 1.4 likely a function of labile hemodynamics in setting of end-stage liver disease
-
-
Date of Service: July 10, 2025
CC / HPI / ROS
-
Chief Complaint:
Hyponatremia, MORTEZA
History of Present Illness:
MORTEZA/Cr stable 1.4
Hemodynamically labile
Sodium up from 125-128 following Samsca administration while on salt tablets Lasix and fluid restriction
s/p 1 L LVP 07/08
ROS:
no reported cp or sob
no fever
no dysuria
Labs
-
Labs:
WBC 6.9 10^3/uL (4.8-10.8) 07/09/25 05:55
RBC 2.72 10^6/uL (4.70-6.10) L 07/09/25 05:55
Hgb 9.5 g/dL (13.0-18.0) L 07/09/25 05:55
Hct 26.6 % (39.0-52.0) L 07/09/25 05:55
Plt Count 90 10^3/uL (130-400) L D 07/09/25 05:55
Sodium 128 mmol/L (135-145) L 07/10/25 07:27
Potassium 3.9 mmol/L (3.5-5.1) 07/10/25 07:27
Chloride 99 mmol/L (98-107) 07/10/25 07:27
Carbon Dioxide 23 mmol/L (22-30) 07/10/25 07:27
BUN 21 mg/dl (9-20) H 07/10/25 07:27
Creatinine 1.4 mg/dL (0.7-1.3) H 07/10/25 07:27
eGFR 57.54 07/10/25 07:27
Glucose 102 mg/dl (70-99) H 07/10/25 07:27
Calcium 8.5 mg/dl (8.4-10.2) 07/10/25 07:27
Albumin 2.6 g/dl (3.5-5.0) L 07/01/25 05:13
Physical Exam
-
Vital Signs:
Vital Signs
Temp Pulse Resp BP Pulse Ox
98.4 F 88 16 104/61 100
07/10/25 07:17 07/10/25 09:26 07/10/25 07:17 07/10/25 09:26 07/10/25 07:17
Cardiovascular:: Regular rate and rhythm
Lung Excursion:: Normal
Abdomen:: Distended and Nontender
Bowel Sounds:: Normal
Extremity Edema:: +2: Bilateral:
[2025-07-10 15:00] VITALS: BP 104/59
--- NOTE | 2025-07-10 15:27 | CM ---
CM following re: discharge planning.
Reviewed pt's chart, met with pt. Pt's spouse and daughter at bedside.
Per [facility], pt is approved for 30 days of SNF level of care at [facility], from today 07/10/25 till 08/08/25. Auth: [id number]. Per [facility] liaison, [facility] has no beds and [facility] has a bed
and pt is accepted. Both pt and his family are aware, agree with [facility].
CM called [facility] insurance to switch an auth from [facility] SNF to [facility] and requested written request faxed to [facility] [phone]. CM faxed a copy of the request to [facility] and they will follow
up with the change.
Pt's spouse stated she will transport the pt.
[facility] nursing report: [phone]
Discharge instructions fax: [phone]
D/c plan: [facility]. Spouse to transport.
--- NOTE | 2025-07-12 12:51 | CM ---
TC from patients spouse stating patient is in need of a paracentesis. Per spouse when patient was transferred to the facility orders for paracentesis were not clearly written, just stated as needed and no one is doing anything. Discharge MD is not
in today. Per spouse, patient followed by GI and she will reach out to GI MD. CM contacted liaison at [facility] and asked if their MD could clarify orders and if need be contact patients GI to see if paracentesis is required at this time. Spouse
states she is calling IR to schedule the paracentesis. JASIEL explained there is not much we can do from here but will contact the facility with her concerns.
== END 2025-07-10 17:58 | DRG 433 ==
LOC: 2 NORTH 12:06
PROVIDERS: Internal Medicine; Nurse Practitioner Family; Physician Assistant; Radiology Diagnostic Radiology; Radiology Vascular & Interventional Radiology; Specialist; ADMITTING PHYSICIAN Hospitalist; EMERGENCY PHYSICIAN Emergency Medicine; OTHER PHYSICIAN Internal Medicine
PROC: 0W9G3ZZ Drainage of Peritoneal Cavity, Percutaneous Approach (ICD-10-PCS; 2025-06-28)
DX: K74.60 Unspecified cirrhosis of liver (principal); E87.1 Hypo-osmolality and hyponatremia; R18.8 Other ascites; N17.9 Acute kidney failure, unspecified; I85.10 Secondary esophageal varices without bleeding; K76.6 Portal hypertension; E87.20 Acidosis, unspecified; K72.10 Chronic hepatic failure without coma; K21.9 Gastro-esophageal reflux disease without esophagitis; I10 Essential (primary) hypertension; D64.9 Anemia, unspecified; I44.0 Atrioventricular block, first degree; I48.0 Paroxysmal atrial fibrillation; W19.XXXA Unspecified fall, initial encounter; Z79.899 Other long term (current) drug therapy; Z87.891 Personal history of nicotine dependence
CPT/HCPCS: 49083; 80048; 80051; 80053; 81003; 81015; 82042; 82150; 82570; 83615; 83935; 84157; 84295; 84300; 85025; 85027; 85610; 85730; 86803; 87015; 87070; 87205; 88112; 88305; 89051; 93005; 96365; 96366; 97110; 97116; 97163; 97167; 97530; 97535; 99285; 99406; P9047

== ENCOUNTER → 2025-07-15 07:03 | Outpatient (REF) | payer OTHER, SELFPAY ==
[2025-07-15 07:20] VITALS: BP 114/69; BP_SYST 86
[2025-07-15 08:20] VITALS: BP 102/56
== END ==
LOC: RADI 07:03
PROVIDERS: ATTENDING PHYSICIAN Specialist
DX: R18.8 Other ascites (principal)
CPT/HCPCS: 49083; 87015; 87070; 87205; 89051

== ENCOUNTER → 2025-07-22 08:55 | Outpatient (REF) | payer OTHER, SELFPAY ==
[2025-07-22 09:10] VITALS: BP 105/67; BP_SYST 72
[2025-07-22 10:11] VITALS: BP 102/59
[2025-07-22 11:31] LABS: Body Fluid Second Tech EF
== END ==
LOC: RADI 08:55
PROVIDERS: ATTENDING PHYSICIAN Specialist; FAMILY PHYSICIAN Nurse Practitioner Family
DX: R18.8 Other ascites (principal)
CPT/HCPCS: 49083; 87015; 87070; 87205; 89051

== ENCOUNTER 2025-07-22 10:34 | Outpatient (RCR) | payer OTHER, SELFPAY ==
[2025-07-15 09:01] VITALS: BP 104/61
[2025-07-15 09:02] VITALS: BP 104/61
[2025-07-15] MEDS: FLEXBUMIN 50 IV (09:02)
[2025-07-15 09:57] VITALS: BP 93/56
[2025-07-15] MEDS: FLEXBUMIN 100 IV (09:57)
[2025-07-15 11:45] VITALS: BP 96/54
[2025-07-22 10:50] VITALS: BP 104/56
[2025-07-22 10:54] VITALS: BP 104/56
[2025-07-22] MEDS: FLEXBUMIN 100 IV (10:54)
[2025-07-22 11:02] VITALS: BP 104/56
[2025-07-22 12:33] VITALS: BP 100/58
[2025-07-22] MEDS: FLEXBUMIN 50 IV (12:33)
[2025-07-22 13:44] VITALS: BP 91/53
== END 2025-08-14 23:59 | disposition home or self-care (01) ==
LOC: OID 10:34
PROVIDERS: ATTENDING PHYSICIAN Specialist
DX: K74.60 Unspecified cirrhosis of liver (principal); K76.82 Hepatic encephalopathy; K65.2 Spontaneous bacterial peritonitis
CPT/HCPCS: 49083; 87015; 87070; 87205; 89051; 96365; 96366; P9047

== ENCOUNTER 2025-07-26 17:05 | Inpatient (IN) | payer OTHER, SELFPAY ==
[2025-07-26] VITALS (12 sets, daily range): BP systolic 94–113; BP diastolic 53–73; BMI 28.2
--- NOTE | 2025-07-26 11:44 | ED.GENMED ---
History of Present Illness
<MINI Salazar - Last Filed: 07/26/25 15:48>
General
Chief Complaint: Abnormal Lab Value
Source: patient
Exam Limitations: none
Time Seen by Provider: 07/26/25 11:00
Nursing documentation reviewed up to this point in time: agreed with
History of Present Illness
History of Present Illness:
60-year-old male with history of liver failure (history of ascites paracentesis encephalopathy/history of SBP( in the past), hyponatremia sent by Dr. Zuñiga([facility] lead programmer analyst). He is sending patient to the ER to be directly transferred to [facility]
for expedited liver evaluation for transplant. Patient is awake alert poor historian.No complaints presently.
I spoke to over the phone.
reports today pt was not as 'sharp in his thinking.' She reports it was taking him a longer time to get his thoughts out. reports no fevers.
Patient is a smoker last smoked in April
Past History
<MINI Salazar - Last Filed: 07/26/25 15:48>
Past History
ED Past Medical History: Arrthythmia and Other (Hepatic cirrhosis, left facial/jaw)
ED Past Surgical History: Orthopedic (Left wrist surgery) and Other (Paracentesis)
Patient has exhibited threatening behavior?: No
Social History
Tobacco: Non-smoker
Alcohol: None
Drug: None
Personal:
Living: with family
Employment: Other
Family History
Family History: Other
Phy Exam
<MINI Salazar - Last Filed: 07/26/25 15:48>
General Physical Exam
General Presentation: no apparent distress
General age: appears stated age
General Skin: warm and dry
General Habitus: normal
General Hydration: appears well hydrated
Cardiovascular Exam
Cardiovascular Exam: regular rate/rhythm, no murmur and normal peripheral pulses
Pulmonary Exam
Pulmonary Exam: no respiratory distress and generalized wheezing
Gastrointestinal Exam
Gastrointestinal Exam: ascites and other (non tender )
Neurological Exam
Neurological Exam: alert and oriented x3
Musculoskeletal Exam
Musculoskeletal Exam: full ROM
Skin Exam
Skin Exam: normal color and warm/dry
Psychiatric Exam
Psychiatric Exam: normal mood/affect
Course
<MINI Salazar - Last Filed: 07/26/25 15:48>
Orders/Labs/Results
Orders:
Orders
07/26/25 11:32
IV Insert/Care/Rem.- Treatment PRN
07/26/25 11:58
Complete Blood Count/With Diff Urgent
PTT Urgent
Prothrombin Time Urgent
07/26/25 12:39
Basic Metabolic Panel Urgent
07/26/25 13:29
UA [Urinalysis] Urgent
Urine Sodium Urgent
07/26/25 15:00
3% Sodium Chloride 250 ml [Sodium Chloride 3%] 250 ml IV ONCE
07/26/25 15:15
LFT [[id number]-Fqms-Vuxqbnm] Urgent
Potassium Urgent
Serum Osmolality Urgent
07/26/25 15:24
Oxycodone [Roxicodone] 5 mg PO NOW STA
Abnormal Lab Results
07/26/25 07/26/25 07/26/25
11:58 12:39 15:15
RBC 3.10 L 10^6/uL
(4.70-6.10)
Hgb 10.8 L g/dL
(13.0-18.0)
Hct 29.7 L %
(39.0-52.0)
MCV 95.8 H fL
(80.0-94.0)
MCH 34.8 H pg
(27.0-31.0)
Plt Count 99 L 10^3/uL
(130-400)
MPV 10.5 H fL
(7.4-10.4)
Abs Immat Gran (auto) 0.1 H 10^3/uL
(0-0.05)
Absolute Lymphs (auto) 1.0 L 10^3/uL
(1.2-3.4)
Immature Gran % 1.6 H %
(0-0.5)
Neutrophils % 76.0 H %
(42.2-75.2)
Lymphocytes % 13.2 L %
(20.5-51.1)
PT 17.0 H Sec
(11.4-14.6)
APTT 36.6 H Sec
(23.4-35.0)
Sodium 119 L* mmol/L
(135-145)
Chloride 93 L mmol/L
(98-107)
Carbon Dioxide 17 L mmol/L
(22-30)
BUN 27 H mg/dl
(9-20)
Creatinine 1.5 H mg/dL
(0.7-1.3)
Serum Osmolality 264 L mOsm/kg
(275-300)
Calcium 8.3 L mg/dl
(8.4-10.2)
Total Bilirubin 2.7 H mg/dl
(0.2-1.3)
Alkaline Phosphatase 140 H U/L
(38-126)
Total Protein 5.8 L g/dl
(6.3-8.2)
Albumin 3.0 L g/dl
(3.5-5.0)
07/26/25 11:58
07/26/25 15:15
Vital Signs
Initial and Last Documented VS:
Initial Vital Signs
Temp Pulse Resp BP Pulse Ox
98 F 58 16 94/53 99
12/12/25 10:32 07/26/25 10:32 07/26/25 10:32 07/26/25 10:32 07/26/25 10:32
Last Documented Vital Signs
Temp Pulse Resp BP Pulse Ox
98.6 F 69 16 108/64 100
07/26/25 15:24 07/26/25 15:24 07/26/25 15:24 07/26/25 15:24 07/26/25 15:24
Melter Supervisor Oxygen Furnace consulted with Physician
Melter Supervisor Oxygen Furnace consulted with physician?: Yes
Name of Physician Consulted: [place]
<Tom Dong, DO - Last Filed: 07/26/25 16:17>
Orders/Labs/Results
Orders:
Orders
07/26/25 11:32
IV Insert/Care/Rem.- Treatment PRN
07/26/25 11:58
Complete Blood Count/With Diff Urgent
PTT Urgent
Prothrombin Time Urgent
07/26/25 12:39
Basic Metabolic Panel Urgent
07/26/25 13:29
UA [Urinalysis] Urgent
Urine Sodium Urgent
07/26/25 15:00
3% Sodium Chloride 250 ml [Sodium Chloride 3%] 250 ml IV ONCE
07/26/25 15:15
LFT [Jesmh-Rifj-Xrjbkaz] Urgent
Potassium Urgent
Serum Osmolality Urgent
07/26/25 15:24
Oxycodone [Roxicodone] 5 mg PO NOW STA
Abnormal Lab Results
07/26/25 07/26/25 07/26/25
11:58 12:39 15:15
RBC 3.10 L 10^6/uL
(4.70-6.10)
Hgb 10.8 L g/dL
(13.0-18.0)
Hct 29.7 L %
(39.0-52.0)
MCV 95.8 H fL
(80.0-94.0)
MCH 34.8 H pg
(27.0-31.0)
Plt Count 99 L 10^3/uL
(130-400)
MPV 10.5 H fL
(7.4-10.4)
Abs Immat Gran (auto) 0.1 H 10^3/uL
(0-0.05)
Absolute Lymphs (auto) 1.0 L 10^3/uL
(1.2-3.4)
Immature Gran % 1.6 H %
(0-0.5)
Neutrophils % 76.0 H %
(42.2-75.2)
Lymphocytes % 13.2 L %
(20.5-51.1)
PT 17.0 H Sec
(11.4-14.6)
APTT 36.6 H Sec
(23.4-35.0)
Sodium 119 L* mmol/L
(135-145)
Chloride 93 L mmol/L
(98-107)
Carbon Dioxide 17 L mmol/L
(22-30)
BUN 27 H mg/dl
(9-20)
Creatinine 1.5 H mg/dL
(0.7-1.3)
Serum Osmolality 264 L mOsm/kg
(275-300)
Calcium 8.3 L mg/dl
(8.4-10.2)
Total Bilirubin 2.7 H mg/dl
(0.2-1.3)
Alkaline Phosphatase 140 H U/L
(38-126)
Total Protein 5.8 L g/dl
(6.3-8.2)
Albumin 3.0 L g/dl
(3.5-5.0)
07/26/25 11:58
07/26/25 15:15
Vital Signs
Initial and Last Documented VS:
Initial Vital Signs
Temp Pulse Resp BP Pulse Ox
98 F 58 16 94/53 99
07/26/25 10:32 07/26/25 10:32 07/26/25 10:32 07/26/25 10:32 07/26/25 10:32
Last Documented Vital Signs
Temp Pulse Resp BP Pulse Ox
98.6 F 69 16 108/64 100
07/26/25 15:24 07/26/25 15:24 07/26/25 15:24 07/26/25 15:24 07/26/25 15:24
<MINI Salazar - Last Filed: 07/26/25 15:48>
MDM/Problems Addressed
MDM/Problems Addressed:
Patient is a 60-year-old male with end-stage liver disease sent by lead programmer analyst for direct transfer to [facility] and expedited liver eval for transplant. I spoke with Declan Leyva pharmacy coordinator. Patient will be excepted by Dr. Dillard
Pablo.
Patient is awake alert he has no complaints at this time he is not toxic appearing he does have a history of severe hyponatremia in the past secondary to end-stage liver disease. Patient sodium today is 119 however other labs were clotted including
potassium and albumin along with LFTs which were added.
Case discussed with nephrology. Hypertonic saline ordered.
At this time patient will not get a bed at [facility] will admit here at [place] until transfer.
1545
<MINI Salazar - Last Filed: 07/26/25 15:48>
*Pulse Oximetry
SaO2: 99
Oxygen Mode of Delivery: Room air
Patient hypoxic: no
*Critical Care Note
Total Time (30-74mins, 75-104mins- exclusive of procedures): Not Applicable
<MINI Salazar - Last Filed: 07/26/25 15:48>
Patient Management
Discussion with other providers: Information Security Systems Instructor (Nephrology Dr. Webb)
ED Attending Note
<MINI Salazar - Last Filed: 07/26/25 15:48>
-
Portions of this chart may have been created with voice recognition software.� Occasional wrong word or��sound alike� substitutions may have occurred due to the inherent limitations of voice recognition software.
<Tom Dong, - Last Filed: 07/26/25 16:17>
ED Attending Note
Patient seen and examined by attending physician: Yes
ED Attending Note:
I have reviewed and agree with history treatment plan by MINI Turcios. My exam revealed 60-year-old male in no acute distress. Patient with end-stage liver disease and hyponatremia. Awaiting transfer to [facility], will
admit to hospitalist here as there are no beds available at this time.
Discharge Plan
Departure
Patient Disposition: Admit
Date of Disposition: 07/26/25
Time of Disposition: 14:50
Admit to: Med/Surg
Admit to doctor: hospitalist
Presentation/result/management discussed w/ accepting MD/DO: Hospitalist
Patient with high blood pressure during this ER visit?: No
Condition: Fair
Covid-19: Not Applicable
Discharge Problem:
End stage liver disease, Acute hyponatremia
Prescriptions:
No Action
pantoprazole 40 mg Tablet,Delayed Release (Dr/Ec)
40 mg PO DAILY 30 Days Qty: 30 0RF
trazodone 50 mg Tablet
50 mg PO HS
ciprofloxacin HCl 500 mg tablet
500 mg PO DAILY
carvedilol 3.125 mg tablet
3.125 mg PO BID
lactulose 10 gram/15 mL solution
10 g PO TID
furosemide 80 mg Tablet
80 mg PO DAILY Qty: 30 0RF
spironolactone 50 mg Tablet
50 mg PO DAILY
Referrals:
UNKNOWN - PT DOES,NOT KNOW [Family Provider]
Interventions
Interventions:
*Risk Screen - Suicide Last Done: 07/26/25 10:32
*General Assessment Last Done: 07/26/25 10:32
*Neglect/Abuse Screening Last Done: 07/26/25 10:32
*ED COVID-19 Vaccine History Last Done: 07/26/25 15:23
*ED Influenza Vaccine History Last Done: 07/26/25 15:23
[facility] Fall Risk Assessment Tool Last Done: 07/26/25 15:24
Discharge Date and Time
Print Language: EQUATORIAL GUINEAN
[2025-07-26 12:29] LABS: APTT 36.6 Sec (23.4-35.0); INR 1.37; PT 17.0 Sec (11.4-14.6)
[2025-07-26 12:35] LABS: Hematocrit 29.7 % (39.0-52.0); Hemoglobin 10.8 g/dL (13.0-18.0); Mean Corp Hgb Conc. 36.4 g/dL (33.0-37.0); Mean Corpuscular Volume 95.8 fL (80.0-94.0); Nucleated Red Blood Cells % 0 % (-); Platelet Count 99 10^3/uL (130-400); Red Cell Dist. Width 14.3 % (11.5-14.5)
[2025-07-26 13:04] LABS: Blood Urea Nitrogen 27 mg/dl (9-20); Calcium 8.3 mg/dl (8.4-10.2); Carbon Dioxide 17 mmol/L (22-30); Chloride 93 mmol/L (98-107); Glucose 89 mg/dl (70-99); Sodium 119 mmol/L (135-145); eGFR 52.97
--- NOTE | 2025-07-26 14:37 | W.CON.NEPH ---
Consultation
-
Date/Time Consultation Requested: 07/26/2025 2:10 PM
Date/Time Consultation Performed: 07/26/2025 2:10 PM
Requesting Provider: Dr. Dong
Performing Provider: Dr. Webb
Reason for Consultation: Hyponatremia/CKD stage III
Medical History
-
Chief Complaint: Hyponatremia/CKD stage III
History of Present Illness:
60-year-old male with ESLD, portal hypertension with ascites on weekly paracentesis and esophageal varices on lasix and spironolactone, chronic hyponatremia on salt tab and FR (recently d/c'd lasix recently), paroxysmal AF not on AC who presented
to ER today with weakness and fall at home. He was supposed to have paracentesis today however while he was walking from home missed steps and fell into his knees with LOC or head injury. He reprots following GI out pt with [facility] here and had
testing doen but not active on trasnplant list yet. He offers no fevers or dysuria. he has abd discomfort and chest discomfort from distension. Appetite is poor due to distention too. He reports complaint with FR but does not recall how much he was
drinking. He he presented with increased abdominal pain and ascites. He was noted to have hyponatremia with a serum sodium of 119 in the setting of his CKD with a creatinine of 1.5 and nephrology was consulted to see the patient.
Past Medical History
Paroxysmal Atrial Fibrillation
Salivary Gland Cyst / Tumor
liver cirrhosis. ESLD
portal HTN. e varices
hyponatremia
CKD (1.5)
Past Surgical History: Other (left hand ORIF)
Social History
Tobacco: Former Smoker
Alcohol: Former
Personal:
Living: With Family
Employment: Not Employed
Family History
mother with h/o cirrhosis
Allergies / Home Medications
Allergy/AdvReac Type Severity Reaction Status Date / Time
No Known Allergies Allergy Verified 07/26/25 10:31
�Medication �Instructions �Recorded �Confirmed �Type
pantoprazole 40 mg tablet,delayed 40 mg PO DAILY GI issue 30 days 03/15/25 07/26/25 Rx
release #30 tabs
trazodone 50 mg tablet 50 mg PO HS Sleep 06/20/25 07/26/25 History
carvedilol 3.125 mg tablet 3.125 mg PO BID Blood Pressure 06/28/25 07/26/25 History
ciprofloxacin HCl 500 mg tablet 500 mg PO DAILY SBP PPX 06/28/25 07/26/25 History
lactulose 10 gram/15 mL oral 10 g PO TID Liver Issues 06/28/25 07/26/25 History
solution
furosemide 80 mg tablet 80 mg PO DAILY #30 tabs 07/10/25 07/26/25 Rx
spironolactone 50 mg tablet 50 mg PO DAILY 07/26/25 07/26/25 History
Review of Systems
-
History Source: Patient
All other systems: Negative unless noted
Respiratory: No Symptoms
Cardiac: No Symptoms
Abdomen/GI: Abdominal Pain and Other (Abdominal distention)
Musculoskeletal: Edema
Physical Exam
Vital Signs
Vital Signs
Temp Pulse Resp BP Pulse Ox
98 F 64 16 105/58 100
07/26/25 10:32 07/26/25 12:15 07/26/25 12:15 07/26/25 12:02 07/26/25 12:15
Lab Results
WBC 7.7 10^3/uL (4.8-10.8) 07/26/25 11:58
07/26/25 11:58
RBC 3.10 10^6/uL (4.70-6.10) L 07/26/25 11:58
Hgb 10.8 g/dL (13.0-18.0) L 07/26/25 11:58
Hct 29.7 % (39.0-52.0) L 07/26/25 11:58
Plt Count 99 10^3/uL (130-400) L 07/26/25 11:58
Sodium 119 mmol/L (135-145) L* 07/26/25 12:39
Chloride 93 mmol/L (98-107) L 07/26/25 12:39
Carbon Dioxide 17 mmol/L (22-30) L 07/26/25 12:39
BUN 27 mg/dl (9-20) H 07/26/25 12:39
Creatinine 1.5 mg/dL (0.7-1.3) H 07/26/25 12:39
eGFR 52.97 07/26/25 12:39
Glucose 89 mg/dl (70-99) 07/26/25 12:39
Calcium 8.3 mg/dl (8.4-10.2) L 07/26/25 12:39
Physical Exam
General: Awake, Alert, Oriented, AOx3, No Distress and Nontoxic
HEENT: EOMI, Ear/Nose Intact and Facial Symmetry
Respiratory: Clear, Normal Excursion and Nonlabored Respirations
Cardiac: S1/S2 and Regular Rate/Rhythm
Breast: Deferred by me
Abdomen: Soft, Nontender and Other (distended +)
Rectal: Deferred by Provider
Musculoskeletal: No Cyanosis and Edema (trace)
Skin: No Rash
Neuro: Nonfocal/Grossly Intact
Psych: Mood/afflect pleasant, Insight/judgement good and Appropriate
Data Reviewed
-
Old Records: Reviewed (Reviewed previous urine osmolality and serum sodium level from 07/12/2025 when sodium was 128,urine osm 422)
Assessment/Plan
-
IMP:
Abdominal distention with in setting of ESLD
Hyponatremia 119
CKD 3 baseline 1.5
ESLD
Asictes weekly paracentesis
Non gap met acidosis
E varices
portal HTN
Plan:
Will provide hypertonic saline for 30 cc/h x 250 cc for hyponatremia
Patient has also responded to Samsca in the past
Fluid restriction to be set at 40 ounces daily
Weights rising and creatinine up to 1.5 likely a function of labile hemodynamics in setting of end-stage liver disease
--- NOTE | 2025-07-26 14:48 | CM ---
Call received from Sindhu Puga([phone]), At first she stated they could accept him and treat him medically but that his insurance is out of network with them for a transplant eval. Sindhu then called back shortly later to state that she
had just received a call from the head of the Transplant Team stating that they are able to accept him for a Transplant Eval and he is considered a level 0, which is the highest priority ,so as soon as they have a bed available they will be calling.
Update to who updated ED staff.
[2025-07-26] MEDS: SODIUM CHLORIDE 3% 250 IV (15:30)
[2025-07-26] MEDS: ROXICODONE 5 MG PO ×2 (15:32→21:21)
--- NOTE | 2025-07-26 15:33 | HPS.HSE ---
Addendum entered and electronically signed by Tyrone Aviles MD 07/26/25 16:47:
This is an addendum to the H&P written by Janina Manning on 07/26/2025. 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
60-year-old male past medical history of chronic hyponatremia, end-stage liver disease, cirrhosis unclear etiology receives weekly paracentesis, chronic thrombocytopenia, history of SBP, chronic kidney disease, GERD, chronic anemia, presenting with
routine outpatient lab work which showed worsening liver function. �He was told to be admitted and transferred to [facility] for liver transplant.�
He denies any symptoms including worsening abdominal distention, abdominal pain, shortness of breath, fevers or chills. �He had paracentesis 4 days ago.
Vital signs unremarkable.
Labs show sodium 119 from 128. �Other labs at baseline.
Patient with asymptomatic hyponatremia in the�setting of cirrhosis. �Seen by nephrology who recommends hypertonic saline, fluid restriction 40 ounces. �Urine sodium, osmolality pending.
Patient accepted for transfer to [facility] but no beds available.
Original Note:
Family Physician
-
Family Physician: NOT KNOW UNKNOWN - PT DOES
Chief Complaint
-
worsening liver failure
History of Present Illness
Patient is a 60-year-old male with past medical history significant for nonalcoholic cirrhosis, recurrent ascites, chronic kidney disease III, esophageal varices, chronic hyponatremia, paroxysmal atrial fibrillation and essential hypertension who
presented to [facility] ED for evaluation of worsening liver failure. Patient was seen in specialist office earlier today with worsening liver function, he was sent to ED for evaluation and transfer to [facility] for expedited liver transplant workup. Patient
is excepted at [facility], no beds available today. reported to ED staff that patient was having a harder time getting thoughts out today. Patient with weekly paracentesis, last one Tuesday07/22/2025, with 6600cc drained. Denied any fevers.
Medical History
Past Medical History
Past Medical History: Reports Other
Additional Past Medical History:
nonalcoholic cirrhosis
recurrent ascites
esophageal varices
chronic hyponatremia
chronic kidney disease III
paroxysmal atrial fibrillation
essential hypertension
GERD
Past Surgical History: Reports Other
Additional Past Surgical History:
Left hand surgery
left knee surgery
Social History
Tobacco: Smoker (2-3 cigarettes per day, down from a pack per day)
Alcohol: None
Drug: Marijuana (utilizes a vape several times a week for anxiety)
Personal:
Living: With Family
Family History
Family History: Not pertinent
Allergies / Home Medications
Allergies reflects when Allergies were last updated in [employer].
Home Medications with original date entered in [employer]
Allergy/Medication List:
Allergies
Allergy/AdvReac Type Severity Reaction Status Date / Time
No Known Allergies Allergy Verified 07/26/25 15:23
Home Medications
pantoprazole 40 mg tablet,delayed release 40 mg PO DAILY GI issue 30 days #30 tabs 03/15/25
trazodone 50 mg tablet 50 mg PO HS Sleep 06/20/25
carvedilol 3.125 mg tablet 3.125 mg PO BID Blood Pressure 06/28/25
ciprofloxacin HCl 500 mg tablet 500 mg PO DAILY SBP PPX 06/28/25
lactulose 10 gram/15 mL oral solution 10 g PO TID Liver Issues 06/28/25
furosemide 80 mg tablet 80 mg PO DAILY #30 tabs 07/10/25
spironolactone 50 mg tablet 50 mg PO DAILY 07/26/25
Review of Systems
-
History Source: Patient
Constitutional: Reports No Symptoms
EENT: Reports No Symptoms
Respiratory: Reports No Symptoms
Cardiac: Reports No Symptoms
Abdomen/GI: Reports Abdominal Pain and Other (ascites)
: Reports No Symptoms
Musculoskeletal: Reports Edema (BLLE)
Skin: Reports No Symptoms
Neurological: Reports No Symptoms
Endocrine: Reports No Symptoms
Hematologic/Lymphatic: Reports No Symptoms
Psych: Reports No Symptoms
Physical Exam
Vital Signs
Vital Signs
Temp Pulse Resp BP Pulse Ox
98.6 F 69 16 108/64 100
07/26/25 15:24 07/26/25 15:24 07/26/25 15:24 07/26/25 15:24 07/26/25 15:24
Physical Exam
General: Well Developed, Well Nourished, No Apparent Distress, Comfortable, Conversant and Obese
HEENT: NormoCephalic, Moist mucous membranes, PERRLA, Nose Appears Normal and Ears Appear Normal
Respiratory: Wheezes and Non Labored Respirations
Cardiac: S1/S2, Regular Rhythm and Peripheral Edema; No Murmur, Rub or Gallop
GI: Soft, Non Tender, Normal Bowel Sounds and Distended
Musculoskeletal: No Clubbing and No Cyanosis
Skin: Jaundice and IV/Catheter Site
Neuro: Awake and AO x 3
Psych: Intact Judgment/Insight and Anxious
Laboratory Results
-
07/26/25 11:58
Laboratory Results
PT 17.0 Sec (11.4-14.6) H 07/26/25 11:58
INR 1.37 07/26/25 11:58
APTT 36.6 Sec (23.4-35.0) H 07/26/25 11:58
Total Bilirubin Cancelled 07/26/25 12:39
AST Cancelled 07/26/25 12:39
ALT Cancelled 07/26/25 12:39
Alkaline Phosphatase Cancelled 07/26/25 12:39
Data Reviewed
-
Lab Data: Labs Reviewed by me (hgb 10.8, hct 29.7, Na+ 119, chloride 93, CO2 17, BUN 27, creat 1.5, eGFR 52.97, Ca+ 8.3)
Impression/Plan
-
IMPRESSION/PLAN:
#worsening liver function on out patent labs 2/2 nonalcoholic cirrhosis
#nonalcoholic cirrhosis
#recurrent ascites
unclear etiology of cirrhosis, weekly paracentesis, last one Tuesday07/22/2025, with 6600cc drained
hgb 10.8, hct 29.7, Tot Bili 2.7, Alk Phos 140
- Admit to telemetry
- pending transfer to [facility], accepted, awaiting a bed
- continue lactulose, furosemide and spironolactone
#chronic hyponatremia
Na+ 119
- consult nephrology
- 3% Saline per nephrology
- fluid restriction of 40 ounces daily
- q4 Na+
#chronic kidney disease III
BUN 27, creat 1.5, eGFR 52.97
- monitor BMP
#paroxysmal atrial fibrillation
- continue carvedilol
#GERD
- continue pantoprazole
#esophageal varices
#essential hypertension
Code status: Full code
DVT prophylaxis: SCDs
[2025-07-26 15:47] LABS: ALT (SGPT) 17 U/L (0-50); AST (SGOT) 33 U/L (17-59); Albumin 3.0 g/dl (3.5-5.0); Alkaline Phosphatase 140 U/L (38-126); Potassium 4.0 mmol/L (3.5-5.1); Total Protein 5.8 g/dl (6.3-8.2)
--- NOTE | 2025-07-26 18:12 | EDRN ---
Per admitting hospitalist Dr Aviles to this MANAGED CARE NURSE, the pt now has a bed available at [facility] and this MANAGED CARE NURSE is to STOP the 3% Saline infusion when transport gets here and will NOT go down to [facility] via EMS with it.
--- NOTE | 2025-07-26 18:27 | EDRN ---
per [place] transfer center, the pt has a bed at [facility].
Building is [place] [id number] @ [facility]
Room 944
Address is [address] [place] [address]
and the pt can NOT be transferred to [facility] via emswith the 3% saline infusion running
[2025-07-26 19:12] LABS: Sodium 120 mmol/L (135-145)
--- NOTE | 2025-07-26 19:25 | EDRN ---
Hospitalist Dr Aviles was notified of this pts repeat Sodium -120. no new orders at this time. Plan is to keep 3% hypertonic infusion running until EMS transport arrives at approx 2130 to transfer this pt to [facility]. Then the 3% hypertonic infusion
will be stopped at the time of EMS arrival
--- NOTE | 2025-07-26 21:15 | EDRN ---
Sodium Chloride 3% infusion at 30mls/hr was STOPPED at this time per hospitalist Dr Aviles verbal order. [facility] is transferring this pt to [address] Room 944 at this time. Bedside verbal report was given to Acute Care Medic Sheri at
this time
== END 2025-07-26 21:30 | disposition short-term general hospital (02) | DRG 433 ==
LOC: ED 17:05
PROVIDERS: Nurse Practitioner; Nurse Practitioner Family; ADMITTING PHYSICIAN Hospitalist; EMERGENCY PHYSICIAN Emergency Medicine; OTHER PHYSICIAN Specialist
DX: K74.60 Unspecified cirrhosis of liver (principal); E87.1 Hypo-osmolality and hyponatremia; I85.10 Secondary esophageal varices without bleeding; R18.8 Other ascites; K76.6 Portal hypertension; E87.20 Acidosis, unspecified; N18.30 Chronic kidney disease, stage 3 unspecified; I12.9 Hypertensive chronic kidney disease with stage 1 through stage 4 chronic kidney disease, or unspecified chronic kidney disease; F17.210 Nicotine dependence, cigarettes, uncomplicated; K72.10 Chronic hepatic failure without coma; I48.0 Paroxysmal atrial fibrillation; F41.9 Anxiety disorder, unspecified; K21.9 Gastro-esophageal reflux disease without esophagitis; Z79.899 Other long term (current) drug therapy
CPT/HCPCS: 80048; 80076; 83930; 84132; 84295; 85025; 85610; 85730; 96374; 99284

== ENCOUNTER → 2025-08-13 06:48 | Outpatient (REF) | payer OTHER, SELFPAY ==
[2025-08-13 07:35] VITALS: BP 123/86; BP_SYST 130
[2025-08-13 08:30] LABS: Blood Urea Nitrogen 22 mg/dl (9-20); Calcium 9.3 mg/dl (8.4-10.2); Carbon Dioxide 13 mmol/L (22-30); Chloride 98 mmol/L (98-107); Glucose 92 mg/dl (70-99); Potassium 4.9 mmol/L (3.5-5.1); Sodium 123 mmol/L (135-145); eGFR 39.89
[2025-08-13 08:35] VITALS: BP 123/66
--- NOTE | 2025-08-13 08:58 | PTCARENOTE ---
Labs drawn as ordered. Critical values TigerTexted to Dr. Davis. Instructed to take patient to ED for critical labs. Charge nurse Alina called, pt. transported to ED triage via wheelchair. called and informed of this. OID informed of pt. going to
ED.
[2025-08-13 10:47] LABS: Body Fluid Second Tech HB
== END ==
LOC: RADI 06:48
PROVIDERS: ATTENDING PHYSICIAN Specialist; FAMILY PHYSICIAN Internal Medicine
DX: R18.8 Other ascites (principal)
CPT/HCPCS: 36415; 49083; 80048; 80053; 85025; 85610; 87015; 87070; 87205; 89051; P9047

== ENCOUNTER 2025-08-13 08:50 | Emergency (ER) | payer OTHER, SELFPAY ==
[2025-08-13] VITALS (7 sets, daily range): BP systolic 105–131; BP diastolic 67–75; BMI 27.5
--- NOTE | 2025-08-13 09:49 | ED.GENMED ---
History of Present Illness
General
Chief Complaint: Abnormal Lab Value
Source: patient
Exam Limitations: none
Time Seen by Provider: 08/13/25 09:36
History of Present Illness
History of Present Illness:
60-year-old male with history of cirrhosis gets weekly paracentesis came from interventional radiology. He had paracentesis performed today which they drained 7 to 8 L. They advised him however that some of his laboratory findings were abnormal
including his CO2 level which was 13. Does have a history of hyponatremia and his sodium today was 123. Patient has no complaints to offer including chest pain or shortness of breath. He does note that he was vomiting yesterday. No fevers. No
other complaints at this time
Past History
Past History
ED Past Medical History: Arrthythmia and Other (Hepatic cirrhosis, left facial/jaw)
ED Past Surgical History: Orthopedic (Left wrist surgery) and Other (Paracentesis)
Patient has exhibited threatening behavior?: No
Social History
Tobacco: Non-smoker
Alcohol: None
Drug: None
Personal:
Living: with family
Employment: Other
Family History
Family History: Other
Phy Exam
Physical Exam
Physical Exam:
General: Well-appearing male no acute respiratory distress
HEENT normal cephalic atraumatic heart: Regular rate and rhythm
Lungs: Clear no wheeze
Abdomen is soft nontender nondistended
Extremities: No cyanosis
Course
Orders/Labs/Results
Orders:
Orders
08/13/25 10:06
Complete Blood Count/With Diff Urgent
Comprehensive Metabolic Panel Urgent
08/13/25 10:07
0.9% Sodium Chloride 250 ml [Nss] 250 ml IV BOLUS
08/13/25 12:14
Sodium Bicarbonate 50 meq IV NOW STA
08/13/25 12:30
Albumin Human 25% 100 ml [Flexbumin] 25 grams in 100 ml IV TODAY
Albumin Human 25% 50 ml [Flexbumin] 12.5 grams in 50 ml IV TODAY
08/13/25 12:35
Prothrombin Time Urgent
Abnormal Lab Results
08/13/25 08/13/25
10:06 12:35
RBC 2.84 L 10^6/uL
(4.70-6.10)
Hgb 10.1 L g/dL
(13.0-18.0)
Hct 28.2 L %
(39.0-52.0)
MCV 99.3 H fL
(80.0-94.0)
MCH 35.6 H pg
(27.0-31.0)
RDW 15.8 H %
(11.5-14.5)
Plt Count 108 L 10^3/uL
(130-400)
Abs Immat Gran (auto) 0.1 H 10^3/uL
(0-0.05)
Absolute Neuts (auto) 7.0 H 10^3/uL
(1.4-6.5)
Absolute Lymphs (auto) 0.9 L 10^3/uL
(1.2-3.4)
Absolute Monos (auto) 0.8 H 10^3/uL
(0.1-0.6)
Immature Gran % 1.1 H %
(0-0.5)
Neutrophils % 76.8 H %
(42.2-75.2)
Lymphocytes % 9.5 L %
(20.5-51.1)
PT 18.1 H Sec
(11.4-14.6)
Sodium 120 L mmol/L
(135-145)
Chloride 97 L mmol/L
(98-107)
Carbon Dioxide 14 L* mmol/L
(22-30)
BUN 23 H mg/dl
(9-20)
Creatinine 1.9 H mg/dL
(0.7-1.3)
Total Bilirubin 2.6 H mg/dl
(0.2-1.3)
Total Protein 6.2 L g/dl
(6.3-8.2)
Albumin 3.4 L g/dl
(3.5-5.0)
08/13/25 10:06
08/13/25 10:06
Vital Signs
Initial and Last Documented VS:
Initial Vital Signs
Temp Pulse Resp BP Pulse Ox
98.7 F 97 20 131/74 100
08/13/25 08:53 08/13/25 08:53 08/13/25 08:53 08/13/25 08:53 08/13/25 08:53
Last Documented Vital Signs
Temp Pulse Resp BP Pulse Ox
98.6 F 98 16 109/68 98
08/13/25 14:00 08/13/25 14:00 08/13/25 14:00 08/13/25 14:00 08/13/25 14:00
MDM/Problems Addressed
Differential Diagnosis Includes:
Patient here with really no complaints but was told by his CO2 level was low. Will recheck it today.
*Pulse Oximetry
SaO2: 100
Oxygen Mode of Delivery: Room air
Patient hypoxic: no
*Critical Care Note
Total Time (30-74mins, 75-104mins- exclusive of procedures): Not Applicable
Update Note
Update Note:
Spoke with patient's GI doctor, Dr. Davis who recommended the patient receive albumin as well as some bicarb for the acid 6. Patient received an amp of bicarb here and 37.5 g of albumin. Patient remained stable and nontoxic. No indication for
admission
ED Attending Note
-
Portions of this chart may have been created with voice recognition software.� Occasional wrong word or��sound alike� substitutions may have occurred due to the inherent limitations of voice recognition software.
Discharge Plan
Departure
Patient Disposition: Home (Routine Discharge)
Date of Disposition: 08/13/25
Time of Disposition: 14:22
Patient with high blood pressure during this ER visit?: No
Discharge Problem:
Acidosis, metabolic
Instructions: Dehydration, Adult (DC)
Prescriptions:
No Action
pantoprazole 40 mg Tablet,Delayed Release (Dr/Ec)
40 mg PO DAILY 30 Days Qty: 30 0RF
trazodone 50 mg Tablet
50 mg PO HS
ciprofloxacin HCl 500 mg tablet
500 mg PO DAILY
carvedilol 3.125 mg tablet
3.125 mg PO BID
lactulose 10 gram/15 mL solution
10 g PO TID
spironolactone 50 mg Tablet
50 mg PO DAILY
sertraline 50 mg Tablet
50 mg PO NOON
oxycodone 5 mg Tablet
5 - 10 mg PO BID PRN (Reason: severe pain)
Cholestyramine Light 4 gram Powder In Packet
4 g PO BID
furosemide 80 mg Tablet
80 mg PO .SEE BELOW
Patient Comments:
CURRENTLY ON HOLD FOR ABOUT TWO WEEKS PER PT; WAS TAKING DAILY BEFORE PLACED ON HOLD - [facility] 08/13/25
sodium chloride 1,000 mg Tablet,Soluble
1,000 mg PO .SEE BELOW
Patient Comments:
CURRENTLY ON HOLD FOR ABOUT TWO WEEKS PER PT; WAS TAKING BID BEFORE PLACED ON HOLD - O 08/13/25
Referrals:
UNKNOWN - PT DOES,NOT KNOW [Family Provider]
Activity Restrictions/Additional Instructions:
Rest. Stay hydrated. Return if worse otherwise follow-up as scheduled
Interventions
Interventions:
*General Assessment Last Done: 08/13/25 10:19
*Neglect/Abuse Screening Last Done: 08/13/25 08:53
*ED COVID-19 Vaccine History Last Done: 08/13/25 10:19
*ED Influenza Vaccine History Last Done: 08/13/25 10:19
[facility] Fall Risk Assessment Tool Last Done: 08/13/25 10:19
*Risk Screen - Suicide (C-SSRS) Last Done: 08/13/25 10:19
Discharge Date and Time
Print Language: SOU[place]UD[place]
[2025-08-13] MEDS: NSS 250 IV (10:26)
[2025-08-13 10:27] LABS: Hematocrit 28.2 % (39.0-52.0); Hemoglobin 10.1 g/dL (13.0-18.0); Mean Corp Hgb Conc. 35.8 g/dL (33.0-37.0); Mean Corpuscular Volume 99.3 fL (80.0-94.0); Nucleated Red Blood Cells % 0 % (-); Platelet Count 108 10^3/uL (130-400); Red Cell Dist. Width 15.8 % (11.5-14.5)
[2025-08-13 10:37] LABS: ALT (SGPT) 18 U/L (0-50); AST (SGOT) 32 U/L (17-59); Albumin 3.4 g/dl (3.5-5.0); Alkaline Phosphatase 122 U/L (38-126); Blood Urea Nitrogen 23 mg/dl (9-20); Calcium 9.2 mg/dl (8.4-10.2); Carbon Dioxide 14 mmol/L (22-30); Chloride 97 mmol/L (98-107); Estimated Creatinine Clearance 37 ml/min; Glucose 84 mg/dl (70-99); Potassium 5.1 mmol/L (3.5-5.1); Sodium 120 mmol/L (135-145); Total Protein 6.2 g/dl (6.3-8.2); eGFR 39.89
[2025-08-13] MEDS: SODIUM BICARBONATE 50 MEQ IV (12:32)
[2025-08-13] MEDS: FLEXBUMIN 100 IV (12:38)
[2025-08-13] MEDS: FLEXBUMIN 50 IV (12:39)
[2025-08-13 14:01] LABS: INR 1.48; PT 18.1 Sec (11.4-14.6)
== END 2025-08-13 15:22 | disposition home or self-care (01) ==
LOC: EMR 08:50
PROVIDERS: Physician Assistant; EMERGENCY PHYSICIAN Emergency Medicine
DX: E87.20 Acidosis, unspecified (principal); K74.60 Unspecified cirrhosis of liver
CPT/HCPCS: 99284; 96365; 96366 ×4; 96375; 80053; 85025; 85610; P9047